=== PATIENT | male | born 1980 | race Two or more races ===

== ENCOUNTER 2017-08-23 17:29 | Inpatient (IN) | payer MEDICAID ==
[~2017-08-23] VITALS: Ht 182.9 cm; Wt 79.7 kg
[2017-08-23] MEDS ORDERED: SODIUM CHLORIDE 0.9% 1,000 ML IV ONE (18:08)
[2017-08-23 18:42] LABS: Basophils # (auto) 0.1 uL; Basophils % (auto) 0.5 % (0.0-2.0); Eosinophils # (auto) 0 uL; Hematocrit 50.1 % (41.0-53.0); Hemoglobin 16.9 g/dL (13.5-17.5); Lymphocytes # (auto) 0.4 uL; Lymphocytes % (auto) 1.9 % (10.0-50.0); Mean Corpuscular Hemoglobin 31.1 pg (28.0-32.0); Mean Corpuscular Hgb Conc. 33.8 g/dL (32.0-36.0); Mean Corpuscular Volume 92.2 fL (80.0-100.0); Monocytes # (auto) 1.4 uL; Monocytes % (auto) 6.5 % (0.0-12.0); Neutrophils # (auto) 20.1 uL; Neutrophils % (auto) 91.1 % (37.0-80.0); Nucleated Red Blood Cells % 0.4 %; Red Blood Cells 5.43 10^6/uL (4.5-5.90); Red Cell Distribution Width 12.6 % (11.8-14.3); White Blood Cell 22.1 10^3/uL (4.4-10.8)
[2017-08-23 18:53] LABS: Alanine Aminotransferase 16 U/L (16-61); Albumin 2.9 g/dL (3.4-5.0); Anion Gap 25 (5-15); Aspartate Aminotransferase 7 U/L (15-37); BUN/Creatinine Ratio 11.3; Blood Urea Nitrogen 14 mg/dL (7-18); Calcium 8.9 mg/dL (8.5-10.1); Chloride 93 mmol/L (98-107); GFR African American 84 mL/min; GFR Non-African American 69 mL/min; Glucose 355 mg/dL (74-106); Magnesium 2.2 mg/dL (1.6-2.6); Potassium 4.5 mmol/L (3.5-5.1); Sodium 126 mmol/L (136-145)
[2017-08-23 18:57] LABS: Alkaline Phosphatase 146 U/L (45-117); Bilirubin, Total 0.6 mg/dL (0.2-1.0)
[2017-08-23 19:02] LABS: Carbon Dioxide 8 mmol/L (21-32)
[2017-08-23] MEDS ORDERED: DEXTROSE (50%) 50ML SYRG IV PRN (19:15)
[2017-08-23] MEDS: ACCU-CHEK COMFORT CURVE STRIP VI SCH ×5 (19:15→23:23)
[2017-08-23] MEDS ORDERED: ONDANSETRON HCL 4 MG/2 ML VIAL ONE (19:56)
[2017-08-23] MEDS ORDERED: MORPHINE SULFATE 4 MG/ML SYR/VIAL ONE (19:56)
[2017-08-23] MEDS ORDERED: MORPHINE SULFATE 4 MG/ML SYR/VIAL IV ONE (20:00)
[2017-08-23] MEDS ORDERED: ONDANSETRON HCL 4 MG/2 ML VIAL IV ONE (20:00)
[2017-08-23 20:20] LABS: Platelet Count (auto) 238 10^3/uL (140-450)
[2017-08-23] MEDS: InsuLIN R (HUMAN) 100 UNITS in SODIUM CHL 0.9% 99 ML IV SCH (20:24)
[2017-08-24] MEDS: ACCU-CHEK COMFORT CURVE STRIP VI SCH ×24 (00:18→23:31)
[2017-08-24] MEDS ORDERED: ONDANSETRON HCL 4 MG/2 ML VIAL IV PRN (02:30)
[2017-08-24] MEDS ORDERED: HYDROcodone-ACET 5/325MG TAB PO PRN (02:30)
[2017-08-24 02:59] LABS: Urine WBC None Seen /hpf (0 - 3)
[2017-08-24 03:03] LABS: Basophils # (auto) 0.1 uL; Basophils % (auto) 0.4 % (0.0-2.0); Eosinophils # (auto) 0 uL; Eosinophils % (auto) 0.1 % (0.0-7.0); Hematocrit 40.5 % (41.0-53.0); Lymphocytes # (auto) 0.3 uL; Mean Corpuscular Hgb Conc. 34.6 g/dL (32.0-36.0); Mean Corpuscular Volume 89.6 fL (80.0-100.0); Monocytes # (auto) 1.3 uL; Monocytes % (auto) 8.4 % (0.0-12.0); Neutrophils # (auto) 14.4 uL; Neutrophils % (auto) 89.1 % (37.0-80.0); Platelet Count (auto) 190 10^3/uL (140-450); Red Blood Cells 4.52 10^6/uL (4.5-5.90); Red Cell Distribution Width 12.6 % (11.8-14.3); White Blood Cell 16.1 10^3/uL (4.4-10.8)
[2017-08-24 03:11] LABS: Urine Bacteria NONE SEEN /hpf (None Seen); Urine Blood TRACE /uL (Negative); Urine Hyaline Cast FEW /lpf (0 - 2); Urine Mucus FEW (None Seen); Urine Specific Gravity 1.022 (1.001-1.035)
[2017-08-24 07:22] LABS: BUN/Creatinine Ratio 13.3; Bilirubin, Total 0.5 mg/dL (0.2-1.0); Calcium 8.1 mg/dL (8.5-10.1); Potassium 4.1 mmol/L (3.5-5.1); Total Protein 6.7 g/dL (6.4-8.2)
[2017-08-24] MEDS: SODIUM CHLORIDE 0.9% 1,000 ML IV SCH ×2 (15:32→22:39)
[2017-08-24 16:29] LABS: BUN/Creatinine Ratio 11.8; Calcium 8.2 mg/dL (8.5-10.1); Potassium 3.5 mmol/L (3.5-5.1)
[2017-08-24 19:38] LABS: BUN/Creatinine Ratio 9.2; Calcium 8.6 mg/dL (8.5-10.1); Potassium 3.2 mmol/L (3.5-5.1)
[2017-08-24] MEDS: InsuLIN R (HUMAN) 100 UNITS in SODIUM CHL 0.9% 99 ML IV SCH (19:38)
[2017-08-24 23:11] LABS: Alcohol, Urine < 3.0 mg/dL (0-5); Amphetamine Screen, Urine NEGATIVE (NEGATIVE); Barbiturate Scree,Urine NEGATIVE (NEGATIVE); Benzodiazephine Screen, Urine NEGATIVE (NEGATIVE); Cannabinoid Screen, Urine NEGATIVE (NEGATIVE); Cocaine Screen, Urine NEGATIVE (NEGATIVE); Opiate Scree,Urine NEGATIVE (NEGATIVE); Phencyclidine Screen, Urine NEGATIVE (NEGATIVE)
[2017-08-25] MEDS: ACCU-CHEK COMFORT CURVE STRIP VI SCH ×16 (00:20→19:36)
[2017-08-25] MEDS ORDERED: IPRATROPIUM BROM 0.5 MG/2.5ML INH SOL NEB ONE (03:15)
[2017-08-25] MEDS ORDERED: ALBUTEROL SULF 2.5 MG/0.5ML(0.5%) NEB SOLN NEB ONE (03:15)
[2017-08-25 06:00] LABS: Basophils # (auto) 0 uL; Basophils % (auto) 0.2 % (0.0-2.0); Eosinophils # (auto) 0 uL; Eosinophils % (auto) 0.3 % (0.0-7.0); Hematocrit 34.9 % (41.0-53.0); Hemoglobin 12.2 g/dL (13.5-17.5); Lymphocytes # (auto) 0.7 uL; Lymphocytes % (auto) 5.7 % (10.0-50.0); Mean Corpuscular Hemoglobin 30.9 pg (28.0-32.0); Mean Corpuscular Hgb Conc. 34.9 g/dL (32.0-36.0); Mean Corpuscular Volume 88.5 fL (80.0-100.0); Monocytes # (auto) 1.3 uL; Monocytes % (auto) 9.7 % (0.0-12.0); Neutrophils # (auto) 10.9 uL; Neutrophils % (auto) 84.1 % (37.0-80.0); Platelet Count (auto) 190 10^3/uL (140-450); Red Blood Cells 3.94 10^6/uL (4.5-5.90); Red Cell Distribution Width 12.5 % (11.8-14.3); White Blood Cell 12.9 10^3/uL (4.4-10.8)
[2017-08-25 06:05] LABS: Calcium 8.6 mg/dL (8.5-10.1)
[2017-08-25 06:07] LABS: BUN/Creatinine Ratio 7.7
[2017-08-25 06:49] LABS: Potassium 2.9 mmol/L (3.5-5.1)
[2017-08-25] MEDS: SODIUM CHLORIDE 0.9% 1,000 ML IV SCH ×3 (06:53→23:40)
[2017-08-25] MEDS ORDERED: POTASSIUM CHL 20 Meq TABLET PO ONE ×2 (07:00→11:30)
[2017-08-25] MEDS: ACETAMINOPHEN 500 MG TAB PO PRN ×2 (10:35→20:21)
[2017-08-25 11:11] LABS: BUN/Creatinine Ratio 8.9; Calcium 8.2 mg/dL (8.5-10.1); Potassium 3.1 mmol/L (3.5-5.1)
[2017-08-25] MEDS ORDERED: INSULIN LANTUS (GLARGINE) 1 /0.01ml (100units/ml) SC ONE (11:30)
[2017-08-25] MEDS ORDERED: DEXTROSE (50%) 50ML SYRG IV PRN (12:45)
[2017-08-25] MEDS: InsuLIN REG 1unit/0.01ml Soln (100units/ml) SC SCH ×2 (16:40→19:41)
[2017-08-25 17:15] LABS: BUN/Creatinine Ratio 10.1; Potassium 3.5 mmol/L (3.5-5.1)
[2017-08-25] MEDS: InsuLIN R (HUMAN) 100 UNITS in SODIUM CHL 0.9% 99 ML IV SCH (17:18)
[2017-08-25] MEDS: INSULIN LANTUS (GLARGINE) 1 /0.01ml (100units/ml) SC SCH (21:55)
[2017-08-25] MEDS ORDERED: INSLANTI SC (23:36)
[2017-08-25] MEDS ORDERED: BENA5TAB5 PO (23:36)
[2017-08-25] MEDS ORDERED: SIMV10TA84 PO (23:36)
[2017-08-25] MEDS ORDERED: INSUINJ18 SC (23:36)
[2017-08-25] MEDS ORDERED: GABA-339 PO (23:36)
[2017-08-26] MEDS: ACCU-CHEK COMFORT CURVE STRIP VI SCH ×3 (00:25→08:34)
[2017-08-26] MEDS: InsuLIN REG 1unit/0.01ml Soln (100units/ml) SC SCH ×3 (00:27→08:00)
[2017-08-26 05:08] VITALS: BP 102/48
[2017-08-26] MEDS: INSULIN LANTUS (GLARGINE) 1 /0.01ml (100units/ml) SC SCH (06:25)
[2017-08-26] MEDS: ACETAMINOPHEN 500 MG TAB PO PRN (06:27)
[2017-08-26 06:37] LABS: Basophils # (auto) 0 uL; Basophils % (auto) 0.2 % (0.0-2.0); Eosinophils # (auto) 0 uL; Eosinophils % (auto) 0.4 % (0.0-7.0); Hematocrit 35.9 % (41.0-53.0); Hemoglobin 12.6 g/dL (13.5-17.5); Lymphocytes # (auto) 0.9 uL; Lymphocytes % (auto) 8.9 % (10.0-50.0); Mean Corpuscular Hemoglobin 31.1 pg (28.0-32.0); Mean Corpuscular Hgb Conc. 35.2 g/dL (32.0-36.0); Mean Corpuscular Volume 88.5 fL (80.0-100.0); Monocytes # (auto) 1.1 uL; Monocytes % (auto) 11.1 % (0.0-12.0); Neutrophils # (auto) 7.8 uL; Neutrophils % (auto) 79.4 % (37.0-80.0); Nucleated Red Blood Cells % 0.3 %; Platelet Count (auto) 230 10^3/uL (140-450); Red Blood Cells 4.06 10^6/uL (4.5-5.90); Red Cell Distribution Width 12.7 % (11.8-14.3); White Blood Cell 9.8 10^3/uL (4.4-10.8)
[2017-08-26 06:52] LABS: BUN/Creatinine Ratio 6.9; Calcium 8.1 mg/dL (8.5-10.1); Magnesium 1.9 mg/dL (1.6-2.6)
[2017-08-26 07:30] VITALS: BP 114/69
[2017-08-26 09:00] VITALS: BP 114/69
[2017-08-26] MEDS ORDERED: MAGNESIUM SULFATE 1GM/100ML 100 ML IV ONE (09:30)
[2017-08-26] MEDS ORDERED: DEXTROSE (50%) 50ML SYRG IV PRN (09:30)
[2017-08-26] MEDS ORDERED: POTASSIUM CHL 20 Meq TABLET PO ONE (09:30)
[2017-08-26] MEDS: SODIUM CHLORIDE 0.9% 1,000 ML IV SCH (09:45)
[2017-08-26] MEDS ORDERED: InsuLIN REG 1unit/0.01ml Soln (100units/ml) SC SCH (11:30)
[2017-08-26] MEDS ORDERED: ACCU-CHEK COMFORT CURVE STRIP VI SCH (11:30)
[2017-08-26] MEDS ORDERED: guaiFENesin 200 MG/10 ML UD PO ONE (12:45)
[2017-08-26] MEDS ORDERED: guaiFENesin-DM 100/10mg/5ml SYR PO ONE (12:45)
[2017-08-26 13:00] VITALS: BP 113/64
== END 2017-08-26 17:20 | disposition home or self-care (01) | DRG 420 ==
LOC: EDBD 17:29 → ER 17:48 → OVERFLOW 17:49 → WEST WING 08-25 22:10
PROVIDERS: ADMIT Nurse Practitioner Family; ATTEND Internal Medicine
DX: E11.10 Type 2 diabetes mellitus with ketoacidosis without coma (principal); E44.0 Moderate protein-calorie malnutrition; I10 Essential (primary) hypertension; E78.5 Hyperlipidemia, unspecified; D72.829 Elevated white blood cell count, unspecified; E87.6 Hypokalemia; F17.210 Nicotine dependence, cigarettes, uncomplicated; F15.90 Other stimulant use, unspecified, uncomplicated; Z91.19 Patient's noncompliance with other medical treatment and regimen; Z71.51 Drug abuse counseling and surveillance of drug abuser
CPT/HCPCS: 36415; 36600; 71045; 80048; 80053; 80061; 80307; 81001; 82010; 82805; 82962; 83036; 83735; 83880; 83930; 84484; 85025; 93005; 96361; 96374; 96375; 99291; G0378; J1815; J2405

== ENCOUNTER 2018-06-30 00:23 | Emergency (ER) | payer MEDICAID ==
[~2018-06-30] VITALS: Ht 182.9 cm; Wt 113.4 kg
[~2018-06-30 00:23] MED LIST: INSLANTI SC; INSUINJ18 SC; SIMV10TA84 PO
[2018-06-30 06:22] LABS: Basophils # (auto) 0 uL; Basophils % (auto) 0.2 % (0.0-2.0); Eosinophils # (auto) 0 uL; Eosinophils % (auto) 0.3 % (0.0-7.0); Hematocrit 41.1 % (41.0-53.0); Hemoglobin 13.7 g/dL (13.5-17.5); Lymphocytes # (auto) 0.4 uL; Lymphocytes % (auto) 4.7 % (10.0-50.0); Mean Corpuscular Hemoglobin 30.1 pg (28.0-32.0); Mean Corpuscular Hgb Conc. 33.3 g/dL (32.0-36.0); Mean Corpuscular Volume 90.6 fL (80.0-100.0); Monocytes # (auto) 0.5 uL; Monocytes % (auto) 5.7 % (0.0-12.0); Neutrophils # (auto) 7.7 uL; Neutrophils % (auto) 89.1 % (37.0-80.0); Platelet Count (auto) 171 10^3/uL (140-450); Red Blood Cells 4.53 10^6/uL (4.5-5.90); White Blood Cell 8.7 10^3/uL (4.4-10.8)
[2018-06-30 06:31] LABS: Albumin 3.1 g/dL (3.4-5.0); BUN/Creatinine Ratio 16.3; Calcium 7.9 mg/dL (8.5-10.1); Potassium 3.7 mmol/L (3.5-5.1)
[2018-06-30 06:33] LABS: Total Protein 6.7 g/dL (6.4-8.2)
[2018-06-30] MEDS ORDERED: KETOROLAC TROMETH 60MG/2ML VIAL IM ONE (09:15)
[2018-06-30] MEDS ORDERED: SODIUM CHLORIDE 0.9% 1,000 ML IV ONE ×2 (09:16)
[2018-06-30 09:20] LABS: Urine WBC None Seen /hpf (0 - 3)
[2018-06-30] MEDS ORDERED: InsuLIN REG 1unit/0.01ml Soln (100units/ml) IV ONE (09:30)
[2018-06-30 09:31] LABS: Urine Bacteria NONE SEEN /hpf (None Seen); Urine Blood Negative /uL (Negative); Urine Specific Gravity 1.037 (1.001-1.035)
[2018-06-30 11:01] VITALS: BP 108/66
== END 2018-06-30 11:16 | disposition home or self-care (01) ==
LOC: EDBD 00:23 → ER 00:29
DX: E11.65 Type 2 diabetes mellitus with hyperglycemia (principal); M79.604 Pain in right leg; M79.605 Pain in left leg; I10 Essential (primary) hypertension; F17.210 Nicotine dependence, cigarettes, uncomplicated; E78.5 Hyperlipidemia, unspecified; Z79.4 Long term (current) use of insulin; Z79.899 Other long term (current) drug therapy
CPT/HCPCS: 36415; 72100; 80053; 81001; 82010; 82962; 84702; 85025; 96361; 96372; 96374; 99284; J1815; J1885; J7030

== ENCOUNTER 2024-01-16 13:53 | Inpatient (IN) | payer MEDICAID ==
[~2024-01-16] VITALS: Ht 182.9 cm; Wt 95.8 kg
[~2024-01-16 13:53] MED LIST changes: +SIMV10TA20 PO; -SIMV10TA84 PO
[2024-01-16 14:56] VITALS: PULSE 96; RESP 18; O2SAT 96
[2024-01-16 16:14] LABS: Alanine Aminotransferase 12 U/L (7-40); Albumin 3.9 g/dL (3.2-4.8); Alkaline Phosphatase 117 U/L (46-116); Anion Gap 17 (5-15); Aspartate Aminotransferase 10 U/L (13-40); BUN/Creatinine Ratio 11.6 (10.0-20.0); Bilirubin, Total 0.3 mg/dL (0.2-1.0); Blood Urea Nitrogen 15 mg/dL (9-23); Calcium 9.9 mg/dL (8.7-10.4); Carbon Dioxide 15 mmol/L (20-30); Chloride 105 mmol/L (98-107); Glucose 158 mg/dL (74-106); Potassium 3.7 mmol/L (3.5-5.1); Sodium 137 mmol/L (136-145); Total Protein 7.2 g/dL (5.7-8.2)
[2024-01-16 16:23] LABS: Basophils # (auto) 0 10 ^3/uL (0-0.2); Basophils % (auto) 0.3 % (0.0-2.0); Eosinophils # (auto) 0.4 10 ^3/uL (0-0.8); Eosinophils % (auto) 6.5 % (0.0-7.0); Hematocrit 48.5 % (41.0-53.0); Hemoglobin 16.9 g/dL (13.5-17.5); Lymphocytes # (auto) 1.1 10 ^3/uL (0.4-5.4); Lymphocytes % (auto) 19.2 % (10.0-50.0); Mean Corpuscular Hemoglobin 30.3 pg (28.0-32.0); Mean Corpuscular Hgb Conc. 34.9 g/dL (32.0-36.0); Mean Corpuscular Volume 86.9 fL (80.0-100.0); Monocytes # (auto) 0.8 10 ^3/uL (0-1.3); Monocytes % (auto) 14.1 % (0.0-12.0); Neutrophils # (auto) 3.4 10 ^3/uL (1.6-8.6); Neutrophils % (auto) 59.9 % (37.0-80.0); Nucleated Red Blood Cells % 0.8 %; Red Blood Cells 5.58 10^6/uL (4.5-5.90); Red Cell Distribution Width 13.1 % (11.8-14.3); White Blood Cell 5.6 10^3/uL (4.4-10.8)
[2024-01-16] MEDS ORDERED: ONDANSETRON HCL 4 MG/2 ML VIAL IV PRN (17:15)
[2024-01-16] MEDS ORDERED: DOCUSATE SOD 100 MG CAP PO PRN (17:15)
[2024-01-16] MEDS: SODIUM CHLORIDE 0.9% 1,000 ML IV SCH (17:15)
[2024-01-16] MEDS ORDERED: HYDROcodone-ACET 5/325MG TAB PO PRN (17:15)
[2024-01-16] MEDS ORDERED: DEXTROSE (50%) 50ML SYRG IV PRN (17:15)
[2024-01-16] MEDS ORDERED: MORPHINE SULFATE INJ 2 MG/ml SYRG IV PRN (17:45)
[2024-01-16] MEDS ORDERED: NITROGLYCERIN 0.4 MG SL TAB SL PRN (17:45)
[2024-01-16] MEDS: InsuLIN REG 1unit/0.01ml Soln (100units/ml) SC SCH (22:00)
[2024-01-16] MEDS: ATORVASTATIN 20 MG TAB PO SCH (22:00)
[2024-01-16] MEDS: ACCU-CHEK COMFORT CURVE STRIP VI SCH (22:00)
[2024-01-16 22:45] VITALS: BP 119/79; PULSE 90; RESP 18; TEMP 97.7; O2SAT 94
[2024-01-16 22:55] VITALS: PULSE 90; RESP 18; O2SAT 94
[2024-01-16] MEDS ORDERED: FLUO40CA PO (23:17)
[2024-01-17] VITALS (9 sets, daily range): BP systolic 111–126; BP diastolic 67–77; PULSE 62–89; RESP 18–19; TEMP 97.7–98.8; O2SAT 91–99
[2024-01-17] MEDS: InsuLIN REG 1unit/0.01ml Soln (100units/ml) SC SCH (06:30)
[2024-01-17 07:02] LABS: Alanine Aminotransferase < 9 U/L (7-40); Alkaline Phosphatase 99 U/L (46-116); Anion Gap 17 (5-15); Basophils # (auto) 0 10 ^3/uL (0-0.2); Basophils % (auto) 0.4 % (0.0-2.0); Blood Urea Nitrogen 10 mg/dL (9-23); Calcium 9.2 mg/dL (8.7-10.4); Carbon Dioxide 16 mmol/L (20-30); Chloride 100 mmol/L (98-107); Eosinophils # (auto) 0.3 10 ^3/uL (0-0.8); Eosinophils % (auto) 7.5 % (0.0-7.0); Glucose 230 mg/dL (74-106); Hematocrit 44.1 % (41.0-53.0); Hemoglobin 15.6 g/dL (13.5-17.5); Lymphocytes # (auto) 1.7 10 ^3/uL (0.4-5.4); Lymphocytes % (auto) 36.3 % (10.0-50.0); Mean Corpuscular Hemoglobin 30.6 pg (28.0-32.0); Mean Corpuscular Hgb Conc. 35.4 g/dL (32.0-36.0); Mean Corpuscular Volume 86.2 fL (80.0-100.0); Monocytes # (auto) 0.7 10 ^3/uL (0-1.3); Monocytes % (auto) 15.8 % (0.0-12.0); Neutrophils # (auto) 1.8 10 ^3/uL (1.6-8.6); Nucleated Red Blood Cells % 0.8 %; Red Blood Cells 5.12 10^6/uL (4.5-5.90); Red Cell Distribution Width 13.8 % (11.8-14.3); Sodium 133 mmol/L (136-145); White Blood Cell 4.6 10^3/uL (4.4-10.8)
[2024-01-17 07:03] LABS: Albumin 3.4 g/dL (3.2-4.8); Aspartate Aminotransferase < 8 U/L (13-40); Bilirubin, Total 0.5 mg/dL (0.2-1.0); Total Protein 6.7 g/dL (5.7-8.2)
[2024-01-17 08:25] LABS: Urine Bacteria None Seen /hpf (None Seen)
[2024-01-17 09:06] LABS: Amphetamine Screen, Urine Neg (NEGATIVE); Barbiturate Scree,Urine Neg (NEGATIVE); Benzodiazephine Screen, Urine Neg (NEGATIVE); Cannabinoid Screen, Urine Neg (NEGATIVE); Cocaine Screen, Urine Neg (NEGATIVE); Opiate Scree,Urine Neg (NEGATIVE); Phencyclidine Screen, Urine Neg (NEGATIVE)
[2024-01-17 09:08] LABS: Urine Blood Negative /uL (Negative); Urine Clarity Clear (Clear); Urine Color Light-Yellow (Yellow); Urine Mucus FEW (None Seen); Urine Protein, UAD TRACE (Negative); Urine Urobilinogen Normal (Negative); Urine WBC 3 /hpf (0 - 3); Urine pH 5.5 (5.0-9.0)
[2024-01-17 09:16] LABS: Urine Specific Gravity > 1.050 (1.001-1.035)
[2024-01-17] MEDS: ASPirin 81 mg TAB PO SCH (11:14)
[2024-01-17 14:54] LABS: Blood Alcohol < 3.0 mg/dL (<10)
[2024-01-17 14:56] LABS: Creatine Kinase IFCC 32 U/L (46-171)
[2024-01-17] MEDS: POTASSIUM CHL 20 Meq TABLET PO ONE (15:19)
[2024-01-18] VITALS (10 sets, daily range): BP systolic 108–117; BP diastolic 62–75; PULSE 62–89; RESP 16–19; TEMP 97.1–98.4; O2SAT 98–100
[2024-01-18] MEDS ORDERED: DEXTROSE (50%) 50ML SYRG IV PRN (09:45)
[2024-01-18] MEDS: InsuLIN REG 1unit/0.01ml Soln (100units/ml) SC SCH ×2 (10:34→21:03)
[2024-01-18] MEDS: SODIUM CHLORIDE 0.9% 1,000 ML IV SCH (10:35)
[2024-01-18] MEDS: ACCU-CHEK COMFORT CURVE STRIP VI SCH (10:41)
[2024-01-18] MEDS: INSULIN LANTUS (GLARGINE) 1 /0.01ml (100units/ml) SC SCH (21:03)
[2024-01-19 01:00] VITALS: BP 124/73; PULSE 75; RESP 18; TEMP 97.9; O2SAT 98
[2024-01-19 05:00] VITALS: BP 141/73; PULSE 68; RESP 19; TEMP 97.4; O2SAT 98
[2024-01-19] MEDS: ACETAMINOPHEN 325 MG TAB PO PRN (05:35)
[2024-01-19 08:00] VITALS: PULSE 79; PULSE 86; RESP 19; O2SAT 98
[2024-01-19 09:00] VITALS: BP 118/64; PULSE 66; RESP 16; TEMP 98; O2SAT 99
[2024-01-19 09:52] VITALS: BP 118/64; PULSE 66; RESP 16; TEMP 97.2; O2SAT 99
== END 2024-01-19 11:30 | disposition home or self-care (01) | DRG 422 ==
LOC: ER 13:53 → TELE 17:43 → TELE-EAST 20:08
PROVIDERS: ADMIT Nurse Practitioner Family; ATTEND Family Medicine
DX: E86.0 Dehydration (principal); G93.41 Metabolic encephalopathy; E10.65 Type 1 diabetes mellitus with hyperglycemia; E87.20 Acidosis, unspecified; F17.210 Nicotine dependence, cigarettes, uncomplicated; F41.9 Anxiety disorder, unspecified; I10 Essential (primary) hypertension; E78.00 Pure hypercholesterolemia, unspecified; R82.4 Acetonuria; Z79.4 Long term (current) use of insulin; Z79.899 Other long term (current) drug therapy
CPT/HCPCS: 36415; 36600; 70450; 71045; 80053; 80307; 80320; 81001; 82010; 82550; 82805; 82962; 83036; 85025; 93005; 96360; G0378; J1815

== ENCOUNTER 2024-05-22 13:28 | Inpatient (IN) | payer MEDICAID ==
[~2024-05-22] VITALS: Ht 182.9 cm; Wt 82.1 kg
[~2024-05-22 13:28] MED LIST changes: +FLUO40CA PO
--- NOTE | 2024-05-22 13:51 | ED.PDOC ---
History of Present Illness HPI Comments 44-year-old male brought by paramedics because of nausea vomiting for the past two days. He has not been taking his NovoLog for his diabetes. His blood sugar on arrival was 460 His heart rate is 105 on arrival. He has increased respiratory rate. He does have a history of hypertension. Blood pressure withi n normal limits on arrival. Unable to get a good history from the patient. Time Seen by MD: 13:34 Primary Care Provider: ? Reviewed Notes: Nurses Notes, Medications, Allergies Allergies: Coded Allergies: NO KNOWN ALLERGIES (Unverified , 09/06/13) Home Meds Reported Medications Fluoxetine Hcl (Fluoxetine Hcl) Unknown Strength Cap, PO 01/16/24 Insulin Glargine (Lantus) 100 Unit/Ml Inj, 40 UNIT SC DAILY@DINNER, INJ 01/18/18 Simvastatin (Simvastatin) 10 Mg Tab, 10 MG PO DAILY for 30 Days, MG 08/25/17 Insulin Aspart Protamine & Asp (Novolog Mix 70/30 Prefill (70-30) 100 Unit/ml) 1 Inj Inj, 1 INJ SC, INJ 08/25/17 Information Source: Patient, Emergency Med Personnel Mode of Arrival: EMS Severity: Moderate Timing: Days Duration: Since onset Past Medical History PAST MEDICAL HISTORY: DM, High Lipids, HTN Surgical History: Pt Confused Family History Family History: Unknown Social History Smoker: Cigarettes, Less Than 1 Pack/Day Alcohol: Denies ETOH Use Drugs: Methamphetamine Lives In: Home Constitutional: denies: chills, diaphoresis, fatigue, fever, malaise, sweats, weakness, others EENTM: denies: blurred vision, double vision, ear bleeding, ear discharge, ear drainage, ear pain, ear ringing, eye pain, eye redness, hearing loss, mouth pain, mouth swelling, nasal discharge, nose bleeding, nose congestion, nose pain, photophobia, tearing, throat pain, throat swelling, voice changes, others Respiratory: denies: cough, hemoptysis, orthopnea, SOB at rest, shortness of breath, SOB with excertion, stridor, wheezing, others Cardiovascular: denies: chest pain, dizzy spells, diaphoresis, Dyspnea on ex ertion, edema, irregular heart beat, left arm pain, lightheadedness, palpitations, PND, syncope, others Gastrointestinal: reports: nausea, vomiting; denies: abdomen distended, abdominal pain, blood streaked bowels, constipated, diarrhea, dysphagia, difficulty swallowing, hematemesis, melena, poor appetite, poor fluid intake, rectal bleeding, rectal pain, others Genitourinary: denies: burning, dysuria, flank pain, frequency, hematuria, incontinence, penile discharge, penile sore, pain, testicle pain, testicle swelling, urgency, others Neurological: denies: dizziness, fainting, headache, left sided numbness, left sided weakness, numbness, paresthesia, pre-existing deficit, right sided numbness, right sided weakness, seizure, speech problems, tingling, tremors, weakness, others Musculoskeletal: denies: back pain, gout, joint pain, joint swelling, muscle pain, muscle stiffness, neck pain, others Integumetry: denies: bruises, change in color, change in hair/nails, dryness, laceration, lesions, lumps, rash, wounds, others Allergic/Immunocompromised: denies: Difficulty Healing, Frequent Infections, Hives, Itching, others Hematologic/Lymphatic: denies: anemia, blood clots, easy bleeding, easy bruising, swollen glands, others Endocrine: denies: excessive hunger, excessive sweating, excessive thirst, excessive urination, flushing, intolerance to cold, intolerance to heat, unexplained weight gain, unexplained weight loss, others Psychiatric: denies: anxiety, bipolar disorder, depression, hopeless, panic disorder, schizophrenia, sleepless, suicidal, others Physical Exam General Appearance: Moderate Distress HEENT: Normal ENT Inspection, Pharynx Normal, TMs Normal Neck: Full Range of Motion, Non-Tender, Normal, Normal Inspection Respiratory: Accessory Muscle Use, Other (Increased respiratory rate) Cardiovascular: Tachycardia Breast Exam: Deferred Gastrointestinal: No Organomegaly, Non Tender, No Pulsatile Mass, Normal Bowel Sounds, Soft Genitalia: Deferred Pelvic: Deferred Rectal: Deferred Extremities: No calf tenderness, Normal capillary refill, Normal inspection, Normal range of motion, Non-tender, No pedal edema Musculoskeletal : Apperance: Normal Neurologic: Disoriented, No Motor Deficits, No Sensory Deficits Cerebellar Function: NOT DONE Reflexes: NOT DONE Skin: Normal Color Peripheral Pulses: 3+ Radial (R), 3+ Radial (L) Lymphatic: No Adenopathy Was a procedure done? Was a procedure done?: No Differential Dx Considerations may include: DKA Electrolyte imbalance X-Ray, Labs, Meds, VS Patient is slightly disoriented. Possibly from high sugar. Possible DKA. Establish intravenous access. Was given fluids. Was given insulin. Arterial blood gas. Reviewed his history. Explained to the patient. Time of 1ST Reevaluation: 13:37 Reevaluation 1ST: Unchanged Patient Education/Counseling: Diagnosis, Treatment, Prognosis Family Education/Counseling: No Family Present Departure 1 Departure Time of Disposition: 13:38 Impression: Primary Impression: Metabolic encephalopathy Additional Impression: Diabetic ketoacidosis Qualified Codes: E13.10 - Other specified diabetes mellitus with ketoacidosis without coma Disposition: ADMITTED INPATIENT Admit to: Med Surg Condition: Guarded Critical Care Note Critical Care Time?: Yes (45 min-critical care time only) Stability Stability form required: No Heart Score Heart Score: Heart Score Response (Comments) Value History N/A 0 EKG N/A 0 Age N/A 0 Risk Factors N/A 0 Troponin N/A 0 Total 0 NICKY HUANG MD May 22, 2024 13:51
[2024-05-22] MEDS ORDERED: DEXTROSE (50%) 50ML SYRG IV PRN (14:00)
[2024-05-22 14:32] LABS: Basophils # (auto) 0.1 10 ^3/uL (0-0.2); Basophils % (auto) 0.5 % (0.0-2.0); Eosinophils # (auto) 0 10 ^3/uL (0-0.8); Eosinophils % (auto) 0.1 % (0.0-7.0); Hemoglobin 16.6 g/dL (13.5-17.5); Lymphocytes # (auto) 0.8 10 ^3/uL (0.4-5.4); Lymphocytes % (auto) 6.2 % (10.0-50.0); Mean Corpuscular Hemoglobin 30.6 pg (28.0-32.0); Mean Corpuscular Hgb Conc. 33.2 g/dL (32.0-36.0); Mean Corpuscular Volume 92.4 fL (80.0-100.0); Monocytes # (auto) 0.5 10 ^3/uL (0-1.3); Monocytes % (auto) 4.1 % (0.0-12.0); Neutrophils # (auto) 11.9 10 ^3/uL (1.6-8.6); Neutrophils % (auto) 89.1 % (37.0-80.0); Nucleated Red Blood Cells % 0.5 %; Platelet Count (auto) 287 10^3/uL (140-450); Red Blood Cells 5.41 10^6/uL (4.5-5.90); Red Cell Distribution Width 14.5 % (11.8-14.3); White Blood Cell 13.3 10^3/uL (4.4-10.8)
[2024-05-22] MEDS: SODIUM CHLORIDE 0.9% 1,000 ML IV SCH ×2 (14:41→17:55)
[2024-05-22 14:42] LABS: Chloride 107 mmol/L (98-107); Potassium 4.8 mmol/L (3.5-5.1); Sodium 138 mmol/L (136-145)
[2024-05-22] MEDS: INSULIN LANTUS (GLARGINE) 1 /0.01ml (100units/ml) SC ONE (14:42)
[2024-05-22 14:43] LABS: Anion Gap 21.00001 (5-15); Calcium 10.3 mg/dL (8.7-10.4)
[2024-05-22 14:48] LABS: Blood Urea Nitrogen 12 mg/dL (9-23)
[2024-05-22 14:49] LABS: Magnesium 2.3 mg/dL (1.6-2.6)
[2024-05-22 14:50] LABS: Phosphorus 5.4 mg/dL (2.4-5.1)
[2024-05-22 14:53] VITALS: PULSE 110; RESP 24; O2SAT 98
[2024-05-22 14:53] LABS: Carbon Dioxide < 10 mmol/L (20-31); Glucose 504 mg/dL (74-106)
[2024-05-22] MEDS: SODIUM BICARB 8.4% 50Meq/50ml SYR Vial IV ONE (15:09)
[2024-05-22] MEDS: ACCU-CHEK COMFORT CURVE STRIP VI SCH (15:09)
[2024-05-22] MEDS: INSULIN DRIP 100 UNIT/100ML 100 ML IV SCH (15:09)
--- NOTE | 2024-05-22 15:24 | DVHHP2 ---
History of Present Illness Reason for Visit: Diabetic ketoacidosis History of Present Illness The patient is a 44-year-old male with past medical history of hyperlipidemia, diabetes mellitus, and hypertension who presented to [facility] ED with complaint of nausea and vomiting for the past 2 days. Patient was seen and evaluated in the ED, laboratory data shows WBC 13.3, platelets 257, sodium 138, potassium 4.8, BUN 12, creatinine 1.72, glucose 504, anion gap 21, phosphorus 5.4, blood pressure 116/67, heart rate 104, temperature 97.6 F, O2 saturation 99% on oxygen. Patient was started on insulin drip, IVF bolus normal saline, please see medication orders section in the computer. On my assessment, patient denied chest pain, no headache, no dizziness, no diaphoresis, no loss of consciousness, no blurry vision, currently on oxygen, no abdominal pain, nausea, or vomiting at this moment, no diarrhea, no fever, no chills. Patient was admitted for further evaluation and medical management. Past Medical History DM, High Lipids, HTN Past Surgical History Denies all surgeries Family History Reviewed, noncontributory to the management of this case. Past Social History Patient lives at home, denies alcohol use, smokes cigarettes less than 1 pack per day, uses methamphetamine. Review of Systems Constitutional: Yes: Weakness; No: Fever, Chills, Sweats, Malaise, Other Eyes: No: Pain, Vision change, Conjunctivae inflammation, Eyelid inflammation, Other, Redness ENT: No: Ear pain, Ear discharge, Nose pain, Nose discharge, Nose congestion, Mouth pain, Mouth swelling, Throat pain, Throat swelling, Other Respiratory: No: Cough, Dry, Shortness of breath, SOB with excertion, Wheezing, Hemoptysis, Pleuritic Pain, Sputum, Wheezing, Other Cardiovascular: No: Chest Pain, Palpitations, Orthopnea, Paroxysmal Noc. Dyspnea, Edema, Lt Headedness, Other Gastrointestinal: Nausea, Vomiting; No: Abdominal Pain, Diarrhea, Constipation, Melena, Hematochezia, Other Genitourinary: No Dysuria, No Frequency, No Incontinence, No Hematuria, No Retention, No Other Musculoskeletal: No: other, neck pain, shoulder pain, arm pain, back pain, hand pain, leg pain, foot pain Skin: No: Rash, Lesions, Jaundice, Bruising, Other Neurological: No: Weakness, Numbness, Incoordination, Change in speech, Confusion, Seizures, Other Allergies: Coded Allergies: NO KNOWN ALLERGIES (Unverified , 09/06/13) Medications Current Medications Medications Dose Ordered Sig/Leandro Route Start Time Stop Time Status Last Admin Dose Admin Sodium Chloride 1,000 ml @ 500 mls/hr Q2H IV 05/22/24 14:00 05/22/24 17:59 05/22/24 14:41 500 MLS/HR Sodium Chloride 1,000 ml @ 250 mls/hr Q4H IV 05/22/24 18:00 05/22/24 19:59 Sodium Chloride 1,000 ml @ 150 mls/hr Q6H40M IV 05/22/24 20:00 Insulin Human (Reg)/Sodium Chloride 100 ml @ 0.5 mls/hr Q24H IV 05/22/24 14:00 05/22/24 15:09 6 MLS/HR Dextrose 50 ml UD PRN IV 05/22/24 14:00 Diagnostic Test (Pha) 1 strip Q90MIN 05/22/24 15:00 05/22/24 15:09 1 STRIP Insulin Glargine 15 units DAILY SC 05/23/24 10:00 Exam Vital Signs Vital Signs Date Time Temp Pulse Resp B/P (MAP) Pulse Ox O2 Delivery O2 Flow Rate FiO2 05/22/24 13:40 97.6 105 26 116/67 (83) 100 General Appearance: Alert, Oriented X3, Cooperative, No acute distress HEENT: Atraumatic, PERRLA, EOMI, Mucous membr. moist/pink Respiratory: Clear to auscultation, Normal air movement Cardiovascular: Regular rate, Normal S1, Normal S2, No murmurs Abdominal: Normal bowel sounds, Soft, No tenderness, No hepatospenomegaly, No masses Extremities: No clubbing, No cyanosis, No edema, Normal pulses, No tenderness/swelling Skin: No rashes, No breakdown, No significant lesion Neuro: Normal speech, Normal tone, Sensation intact, Cranial nerves 3-12 NL, Reflexes 2+, Other (Generalized weakness) Psych/Mental Status: Mental status NL, Mood NL Labs/Xrays Labs Test 05/22/24 14:15 05/22/24 14:09 Range/Units White Blood Count 13.3 H 4.4-10.8 10^3/uL Red Blood Count 5.41 4.5-5.90 10^6/uL Hemoglobin 16.6 13.5-17.5 g/dL Hematocrit 50.0 41.0-53.0 % Mean Corpuscular Volume 92.4 80.0-100.0 fL Mean Corpuscular Hemoglobin 30.6 28.0-32.0 pg Mean Corpuscular Hemoglobin Concent 33.2 32.0-36.0 g/dL Red Cell Distribution Width 14.5 H 11.8-14.3 % Platelet Count 287 140-450 10^3/uL Mean Platelet Volume 8.6 6.9-10.8 fL Neutrophils (%) (Auto) 89.1 H 37.0-80.0 % Lymphocytes (%) (Auto) 6.2 L 10.0-50.0 % Monocytes (%) (Auto) 4.1 0.0-12.0 % Eosinophils (%) (Auto) 0.1 0.0-7.0 % Basophils (%) (Auto) 0.5 0.0-2.0 % Neutrophils # (Auto) 11.9 H 1.6-8.6 10 ^3/uL Lymphocytes # (Auto) 0.8 0.4-5.4 10 ^3/uL Monocytes # (Auto) 0.5 0-1.3 10 ^3/uL Eosinophils # (Auto) 0 0-0.8 10 ^3/uL Basophils # (Auto) 0.1 0-0.2 10 ^3/uL Nucleated Red Blood Cells 0.5 % Sodium Level 138 136-145 mmol/L Potassium Level 4.8 3.5-5.1 mmol/L Chloride Level 107 98-107 mmol/L Carbon Dioxide Level < 10 *L 20-31 mmol/L Anion Gap 21.56706 H 5-15 Blood Urea Nitrogen 12 9-23 mg/dL Creatinine 1.72 H 0.700-1.30 mg/dL Glomerular Filtration Rate Calc 49 >90 mL/min BUN/Creatinine Ratio 7.0 L 10.0-20.0 Serum Glucose 504 *H 74-106 mg/dL Calcium Level 10.3 8.7-10.4 mg/dL Phosphorus Level 5.4 H 2.4-5.1 mg/dL Magnesium Level 2.3 1.6-2.6 mg/dL Blood Gas Specimen Type Arterial Blood Gas Sample Site Left radial Blood Gas Patient Temperature 37.0 Arterial Blood Date Drawn [id number] Arterial Blood pH 7.087 *L 7.350-7.450 Arterial Blood Partial Pressure CO2 < 12.6 *L 35.0-48.0 mmHg Arterial Blood Partial Pressure O2 129.6 H 83.0-108.0 mmHg Arterial Blood Oxygen Saturation 97.9 94.0-98.0 % Arterial Blood Oxyhemoglobin 96.9 94.0-98.0 % Arterial Blood Carboxyhemoglobin 0.4 L 0.5-1.5 % Arterial Blood Methemoglobin 0.6 0.0-1.5 % Ronny Test Yes Blood Gas Total Hemoglobin 16.20 13.5-17.5 g/dL Blood Gas Modality Room air FiO2 % 21.0 Blood Gas Comments Co2 out of amr Blood Gas Critical Value Read Back Yes Blood Gas Notified Whom Bill harrison md Blood Gas Notified Time [id number] Blood Gas Notified By Mobile Service Rv Technician t darling Assessment/Plan Assessment/Plan Metabolic encephalopathy Diabetic ketoacidosis Acute renal injury Hypophosphatemia Nausea and vomiting Generalized weakness Leukocytosis, unspecified Other specified diabetes mellitus with ketoacidosis without coma Plan 1. Admit to intensive care unit 2. Breathing treatment 3. Pain control management 4. IV antibiotic management 5. Management of fluids and electrolytes 6. Consultation for hospitalist 7. Diagnostic test chest x-ray 8. DVT prophylaxis on SCDs 9. Repeat labs CBC, CMP in a.m. 10. Home medication reviewed and reconciled 11. Continue with current medical management 12. Treatment plan discussed with patient and RN. Patient verbalized understanding. Plan discussed with: Patient, Other (RN) Problem List: (1) Diabetic ketoacidosis (2) Hypophosphatemia (3) Acute renal injury (4) Metabolic encephalopathy (5) Leukocytosis, unspecified (6) Nausea and vomiting (7) Generalized weakness (8) Other specified diabetes mellitus with ketoacidosis without coma Date of Service: May 22, 2024 Billing Provider: LEXI DURHAM DNP Common Visit Codes: [id number] INP/OBS CARE (HIGH) LEXI DURHAM DNP May 22, 2024 15:24
[2024-05-22] MEDS ORDERED: DOCUSATE SOD 100 MG CAP PO PRN (15:30)
[2024-05-22] MEDS ORDERED: NITROGLYCERIN 0.4 MG SL TAB SL PRN (15:30)
[2024-05-22] MEDS ORDERED: HYDROcodone-ACET 5/325MG TAB PO PRN (15:30)
[2024-05-22] MEDS ORDERED: MORPHINE SULFATE INJ 2 MG/ml SYRG IV PRN (15:30)
[2024-05-22] MEDS ORDERED: ACETAMINOPHEN 325 MG TAB PO PRN (15:30)
[2024-05-22] MEDS: cefTRIAXone 1GM/50ML D5W 50 ML IV ONE (16:24)
[2024-05-22 19:30] VITALS: PULSE 103; RESP 16; O2SAT 100
[2024-05-22] MEDS ORDERED: SODIUM CHLORIDE 0.9% 1,000 ML IV SCH (20:00)
[2024-05-22 20:21] LABS: Chloride 114 mmol/L (98-107); Potassium 4.6 mmol/L (3.5-5.1); Sodium 144 mmol/L (136-145)
[2024-05-22 20:22] LABS: Anion Gap 20.00001 (5-15)
[2024-05-22 20:27] LABS: BUN/Creatinine Ratio 8.3 (10.0-20.0); Blood Urea Nitrogen 12 mg/dL (9-23)
[2024-05-22 20:48] LABS: Glucose 273 mg/dL (74-106)
[2024-05-22 20:51] LABS: Carbon Dioxide < 10 mmol/L (20-31)
[2024-05-22] MEDS: D5W/SOD CHLO 0.9% 1,000 ML IV SCH (21:00)
[2024-05-23] VITALS (8 sets, daily range): BP systolic 106–133; BP diastolic 61–68; PULSE 85–103; RESP 16–18; TEMP 98.9; O2SAT 98–100
[2024-05-23] MEDS: SODIUM PHOSPHATES 20 MEQ in SODIUM CHL 0.9% 100 ML IV ONE (00:02)
[2024-05-23] MEDS: ONDANSETRON HCL 4 MG/2 ML VIAL IV PRN (00:39)
[2024-05-23 02:06] LABS: Chloride 117 mmol/L (98-107); Potassium 3.6 mmol/L (3.5-5.1); Sodium 146 mmol/L (136-145)
[2024-05-23 02:07] LABS: Anion Gap 16 (5-15); Calcium 8.9 mg/dL (8.7-10.4); Carbon Dioxide 13 mmol/L (20-31)
[2024-05-23 02:12] LABS: BUN/Creatinine Ratio 9.1 (10.0-20.0); Blood Urea Nitrogen 11 mg/dL (9-23); Glucose 277 mg/dL (74-106)
[2024-05-23 05:40] LABS: Basophils # (auto) 0 10 ^3/uL (0-0.2); Basophils % (auto) 0.4 % (0.0-2.0); Eosinophils # (auto) 0 10 ^3/uL (0-0.8); Eosinophils % (auto) 0.1 % (0.0-7.0); Hematocrit 40.5 % (41.0-53.0); Hemoglobin 13.7 g/dL (13.5-17.5); Lymphocytes # (auto) 1.1 10 ^3/uL (0.4-5.4); Lymphocytes % (auto) 9.7 % (10.0-50.0); Mean Corpuscular Hemoglobin 30.7 pg (28.0-32.0); Mean Corpuscular Hgb Conc. 33.8 g/dL (32.0-36.0); Mean Corpuscular Volume 90.6 fL (80.0-100.0); Monocytes # (auto) 1.3 10 ^3/uL (0-1.3); Monocytes % (auto) 11.7 % (0.0-12.0); Neutrophils # (auto) 8.9 10 ^3/uL (1.6-8.6); Neutrophils % (auto) 78.1 % (37.0-80.0); Nucleated Red Blood Cells % 0.2 %; Platelet Count (auto) 208 10^3/uL (140-450); Red Blood Cells 4.47 10^6/uL (4.5-5.90); Red Cell Distribution Width 14.7 % (11.8-14.3); White Blood Cell 11.4 10^3/uL (4.4-10.8)
[2024-05-23 05:58] LABS: Albumin 3.2 g/dL (3.2-4.8); Alkaline Phosphatase 99 U/L (46-116); Anion Gap 14 (5-15); Aspartate Aminotransferase < 8 U/L (13-40); BUN/Creatinine Ratio 8.8 (10.0-20.0); Bilirubin, Total 0.3 mg/dL (0.2-1.0); Blood Urea Nitrogen 10 mg/dL (9-23); Calcium 9.5 mg/dL (8.7-10.4); Carbon Dioxide 15 mmol/L (20-31); Chloride 118 mmol/L (98-107); Glucose 181 mg/dL (74-106); Potassium 3.7 mmol/L (3.5-5.1); Sodium 147 mmol/L (136-145); Total Protein 6.2 g/dL (5.7-8.2)
[2024-05-23 06:09] LABS: Alanine Aminotransferase < 9 U/L (7-40)
[2024-05-23] MEDS ORDERED: DEXTROSE (50%) 50ML SYRG IV PRN (06:45)
[2024-05-23] MEDS: ACCU-CHEK COMFORT CURVE STRIP VI SCH (08:00)
[2024-05-23] MEDS: InsuLIN REG 1unit/0.01ml Soln (100units/ml) SC SCH (08:00)
[2024-05-23] MEDS: cefTRIAXone 1GM/50ML D5W 50 ML IV SCH (09:24)
[2024-05-23 10:25] LABS: Chloride 119 mmol/L (98-107); Potassium 3.4 mmol/L (3.5-5.1); Sodium 149 mmol/L (136-145)
[2024-05-23 10:26] LABS: Anion Gap 12 (5-15); Carbon Dioxide 18 mmol/L (20-31)
[2024-05-23 10:27] LABS: Calcium 9.3 mg/dL (8.7-10.4)
[2024-05-23] MEDS: INSULIN LANTUS (GLARGINE) 1 /0.01ml (100units/ml) SC SCH (10:28)
[2024-05-23 10:31] LABS: BUN/Creatinine Ratio 10.9 (10.0-20.0); Blood Urea Nitrogen 12 mg/dL (9-23); Glucose 184 mg/dL (74-106)
[2024-05-23 11:03] LABS: Urine Bacteria None Seen /hpf (None Seen)
[2024-05-23 11:20] LABS: Urine Blood Negative /uL (Negative); Urine Clarity Clear (Clear); Urine Color Yellow (Yellow); Urine Protein, UAD 1+ (Negative); Urine Specific Gravity 1.029 (1.001-1.035); Urine Urobilinogen Normal (Negative); Urine WBC <1 /hpf (0 - 3)
[2024-05-23] MEDS ORDERED: POTASSIUM EFFERVESENT TAB 25 MEQ GT ONE (13:30)
--- NOTE | 2024-05-23 14:00 | DVH ---
EXAM: XY CHEST PORTABLE Indication:infection Technique: Single frontal view of the chest was obtained Comparison: XY CHEST PORTABLE on DOS: 01/16/24 FINDINGS: Lines and Tubes: None Lungs: No focal consolidation. Pleura: No effusion. No pneumothorax. Cardiomediastinal contours: Unremarkable Bones: No acute osseous abnormality. IMPRESSION: No acute cardiopulmonary disease.
[2024-05-23] MEDS: POTASSIUM EFFERVESENT TAB 25 MEQ PO ONE (14:54)
[2024-05-23 15:01] LABS: Chloride 117 mmol/L (98-107); Potassium 3.3 mmol/L (3.5-5.1)
[2024-05-23 15:02] LABS: Calcium 9.2 mg/dL (8.7-10.4); Carbon Dioxide 20 mmol/L (20-31)
[2024-05-23 15:07] LABS: BUN/Creatinine Ratio 11.3 (10.0-20.0); Blood Urea Nitrogen 12 mg/dL (9-23); Glucose 164 mg/dL (74-106)
[2024-05-23 15:45] LABS: Anion Gap 10 (5-15); Sodium 147 mmol/L (136-145)
[2024-05-23] MEDS: POTASSIUM CHLORIDE 60 MEQ, LIDOCAINE 1% (LOCAL ANESTH.) 6 ML in SODIUM CHL 0.9% 500 ML IV ONE (16:00)
--- NOTE | 2024-05-23 17:05 | DVHPNRES ---
Progress Note Date Seen: May 23, 2024 Resident Creating Document: QUOC MARCOS RESIDENT Has the PT tested + for MRSA If YES, has PT been informed?: No Medical Necessity Reason Pt with a Central, PICC or Fol: No Subjective Patient reports: No new complaints Changes from previous H/P or p: No Changes Review of Systems: HEENT:Normal, CVS:Normal, RESPIRATORY:Normal, GI:Normal, :Normal, MSK:Normal, NEURO:Normal Objective vital signs Vital Sign Date Time Temp Pulse Resp B/P (MAP) Pulse Ox O2 Delivery O2 Flow Rate FiO2 05/23/24 16:00 98.1 80 18 121/60 (80) 98 98.1 05/23/24 07:30 Room Air* 0 21 Total Intake and Output 05/22/24 05/22/24 05/23/24 15:00 23:00 07:00 Intake Total 2237.5 ml 1424.500 ml Output Total 850 ml Balance 2237.5 ml 574.500 ml medications Current Medications Medications Dose Ordered Sig/Leandro Route Start Time Stop Time Status Last Admin Dose Admin Insulin Glargine 15 units DAILY SC 05/23/24 10:00 05/23/24 10:28 15 UNITS Acetaminophen/ Hydrocodone Bitart 1 tab Q4HP PRN PO 05/22/24 15:30 Ondansetron HCl 4 mg Q4HP PRN IV 05/22/24 15:30 05/23/24 00:39 4 MG Docusate Sodium 100 mg BIDPRN PRN PO 05/22/24 15:30 Acetaminophen 650 mg Q6HP PRN PO 05/22/24 15:30 Nitroglycerin 0.4 mg Q5MINP PRN SL 05/22/24 15:30 Morphine Sulfate 2 mg Q30M PRN IV 05/22/24 15:30 Ceftriaxone Sodium 50 ml @ 100 mls/hr DAILY@ IV 05/23/24 09:00 05/23/24 09:24 100 MLS/HR Diagnostic Test (Pha) 1 strip IQ4HR 05/23/24 08:00 05/23/24 16:12 1 STRIP Insulin Human Regular IQ4HR SC 05/23/24 08:00 05/23/24 16:15 2 UNITS Dextrose 50 ml UD PRN IV 05/23/24 06:45 Fluoxetine HCl 20 mg DAILY PO 05/24/24 10:00 Examination: GENERAL:Normal, HEENT:Normal, NECK:Normal, LUNGS:Normal, CVS:Normal, ABDOMEN:Normal, MSK:Normal, SKIN:Normal, NEURO:Normal (Sleepy but arousable, now) laboratory and microbiology Laboratory Tests 05/23/24 14:30 05/23/24 05:12 Test 05/23/24 14:30 Range/Units Serum Glucose 164 H 74-106 mg/dL Labs and/or images reviewed: Labs reviewed by me, Image(s) reviewed by me Problem List/Assessment/Plan Problem List/Assessment/Plan Hospital Course: Mr. Wilson,a 44-year-old male with a history of hyperlipidemia, diabetes mellitus, and hypertension, presented to the ED with nausea and vomiting for two days. Lab results showed elevated glucose and creatinine levels, among other findings. He was started on an insulin drip and IV fluids. The patient denied any chest pain, headache, dizziness, or other acute symptoms during assessment. He was admitted for further evaluation and management. His past medical history includes diabetes, high lipids, and hypertension. He denies any past surgeries, has a noncontributory family history, and reports smoking less than a pack of cigarettes per day and using methamphetamine. # metabolic encephalopathy: Likely diabetic ketoacidosis and multisystem disorder with electrolyte disturbances., much improved, patient is still sleepy but alert orientedx3. # diabetic ketoacidosis: Blood positive for ketone bodies, uncontrolled diabetes, patient mentioned not having home insulin. # JUAN JOSE due to VMN, IV fluid to continue, overall dry, avoid nephrotoxic. Resolving. # hypophosphatemia: Replenished. Tomorrow we will check electrolytes. # nausea vomiting likely due to gastroenteritis versus diarrhea. # bipolar disorder: Continue lithium and the fluoxetine. Check home lithium for ruling out overdose. # productive cough: CXR unremarkable, checking other respiratory infections to rule out. COVID, flu ruled out. # Hypokalemia, mild: Replenished. Follow BMP. # Mild hypernatremia, adjusted for BG: Improving, patient is dehydrated we will give IV fluid for now. # uncontrolled diabetes mellitus HbA1c 12.8, patient at home lives by himself. Diabetic education done. Patient takes at home 60 Lantus and 25 t.i.d. short- term insulin at bedtime patient did not feel well but was not taking medications. # possible noncompliance. Patient is counseled. # DVT prophylaxis: SCDs # CC diet to continue. PCP: Does not follow. Could not tell. Barriers to discharge: Patient lives by himself, medically not stable. Case discussed with Dr. Medina. Code status: Full code. Complex patient care discussion needed total 39 minutes. Plan discussed with: Patient, Other (Primary team, RN.) My Orders My Orders Orders - QUOC MARCOS RESIDENT Procedure Category Date Status Time Chest Portable XY 05/23/24 Resulted 13:27 Urinalysis LAB 05/23/24 Logged 13:27 Drug Screen LAB 05/23/24 Logged 13:30 Covid19 Antigen Ijeoma LAB 05/23/24 Logged Rapid Influenza A&B LAB 05/23/24 Logged 15:53 Potassium Chloride PHA 05/23/24 In Process (Potassium Chloride). 16:00 Box (Eskalith) LAB 05/23/24 In Process 15:54 Fluoxetine Capsule PHA 05/24/24 In Process (Prozac Capsule) 10:00 Urine Bacterial GRETCHEN 05/23/24 Uncollected Culture 15:56 Date of Service: May 23, 2024 Billing Provider: RAMÍREZ MEDINA MD Common Visit Codes: [id number] INP/OBS CARE(HIGH) Coding Comment Comment Attending Attestation I saw and evaluated the patient. I reviewed the residents note and agree with findings and plan as documented in the residents note except as documented below. QUOC MARCOS RESIDENT May 23, 2024 17:05 RAMÍREZ MEDINA MD May 23, 2024 18:31
[2024-05-24 00:32] LABS: COVID19 ANTIGEN SOFIA FIA NEGATIVE (NEGATIVE); Rapid Influenza A Negative (Negative); Rapid Influenza B Negative (Negative)
[2024-05-24 01:55] VITALS: PULSE 80; RESP 14; O2SAT 98
[2024-05-24 08:00] VITALS: PULSE 71; RESP 16; O2SAT 99
[2024-05-24 08:20] LABS: Amphetamine Screen, Urine Pos (NEGATIVE); Barbiturate Scree,Urine Neg (NEGATIVE); Benzodiazephine Screen, Urine Neg (NEGATIVE); Cannabinoid Screen, Urine Neg (NEGATIVE); Cocaine Screen, Urine Neg (NEGATIVE); Opiate Scree,Urine Neg (NEGATIVE); Phencyclidine Screen, Urine Neg (NEGATIVE)
--- NOTE | 2024-05-24 08:50 | DVHPNRES ---
Progress Note Date Seen: May 24, 2024 Resident Creating Document: QUOC MARCOS RESIDENT Has the PT tested + for MRSA If YES, has PT been informed?: No Medical Necessity Reason Pt with a Central, PICC or Fol: No Subjective Review of Systems Saw the patient in the hallway, holding area and finally in the bedside in [place] Patient reports: No new complaints Changes from previous H/P or p: No Changes Review of Systems: HEENT:Normal, CVS:Normal, RESPIRATORY:Normal, GI:Normal, :Normal, MSK:Normal, NEURO:Normal (Noted tired and sleepy, denies any homicidal or suicidal ideation.) Objective vital signs Vital Sign Date Time Temp Pulse Resp B/P (MAP) Pulse Ox O2 Delivery O2 Flow Rate FiO2 05/24/24 06:00 73 17 122/77 (92) 99 05/24/24 01:55 Room Air* 0 21 05/23/24 19:30 98.2 98.2 medications Current Medications Medications Dose Ordered Sig/Leandro Route Start Time Stop Time Status Last Admin Dose Admin Insulin Glargine 15 units DAILY SC 05/23/24 10:00 05/23/24 10:28 15 UNITS Acetaminophen/ Hydrocodone Bitart 1 tab Q4HP PRN PO 05/22/24 15:30 Ondansetron HCl 4 mg Q4HP PRN IV 05/22/24 15:30 05/23/24 00:39 4 MG Docusate Sodium 100 mg BIDPRN PRN PO 05/22/24 15:30 Acetaminophen 650 mg Q6HP PRN PO 05/22/24 15:30 Nitroglycerin 0.4 mg Q5MINP PRN SL 05/22/24 15:30 Morphine Sulfate 2 mg Q30M PRN IV 05/22/24 15:30 Ceftriaxone Sodium 50 ml @ 100 mls/hr DAILY@09 IV 05/23/24 09:00 05/23/24 09:24 100 MLS/HR Diagnostic Test (Pha) 1 strip IQ4HR 05/23/24 08:00 05/24/24 04:00 1 STRIP Insulin Human Regular IQ4HR SC 05/23/24 08:00 05/24/24 03:59 3 UNITS Dextrose 50 ml UD PRN IV 05/23/24 06:45 Fluoxetine HCl 20 mg DAILY PO 05/24/24 10:00 Examination: GENERAL:Normal, HEENT:Normal, NECK:Normal, LUNGS:Normal, CVS:Normal, ABDOMEN:Normal, MSK:Normal, SKIN:Normal, NEURO:Normal (Agitated easily. Limited examination as patient's not completely compliant. Grossly no focal neurologic deficits), :Normal laboratory and microbiology Laboratory Tests 05/23/24 14:30 05/23/24 05:12 Test 05/23/24 14:30 Range/Units Serum Glucose 164 H 74-106 mg/dL Labs and/or images reviewed: Labs reviewed by me, Image(s) reviewed by me Problem List/Assessment/Plan Problem List/Assessment/Plan Hospital Course: Mr. Wilson,a 44-year-old male with a history of hyperlipidemia, diabetes mellitus, and hypertension, presented to the ED with nausea and vomiting for two days. Lab results showed elevated glucose and creatinine levels, among other findings. He was started on an insulin drip and IV fluids. The patient denied any chest pain, headache, dizziness, or other acute symptoms during assessment. He was admitted for further evaluation and management. His past medical history includes diabetes, high lipids, and hypertension. He denies any past surgeries, has a noncontributory family history, and reports smoking less than a pack of cigarettes per day and using methamphetamine. # metabolic encephalopathy , improved: Likely diabetic ketoacidosis and multisystem disorder with electrolyte disturbances., much improved, patient is still sleepy but alert orientedx3. # diabetic ketoacidosis, resolved: Blood positive for ketone bodies, uncontrolled diabetes, patient mentioned not having home insulin. # JUAN JOSE due to VMN, IV fluid to continue, overall dry, avoid nephrotoxic: Resolving I and O satisfactory. # hypophosphatemia: Replenished. Tomorrow we will check electrolytes. , still low hypophosphatemia, continue to replenish. We will recheck tomorrow Along with potassium and magnesium. # nausea vomiting likely due to gastroenteritis: watery diarrhea , subsided, more formed stool, abdomen soft unremarkable nontender. BS normal. # bipolar disorder: Continue lithium and fluoxetine. Check home lithium for ruling out overdose, although less likely given improved mental status and concurrent improving renal function. # productive cough: CXR unremarkable, checking other respiratory infections to rule out. COVID, flu ruled out. Patient breathing comfortably in the room air. # Hypokalemia, mild Resolved : Replenished. Follow BMP. # Mild hypernatremia, adjusted for BG, resolved # uncontrolled diabetes mellitus HbA1c 12.8: Chronic history of noncompliance. patient at home lives by himself. Diabetic education done. Patient takes at home 60 Lantus and 25 t.i.d. short-term insulin at bedtime patient did not feel well but was not taking medications. patient started on cc diet and BG under control. # chronic noncompliance: Patient is counseled, proper health education given. # Chronic methamphetamine abuse: Patient was found positive in UDS. Cessation counseling and relevant information provided. # DVT prophylaxis: SCDs , mobile as tolerated # CC diet to continue. Barriers to discharge: Patient is moderately stable. Addressing patient's chronic management of insulin and blood glucose control with postprandial in- hospital glucose target 140-180. PCP: Does not follow. Follow up with discharge Clinic in a week. Could not tell. Advice to follow with primary care physician with 1-2 week of discharge. Case discussed with Dr. Medina. Code status: Full code. Complex patient care discussion needed total 39 minutes. Likely discharge tomorrow a.m. Plan discussed with: Patient, Other My Orders My Orders Orders - QUOC MARCOS RESIDENT Procedure Category Date Status Time Chest Portable XY 05/23/24 Resulted 13:27 [place] ([facility]) LAB 05/23/24 In Process 15:54 Fluoxetine Capsule PHA 05/24/24 In Process (Prozac Capsule) 10:00 Urine Bacterial GRETCHEN 05/23/24 Uncollected Culture 15:56 Provide Diabetic ORDERS 05/23/24 Transmitted Education 17:00 Complete Blood Count LAB 05/24/24 Verified 08:49 Comprehensive LAB 05/24/24 Verified Metabolic Panel 08:49 Phosphorus LAB 05/24/24 Verified 08:49 Magnesium LAB 05/24/24 Verified 08:49 Laboratory Results Laboratory Tests 05/23/24 05:12 05/23/24 14:30 Chemistry Test 05/23/24 10:00 05/23/24 14:30 Calcium Level 9.3 mg/dL (8.7-10.4) 9.2 mg/dL (8.7-10.4) Urinalysis Test 05/23/24 10:44 Urine Color Yellow (Yellow) Urine Clarity Clear (Clear) Urine pH 6.0 (5.0-9.0) Urine Specific [place] 1.029 (1.001-1.035) Urine Protein 1+ (Negative) H Urine Ketones 4+ (Negative) H Urine Blood Negative /uL (Negative) Urine Nitrite Negative (Negative) Urine Bilirubin Negative (Negative) Urine Urobilinogen Normal mg/dL (Negative) Urine Leukocyte Esterase Negative /uL (Negative) Urine RBC 1 /hpf (0 - 3) Urine WBC <1 /hpf (0 - 3) Urine Squamous Epithelial Cells Few /hpf (<5) Urine Bacteria None seen /hpf (None Seen) Urine Glucose 4+ mg/dL (Normal) H Labs/Diagnostic Data Laboratory Tests Test 05/24/24 08:00 05/24/24 03:53 05/23/24 23:46 05/23/24 16:06 Range/Units Urine Opiates Screen Neg NEGATIVE Urine Fentanyl Screen Neg NEGATIVE Urine Barbiturates Screen Neg NEGATIVE Urine Phencyclidine Screen Neg NEGATIVE Urine Amphetamines Screen Pos NEGATIVE Urine Benzodiazepines Screen Neg NEGATIVE Urine Cocaine Screen Neg NEGATIVE Urine Cannabinoids Screen Neg NEGATIVE POC Glucose 161 H 143 H 70-106 mg/dl Influenza Type A Antigen Negative Negative Influenza Type B Antigen Negative Negative SARS-CoV-2 Antigen (Rapid) Negative NEGATIVE Test 05/23/24 14:30 05/23/24 12:44 05/23/24 10:44 05/23/24 10:00 Range/Units Sodium Level 147 H 149 H 136-145 mmol/L Potassium Level 3.3 L 3.4 L 3.5-5.1 mmol/L Chloride Level 117 H 119 H 98-107 mmol/L Carbon Dioxide Level 20 18 L 20-31 mmol/L Anion Gap 10 12 5-15 Blood Urea Nitrogen 12 12 9-23 mg/dL Creatinine 1.06 1.10 0.700-1.30 mg/dL Glomerular Filtration Rate Calc 88 84 >90 mL/min BUN/Creatinine Ratio 11.3 10.9 10.0-20.0 Serum Glucose 164 H 184 H 74-106 mg/dL Calcium Level 9.2 9.3 8.7-10.4 mg/dL POC Glucose 154 H 70-106 mg/dl Urine Color Yellow Yellow Urine Clarity Clear Clear Urine pH 6.0 5.0-9.0 Urine Specific [place] 1.029 1.001-1.035 Urine Protein 1+ H Negative Urine Ketones 4+ H Negative Urine Blood Negative Negative /uL Urine Nitrite Negative Negative Urine Bilirubin Negative Negative Urine Urobilinogen Normal Negative mg/dL Urine Leukocyte Esterase Negative Negative /uL Urine RBC 1 0 - 3 /hpf Urine WBC <1 0 - 3 /hpf Urine Squamous Epithelial Cells Few <5 /hpf Urine Bacteria None seen None Seen /hpf Urine Glucose 4+ H Normal mg/dL Date of Service: May 28, 2024 Billing Provider: RAMÍREZ MEDINA MD Common Visit Codes: [id number] INP/OBS CARE(HIGH) Coding Comment Comment Attending Attestation I saw and evaluated the patient. I reviewed the residents note and agree with findings and plan as documented in the residents note except as documented below. QUOC MARCOS RESIDENT May 24, 2024 08:50 RAMÍREZ MEDINA MD May 28, 2024 19:16
[2024-05-24] MEDS: PANTOPRAZOLE 40 MG/10 ML VIAL INJ IV SCH (10:10)
[2024-05-24] MEDS: FLUoxetine HCL 20 MG CAP PO SCH (10:10)
[2024-05-24 10:43] LABS: Basophils # (auto) 0 10 ^3/uL (0-0.2); Basophils % (auto) 0.7 % (0.0-2.0); Eosinophils # (auto) 0 10 ^3/uL (0-0.8); Eosinophils % (auto) 0.8 % (0.0-7.0); Hematocrit 36.5 % (41.0-53.0); Hemoglobin 12.7 g/dL (13.5-17.5); Lymphocytes # (auto) 1.4 10 ^3/uL (0.4-5.4); Mean Corpuscular Hemoglobin 30.6 pg (28.0-32.0); Mean Corpuscular Hgb Conc. 34.9 g/dL (32.0-36.0); Mean Corpuscular Volume 87.9 fL (80.0-100.0); Monocytes # (auto) 0.5 10 ^3/uL (0-1.3); Monocytes % (auto) 9.3 % (0.0-12.0); Neutrophils # (auto) 3.1 10 ^3/uL (1.6-8.6); Neutrophils % (auto) 61.2 % (37.0-80.0); Nucleated Red Blood Cells % 0.1 %; Platelet Count (auto) 160 10^3/uL (140-450); Red Blood Cells 4.16 10^6/uL (4.5-5.90); Red Cell Distribution Width 14.7 % (11.8-14.3); White Blood Cell 5.1 10^3/uL (4.4-10.8)
[2024-05-24 11:19] LABS: Alkaline Phosphatase 86 U/L (46-116); Anion Gap 11 (5-15); BUN/Creatinine Ratio 7.8 (10.0-20.0); Blood Urea Nitrogen 8 mg/dL (9-23); Calcium 9.1 mg/dL (8.7-10.4); Carbon Dioxide 23 mmol/L (20-31); Chloride 106 mmol/L (98-107); Glucose 263 mg/dL (74-106); Magnesium 1.7 mg/dL (1.6-2.6); Potassium 3.5 mmol/L (3.5-5.1); Sodium 140 mmol/L (136-145)
[2024-05-24 11:20] LABS: Albumin 2.9 g/dL (3.2-4.8); Aspartate Aminotransferase < 8 U/L (13-40)
[2024-05-24 11:21] LABS: Alanine Aminotransferase < 9 U/L (7-40); Bilirubin, Total 0.6 mg/dL (0.2-1.0); Phosphorus 2.2 mg/dL (2.4-5.1); Total Protein 5.7 g/dL (5.7-8.2)
[2024-05-24 13:15] VITALS: BP 120/69; TEMP 97.6; O2SAT 97
[2024-05-24 17:23] VITALS: PULSE 92; RESP 18; O2SAT 98
[2024-05-24 17:25] VITALS: BP 120/71; PULSE 87; RESP 18; TEMP 98.1; O2SAT 98
[2024-05-24 21:00] VITALS: BP 103/55; PULSE 71; RESP 18; TEMP 98.7; O2SAT 98
[2024-05-24] MEDS: POTASSIUM PHOSPHATE 26.4 MEQ in SODIUM CHL 0.9% 100 ML IV ONE (22:53)
[2024-05-24] MEDS: INSULIN LANTUS (GLARGINE) 1 /0.01ml (100units/ml) SC SCH (23:36)
[2024-05-25 05:00] VITALS: BP 109/64; PULSE 74; RESP 18; TEMP 98.3; O2SAT 97
[2024-05-25] MEDS: PANTOPRAZOLE 40 MG TAB PO SCH (05:34)
[2024-05-25 08:00] VITALS: BP 114/72; PULSE 71; RESP 16; TEMP 98.4; O2SAT 71
[2024-05-25] MEDS: LITHIUM CARBONATE 300 MG TAB PO SCH (09:09)
[2024-05-25] MEDS ORDERED: INSULIN LANTUS (GLARGINE) 1 /0.01ml (100units/ml) SC SCH (10:00)
[2024-05-25 13:00] VITALS: BP 123/75; PULSE 72; RESP 12; TEMP 98.3; O2SAT 91
[2024-05-25 13:32] LABS: Basophils # (auto) 0 10 ^3/uL (0-0.2); Basophils % (auto) 0.5 % (0.0-2.0); Eosinophils # (auto) 0.2 10 ^3/uL (0-0.8); Eosinophils % (auto) 2.8 % (0.0-7.0); Hematocrit 32.5 % (41.0-53.0); Hemoglobin 11.7 g/dL (13.5-17.5); Lymphocytes # (auto) 1.4 10 ^3/uL (0.4-5.4); Lymphocytes % (auto) 25.9 % (10.0-50.0); Mean Corpuscular Hemoglobin 31.3 pg (28.0-32.0); Mean Corpuscular Volume 86.7 fL (80.0-100.0); Monocytes # (auto) 0.5 10 ^3/uL (0-1.3); Monocytes % (auto) 8.6 % (0.0-12.0); Neutrophils # (auto) 3.4 10 ^3/uL (1.6-8.6); Neutrophils % (auto) 62.2 % (37.0-80.0); Platelet Count (auto) 126 10^3/uL (140-450); Red Blood Cells 3.75 10^6/uL (4.5-5.90); Red Cell Distribution Width 14.3 % (11.8-14.3); White Blood Cell 5.4 10^3/uL (4.4-10.8)
--- NOTE | 2024-05-25 13:36 | DVH ---
Exam: CT CT AB PEL WO CON-NO ORAL OR IV History: PAIN Comparison Study: None Technique: Multidetector spiral CT of the abdomen and pelvis was performed from lung bases to pubic symphysis. Imaging was performed without IV contrast. Axial, coronal and sagittal multiplanar reform ats were obtained from the axial data set by the technologist. Radiation dose : Abdomen/Pelvis: CTDIvol 10 mGy, DLP 558.07 mGy*cm. Findings: Evaluation of solid organs is limited due to lack of intravenous contrast use. Lung Bases: No acute or significant lung base finding. Normal heart size. No pleural or pericardial effusion. Liver: The liver is normal in size. No focal lesions. Gallbladder and biliary Tree: Unremarkable Spleen: Unremarkable Pancreas: The pancreas is grossly normal in appearance. Adrenal Glands: Unremarkable Kidneys: Kidneys are grossly normal without calculi or hydronephrosis. Bladder: Grossly unremarkable for degree of distention. Bowel: The stomach is grossly normal in appearance. Small bowel and colon are normal in caliber and d istribution. The appendix is not visualized; however, no secondary findings of acute appendicitis id entified. Ascites: Absent Lymphadenopathy: No mesenteric, retroperitoneal or periportal lymphadenopathy. Abdominal wall and Mesentery: Mild diffuse anasarca. Vasculature: The visualized abdominal aorta is normal in size and caliber. Evaluation of abdominal a nd pelvic vessels is limited due to lack of intravenous contrast. Pelvic Organs: Unremarkable Musculoskeletal: Compression deformity of L1. IMPRESSION: 1. No acute abdominal or pelvic findings. Mild diffuse anasarca. Compression deformity of L1 age inde terminate. If concern persists consider further evaluation with contrast. Radiation optimization: All CT scans at this facility use at least one of these dose optimization mushtaq hniques: Automated exposure control mA and/or kV adjustment per patient size (includes targeted exams where dose is matched to clinical indication) or iterative reconstruction. HS:Y
[2024-05-25 13:50] LABS: Alkaline Phosphatase 84 U/L (46-116); Anion Gap 7 (5-15); Aspartate Aminotransferase 8 U/L (13-40); Blood Urea Nitrogen 9 mg/dL (9-23); Calcium 8.6 mg/dL (8.7-10.4); Carbon Dioxide 26 mmol/L (20-31); Chloride 102 mmol/L (98-107); Glucose 292 mg/dL (74-106); Potassium 3.2 mmol/L (3.5-5.1)
[2024-05-25 13:51] LABS: Alanine Aminotransferase < 9 U/L (7-40); Albumin 2.8 g/dL (3.2-4.8); Bilirubin, Total 0.4 mg/dL (0.2-1.0); Sodium 135 mmol/L (136-145); Total Protein 5.4 g/dL (5.7-8.2)
[2024-05-25] MEDS ORDERED: PANT40T PO ×2 (14:49→16:17)
--- NOTE | 2024-05-25 15:08 | DVHDSRES ---
Discharge Summary Date of Admission Resident Creating Document: QUOC MARCOS RESIDENT May 22, 2024 at 15:20 Date of Discharge: May 25, 2024 Admitting Diagnosis Metabolic encephalopathy with DKA Wounds: Left lower foot clean 0.5 cm diameter of round own with clear base, no discharge , complication, bleeding, or signs of local infection noted. Clean dressing provided. Labs/Diagnostic Data: Laboratory Results Test 05/25/24 13:20 05/25/24 11:42 05/24/24 13:08 05/24/24 09:54 White Blood Count 5.4 10^3/uL (4.4-10.8) Red Blood Count 3.75 10^6/uL (4.5-5.90) Hemoglobin 11.7 g/dL (13.5-17.5) Hematocrit 32.5 % (41.0-53.0) Mean Corpuscular Volume 86.7 fL (80.0-100.0) Mean Corpuscular Hemoglobin 31.3 pg (28.0-32.0) Mean Corpuscular Hemoglobin Concent 36.0 g/dL (32.0-36.0) Red Cell Distribution Width 14.3 % (11.8-14.3) Platelet Count 126 10^3/uL (140-450) Mean Platelet Volume 7.8 fL (6.9-10.8) Neutrophils (%) (Auto) 62.2 % (37.0-80.0) Lymphocytes (%) (Auto) 25.9 % (10.0-50.0) Monocytes (%) (Auto) 8.6 % (0.0-12.0) Eosinophils (%) (Auto) 2.8 % (0.0-7.0) Basophils (%) (Auto) 0.5 % (0.0-2.0) Neutrophils # (Auto) 3.4 10 ^3/uL (1.6-8.6) Lymphocytes # (Auto) 1.4 10 ^3/uL (0.4-5.4) Monocytes # (Auto) 0.5 10 ^3/uL (0-1.3) Eosinophils # (Auto) 0.2 10 ^3/uL (0-0.8) Basophils # (Auto) 0 10 ^3/uL (0-0.2) Nucleated Red Blood Cells 0.0 % Sodium Level 135 mmol/L (136-145) Potassium Level 3.2 mmol/L (3.5-5.1) Chloride Level 102 mmol/L (98-107) Carbon Dioxide Level 26 mmol/L (20-31) Anion Gap 7 (5-15) Blood Urea Nitrogen 9 mg/dL (9-23) Creatinine 0.82 mg/dL (0.700-1.30) Glomerular Filtration Rate Calc 110 mL/min (>90) BUN/Creatinine Ratio 11.0 (10.0-20.0) Serum Glucose 292 mg/dL (74-106) Calcium Level 8.6 mg/dL (8.7-10.4) Total Bilirubin 0.4 mg/dL (0.2-1.0) Aspartate Amino Transferase (AST) 8 U/L (13-40) Alanine Aminotransferase (ALT) < 9 U/L (7-40) Alkaline Phosphatase 84 U/L (46-116) Total Protein 5.4 g/dL (5.7-8.2) Albumin 2.8 g/dL (3.2-4.8) POC Glucose 237 mg/dl (70-106) Troponin I High Sensitivity 16 ng/L (</=54) Phosphorus Level 2.2 mg/dL (2.4-5.1) Magnesium Level 1.7 mg/dL (1.6-2.6) Test 05/24/24 08:00 05/23/24 23:46 05/23/24 10:44 05/23/24 05:12 Urine Opiates Screen Neg (NEGATIVE) Urine Fentanyl Screen Neg (NEGATIVE) Urine Barbiturates Screen Neg (NEGATIVE) Urine Phencyclidine Screen Neg (NEGATIVE) Urine Amphetamines Screen Pos (NEGATIVE) Urine Benzodiazepines Screen Neg (NEGATIVE) Urine Cocaine Screen Neg (NEGATIVE) Urine Cannabinoids Screen Neg (NEGATIVE) Influenza Type A Antigen Negative (Negative) Influenza Type B Antigen Negative (Negative) SARS-CoV-2 Antigen (Rapid) Negative (NEGATIVE) Urine Color Yellow (Yellow) Urine Clarity Clear (Clear) Urine pH 6.0 (5.0-9.0) Urine Specific [place] 1.029 (1.001-1.035) Urine Protein 1+ (Negative) Urine Ketones 4+ (Negative) Urine Blood Negative /uL (Negative) Urine Nitrite Negative (Negative) Urine Bilirubin Negative (Negative) Urine Urobilinogen Normal mg/dL (Negative) Urine Leukocyte Esterase Negative /uL (Negative) Urine RBC 1 /hpf (0 - 3) Urine WBC <1 /hpf (0 - 3) Urine Squamous Epithelial Cells Few /hpf (<5) Urine Bacteria None seen /hpf (None Seen) Urine Glucose 4+ mg/dL (Normal) [place] Level <0.1 mmol/L (0.5-1.2) Test 05/22/24 14:15 05/22/24 14:09 Serum Osmolality 340 mOsm/kg (278-298) Beta-Hydroxybutyric Acid > 4.500 mmol/L (< 0.4) Blood Gas Specimen Type Arterial Blood Gas Sample Site Left radial Blood Gas Patient Temperature 37.0 Arterial Blood Date Drawn Arterial Blood pH 7.087 (7.350-7.450) Arterial Blood Partial Pressure CO2 < 12.6 mmHg (35.0-48.0) Arterial Blood Partial Pressure O2 129.6 mmHg (83.0-108.0) Arterial Blood Oxygen Saturation 97.9 % (94.0-98.0) Arterial Blood Oxyhemoglobin 96.9 % (94.0-98.0) Arterial Blood Carboxyhemoglobin 0.4 % (0.5-1.5) Arterial Blood Methemoglobin 0.6 % (0.0-1.5) Ronny Test Yes Blood Gas Total Hemoglobin 16.20 g/dL (13.5-17.5) Blood Gas Modality Room air FiO2 % 21.0 Blood Gas Comments Co2 out of amr Blood Gas Critical Value Read Back Yes Blood Gas Notified Whom Bill harrison md Blood Gas Notified Time [id number] Blood Gas Notified By Royce hastings Other Laboratory Tests 05/25/24 13:20 Brief Hx & Hospital Course: Of the Hospital Course: Mr. Santana,a 44-year-old male with a history of hyperlipidemia, diabetes mellitus, and hypertension, presented to the ED with nausea and vomiting for two days. Lab results showed elevated glucose and creatinine levels, among other findings. He was started on an insulin drip and IV fluids. The patient denied any chest pain, headache, dizziness, or other acute symptoms during assessment. He was admitted for further evaluation and management. His past medical history includes diabetes, high lipids, and hypertension. He denies any past surgeries, has a noncontributory family history, and reports smoking less than a pack of cigarettes per day and using methamphetamine. status post in-hospital treatment patient is hemodynamically stable, a needed febrile, breathing in room air comfortably. Complained of chest pain and abdominal pain all workup negative so far. Patient is advised to go home on pantoprazole and nonweight bearing on the left foot, discharge with the [facility] [place]. Medical conditions treated in hospital: # metabolic encephalopathy , improved. alert orientedx3. # diabetic ketoacidosis, resolved, continue sliding scale insulin with basal bolus doses. # JUAN JOSE due to VMN resolved. # Questionable UTI ruled out. # Deranged Electrolytes, hypokalemia hypo magnesemia hypophosphatemia, appropriately replenished. # nausea vomiting likely due to gastroenteritis, resolved. # bipolar disorder: Continue lithium and fluoxetine. Mood stable, patient denies any active homicidal or suicidal ideation. # productive cough Likely due to atelectasis. With movement patient is breathing on room air with unremarkable chest auscultation. # Hypokalemia, mild Resolved. # Mild hypernatremia, adjusted for BG, resolved. # uncontrolled diabetes mellitus HbA1c 12.8, continue home regimen, carb controlled diet to continue. # chronic noncompliance: Patient is counseled, proper health education given. # Chronic methamphetamine abuse: Patient was found positive in UDS. Cessation counseling and relevant information provided. # chronic smoking: half a pack smoking history, 11 minutes smoking cessation counseling done. # Left foot clean wound noted: Dressing done, keep the foot clean dry and follow up with wound clinic. Avoid weight-bearing on that foot, sw input appreciated patient needs a walker at discharge. # Acute epigastric abdominal pain: Physical examination unremarkable, and the status post IV ppi, home with pantoprazole Oral 40 mg daily. PCP: Reported not following regularly but has PCP in [place]. Follow up with discharge Clinic in a week. Case discussed with Dr. Knox. Code status: Full code. Complex patient care discussion needed total 39 minutes. Discharge plan needed total 43 minutes of discussion. patient agreed to the plan. Consults/Reason for consult Examination: GENERAL:Normal, HEENT:Normal, NECK:Normal, LUNGS:Normal, CVS:Normal, ABDOMEN:Normal, MSK abdominal, left foot plantar side 0.5 cm clear circular wound uncomplicated, SKIN:Normal, NEURO:Normal (Sleepy but arousable, able to conversing normally. Alert oriented x3. Mood stable. Affect normal, Operations or Procedures [address] [address] Ph: [phone] DIAGNOSTIC IMAGING Diagnostic Imaging Report : [id number] Signed PATIENT: JORGE SANTANA ACCT: [id number] UNIT: [id number] : 1980 LOC: [facility] ROOM / BED: [facility] / B AGE / SEX: 44 / M ADM STATUS: ADM IN SERVICE 1250 ORDERING PHYSICIAN: QUOC MARCOS RESIDENT PROCEDURE(s): ABPL - CT AB PEL WO CON-NO ORAL OR IV REASON: PAIN ORDER NUMBER(s): [id number], ACCESSION NUMBER(s): [id number] Exam: CT CT AB PEL WO CON-NO ORAL OR IV History: PAIN Comparison Study: None Technique: Multidetector spiral CT of the abdomen and pelvis was performed from lung bases to pubic symphysis. Imaging was performed without IV contrast. Axial, coronal and sagittal multiplanar reformats were obtained from the axial data set by the technologist. Radiation dose : Abdomen/Pelvis: CTDIvol 10 mGy, DLP 558.07 mGy*cm. Findings: Evaluation of solid organs is limited due to lack of intravenous contrast use. Lung Bases: No acute or significant lung base finding. Normal heart size. No pleural or pericardial effusion. Liver: The liver is normal in size. No focal lesions. Gallbladder and biliary Tree: Unremarkable Spleen: Unremarkable Pancreas: The pancreas is grossly normal in appearance. Adrenal Glands: Unremarkable Kidneys: Kidneys are grossly normal without calculi or hydronephrosis. Bladder: Grossly unremarkable for degree of distention. Bowel: The stomach is grossly normal in appearance. Small bowel and colon are normal in caliber and distribution. The appendix is not visualized; however, no secondary findings of acute appendicitis identified. Ascites: Absent Lymphadenopathy: No mesenteric, retroperitoneal or periportal lymphadenopathy. Abdominal wall and Mesentery: Mild diffuse anasarca. Vasculature: The visualized abdominal aorta is normal in size and caliber. Evaluation of abdominal and pelvic vessels is limited due to lack of intravenous contrast. Pelvic Organs: Unremarkable Musculoskeletal: Compression deformity of L1. IMPRESSION: 1. No acute abdominal or pelvic findings. Mild diffuse anasarca. Compression deformity of L1 age indeterminate. If concern persists consider further evaluation with contrast. Radiation optimization: All CT scans at this facility use at least one of these dose optimization techniques: Automated exposure control mA and/or kV adjustment per patient size (includes targeted exams where dose is matched to clinical indication) or iterative reconstruction. HS:Y ATED BY: EDGARD MILLER MD DICTATED DATE/TIME: 05/25/241333 SIGNED BY: EDGARD MILLER MD SIGNED DATE/TIME: 05/25/241333 CC: [place] [address] Ph: [phone] DIAGNOSTIC IMAGING Diagnostic Imaging Report : [id number] Signed PATIENT: JORGE SANTANA ACCT: [id number] UNIT: [id number] : 1980 LOC: [facility]FL[facility] ROOM / BED: 1015-ER / A AGE / SEX: 44 / M ADM STATUS: ADM IN SERVICE 26 ORDERING PHYSICIAN: QUOC MARCOS RESIDENT PROCEDURE(s): CXRP - CHEST PORTABLE REASON: infection ORDER NUMBER(s): [id number], ACCESSION NUMBER(s): [id number] EXAM: XY CHEST PORTABLE Indication:infection Technique: Single frontal view of the chest was obtained Comparison: XY CHEST PORTABLE on DOS: 01/16/24 FINDINGS: Lines and Tubes: None Lungs: No focal consolidation. Pleura: No effusion. No pneumothorax. Cardiomediastinal contours: Unremarkable Bones: No acute osseous abnormality. IMPRESSION: No acute cardiopulmonary disease. ATED BY: ROSELIA CHUN MD DICTATED DATE/TIME: 05/23/24 135 SIGNED BY: ROSELIA CHUN MD SIGNED DATE/TIME: 05/23/24 135 CC: EKG Name: JORGE SANTANA Acct: [id number] [place] [id number] ELECTROCARDIOGRAM REPORT PATIENT: JORGE SANTANA ACCT: [id number] : 1980 LOC: [facility] ROOM / BED: 0246T / B AGE / SEX: 43 / M ADM STATUS: DIS IN SERVICE 1450 UNIT: [id number] ORDERING PHYSICIAN: CLAUDE ISSA MD PROCEDURE(s): EKG - ELECTROCARDIGRAM ORDER NUMBER(s): [id number], ACCESSION NUMBER(s): [id number] [facility] Test Date: 2024-01-16 Test Time: 14:31:16 Pat Name: JORGE SANTANA Department: ED Room: [address] [place] [address] Gender: M 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 DICTATED BY:SUNIL GARZA Sr., MD DICTATED DATE/TIME:01/16/24 1431 ELECTRONICALLY SIGNED BY:SUNIL GARZA Sr., MD 03/07/24 1816 ELECTRONICALLY CO-SIGNED BY: RUN DATE: 05/25/24 PAGE 1 RUN TIME: 1021 [facility] [address] [place] [address] Denise Dennison M.D., Laboratory Supply Controller - PATIENT: JORGE SANTANA ACCT: [id number] LOC: [facility] U: [id number] AGE/SX: 44/M ROOM: [facility] RE05/22/[address]: QUOC MARCOS RESIDENT : 1980 BED: B DIS: STATUS: ADM IN TLOC: - SPEC #: [id number] [place]: 05/24/24 STATUS: RES REQ #: [id number] RECD: 05/24/[address] [facility] [address]: QUOC MARCOS RESIDENT SOURCE: VOID ENTR: 05/24/[address]: ARMÍREZ MEDINA MD SPDESC: ORDERED: UR COMMENTS: Has specimen been collected/obtained? Y - Procedure Result - Urine Bacterial Culture Preliminary No growth END OF REPORT Condition at Discharge: Fair Final Diagnosis/Problems List # metabolic encephalopathy , improved. alert orientedx3. # diabetic ketoacidosis, resolved, continue sliding scale insulin with basal bolus doses. Discharge Disposition: Home Discharge Instruct/Medications Diet: Consistent carbohydrate Activity: No Restrictions, As Tolerated Activity comment: Avoid pressure on left foot Follow Up/Referral: Follow up with discharge Clinic in a week. Please follow up with wound clinic outpatient [place]. Please establish and closely follow with your primary care physician. Medications: Please take 60 Lantus once a day subcutaneously (as previously prescribed) Please take 15 units of short-acting insulin prior to meal 3 times a day. Check blood glucose as instructed. Please take pantoprazole 40 mg daily and empty stomach. Continue other home medications as prescribed, Discharge Statement: "Patient was advised to return to the ER or call 911 if any headaches, dizziness, shortness of breath, chest pain, abdominal pain, bleeding, fevers, or worsening of medical condition. Patient was counseled about treatment plan, medications, possible side effects, patientverbalized understanding. All questions were answered to the best of my ability. This discharge took greater then 30 minutes in planning, reviewing documentation, counseling the patient, and discussing with other team members." DME: Diagnosis: left foot ulcer ASSESSMENT ASSESSMENT Assessment # metabolic encephalopathy , improved. alert orientedx3. # diabetic ketoacidosis, resolved, continue sliding scale insulin with basal bolus doses. QUOC MARCOS RESIDENT May 25, 2024 15:08
[2024-05-25 15:58] VITALS: TEMP 36.8
== END 2024-05-25 16:45 | disposition home or self-care (01) | DRG 420 ==
LOC: EDBD 13:28 → ER 13:28 → OVERFLOW 15:20 → TELE-WESTW 05-24 16:17 → WEST WING 05-24 22:44
PROVIDERS: ADMIT Internal Medicine; ATTEND Internal Medicine
DX: E11.10 Type 2 diabetes mellitus with ketoacidosis without coma (principal); N17.0 Acute kidney failure with tubular necrosis; G93.41 Metabolic encephalopathy; E83.39 Other disorders of phosphorus metabolism; D72.829 Elevated white blood cell count, unspecified; K52.9 Noninfective gastroenteritis and colitis, unspecified; I10 Essential (primary) hypertension; Z20.822 Contact with and (suspected) exposure to COVID-19; E78.5 Hyperlipidemia, unspecified; F17.210 Nicotine dependence, cigarettes, uncomplicated; F31.9 Bipolar disorder, unspecified; E87.6 Hypokalemia; E87.0 Hyperosmolality and hypernatremia; E86.0 Dehydration; F15.10 Other stimulant abuse, uncomplicated; Z79.4 Long term (current) use of insulin
CPT/HCPCS: 36415; 36600; 71045; 74176; 80048; 80053; 80178; 80307; 81001; 82010; 82805; 82962; 83735; 83930; 84100; 84484; 85025; 87086; 87426; 87804; 96374; 99291; G0378; J1815; J2003; J2405; J2470

== ENCOUNTER 2024-08-17 17:37 | Inpatient (IN) | payer MEDICAID ==
[~2024-08-17] VITALS: Ht 22.9 cm; Wt 66.4 kg
[~2024-08-17 17:37] MED LIST changes: +PANT40T PO
--- NOTE | 2024-08-17 17:53 | ED.PDOC ---
History of present illness HPI Comments 44-year-old male with PMHx DM brought in by EMS presents with a chief complaint of ALOC with nausea and vomiting. According to EMS, last known well was 14 hours ago per family. Patient is actively vomiting upon evaluation. Patient is confused and has slurred speech at this time. Patients blood sugar read HIGH per EMS and they gave 500mL of NS en route to ER. Patient cannot answer the question "when was the last time you checked your sugar level". Patient was hypertensive and tachycardic at arrival. Time Seen by MD: 17:47 Primary Care Provider: ? History of present illness: Nurses Notes, Livestock Nutritionist Notes, Medications, Al lergies Allergies: Coded Allergies: NO KNOWN ALLERGIES (Unverified , 09/06/13) Home Meds Active Scripts Pantoprazole Sodium Sesquihydr (Pantoprazole Sodium) 40 Mg Tab, 40 MG PO DAILY for 30 Days, #30 TAB Prov:LICO BERNARD RESIDENT 05/25/24 Reported Medications Fluoxetine Hcl (Fluoxetine Hcl) Unknown Strength Cap, PO 01/16/24 Insulin Glargine (Lantus) 100 Unit/Ml Inj, 40 UNIT SC DAILY@DINNER, INJ 01/18/18 Simvastatin (Simvastatin) 10 Mg Tab, 10 MG PO DAILY for 30 Days, MG 08/25/17 Insulin Aspart Protamine & Asp (Novolog Mix 70/30 Prefill (70-30) 100 Unit/ml) 1 Inj Inj, 1 INJ SC, INJ 08/25/17 Information Source: Patient, Emergency Med Personnel Mode of Arrival: EMS Timing: Hours Duration: Since onset Prehospital treatment: Accucheck (HIGH), IVF (500mL NS) [place]: Confusion, Slurred speech Symptoms: Confusion History of: Diabetes Associated signs and symptoms: Nausea, Vomiting Past Medical History PAST MEDICAL HISTORY: DM, High Lipids, HTN Surgical History: Pt Confused Family History Family History: Unknown Social History Smoker: Cigarettes, Less Than 1 Pack/Day Alcohol: Denies ETOH Use Drugs: Methamphetamine Lives In: Home Constitutional: reports: fatigue, malaise, weakness; denies: chills, diaphoresis, fever, sweats, others EENTM: denies: blurred vision, double vision, ear bleeding, ear discharge, ear drainage, ear pain, ear ringing, eye pain, eye redness, hearing loss, mouth pain, mouth swelling, nasal discharge, nose bleeding, nose congestion, nose pain, photophobia, tearing, throat pain, throat swelling, voice changes, others Respiratory: denies: cough, hemoptysis, orthopnea, SOB at rest, shortness of breath, SOB with excertion, stridor, wheezing, others Cardiovascular: denies: chest pain, dizzy spells, diaphoresis, Dyspnea on exertion, edema, irregular heart beat, left arm pain, lightheadedness, palpitations, PND, syncope, others Gastrointestinal: reports: nausea, vomiting; denies: abdomen distended, abdo severiano pain, blood streaked bowels, constipated, diarrhea, dysphagia, difficulty swallowing, hematemesis, melena, poor appetite, poor fluid intake, rectal bleeding, rectal pain, others Genitourinary: denies: burning, dysuria, flank pain, frequency, hematuria, incontinence, penile discharge, penile sore, pain, testicle pain, testicle swelling, urgency, others Neurological: denies: dizziness, fainting, headache, left sided numbness, left sided weakness, numbness, paresthesia, pre-existing deficit, right sided numbness, right sided weakness, seizure, speech problems, tingling, tremors, weakness, others Musculoskeletal: denies: back pain, gout, joint pain, joint swelling, muscle pain, muscle stiffness, neck pain, others Integumetry: denies: bruises, change in color, change in hair/nails, dryness, laceration, lesions, lumps, rash, wounds, others Allergic/Immunocompromised: denies: Difficulty Healing, Frequent Infections, Hives, Itching, others Hematologic/Lymphatic: denies: anemia, blood clots, easy bleeding, easy bruising, swollen glands, others Endocrine: denies: excessive hunger, excessive sweating, excessive thirst, excessive urination, flushing, intolerance to cold, intolerance to heat, unexplained weight gain, unexplained weight loss, others Psychiatric: denies: anxiety, bipolar disorder, depression, hopeless, panic disorder, schizophrenia, sleepless, suicidal, others Unable to Obtain due to: Altered Mental Status All Other Systems: Reviewed and Negative Physical Exam Exam Comments Patient appears to be in poor overall health. General Appearance: Moderate Distress (Patient is altered and vomiting at time of evaluation.), Normal HEENT: Normal ENT Inspection, Pharynx Normal, TMs Normal Neck: Full Range of Motion, Non-Tender, Normal Respiratory: Chest Non-Tender, No Accessory Muscle Use, No Respiratory Dist ress, Normal Breath Sounds Cardiovascular: No Edema, No JVD, No Murmur, No Gallop, Normal Peripheral Pulse s, Tachycardia Breast Exam: Deferred Gastrointestinal: No Pulsatile Mass, Normal Bowel Sounds, Soft Genitalia: Deferred Pelvic: Deferred Rectal: Deferred Extremities: No calf tenderness, Normal inspection, No pedal edema Musculoskeletal : Apperance: Normal Neurologic: No Motor Deficits, No Sensory Deficits Cerebellar Function: NOT DONE Reflexes: NOT DONE Skin: Dry, Normal Color, Warm Lymphatic: No Adenopathy Was a procedure done? Was a procedure done?: No Differential Diagnosis (DM) Differential Diagnosis: Dehydration, Diabetic Coma, DKA, Electrolyte A bnormality, Encephalopathy, Hyperglycemia, Hyperosmolar State, Hypoglycemia X-Ray, Labs, Meds, VS Vital Signs Date Time Temp Pulse Resp B/P (MAP) Pulse Ox O2 Delivery O2 Flow Rate FiO2 08/17/24 21:00 110 13 113/80 (91) 100 08/17/24 20:00 112 15 128/86 (100) 100 08/17/24 18:58 106 18 130/74 (92) 98 08/17/24 17:54 98.1 102 18 137/113 (121) 98 Lab Test 08/17/24 22:25 08/17/24 21:32 08/17/24 20:50 08/17/24 20:45 Range/Units POC Glucose 355 H 511 *H 70-106 mg/dl Troponin I High Sensitivity 12 </=54 ng/L Lactic Acid Level 2.8 *H 0.4-2.0 mmol/L Test 08/17/24 19:42 08/17/24 19:34 08/17/24 18:33 08/17/24 18:22 Range/Units POC Glucose 592 *H 70-106 mg/dl Phosphorus Level 7.1 H 2.4-5.1 mg/dL Magnesium Level 2.5 1.6-2.6 mg/dL Troponin I High Sensitivity 13 12 </=54 ng/L White Blood Count 17.9 H 4.4-10.8 10^3/uL Red Blood Count 5.44 4.5-5.90 10^6/uL Hemoglobin 16.9 13.5-17.5 g/dL Hematocrit 50.0 41.0-53.0 % Mean Corpuscular Volume 91.9 80.0-100.0 fL Mean Corpuscular Hemoglobin 31.0 28.0-32.0 pg Mean Corpuscular Hemoglobin Concent 33.7 32.0-36.0 g/dL Red Cell Distribution Width 14.5 H 11.8-14.3 % Platelet Count 477 H 140-450 10^3/uL Mean Platelet Volume 8.7 6.9-10.8 fL Neutrophils (%) (Auto) 90.7 H 37.0-80.0 % Lymphocytes (%) (Auto) 5.4 L 10.0-50.0 % Monocytes (%) (Auto) 3.3 0.0-12.0 % Eosinophils (%) (Auto) 0.0 0.0-7.0 % Basophils (%) (Auto) 0.6 0.0-2.0 % Neutrophils # (Auto) 16.2 H 1.6-8.6 10 ^3/uL Lymphocytes # (Auto) 1.0 0.4-5.4 10 ^3/uL Monocytes # (Auto) 0.6 0-1.3 10 ^3/uL Eosinophils # (Auto) 0 0-0.8 10 ^3/uL Basophils # (Auto) 0.1 0-0.2 10 ^3/uL Nucleated Red Blood Cells 0.0 % Sodium Level 132 L 136-145 mmol/L Potassium Level 5.4 H 3.5-5.1 mmol/L Chloride Level 94 L 98-107 mmol/L Carbon Dioxide Level < 10 *L 20-31 mmol/L Anion Gap 28.24024 H 5-15 Blood Urea Nitrogen 22 9-23 mg/dL Creatinine 1.75 H 0.700-1.30 mg/dL Glomerular Filtration Rate Calc 48 >90 mL/min BUN/Creatinine Ratio 12.6 10.0-20.0 Serum Glucose 647 *H 74-106 mg/dL Serum Osmolality 352 H 278-298 mOsm/kg Lactic Acid Level 3.1 *H 0.4-2.0 mmol/L Calcium Level 10.1 8.7-10.4 mg/dL Total Bilirubin 0.3 0.2-1.0 mg/dL Aspartate Amino Transferase (AST) < 8 L 13-40 U/L Alanine Aminotransferase (ALT) 11 7-40 U/L Alkaline Phosphatase 176 H 46-116 U/L B-Type Natriuretic Peptide 7.80 0-100 pg/mL Total Protein 8.9 H 5.7-8.2 g/dL Albumin 4.2 3.2-4.8 g/dL Lipase 69 H 12-53 U/L Beta-Hydroxybutyric Acid > 4.500 H < 0.4 mmol/L Blood Gas Specimen Type Arterial Blood Gas Sample Site Left radial Blood Gas Patient Temperature 37.0 Arterial Blood Date Drawn [id number] Arterial Blood pH 7.149 *L 7.350-7.450 Arterial Blood Partial Pressure CO2 < 12.6 *L 35.0-48.0 mmHg Arterial Blood Partial Pressure O2 131.6 H 83.0-108.0 mmHg Arterial Blood Oxygen Saturation 98.0 94.0-98.0 % Arterial Blood Oxyhemoglobin 96.7 94.0-98.0 % Arterial Blood Carboxyhemoglobin 0.6 0.5-1.5 % Arterial Blood Methemoglobin 0.7 0.0-1.5 % Ronny Test Yes Blood Gas Total Hemoglobin 16.00 13.5-17.5 g/dL Blood Gas Modality Room air FiO2 % 21.0 Blood Gas Critical Value Read Back Yes Blood Gas Notified Whom [facility] Blood Gas Notified Time [id number] Blood Gas Notified By Royce garcia Current Medications Medications (Trade) Dose Ordered Sig/Leandro Route Start Time Stop Time Status Last Admin Ondansetron HCl (Zofran) 4 mg ONCE ONCE IV 08/17/24 18:00 08/17/24 18:01 DC 08/17/24 18:16 Metoclopramide HCl (Reglan Injection) 10 mg ONCE ONCE IV 08/17/24 18:00 08/17/24 18:01 DC 08/17/24 18:16 Sodium Chloride 1,000 ml @ 1,000 mls/hr Q1H ONCE IV 08/17/24 18:00 08/17/24 18:59 DC 08/17/24 18:16 Insulin Human Lispro (HumaLOG) 18 units ONCE ONCE SC 08/17/24 18:15 08/17/24 18:16 DC 08/17/24 18:14 Sodium Chloride 1,000 ml @ 1,000 mls/hr Q1H ONCE IV 08/17/24 19:30 08/17/24 20:29 DC 08/17/24 19:32 Ceftriaxone Sodium 50 ml @ 100 mls/hr ONCE ONCE IV 08/17/24 19:30 08/17/24 19:59 DC 08/17/24 19:32 Insulin Human (Reg)/Sodium Chloride 100 ml @ 0.5 mls/hr Q24H IV 08/17/24 19:45 08/17/24 20:55 Diagnostic Test (Pha) (Accu-Chek Comfort Curve T) 1 strip Q90MIN 08/17/24 21:00 08/17/24 22:27 Insulin Glargine (Lantus) 15 units ONCE ONCE SC 08/17/24 19:45 08/17/24 19:49 DC 08/17/24 20:56 Sodium Bicarbonate 50 ml ONCE ONCE IV 08/17/24 21:30 08/17/24 21:54 DC 08/17/24 22:00 X-Ray, Labs, Meds, VS Comment All studies performed the ED were evaluated by me personally. Patient was in DKA at time of evaluation. Laboratories revealed a leukocytosis as well as hyponatremia and elevated lactic acid. Patient's blood sugar was 647 on arrival and patient was gapped at 28. DKA protocols were initiated and patient was put on an insulin drip. At time of this note, patient was stable and blood pressure was in a satisfactory range. Patient will be admitted for DKA concerns. Time of 1ST Reevaluation: 23:41 Reevaluation 1ST: Improved Consultation: PCP Patient Education/Counseling: Diagnosis, Treatment, Prognosis Family Education/Counseling: Diagnosis, Treatment, Prognosis Departure 1 Departure Time of Disposition: 23:43 Impression: Primary Impression: DKA (diabetic ketoacidosis) Additional Impressions: Leukocytosis Elevated lactic acid level Hyponatremia Disposition: ADMITTED INPATIENT Condition: Fair Discharged With: Self Critical Care Note Critical Care Time?: Yes (45 min-critical care time only) Critical care comment: Due to the high probability of a clinically significant and life-threatening deterioration, the patient required my highest level of preparedness to intervene emergently and therefore, I personally provided 45 minutes critical care time exclusive of time spent on separate billable procedures. This critical care time includes, but is not limited to, obtaining additional history, re-examination of the patient, evaluation of pulse oximetry as well as ordering and reviewing of studies, arranging urgent treatment with the development of a management plan and evaluation the patient's response to treatment including frequent reassessments and discussions with multiple providers. Stability Stability form required: No I personally scribed for MATILDE ZHAO PAC ([email or web address]) on 08/17/24 at 17:53. Electronically submitted by Raffy Walters ([email or web address]). MATILDE ZHAO PAC Aug 17, 2024 17:53
[2024-08-17] MEDS: INSULIN LISPRO (HUMAN) 100 UNITS/ML ML SC ONE (18:14)
[2024-08-17] MEDS: METOCLOPRAMIDE HCL 5MG/ml INJ 2ml VIAL IV ONE (18:16)
[2024-08-17] MEDS: SODIUM CHLORIDE 0.9% 1,000 ML IV ONE ×2 (18:16→19:32)
[2024-08-17] MEDS: ONDANSETRON HCL 4 MG/2 ML VIAL IV ONE (18:16)
[2024-08-17 19:05] LABS: Basophils # (auto) 0.1 10 ^3/uL (0-0.2); Eosinophils # (auto) 0 10 ^3/uL (0-0.8)
[2024-08-17 19:08] LABS: Basophils % (auto) 0.6 % (0.0-2.0); Hemoglobin 16.9 g/dL (13.5-17.5); Lymphocytes % (auto) 5.4 % (10.0-50.0); Mean Corpuscular Hgb Conc. 33.7 g/dL (32.0-36.0); Mean Corpuscular Volume 91.9 fL (80.0-100.0); Monocytes # (auto) 0.6 10 ^3/uL (0-1.3); Monocytes % (auto) 3.3 % (0.0-12.0); Neutrophils # (auto) 16.2 10 ^3/uL (1.6-8.6); Neutrophils % (auto) 90.7 % (37.0-80.0); Platelet Count (auto) 477 10^3/uL (140-450); Red Blood Cells 5.44 10^6/uL (4.5-5.90); Red Cell Distribution Width 14.5 % (11.8-14.3); White Blood Cell 17.9 10^3/uL (4.4-10.8)
[2024-08-17 19:18] LABS: Alanine Aminotransferase 11 U/L (7-40); Albumin 4.2 g/dL (3.2-4.8); Anion Gap 28.00001 (5-15); BUN/Creatinine Ratio 12.6 (10.0-20.0); Bilirubin, Total 0.3 mg/dL (0.2-1.0); Blood Urea Nitrogen 22 mg/dL (9-23); Calcium 10.1 mg/dL (8.7-10.4)
[2024-08-17 19:21] LABS: Lactic Acid w/Reflex 3.1 mmol/L (0.4-2.0)
[2024-08-17 19:30] VITALS: PULSE 112; RESP 15; O2SAT 100
[2024-08-17] MEDS: cefTRIAXone 1GM/50ML D5W 50 ML IV ONE (19:32)
[2024-08-17] MEDS ORDERED: DEXTROSE (50%) 50ML SYRG IV PRN (19:45)
[2024-08-17 19:47] LABS: Alkaline Phosphatase 176 U/L (46-116); Aspartate Aminotransferase < 8 U/L (13-40); Chloride 94 mmol/L (98-107); Lipase 69 U/L (12-53); Potassium 5.4 mmol/L (3.5-5.1); Sodium 132 mmol/L (136-145); Total Protein 8.9 g/dL (5.7-8.2)
[2024-08-17 19:49] LABS: Carbon Dioxide < 10 mmol/L (20-31); Glucose 647 mg/dL (74-106)
[2024-08-17 20:09] LABS: Magnesium 2.5 mg/dL (1.6-2.6)
[2024-08-17 20:18] LABS: Phosphorus 7.1 mg/dL (2.4-5.1)
[2024-08-17] MEDS: INSULIN DRIP 100 UNIT/100ML 100 ML IV SCH (20:55)
[2024-08-17] MEDS: INSULIN LANTUS (GLARGINE) 1 /0.01ml (100units/ml) SC ONE (20:56)
[2024-08-17] MEDS: ACCU-CHEK COMFORT CURVE STRIP VI SCH (21:02)
[2024-08-17] MEDS: SODIUM BICARB 8.4% 50Meq/50ml SYR Vial IV ONE (22:00)
[2024-08-18] VITALS (10 sets, daily range): BP systolic 101–145; BP diastolic 56–100; PULSE 72–105; RESP 10–18; TEMP 98.2–98.3; O2SAT 98–100
[2024-08-18] MEDS ORDERED: MORPHINE SULFATE INJ 2 MG/ml SYRG IV PRN (01:15)
[2024-08-18] MEDS ORDERED: ACETAMINOPHEN 325 MG TAB PO PRN (01:15)
[2024-08-18] MEDS ORDERED: ONDANSETRON HCL 4 MG/2 ML VIAL IV PRN (01:15)
[2024-08-18] MEDS ORDERED: HYDROcodone-ACET 5/325MG TAB PO PRN (01:15)
[2024-08-18] MEDS ORDERED: NITROGLYCERIN 0.4 MG SL TAB SL PRN (01:15)
[2024-08-18] MEDS ORDERED: DOCUSATE SOD 100 MG CAP PO PRN (01:15)
--- NOTE | 2024-08-18 01:22 | DVHHP2 ---
History of Present Illness Reason for Visit: Diabetic ketoacidosis History of Present Illness The patient is a 44-year-old male with past medical history of DM, hypertension, and hyperlipidemia presented to [facility] ED for evaluation of altered level of consciousness. Patient's symptoms progressively get worse with associated nausea, vomiting, weakness, confused, has slurred speech, getting worse that prompted this visit. Patient was seen and evaluated in the ED, laboratory data shows WBC 17.9, platelets 477, sodium 132, potassium 5.4, BUN 22, creatinine 1.75, GFR 48, glucose 647, anion gap 28, acetone > 4.5, troponin 12, BNP 7.80, lipase 69, phosphorus 7.1, blood pressure 113/80, heart rate 110, temperature 98.1 F, O2 saturation 99% on room air. Patient was started on insulin drip, please see medication orders section in the computer. On my assessment, patient denies chest pain, no headache, no dizziness, no diaphoresis, no blurry vision, no shortness of breaths, no diarrhea, nausea, no vomiting, no fever, no chills. Patient was admitted for further evaluation and medical management. Past Medical History DM, High Lipids, HTN Past Surgical History No past medical surgical procedure on file. Family History Reviewed, noncontributory to the management of this case. Past Social History The patient lives at home, smokes cigarettes less than 1 pack per day, denies alcohol use, uses methamphetamine. Review of Systems Constitutional: Yes: Weakness, Malaise, Other (Fatigue); No: Fever, Chills, Sweats Eyes: No: Pain, Vision change, Conjunctivae inflammation, Eyelid inflammation, Other, Redness ENT: No: Ear pain, Ear discharge, Nose pain, Nose discharge, Nose congestion, Mouth pain, Mouth swelling, Throat pain, Throat swelling, Other Respiratory: No: Cough, Dry, Shortness of breath, SOB with excertion, Wheezing, Hemoptysis, Pleuritic Pain, Sputum, Wheezing, Other Cardiovascular: No: Chest Pain, Palpitations, Orthopnea, Paroxysmal Noc. Dysp noni, Edema, Lt Headedness, Other Gastrointestinal: Nausea, Vomiting; No: Abdominal Pain, Diarrhea, Constipation, Melena, Hematochezia, Other Genitourinary: No Dysuria, No Frequency, No Incontinence, No Hematuria, No Retention, No Other Musculoskeletal: No: other, neck pain, shoulder pain, arm pain, back pain, hand pain, leg pain, foot pain Skin: No: Rash, Lesions, Jaundice, Bruising, Other Neurological: No: Weakness, Numbness, Incoordination, Change in speech, Confusion, Seizures, Other Allergies: Coded Allergies: NO KNOWN ALLERGIES (Unverified , 09/06/13) Medications Current Medications Medications Dose Ordered Sig/Leandro Route Start Time Stop Time Status Last Admin Dose Admin Insulin Human (Reg)/Sodium Chloride 100 ml @ 0.5 mls/hr Q24H IV 08/17/24 19:45 08/17/24 20:55 6 MLS/HR Dextrose 50 ml UD PRN IV 08/17/24 19:45 Diagnostic Test (Pha) 1 strip Q90MIN 08/17/24 21:00 08/18/24 00:08 1 STRIP Insulin Glargine 15 units DAILY SC 08/18/24 10:00 Exam Vital Signs Vital Signs Date Time Temp Pulse Resp B/P (MAP) Pulse Ox O2 Delivery O2 Flow Rate FiO2 08/17/24 21:00 110 13 113/80 (91) 100 08/17/24 17:54 98.1 General Appearance: Alert, Oriented X3, Cooperative, No acute distress HEENT: Atraumatic, PERRLA, EOMI, Mucous membr. moist/pink Respiratory: Clear to auscultation, Normal air movement Cardiovascular: Regular rate, Normal S1, Normal S2, No murmurs Abdominal: Normal bowel sounds, Soft, No tenderness, No hepatospenomegaly, No masses Extremities: No clubbing, No cyanosis, No edema, Normal pulses, No tenderness/swelling Skin: No rashes, No breakdown, No significant lesion Neuro: Normal speech, Normal tone, Sensation intact, Cranial nerves 3-12 NL, Reflexes 2+, Other (Generalized weakness) Psych/Mental Status: Mental status NL, Mood NL Labs/Xrays Labs Test 08/18/24 00:07 08/17/24 21:32 08/17/24 20:50 08/17/24 19:34 Range/Units POC Glucose 310 H 70-106 mg/dl Troponin I High Sensitivity 12 </=54 ng/L Lactic Acid Level 2.8 *H 0.4-2.0 mmol/L Phosphorus Level 7.1 H 2.4-5.1 mg/dL Magnesium Level 2.5 1.6-2.6 mg/dL Test 08/17/24 18:33 08/17/24 18:22 Range/Units White Blood Count 17.9 H 4.4-10.8 10^3/uL Red Blood Count 5.44 4.5-5.90 10^6/uL Hemoglobin 16.9 13.5-17.5 g/dL Hematocrit 50.0 41.0-53.0 % Mean Corpuscular Volume 91.9 80.0-100.0 fL Mean Corpuscular Hemoglobin 31.0 28.0-32.0 pg Mean Corpuscular Hemoglobin Concent 33.7 32.0-36.0 g/dL Red Cell Distribution Width 14.5 H 11.8-14.3 % Platelet Count 477 H 140-450 10^3/uL Mean Platelet Volume 8.7 6.9-10.8 fL Neutrophils (%) (Auto) 90.7 H 37.0-80.0 % Lymphocytes (%) (Auto) 5.4 L 10.0-50.0 % Monocytes (%) (Auto) 3.3 0.0-12.0 % Eosinophils (%) (Auto) 0.0 0.0-7.0 % Basophils (%) (Auto) 0.6 0.0-2.0 % Neutrophils # (Auto) 16.2 H 1.6-8.6 10 ^3/uL Lymphocytes # (Auto) 1.0 0.4-5.4 10 ^3/uL Monocytes # (Auto) 0.6 0-1.3 10 ^3/uL Eosinophils # (Auto) 0 0-0.8 10 ^3/uL Basophils # (Auto) 0.1 0-0.2 10 ^3/uL Nucleated Red Blood Cells 0.0 % Sodium Level 132 L 136-145 mmol/L Potassium Level 5.4 H 3.5-5.1 mmol/L Chloride Level 94 L 98-107 mmol/L Carbon Dioxide Level < 10 *L 20-31 mmol/L Anion Gap 28.48227 H 5-15 Blood Urea Nitrogen 22 9-23 mg/dL Creatinine 1.75 H 0.700-1.30 mg/dL Glomerular Filtration Rate Calc 48 >90 mL/min BUN/Creatinine Ratio 12.6 10.0-20.0 Serum Glucose 647 *H 74-106 mg/dL Serum Osmolality 352 H 278-298 mOsm/kg Calcium Level 10.1 8.7-10.4 mg/dL Total Bilirubin 0.3 0.2-1.0 mg/dL Aspartate Amino Transferase (AST) < 8 L 13-40 U/L Alanine Aminotransferase (ALT) 11 7-40 U/L Alkaline Phosphatase 176 H 46-116 U/L B-Type Natriuretic Peptide 7.80 0-100 pg/mL Total Protein 8.9 H 5.7-8.2 g/dL Albumin 4.2 3.2-4.8 g/dL Lipase 69 H 12-53 U/L Beta-Hydroxybutyric Acid > 4.500 H < 0.4 mmol/L Blood Gas Specimen Type Arterial Blood Gas Sample Site Left radial Blood Gas Patient Temperature 37.0 Arterial Blood Date Drawn [id number] Arterial Blood pH 7.149 *L 7.350-7.450 Arterial Blood Partial Pressure CO2 < 12.6 *L 35.0-48.0 mmHg Arterial Blood Partial Pressure O2 131.6 H 83.0-108.0 mmHg Arterial Blood Oxygen Saturation 98.0 94.0-98.0 % Arterial Blood Oxyhemoglobin 96.7 94.0-98.0 % Arterial Blood Carboxyhemoglobin 0.6 0.5-1.5 % Arterial Blood Methemoglobin 0.7 0.0-1.5 % Ronny Test Yes Blood Gas Total Hemoglobin 16.00 13.5-17.5 g/dL Blood Gas Modality Room air FiO2 % 21.0 Blood Gas Critical Value Read Back Yes Blood Gas Notified Whom Pac tracy Blood Gas Notified Time [id number] Blood Gas Notified By Passenger Interline Clerk darlin garcia Assessment/Plan Assessment/Plan DKA (diabetic ketoacidosis) Hyponatremia Acute renal injury Leukocytosis, unspecified Elevated lactic acid level Generalized weakness Plan 1. Admit to intensive care unit 2. Breathing treatment 3. Pain control management 4. IV antibiotic management 5. Management of fluids and electrolytes 6. Consultation for hospitalist 7. Diagnostic test chest x-ray 8. DVT prophylaxis-on SCDs 9. Repeat labs CBC, CMP in a.m. 10. Home medication reviewed and reconciled 11. Continue with current medical management 12. Treatment plan discussed with patient and RN. Patient verbalized understanding. Plan discussed with: Patient, Other (RN) My Orders Orders - LEXI DURHAM DNP Procedure Category Date Status Time Complete Blood Count LAB 08/18/24 Transmitted 04:00 Comprehensive LAB 08/18/24 Transmitted Metabolic Panel 04:00 Consistent DIET 08/18/24 Transmitted Carb(Ccho)Diabetes Breakfast Ceftriaxone Ivpb PHA 08/18/24 Transmitted Rocephin 09:00 Admit ADMIT 08/18/24 Transmitted 01:06 Allergies SARAHY 08/18/24 Transmitted 01:06 Code Status CODE 08/18/24 Transmitted 01:06 0.9% Ns 1000 Ml PHA 08/18/24 Transmitted 01:15 Oxygen Per Hour RT 08/18/24 Transmitted 01:06 Hydrocodone-Acet PHA 08/18/24 Transmitted 5/325mg Tab ([place] 01:15 Ondansetron Hcl [facility] 08/18/24 Transmitted (Zofran) 01:15 Docusate Sodium [facility] 08/18/24 Transmitted Capsule (Colace 01:15 Complete Blood Count LAB 08/19/24 Verified 04:00 Comprehensive LAB 08/19/24 Verified Metabolic Panel 04:00 Condition: Serious [facility] 08/18/24 Transmitted 01:06 Acetaminophen Tablet [facility] 08/18/24 Transmitted (Tylenol Tablet) 01:15 Bedrest With Bathroom [facility] 08/18/24 Transmitted Privileg 01:06 Sequential [facility] 08/18/24 Transmitted Compression Device Nitroglycerin [facility] 08/18/24 Transmitted Sublingual (Ntrostat 01:15 Morphine Sulfate [facility] 08/18/24 Transmitted Injection 01:15 Stat Ekg For Chest [facility] 08/18/24 Verified Pain 01:06 Notify Md Of Changes [facility] 08/18/24 Verified From Base 01:06 Admitting Manager For [facility] 08/18/24 Verified 24 Hours 01:06 Emergency Dysrhythmia [facility] 08/18/24 Verified Protocol 01:06 Rhythm Strips Once [facility] 08/18/24 Verified Every Shift 01:06 Oxygen By Nasal RT 08/18/24 Verified Cannula 01:06 Problem List: (1) DKA (diabetic ketoacidosis) (2) Elevated lactic acid level (3) Hyponatremia (4) Acute renal injury (5) Leukocytosis, unspecified (6) Generalized weakness Date of Service: Aug 18, 2024 Billing Provider: LEXI DURHAM DNP Common Visit Codes: [id number] INP/OBS CARE (HIGH) LEXI DURHAM DNP Aug 18, 2024 01:22
[2024-08-18] MEDS: SODIUM CHLORIDE 0.9% 1,000 ML IV SCH (02:06)
[2024-08-18 05:17] LABS: Basophils # (auto) 0.1 10 ^3/uL (0-0.2); Basophils % (auto) 0.6 % (0.0-2.0); Eosinophils # (auto) 0 10 ^3/uL (0-0.8); Hematocrit 42.8 % (41.0-53.0); Hemoglobin 14.7 g/dL (13.5-17.5); Lymphocytes # (auto) 1.1 10 ^3/uL (0.4-5.4); Lymphocytes % (auto) 6.6 % (10.0-50.0); Mean Corpuscular Hemoglobin 30.1 pg (28.0-32.0); Mean Corpuscular Hgb Conc. 34.3 g/dL (32.0-36.0); Mean Corpuscular Volume 87.7 fL (80.0-100.0); Monocytes % (auto) 6.5 % (0.0-12.0); Neutrophils # (auto) 13.7 10 ^3/uL (1.6-8.6); Neutrophils % (auto) 86.3 % (37.0-80.0); Nucleated Red Blood Cells % 0.2 %; Platelet Count (auto) 361 10^3/uL (140-450); Red Blood Cells 4.87 10^6/uL (4.5-5.90); Red Cell Distribution Width 14.7 % (11.8-14.3); White Blood Cell 15.9 10^3/uL (4.4-10.8)
[2024-08-18 05:36] LABS: Albumin 3.7 g/dL (3.2-4.8); Anion Gap 15 (5-15); BUN/Creatinine Ratio 13.1 (10.0-20.0); Blood Urea Nitrogen 23 mg/dL (9-23); Calcium 9.3 mg/dL (8.7-10.4); Chloride 106 mmol/L (98-107); Potassium 4.3 mmol/L (3.5-5.1); Sodium 141 mmol/L (136-145); Total Protein 7.6 g/dL (5.7-8.2)
[2024-08-18 05:38] LABS: Alkaline Phosphatase 132 U/L (46-116); Carbon Dioxide 20 mmol/L (20-31); Glucose 263 mg/dL (74-106)
[2024-08-18 05:39] LABS: Alanine Aminotransferase < 9 U/L (7-40); Aspartate Aminotransferase < 8 U/L (13-40); Bilirubin, Total 0.3 mg/dL (0.2-1.0)
[2024-08-18] MEDS: INSULIN LANTUS (GLARGINE) 1 /0.01ml (100units/ml) SC SCH (10:02)
[2024-08-18 12:48] LABS: Chloride 103 mmol/L (98-107)
[2024-08-18 12:49] LABS: Potassium 3.8 mmol/L (3.5-5.1)
[2024-08-18 12:50] LABS: Anion Gap 9 (5-15); Calcium 8.7 mg/dL (8.7-10.4); Carbon Dioxide 24 mmol/L (20-31)
[2024-08-18 12:55] LABS: BUN/Creatinine Ratio 15.2 (10.0-20.0); Blood Urea Nitrogen 22 mg/dL (9-23)
[2024-08-18 12:57] LABS: Glucose 289 mg/dL (74-106); Sodium 136 mmol/L (136-145)
[2024-08-18] MEDS ORDERED: DEXTROSE (50%) 50ML SYRG IV PRN (13:30)
[2024-08-18 14:36] LABS: Urine Bacteria FEW /hpf (None Seen); Urine Blood Negative /uL (Negative); Urine Clarity Clear (Clear); Urine Color Yellow (Yellow); Urine Protein, UAD 1+ (Negative); Urine Squamous Epithelial Cell FEW /hpf (<5); Urine Urobilinogen Normal (Negative); Urine WBC < 1 /HPF (0-3)
[2024-08-18] MEDS: ACCU-CHEK COMFORT CURVE STRIP VI SCH (16:00)
[2024-08-18] MEDS: InsuLIN REG 1unit/0.01ml Soln (100units/ml) SC SCH (16:00)
[2024-08-18] MEDS: cefTRIAXone 1GM/50ML D5W 50 ML IV SCH (20:13)
--- NOTE | 2024-08-18 22:58 | DVHINCON2 ---
Date of service: Aug 18, 2024 Referring Physician Dallin Ch NP Reason for Consultation Acute hypoxic respiratory failure History of Present Illness A 44-year-old man with past medical history of DM, hypertension, and hyperlipidemia presented to ED on 08/17/24 for evaluation of altered level of consciousness. Patient reported symptoms progressively got worse with associated nausea, vomiting, weakness, confusion and slurred speech, getting worse that prompted this visit. Workup in ED shows WBC 17.9, platelets 477, sodium 132, potassium 5.4, BUN 22, creatinine 1.75, GFR 48, glucose 647, anion gap 28, acetone > 4.5, troponin 12, BNP 7.80, lipase 69, phosphorus 7.1. Blood pressure was 113/80, heart rate 110, temperature 98.1 F, O2 saturation 99% on room air. Patient was started on insulin drip, admitted for further care. Pulmonary consultation is requested for evaluation and management of acute hypoxic respiratory failure. Review of Systems: 14-point review of systems negative unless otherwise noted above. Past Medical History: DM, hypertension, and hyperlipidemia Past Surgical History: None Medications: Reviewed. Allergies: No known drug allergies. Family History: No family history of premature CAD. No family history of lung disorders. Social History: Smokes cigarettes, less than 1 pack per day Denies alcohol use Patient uses methamphetamine. Family History: Diabetes mellitus G8 FATHER FH: diabetes mellitus Allergies: Coded Allergies: NO KNOWN ALLERGIES (Unverified , 09/06/13) Home Meds Active Scripts Pantoprazole Sodium Sesquihydr (Pantoprazole Sodium) 40 Mg Tab, 40 MG PO DAILY for 30 Days, #30 TAB Prov:LICO BERNARD RESIDENT 05/25/24 Reported Medications Fluoxetine Hcl (Fluoxetine Hcl) Unknown Strength Cap, PO 01/16/24 Insulin Glargine (Lantus) 100 Unit/Ml Inj, 40 UNIT SC DAILY@DINNER, INJ 01/18/18 Simvastatin (Simvastatin) 10 Mg Tab, 10 MG PO DAILY for 30 Days, MG 08/25/17 Insulin Aspart Protamine & Asp (Novolog Mix 70/30 Prefill (70-30) 100 Unit/ml) 1 Inj Inj, 1 INJ SC, INJ 08/25/17 Current Medications Current Medications Medications (Trade) Dose Ordered Sig/Leandro Route PRN Reason Start Time Stop Time Status Last Admin Insulin Glargine (Lantus) 15 units DAILY SC 08/18/24 10:00 08/18/24 10:02 Ceftriaxone Sodium 50 ml @ 100 mls/hr Q24H IV 08/18/24 20:00 08/18/24 20:13 Sodium Chloride 1,000 ml @ 120 mls/hr Q8H20M IV 08/18/24 01:15 08/18/24 09:43 Acetaminophen/ Hydrocodone Bitart ([place] 5/325MG Tab) 1 tab Q4HP PRN PO MODERATE PAIN (4-6 PAIN SCALE) 08/18/24 01:15 Ondansetron HCl (Zofran) 4 mg Q4HP PRN IV NAUSEA / VOMITING 08/18/24 01:15 Docusate Sodium (Colace Capsule) 100 mg BIDPRN PRN PO FOR CONSTIPATION 08/18/24 01:15 Acetaminophen (Tylenol Tablet) 650 mg Q6HP PRN PO PAIN SCALE 1-3 OR TEMP>100.4 08/18/24 01:15 Nitroglycerin (Ntrostat Sublingual) 0.4 mg Q5MINP PRN SL FOR CHEST PAIN 08/18/24 01:15 Morphine Sulfate 2 mg Q30M PRN IV FOR CHEST PAIN 08/18/24 01:15 Diagnostic Test (Pha) (Accu-Chek Comfort Curve T) 1 strip IQ4HR 08/18/24 16:00 08/18/24 20:06 Insulin Human Regular (InsuLIN R) IQ4HR SC 08/18/24 16:00 08/18/24 20:06 Dextrose 50 ml UD PRN IV Blood Sugar LESS THAN 60 08/18/24 13:30 Vital Signs Vital Signs Date Time Temp Pulse Resp B/P (MAP) Pulse Ox O2 Delivery O2 Flow Rate FiO2 08/18/24 21:00 98.3 82 18 104/60 (75) 100 98.3 08/18/24 18:34 Room Air* 0 21 Physical Exam Gen.: Patient lying in bed in no apparent distress. On supplemental oxygen. Head: Normocephalic, atraumatic. Eyes: EOMI/PERRLA. Ears: Normal hearing. Normal anatomy. Neck/trachea: Trachea midline, supple. Nose: Normal external anatomy. Mouth: Moist mucous membranes. Chest: Decreased air entry bilaterally. No wheezing or rhonchi. Cardiovascular: Positive S1, positive S2. Regular rate and rhythm. Abdomen: Positive bowel sounds in all 4 quadrants. Soft, non-tender, non- distended. : Deferred. Rectal: Deferred. Skin: Warm, dry. Intact. Extremities: 2+ radial pulses bilaterally. No lower extremity edema. Neuro: Awake, alert, oriented x3. No gross motor or sensory deficits. Cranial nerves II through XII intact. Gait not assessed. Labs/Diagnostic Data Labs Test 08/18/24 20:04 08/18/24 14:17 08/18/24 11:45 08/18/24 04:58 Range/Units POC Glucose 377 H 70-106 mg/dl Urine Color Yellow Yellow Urine Clarity Clear Clear Urine pH 6.0 5.0-9.0 Urine Specific [place] 1.030 1.001-1.035 Urine Protein 1+ H Negative Urine Ketones 3+ H Negative Urine Blood Negative Negative /uL Urine Nitrite Negative Negative Urine Bilirubin Negative Negative Urine Urobilinogen Normal Negative mg/dL Urine Leukocyte Esterase Negative Negative /uL Urine RBC None seen 0 - 3 /hpf Urine Microscopic WBC < 1 0-3 /HPF Urine Squamous Epithelial Cells Few <5 /hpf Urine Bacteria Few H None Seen /hpf Urine Glucose 4+ H Normal mg/dL Sodium Level 136 # 136-145 mmol/L Potassium Level 3.8 3.5-5.1 mmol/L Chloride Level 103 98-107 mmol/L Carbon Dioxide Level 24 20-31 mmol/L Anion Gap 9 5-15 Blood Urea Nitrogen 22 9-23 mg/dL Creatinine 1.45 H 0.700-1.30 mg/dL Glomerular Filtration Rate Calc 61 >90 mL/min BUN/Creatinine Ratio 15.2 10.0-20.0 Serum Glucose 289 H 74-106 mg/dL Calcium Level 8.7 8.7-10.4 mg/dL White Blood Count 15.9 H 4.4-10.8 10^3/uL Red Blood Count 4.87 4.5-5.90 10^6/uL Hemoglobin 14.7 13.5-17.5 g/dL Hematocrit 42.8 # 41.0-53.0 % Mean Corpuscular Volume 87.7 # 80.0-100.0 fL Mean Corpuscular Hemoglobin 30.1 28.0-32.0 pg Mean Corpuscular Hemoglobin Concent 34.3 32.0-36.0 g/dL Red Cell Distribution Width 14.7 H 11.8-14.3 % Platelet Count 361 140-450 10^3/uL Mean Platelet Volume 7.8 6.9-10.8 fL Neutrophils (%) (Auto) 86.3 H 37.0-80.0 % Lymphocytes (%) (Auto) 6.6 L 10.0-50.0 % Monocytes (%) (Auto) 6.5 0.0-12.0 % Eosinophils (%) (Auto) 0.0 0.0-7.0 % Basophils (%) (Auto) 0.6 0.0-2.0 % Neutrophils # (Auto) 13.7 H 1.6-8.6 10 ^3/uL Lymphocytes # (Auto) 1.1 0.4-5.4 10 ^3/uL Monocytes # (Auto) 1.0 0-1.3 10 ^3/uL Eosinophils # (Auto) 0 0-0.8 10 ^3/uL Basophils # (Auto) 0.1 0-0.2 10 ^3/uL Nucleated Red Blood Cells 0.2 % Total Bilirubin 0.3 0.2-1.0 mg/dL Aspartate Amino Transferase (AST) < 8 L 13-40 U/L Alanine Aminotransferase (ALT) < 9 7-40 U/L Alkaline Phosphatase 132 H 46-116 U/L Total Protein 7.6 5.7-8.2 g/dL Albumin 3.7 3.2-4.8 g/dL Test 08/17/24 21:32 08/17/24 20:50 08/17/24 19:34 08/17/24 18:33 Range/Units Troponin I High Sensitivity 12 </=54 ng/L Lactic Acid Level 2.8 *H 0.4-2.0 mmol/L Phosphorus Level 7.1 H 2.4-5.1 mg/dL Magnesium Level 2.5 1.6-2.6 mg/dL Serum Osmolality 352 H 278-298 mOsm/kg B-Type Natriuretic Peptide 7.80 0-100 pg/mL Lipase 69 H 12-53 U/L Beta-Hydroxybutyric Acid > 4.500 H < 0.4 mmol/L Test 08/17/24 18:22 Range/Units Blood Gas Specimen Type Arterial Blood Gas Sample Site Left radial Blood Gas Patient Temperature 37.0 Arterial Blood Date Drawn Arterial Blood pH 7.149 *L 7.350-7.450 Arterial Blood Partial Pressure CO2 < 12.6 *L 35.0-48.0 mmHg Arterial Blood Partial Pressure O2 131.6 H 83.0-108.0 mmHg Arterial Blood Oxygen Saturation 98.0 94.0-98.0 % Arterial Blood Oxyhemoglobin 96.7 94.0-98.0 % Arterial Blood Carboxyhemoglobin 0.6 0.5-1.5 % Arterial Blood Methemoglobin 0.7 0.0-1.5 % Ronny Test Yes Blood Gas Total Hemoglobin 16.00 13.5-17.5 g/dL Blood Gas Modality Room air FiO2 % 21.0 Blood Gas Critical Value Read Back Yes Blood Gas Notified Whom Pac [facility] Blood Gas Notified Time Blood Gas Notified By [employer] Specialist darlin garcia Assessment Impression: Acute hypoxic respiratory failure Dependence on supplemental oxygen Diabetic ketoacidosis Hyponatremia Acute renal injury Leukocytosis Elevated lactic acid level Generalized weakness Nicotine dependence Methamphetamine use Plan: Supplemental oxygen 2 LPM NC Titrate to keep O2 sats above 92%. Taper O2 as tolerated. Accu-Cheks, insulin drip AG closed. Transition to long acting insulin + ISS once AG closes x2 + Bicarb 20 or above. Continue antibiotics Monitor WBC IV fluids with NS at 120 ml/hr Monitor renal function. Monitor electrolytes. Supplement as necessary. Monitor ins and outs. DVT prophylaxis. Prognosis: Poor given patient's multiple co-morbidities. Condition: Critical Rest of plan per hospitalist and other consultants. A total of 35 minutes of critical care time was spent reviewing the patient record, examining the patient, making a diagnostic and therapeutic plan, discussing this plan with the medical personnel, following up on diagnostic studies and following the patient for clinical stability excluding any and all procedures. At least 50% of this time was spent in direct, [id number] contact. Thank you, SHARDA Ch, for allowing me to participate in this patient's care. Further recommendations will depend on the patient's clinical course. Please do not hesitate to contact me if you have any questions or concerns. This medical document was created using an electronic medical record system with [employer] dictation system. Although these documentations are being carefully reviewed, there may still be some phonetic and typographical changes. The errors are purely typographical, due to imperfection on the software program, and do not reflect any compromise in the patient's medical care. Plan discussed with: Patient, Other (SOURAV Kowalski/) JESI GRAY MD Aug 18, 2024 22:58
[2024-08-19] VITALS (8 sets, daily range): BP systolic 92–110; BP diastolic 54–65; PULSE 68–100; RESP 17–19; TEMP 97.5–98.4; O2SAT 95–99
[2024-08-19 06:27] LABS: Basophils # (auto) 0 10 ^3/uL (0-0.2); Basophils % (auto) 0.5 % (0.0-2.0); Eosinophils # (auto) 0.1 10 ^3/uL (0-0.8); Eosinophils % (auto) 0.9 % (0.0-7.0); Hematocrit 34.7 % (41.0-53.0); Lymphocytes # (auto) 1.4 10 ^3/uL (0.4-5.4); Lymphocytes % (auto) 22.1 % (10.0-50.0); Mean Corpuscular Hemoglobin 30.5 pg (28.0-32.0); Mean Corpuscular Hgb Conc. 34.7 g/dL (32.0-36.0); Monocytes # (auto) 0.5 10 ^3/uL (0-1.3); Monocytes % (auto) 7.3 % (0.0-12.0); Neutrophils # (auto) 4.4 10 ^3/uL (1.6-8.6); Neutrophils % (auto) 69.2 % (37.0-80.0); Platelet Count (auto) 252 10^3/uL (140-450); Red Blood Cells 3.95 10^6/uL (4.5-5.90); Red Cell Distribution Width 14.1 % (11.8-14.3); White Blood Cell 6.3 10^3/uL (4.4-10.8)
[2024-08-19 06:49] LABS: Alkaline Phosphatase 99 U/L (46-116); Anion Gap 6 (5-15); BUN/Creatinine Ratio 11.6 (10.0-20.0); Blood Urea Nitrogen 13 mg/dL (9-23); Calcium 8.9 mg/dL (8.7-10.4); Carbon Dioxide 27 mmol/L (20-31); Chloride 102 mmol/L (98-107); Potassium 3.6 mmol/L (3.5-5.1)
[2024-08-19 06:50] LABS: Total Protein 6.1 g/dL (5.7-8.2)
[2024-08-19 06:53] LABS: Alanine Aminotransferase < 9 U/L (7-40); Aspartate Aminotransferase < 8 U/L (13-40); Bilirubin, Total 0.3 mg/dL (0.2-1.0); Glucose 171 mg/dL (74-106); Sodium 135 mmol/L (136-145)
--- NOTE | 2024-08-19 19:35 | DVHPN2 ---
Subjective in bed resting Changes from previous H/P or p: No Changes Eyes: No Pain, No Vision change, No Conjunctivae inflammation, No Eyelid inflammation, No Other, No Redness ENT: No Ear pain, No Ear discharge, No Nose pain, No Nose discharge, No Nose congestion, No Mouth pain, No Mouth swelling, No Throat pain, No Throat swelling, No Other Cardiovascular: No Chest Pain, No Palpitations, No Orthopnea, No Paroxysmal Noc. Dyspnea, No Edema, No Lt Headedness, No Other Respiratory: No Cough, No Dry, No Shortness of breath, No SOB with excertion, No Wheezing, No Hemoptysis, No Pleuritic Pain, No Sputum, No Other Gastrointestinal: Nausea, Vomiting; No Abdominal Pain, No Diarrhea, No Constipation, No Melena, No Hematochezia, No Other Genitourinary: No Dysuria, No Frequency, No Incontinence, No Hematuria, No Retention, No Other Musculoskeletal: No other, No neck pain, No shoulder pain, No arm pain, No back pain, No hand pain, No leg pain, No foot pain Skin: No Rash, No Lesions, No Jaundice, No Bruising, No Other Objective Vitals Vital Signs Date Time Temp Pulse Resp B/P (MAP) Pulse Ox O2 Delivery O2 Flow Rate FiO2 08/19/24 17:03 98.4 84 17 104/59 (74) 97 98.4 08/19/24 08:00 Room Air* 0 21 Intake/Output Intake and Output 08/19/24 05:00 Intake Total 1993.166 ml Output Total 2 ml Balance 1990.166 ml Intake Oral 240 ml IV Total 1753.166 ml Output Urine Total 2 ml # Bowel Movements 1 General Appearance: Alert, Oriented X3 HEENT: Atraumatic Lungs: Clear to auscultation Cardiovascular: Regular rate, Normal S1, Normal S2 Medications Current Medications Medications Dose Ordered Sig/Leandro Route Start Time Stop Time Status Last Admin Dose Admin Insulin Glargine 15 units DAILY SC 08/18/24 10:00 08/19/24 10:24 15 UNITS Ceftriaxone Sodium 50 ml @ 100 mls/hr Q24H IV 08/18/24 20:00 08/18/24 20:13 100 MLS/HR Sodium Chloride 1,000 ml @ 120 mls/hr Q8H20M IV 08/18/24 01:15 08/19/24 06:42 120 MLS/HR Acetaminophen/ Hydrocodone Bitart 1 tab Q4HP PRN PO 08/18/24 01:15 Ondansetron HCl 4 mg Q4HP PRN IV 08/18/24 01:15 Docusate Sodium 100 mg BIDPRN PRN PO 08/18/24 01:15 Acetaminophen 650 mg Q6HP PRN PO 08/18/24 01:15 Nitroglycerin 0.4 mg Q5MINP PRN SL 08/18/24 01:15 Morphine Sulfate 2 mg Q30M PRN IV 08/18/24 01:15 Diagnostic Test (Pha) 1 strip IQ4HR 08/18/24 16:00 08/19/24 15:19 1 STRIP Insulin Human Regular IQ4HR SC 08/18/24 16:00 08/19/24 15:20 12 UNITS Dextrose 50 ml UD PRN IV 08/18/24 13:30 Laboratory Results Laboratory Tests 08/19/24 06:06 Chemistry Test 08/19/24 06:06 Albumin 3.0 g/dL (3.2-4.8) L Calcium Level 8.9 mg/dL (8.7-10.4) Total Protein 6.1 g/dL (5.7-8.2) LFT Test 08/19/24 06:06 Alanine Aminotransferase (ALT) < 9 U/L (7-40) Alkaline Phosphatase 99 U/L (46-116) Aspartate Amino Transferase (AST) < 8 U/L (13-40) L Total Bilirubin 0.3 mg/dL (0.2-1.0) Urinalysis Test 08/18/24 14:17 Urine Color Yellow (Yellow) Urine Clarity Clear (Clear) Urine pH 6.0 (5.0-9.0) Urine Specific [place] 1.030 (1.001-1.035) Urine Protein 1+ (Negative) H Urine Ketones 3+ (Negative) H Urine Blood Negative /uL (Negative) Urine Nitrite Negative (Negative) Urine Bilirubin Negative (Negative) Urine Urobilinogen Normal mg/dL (Negative) Urine Leukocyte Esterase Negative /uL (Negative) Urine RBC None seen /hpf (0 - 3) Urine Microscopic WBC < 1 /HPF (0-3) Urine Squamous Epithelial Cells Few /hpf (<5) Urine Bacteria Few /hpf (None Seen) H Urine Glucose 4+ mg/dL (Normal) H Assessment/Plan Assessment/Plan KA (diabetic ketoacidosis) Hyponatremia Acute renal injury Leukocytosis, unspecified Elevated lactic acid level Generalized weakness Plan on insulin protocol IV abx consult podiatry today for non healing ulcers on big toes Plan discussed with: Patient My Orders Orders - DESIRE MARIN MD Procedure Category Date Status Time *Podiatry Consult CONS 08/19/24 Transmitted Vannessaon(Dvmg) 13:36 Cleanse Wound W/ SARAHY 08/19/24 In Process Sterile Gauze 16:39 Date of Service: Aug 19, 2024 Billing Provider: DESIRE MARIN MD Common Visit Codes: [id number] INP/OBS CARE(HIGH) DESIRE MARIN MD Aug 19, 2024 19:35
--- NOTE | 2024-08-19 23:09 | DVHPN2 ---
Progress Note - Dictate Date Seen: Aug 19, 2024 Medical Necessity Reason Pt with a Central, PICC or Fol: No Subjective Patient seen and examined at bedside. Breathing comfortably on room air. Overnight events reviewed. vital signs Vital Sign Date Time Temp Pulse Resp B/P (MAP) Pulse Ox O2 Delivery O2 Flow Rate FiO2 08/19/24 17:03 98.4 84 17 104/59 (74) 97 98.4 08/19/24 08:00 Room Air* 0 21 Total Intake and Output 08/18/24 08/18/24 08/19/24 15:00 23:00 07:00 Intake Total 1092 ml 290 ml 1430 ml Output Total 4 ml Balance 1092 ml 290 ml 1426 ml medications Current Medications Medications Dose Ordered Sig/Leandro Route Start Time Stop Time Status Last Admin Dose Admin Insulin Glargine 15 units DAILY SC 08/18/24 10:00 08/19/24 10:24 15 UNITS Ceftriaxone Sodium 50 ml @ 100 mls/hr Q24H IV 08/18/24 20:00 08/19/24 20:33 100 MLS/HR Sodium Chloride 1,000 ml @ 120 mls/hr Q8H20M IV 08/18/24 01:15 08/19/24 06:42 120 MLS/HR Acetaminophen/ Hydrocodone Bitart 1 tab Q4HP PRN PO 08/18/24 01:15 Ondansetron HCl 4 mg Q4HP PRN IV 08/18/24 01:15 Docusate Sodium 100 mg BIDPRN PRN PO 08/18/24 01:15 Acetaminophen 650 mg Q6HP PRN PO 08/18/24 01:15 Nitroglycerin 0.4 mg Q5MINP PRN SL 08/18/24 01:15 Morphine Sulfate 2 mg Q30M PRN IV 08/18/24 01:15 Diagnostic Test (Pha) 1 strip IQ4HR 08/18/24 16:00 08/19/24 20:25 1 STRIP Insulin Human Regular IQ4HR SC 08/18/24 16:00 08/19/24 20:30 6 UNITS Dextrose 50 ml UD PRN IV 08/18/24 13:30 objective Gen.: Patient lying in bed in no apparent distress. Breathing on room air. Head: Normocephalic, atraumatic. Eyes: EOMI/PERRLA. Ears: Normal hearing. Normal anatomy. Neck/trachea: Trachea midline, supple. Nose: Normal external anatomy. Mouth: Moist mucous membranes. Chest: Decreased air entry bilaterally. No wheezing or rhonchi. Cardiovascular: Positive S1, positive S2. Regular rate and rhythm. Abdomen: Positive bowel sounds in all 4 quadrants. Soft, non-tender, non- distended. : Deferred. Rectal: Deferred. Skin: Warm, dry. Intact. Extremities: 2+ radial pulses bilaterally. No lower extremity edema. Neuro: Awake, alert, oriented x3. No gross motor or sensory deficits. Cranial nerves II through XII intact. Gait not assessed. laboratory and microbiology Laboratory Tests 08/19/24 06:06 Test 08/19/24 06:06 Range/Units Serum Glucose 171 #H 74-106 mg/dL Assessment/Plan Impression: Acute hypoxic respiratory failure Dependence on supplemental oxygen Diabetic ketoacidosis Hyponatremia Acute renal injury Leukocytosis Elevated lactic acid level Generalized weakness Nicotine dependence Methamphetamine use Events: Currently on room air Supplemental oxygen PRN Off insulin drip. Continue glycemic control Continue antibiotics Patient stable from pulmonary standpoint, downgraded to tele from ICU. Signing off care - please re-consult as necessary Labs and imaging reviewed. Rest of plan as noted below. Plan: Supplemental oxygen PRN Titrate to keep O2 sats above 92%. Accu-Cheks Off insulin drip Continue antibiotics Monitor WBC Monitor renal function. Monitor electrolytes. Supplement as necessary. Monitor ins and outs. DVT prophylaxis. Prognosis: Guarded given patient's multiple co-morbidities. Rest of plan per hospitalist and other consultants. Thank you, SHARDA Ch, for allowing me to participate in this patient's care. Further recommendations will depend on the patient's clinical course. Please do not hesitate to contact me if you have any questions or concerns. This medical document was created using an electronic medical record system with [employer] dictation system. Although these documentations are being carefully reviewed, there may still be some phonetic and typographical changes. The errors are purely typographical, due to imperfection on the software program, and do not reflect any compromise in the patient's medical care. Plan discussed with: Patient, Other (RN) JESI GRAY MD Aug 19, 2024 23:09
[2024-08-20] VITALS (8 sets, daily range): BP systolic 101–126; BP diastolic 64–83; PULSE 68–78; RESP 16–18; TEMP 97.5–98.9; O2SAT 98–100
--- NOTE | 2024-08-20 11:24 | DVHPN2 ---
Subjective The patient is seen and examined at bedside. Complain of leg pain. Reviewed: Care Plan, H&P, Labs, Medications, Previous Orders, Radiology Changes from previous H/P or p: No Changes Eyes: No Pain, No Vision change, No Conjunctivae inflammation, No Eyelid inflammation, No Other, No Redness ENT: No Ear pain, No Ear discharge, No Nose pain, No Nose discharge, No Nose congestion, No Mouth pain, No Mouth swelling, No Throat pain, No Throat swelling, No Other Cardiovascular: No Chest Pain, No Palpitations, No Orthopnea, No Paroxysmal Noc. Dyspnea, No Edema, No Lt Headedness, No Other Respiratory: No Cough, No Dry, No Shortness of breath, No SOB with excertion, No Wheezing, No Hemoptysis, No Pleuritic Pain, No Sputum, No Other Gastrointestinal: Nausea, Vomiting; No Abdominal Pain, No Diarrhea, No Constipation, No Melena, No Hematochezia, No Other Genitourinary: No Dysuria, No Frequency, No Incontinence, No Hematuria, No Retention, No Other Musculoskeletal: No other, No neck pain, No shoulder pain, No arm pain, No back pain, No hand pain, No leg pain, No foot pain Skin: No Rash, No Lesions, No Jaundice, No Bruising, No Other Objective Vitals Vital Signs Date Time Temp Pulse Resp B/P (MAP) Pulse Ox O2 Delivery O2 Flow Rate FiO2 08/20/24 09:00 97.5 68 16 117/75 (89) 99 97.5 08/20/24 08:10 Room Air* 0 21 Intake/Output Intake and Output 08/20/24 07:00 Intake Total 760 ml Output Total 2300 ml Balance -1540 ml Intake Oral 200 ml IV Total 560 ml Output Urine Total 2300 ml # Voids 2 General Appearance: Alert, Oriented X3, Cooperative, No acute distress HEENT: Atraumatic, PERRLA, EOMI, Mucous membr. moist/pink Neck: Supple Lungs: Clear to auscultation Cardiovascular: Regular rate, Normal S1, Normal S2 Abdomen: Normal bowel sounds, Soft, No tenderness Neuro: Cranial nerves 3-12 NL Skin: Wounds (See nurse notes and pictures, the wound is bilateral foot) Psych/Mental Status: Mental status NL Medications Current Medications Medications Dose Ordered Sig/Leandro Route Start Time Stop Time Status Last Admin Dose Admin Insulin Glargine 15 units DAILY SC 08/18/24 10:00 08/20/24 09:12 15 UNITS Ceftriaxone Sodium 50 ml @ 100 mls/hr Q24H IV 08/18/24 20:00 08/19/24 20:33 100 MLS/HR Sodium Chloride 1,000 ml @ 120 mls/hr Q8H20M IV 08/18/24 01:15 08/20/24 03:15 120 MLS/HR Acetaminophen/ Hydrocodone Bitart 1 tab Q4HP PRN PO 08/18/24 01:15 Ondansetron HCl 4 mg Q4HP PRN IV 08/18/24 01:15 Docusate Sodium 100 mg BIDPRN PRN PO 08/18/24 01:15 Acetaminophen 650 mg Q6HP PRN PO 08/18/24 01:15 Nitroglycerin 0.4 mg Q5MINP PRN SL 08/18/24 01:15 Morphine Sulfate 2 mg Q30M PRN IV 08/18/24 01:15 Diagnostic Test (Pha) 1 strip IQ4HR 08/18/24 16:00 08/20/24 08:00 1 STRIP Insulin Human Regular IQ4HR SC 08/18/24 16:00 08/20/24 07:59 6 UNITS Dextrose 50 ml UD PRN IV 08/18/24 13:30 Laboratory Results Laboratory Tests 08/19/24 06:06 Urinalysis Test 08/18/24 14:17 Urine Color Yellow (Yellow) Urine Clarity Clear (Clear) Urine pH 6.0 (5.0-9.0) Urine Specific [place] 1.030 (1.001-1.035) Urine Protein 1+ (Negative) H Urine Ketones 3+ (Negative) H Urine Blood Negative /uL (Negative) Urine Nitrite Negative (Negative) Urine Bilirubin Negative (Negative) Urine Urobilinogen Normal mg/dL (Negative) Urine Leukocyte Esterase Negative /uL (Negative) Urine RBC None seen /hpf (0 - 3) Urine Microscopic WBC < 1 /HPF (0-3) Urine Squamous Epithelial Cells Few /hpf (<5) Urine Bacteria Few /hpf (None Seen) H Urine Glucose 4+ mg/dL (Normal) H Labs and/or images reviewed: Labs reviewed by me Assessment/Plan Assessment/Plan DKA (diabetic ketoacidosis), resolved Diabetes type 2 uncontrolled Bilateral diabetic foot ulcer Hyponatremia Acute renal injury Leukocytosis, unspecified Elevated lactic acid level Generalized weakness Plan: Continuing Current management. Continuing with sliding scale insulin. Continuing with Lantus. Continuing with pain medication. Continuing with IV antibiotic Monitor sodium. Waiting for tire fabric impregnating range tender to see the patient. This medical document was created using an electronic medical record system with [employer] computerized dictation system. Although this document has been carefully reviewed, there may still be some phonetic and typographical errors. These areas are purely typographical due to imperfections of the software programs, and do not reflect any compromise in the patient's medical care. Plan discussed with: Patient Date of Service: Aug 20, 2024 Billing Provider: ROSENDO CAMARGO MD Common Visit Codes: [id number] INP/OBS CARE(HIGH) ROSENDO CAMARGO MD Aug 20, 2024 11:24
--- NOTE | 2024-08-20 13:00 | DVHINCON2 ---
Date Seen: Aug 20, 2024 Reason for Consultation Bilateral foot wound History of Present Illness The patient is a 44-year-old male with past medical history of DM, hypertension, and hyperlipidemia presented to [facility] ED for evaluation of altered level of consciousness. Patient's symptoms progressively get worse with associated nausea, vomiting, weakness, confused, has slurred speech, getting worse that prompted this visit. Patient was seen and evaluated in the ED, laboratory data shows WBC 17.9, platelets 477, sodium 132, potassium 5.4, BUN 22, creatinine 1.75, GFR 48, glucose 647, anion gap 28, acetone > 4.5, troponin 12, BNP 7.80, lipase 69, phosphorus 7.1, blood pressure 113/80, heart rate 110, temperature 98.1 F, O2 saturation 99% on room air. Patient was started on insulin drip, please see medication orders section in the computer. On my assessment, patient denies chest pain, no headache, no dizziness, no diaphoresis, no blurry vision, no shortness of breaths, no diarrhea, nausea, no vomiting, no fever, no chills. Patient was admitted for further evaluation and medical management. Past Medical History See H&P Past Surgical History See H&P. Family History: Diabetes mellitus G8 FATHER FH: diabetes mellitus Allergies: Coded Allergies: NO KNOWN ALLERGIES (Unverified , 09/06/13) Home Meds Active Scripts Pantoprazole Sodium Sesquihydr (Pantoprazole Sodium) 40 Mg Tab, 40 MG PO DAILY for 30 Days, #30 TAB Prov:LICO BERNARD RESIDENT 05/25/24 Reported Medications Fluoxetine Hcl (Fluoxetine Hcl) Unknown Strength Cap, PO 01/16/24 Insulin Glargine (Lantus) 100 Unit/Ml Inj, 40 UNIT SC DAILY@DINNER, INJ 01/18/18 Simvastatin (Simvastatin) 10 Mg Tab, 10 MG PO DAILY for 30 Days, MG 08/25/17 Insulin Aspart Protamine & Asp (Novolog Mix 70/30 Prefill (70-30) 100 Unit/ml) 1 Inj Inj, 1 INJ SC, INJ 08/25/17 Vital Signs Vital Signs Date Time Temp Pulse Resp B/P (MAP) Pulse Ox O2 Delivery O2 Flow Rate FiO2 08/20/24 09:00 97.5 68 16 117/75 (89) 99 97.5 08/20/24 08:10 Room Air* 0 21 Physical Exam DERMATOLOGIC EXAM: - Skin is dry and cool to the touch dry bilaterally. - Nails 1-5 of the bilateral foot are thickened, discolored, dystrophic, and tender to palpate with subungual debris - Hair loss noted to bilateral feet Wound #1: Location: Right plantar hallux Measurements: Length 1 cm x width 1 cm x depth 1 cm. Wound margins: Hyperkeratotic. Wound base: Full thickness. General Appearance: Healthy and bleeding. Probes to Bone: No Purulent drainage: No Serous drainage: No Erythema: No Wound #2: Location: Left plantar hallux Measurements: Length 1 cm x width 1 cm x depth 1 cm. Wound margins: Hyperkeratotic. Wound base: Full thickness. General Appearance: Healthy and bleeding. Probes to Bone: No Purulent drainage: No Serous drainage: No Erythema: No VASCULAR EXAM: - DP and PT pulses are palpable bilaterally. - STEEPLECHASE JOCKEY is brisk to all digits. - Feet are cool to touch compared to lower legs bilaterally. NEUROLOGIC EXAM: - Normal light touch sensation to the superficial peroneal, deep peroneal, sural, saphenous, and tibial nerve branches. - Protective sensation is diminished as tested with a 5.07 10g [place] bilaterally. MUSCULOSKELETAL EXAM: - No gross deformities - Muscle strength is 5/5 and active motion is pain-free and symmetrical bilaterally - No pain or crepitation with passive range of motion bilaterally to all major pedal joints Labs/Diagnostic Data Labs Test 08/20/24 11:07 08/19/24 06:06 08/18/24 14:17 08/17/24 21:32 Range/Units POC Glucose 250 H 70-106 mg/dl White Blood Count 6.3 # 4.4-10.8 10^3/uL Red Blood Count 3.95 L 4.5-5.90 10^6/uL Hemoglobin 12.0 #L 13.5-17.5 g/dL Hematocrit 34.7 #L 41.0-53.0 % Mean Corpuscular Volume 88.0 80.0-100.0 fL Mean Corpuscular Hemoglobin 30.5 28.0-32.0 pg Mean Corpuscular Hemoglobin Concent 34.7 32.0-36.0 g/dL Red Cell Distribution Width 14.1 11.8-14.3 % Platelet Count 252 140-450 10^3/uL Mean Platelet Volume 7.7 6.9-10.8 fL Neutrophils (%) (Auto) 69.2 37.0-80.0 % Lymphocytes (%) (Auto) 22.1 10.0-50.0 % Monocytes (%) (Auto) 7.3 0.0-12.0 % Eosinophils (%) (Auto) 0.9 0.0-7.0 % Basophils (%) (Auto) 0.5 0.0-2.0 % Neutrophils # (Auto) 4.4 1.6-8.6 10 ^3/uL Lymphocytes # (Auto) 1.4 0.4-5.4 10 ^3/uL Monocytes # (Auto) 0.5 0-1.3 10 ^3/uL Eosinophils # (Auto) 0.1 0-0.8 10 ^3/uL Basophils # (Auto) 0 0-0.2 10 ^3/uL Nucleated Red Blood Cells 0.0 % Sodium Level 135 L 136-145 mmol/L Potassium Level 3.6 3.5-5.1 mmol/L Chloride Level 102 98-107 mmol/L Carbon Dioxide Level 27 20-31 mmol/L Anion Gap 6 5-15 Blood Urea Nitrogen 13 9-23 mg/dL Creatinine 1.12 0.700-1.30 mg/dL Glomerular Filtration Rate Calc 83 >90 mL/min BUN/Creatinine Ratio 11.6 10.0-20.0 Serum Glucose 171 #H 74-106 mg/dL Calcium Level 8.9 8.7-10.4 mg/dL Total Bilirubin 0.3 0.2-1.0 mg/dL Aspartate Amino Transferase (AST) < 8 L 13-40 U/L Alanine Aminotransferase (ALT) < 9 7-40 U/L Alkaline Phosphatase 99 46-116 U/L Total Protein 6.1 5.7-8.2 g/dL Albumin 3.0 L 3.2-4.8 g/dL Urine Color Yellow Yellow Urine Clarity Clear Clear Urine pH 6.0 5.0-9.0 Urine Specific [place] 1.030 1.001-1.035 Urine Protein 1+ H Negative Urine Ketones 3+ H Negative Urine Blood Negative Negative /uL Urine Nitrite Negative Negative Urine Bilirubin Negative Negative Urine Urobilinogen Normal Negative mg/dL Urine Leukocyte Esterase Negative Negative /uL Urine RBC None seen 0 - 3 /hpf Urine Microscopic WBC < 1 0-3 /HPF Urine Squamous Epithelial Cells Few <5 /hpf Urine Bacteria Few H None Seen /hpf Urine Glucose 4+ H Normal mg/dL Troponin I High Sensitivity 12 </=54 ng/L Test 08/17/24 20:50 08/17/24 19:34 08/17/24 18:33 08/17/24 18:22 Range/Units Lactic Acid Level 2.8 *H 0.4-2.0 mmol/L Phosphorus Level 7.1 H 2.4-5.1 mg/dL Magnesium Level 2.5 1.6-2.6 mg/dL Serum Osmolality 352 H 278-298 mOsm/kg B-Type Natriuretic Peptide 7.80 0-100 pg/mL Lipase 69 H 12-53 U/L Beta-Hydroxybutyric Acid > 4.500 H < 0.4 mmol/L Blood Gas Specimen Type Arterial Blood Gas Sample Site Left radial Blood Gas Patient Temperature 37.0 Arterial Blood Date Drawn [id number] Arterial Blood pH 7.149 *L 7.350-7.450 Arterial Blood Partial Pressure CO2 < 12.6 *L 35.0-48.0 mmHg Arterial Blood Partial Pressure O2 131.6 H 83.0-108.0 mmHg Arterial Blood Oxygen Saturation 98.0 94.0-98.0 % Arterial Blood Oxyhemoglobin 96.7 94.0-98.0 % Arterial Blood Carboxyhemoglobin 0.6 0.5-1.5 % Arterial Blood Methemoglobin 0.7 0.0-1.5 % Ronny Test Yes Blood Gas Total Hemoglobin 16.00 13.5-17.5 g/dL Blood Gas Modality Room air FiO2 % 21.0 Blood Gas Critical Value Read Back Yes Blood Gas Notified Whom Pac lee Blood Gas Notified Time [id number] Blood Gas Notified By Chocolate Finisher darlin garcia Problems(with codes): (1) Diabetes mellitus (2) GENERALIZED WEAKNESS (3) Hyperglycemia (4) Acute respiratory failure (5) High anion gap metabolic acidosis (6) Diabetes mellitus with hyperglycemia (7) Diabetic ketoacidosis (8) Metabolic encephalopathy (9) Hypophosphatemia (10) Nausea and vomiting (11) Other specified diabetes mellitus with ketoacidosis without coma (12) Hyponatremia (13) Leukocytosis (14) DKA (diabetic ketoacidosis) (15) Elevated lactic acid level (16) Generalized weakness (17) Leukocytosis, unspecified (18) Acute renal injury Plan/Recommendation ASSESSMENT: Patient is a 44 year old seen on the floor for a worsening ulcer PLAN: - The patients chart was reviewed, clinical findings were discussed with the patient, the etiologies of the conditions were discussed in detail, and a treatment plan was agreed to at this time, with both oral and written instructions provided. - reviewed patient's wounds - discussed with the patient that I recommend we get an MRI of both feet - rule out any deeper osteomyelitis or abscess - we will consider surgery if come back positive for either - order placed for MRI with and without contrast for bilateral lower extremity All questions were answered and concerns addressed to the patient's satisfaction. The patient was given the phone number to the clinic and was told how to make contact with the clinic should any concerns or questions arise. Patient understands that if any questions or concerns arise prior to the next appointment, we should be contacted immediately. FOLLOW-UP: Continue to follow while inpatient Plan discussed with: Patient Date of Service: Aug 20, 2024 Billing Provider: ERIK MORTON DPM Common Visit Codes: CONSULT ONLY Consultation Codes: [id number] CONSULT <80MIN ERIK MORTON DPM Aug 20, 2024 13:00
--- NOTE | 2024-08-20 13:58 | DVH ---
EXAM: MRI MRI R FOOT WO CONTRAST HISTORY: R/O OSTEIO COMPARISON: None TECHNIQUE: Multiplanar, multisequence MRI was performed. FINDINGS: Varus deformity of the toes. The visualized osseous structures demonstrate normal cortical and bone marrow signal intensity withou t evidence of fracture, trabecular bony injury, or dislocation. Hallux sesamoid complex is intact. N o evidence of cortical destruction. There is some edematous changes in the tarsal bones most likely degenerative in origin. The Lisfranc ligament is intact. The visualized portions of tibialis posterior, flexor hallucis longus, and flexor digitorum tendons a re intact. Visualized portions of peroneus longus and brevis tendons are intact. Visualized portion s of the tibialis anterior, extensor digitorum, and extensor hallucis tendons are intact. The partially visualized plantar fascia is intact. There is some edema in the flexor tendons in the plantar aspect of the midfoot probably due to inflam mation. No soft tissue fluid collection IMPRESSION: 1. No evidence of osteomyelitis or soft tissue abscess.
--- NOTE | 2024-08-20 14:10 | DVH ---
EXAM: MRI MRI L FOOT WO CONTRAST HISTORY: R/O OSTEIO COMPARISON: None TECHNIQUE: Multiplanar, multisequence MRI was performed. FINDINGS: The visualized osseous structures demonstrate normal cortical and bone marrow signal intensity withou t evidence of fracture, trabecular bony injury, or dislocation. Hallux sesamoid complex is intact. The Lisfranc ligament is intact. The visualized portions of tibialis posterior, flexor hallucis longus, and flexor digitorum tendons a re intact. Visualized portions of peroneus longus and brevis tendons are intact. Visualized portion s of the tibialis anterior, extensor digitorum, and extensor hallucis tendons are intact. The partially visualized plantar fascia is intact. There is no evidence of intermetatarsal bursitis or Underwood's neuroma. No significant muscle atrophy is noted. Remainder of the soft tissues are within normal limits. IMPRESSION: 1. No significant osseous or soft tissue abnormality.
[2024-08-21] VITALS (8 sets, daily range): BP systolic 105–128; BP diastolic 58–81; PULSE 63–81; RESP 1–20; TEMP 97.3–98.4; O2SAT 99–100
[2024-08-22 00:57] VITALS: BP 102/58; PULSE 82; RESP 17; TEMP 98.4; O2SAT 98
[2024-08-22 05:00] VITALS: BP 113/64; PULSE 73; RESP 17; TEMP 98.5; O2SAT 98
[2024-08-22 08:00] VITALS: PULSE 75; RESP 18; O2SAT 100
[2024-08-22 09:00] VITALS: BP 101/68; PULSE 75; RESP 18; TEMP 98.2; O2SAT 100
[2024-08-22 10:00] VITALS: PULSE 75
--- NOTE | 2024-08-22 12:11 | DVHPN2 ---
Reviewed: Care Plan, H&P, Labs, Medications, Previous Orders, Radiology Changes from previous H/P or p: No Changes General: Per HPI Eyes: No Pain, No Vision change, No Conjunctivae inflammation, No Eyelid inflammation, No Other, No Redness ENT: No Ear pain, No Ear discharge, No Nose pain, No Nose discharge, No Nose congestion, No Mouth pain, No Mouth swelling, No Throat pain, No Throat swelling, No Other Cardiovascular: No Chest Pain, No Palpitations, No Orthopnea, No Paroxysmal Noc. Dyspnea, No Edema, No Lt Headedness, No Other Respiratory: No Cough, No Dry, No Shortness of breath, No SOB with excertion, No Wheezing, No Hemoptysis, No Pleuritic Pain, No Sputum, No Other Gastrointestinal: Nausea, Vomiting; No Abdominal Pain, No Diarrhea, No Constipation, No Melena, No Hematochezia, No Other Genitourinary: No Dysuria, No Frequency, No Incontinence, No Hematuria, No Retention, No Other Musculoskeletal: No other, No neck pain, No shoulder pain, No arm pain, No back pain, No hand pain, No leg pain, No foot pain Skin: No Rash, No Lesions, No Jaundice, No Bruising, No Other Objective Vitals Vital Signs Date Time Temp Pulse Resp B/P (MAP) Pulse Ox O2 Delivery O2 Flow Rate FiO2 08/22/24 09:00 98.2 75 18 101/68 (79) 100 98.2 08/22/24 08:00 Room Air* 0 21 Intake/Output Intake and Output 08/22/24 07:00 Intake Total 6100 ml Output Total 7300 ml Balance -1200 ml Intake Oral 5050 ml IV Total 1050 ml Output Urine Total 7300 ml # Voids 3 General Appearance: Alert, Oriented X3, Cooperative, No acute distress HEENT: Atraumatic, PERRLA, EOMI, Mucous membr. moist/pink Neck: Supple Lungs: Clear to auscultation Cardiovascular: Regular rate, Normal S1, Normal S2 Abdomen: Normal bowel sounds, Soft, No tenderness Neuro: Cranial nerves 3-12 NL Skin: Wounds (See nurse notes and pictures, the wound is bilateral foot) Psych/Mental Status: Mental status NL Medications Current Medications Medications Dose Ordered Sig/Leandro Route Start Time Stop Time Status Last Admin Dose Admin Insulin Glargine 15 units DAILY SC 08/18/24 10:00 08/22/24 09:46 15 UNITS Ceftriaxone Sodium 50 ml @ 100 mls/hr Q24H IV 08/18/24 20:00 08/21/24 20:05 100 MLS/HR Sodium Chloride 1,000 ml @ 120 mls/hr Q8H20M IV 08/18/24 01:15 08/22/24 05:15 120 MLS/HR Acetaminophen/ Hydrocodone Bitart 1 tab Q4HP PRN PO 08/18/24 01:15 Ondansetron HCl 4 mg Q4HP PRN IV 08/18/24 01:15 Docusate Sodium 100 mg BIDPRN PRN PO 08/18/24 01:15 Acetaminophen 650 mg Q6HP PRN PO 08/18/24 01:15 Nitroglycerin 0.4 mg Q5MINP PRN SL 08/18/24 01:15 Morphine Sulfate 2 mg Q30M PRN IV 08/18/24 01:15 Diagnostic Test (Pha) 1 strip IQ4HR 08/18/24 16:00 08/22/24 08:19 1 STRIP Insulin Human Regular IQ4HR SC 08/18/24 16:00 08/22/24 08:19 9 UNITS Dextrose 50 ml UD PRN IV 08/18/24 13:30 Laboratory Results Laboratory Tests 08/19/24 06:06 Urinalysis Test 08/18/24 14:17 Urine Color Yellow (Yellow) Urine Clarity Clear (Clear) Urine pH 6.0 (5.0-9.0) Urine Specific [place] 1.030 (1.001-1.035) Urine Protein 1+ (Negative) H Urine Ketones 3+ (Negative) H Urine Blood Negative /uL (Negative) Urine Nitrite Negative (Negative) Urine Bilirubin Negative (Negative) Urine Urobilinogen Normal mg/dL (Negative) Urine Leukocyte Esterase Negative /uL (Negative) Urine RBC None seen /hpf (0 - 3) Urine Microscopic WBC < 1 /HPF (0-3) Urine Squamous Epithelial Cells Few /hpf (<5) Urine Bacteria Few /hpf (None Seen) H Urine Glucose 4+ mg/dL (Normal) H Microbiology Microbiology Date/Time Source Procedure Growth Status 08/21/24 14:01 Voided Urine Urine Culture - Preliminary Resulted Labs and/or images reviewed: Labs reviewed by me, Image(s) reviewed by me Assessment/Plan Assessment/Plan DKA (diabetic ketoacidosis), resolved Diabetes type 2 uncontrolled Bilateral diabetic foot ulcer Hyponatremia Acute renal injury Leukocytosis, unspecified Elevated lactic acid level Generalized weakness Plan: Continuing Current management. Continuing with sliding scale insulin. Continuing with Lantus. Continuing with pain medication. Continuing with IV antibiotic Monitor sodium. This medical document was created using an electronic medical record system with [employer] computerized dictation system. Although this document has been carefully reviewed, there may still be some phonetic and typographical errors. These areas are purely typographical due to imperfections of the software programs, and do not reflect any compromise in the patient's medical care. Plan discussed with: Patient My Orders Orders - RITA KOLB DO Procedure Category Date Status Time Urine Bacterial GRETCHEN 08/21/24 In Process Culture 13:18 Date of Service: Aug 21, 2024 Billing Provider: RITA KOLB DO Common Visit Codes: [id number] INP/OBS CARE(HIGH) RITA KOLB DO Aug 22, 2024 12:11
[2024-08-22] MEDS ORDERED: INSUINJ37 SC (12:14)
--- NOTE | 2024-08-22 12:15 | DVHDS2 ---
Discharge Summary Date of Admission Aug 18, 2024 at 01:06 Date of Discharge: Aug 22, 2024 Labs/Diagnostic Data: Laboratory Results Test 08/22/24 08:03 08/19/24 06:06 08/18/24 14:17 08/17/24 21:32 POC Glucose 252 mg/dl (70-106) White Blood Count 6.3 10^3/uL (4.4-10.8) Red Blood Count 3.95 10^6/uL (4.5-5.90) Hemoglobin 12.0 g/dL (13.5-17.5) Hematocrit 34.7 % (41.0-53.0) Mean Corpuscular Volume 88.0 fL (80.0-100.0) Mean Corpuscular Hemoglobin 30.5 pg (28.0-32.0) Mean Corpuscular Hemoglobin Concent 34.7 g/dL (32.0-36.0) Red Cell Distribution Width 14.1 % (11.8-14.3) Platelet Count 252 10^3/uL (140-450) Mean Platelet Volume 7.7 fL (6.9-10.8) Neutrophils (%) (Auto) 69.2 % (37.0-80.0) Lymphocytes (%) (Auto) 22.1 % (10.0-50.0) Monocytes (%) (Auto) 7.3 % (0.0-12.0) Eosinophils (%) (Auto) 0.9 % (0.0-7.0) Basophils (%) (Auto) 0.5 % (0.0-2.0) Neutrophils # (Auto) 4.4 10 ^3/uL (1.6-8.6) Lymphocytes # (Auto) 1.4 10 ^3/uL (0.4-5.4) Monocytes # (Auto) 0.5 10 ^3/uL (0-1.3) Eosinophils # (Auto) 0.1 10 ^3/uL (0-0.8) Basophils # (Auto) 0 10 ^3/uL (0-0.2) Nucleated Red Blood Cells 0.0 % Sodium Level 135 mmol/L (136-145) Potassium Level 3.6 mmol/L (3.5-5.1) Chloride Level 102 mmol/L (98-107) Carbon Dioxide Level 27 mmol/L (20-31) Anion Gap 6 (5-15) Blood Urea Nitrogen 13 mg/dL (9-23) Creatinine 1.12 mg/dL (0.700-1.30) Glomerular Filtration Rate Calc 83 mL/min (>90) BUN/Creatinine Ratio 11.6 (10.0-20.0) Serum Glucose 171 mg/dL (74-106) Calcium Level 8.9 mg/dL (8.7-10.4) Total Bilirubin 0.3 mg/dL (0.2-1.0) Aspartate Amino Transferase (AST) < 8 U/L (13-40) Alanine Aminotransferase (ALT) < 9 U/L (7-40) Alkaline Phosphatase 99 U/L (46-116) Total Protein 6.1 g/dL (5.7-8.2) Albumin 3.0 g/dL (3.2-4.8) Urine Color Yellow (Yellow) Urine Clarity Clear (Clear) Urine pH 6.0 (5.0-9.0) Urine Specific [place] 1.030 (1.001-1.035) Urine Protein 1+ (Negative) Urine Ketones 3+ (Negative) Urine Blood Negative /uL (Negative) Urine Nitrite Negative (Negative) Urine Bilirubin Negative (Negative) Urine Urobilinogen Normal mg/dL (Negative) Urine Leukocyte Esterase Negative /uL (Negative) Urine RBC None seen /hpf (0 - 3) Urine Microscopic WBC < 1 /HPF (0-3) Urine Squamous Epithelial Cells Few /hpf (<5) Urine Bacteria Few /hpf (None Seen) Urine Glucose 4+ mg/dL (Normal) Troponin I High Sensitivity 12 ng/L (</=54) Test 08/17/24 20:50 08/17/24 19:34 08/17/24 18:33 08/17/24 18:22 Lactic Acid Level 2.8 mmol/L (0.4-2.0) Phosphorus Level 7.1 mg/dL (2.4-5.1) Magnesium Level 2.5 mg/dL (1.6-2.6) Serum Osmolality 352 mOsm/kg (278-298) B-Type Natriuretic Peptide 7.80 pg/mL (0-100) Lipase 69 U/L (12-53) Beta-Hydroxybutyric Acid > 4.500 mmol/L (< 0.4) Blood Gas Specimen Type Arterial Blood Gas Sample Site Left radial Blood Gas Patient Temperature 37.0 Arterial Blood Date Drawn [id number] Arterial Blood pH 7.149 (7.350-7.450) Arterial Blood Partial Pressure CO2 < 12.6 mmHg (35.0-48.0) Arterial Blood Partial Pressure O2 131.6 mmHg (83.0-108.0) Arterial Blood Oxygen Saturation 98.0 % (94.0-98.0) Arterial Blood Oxyhemoglobin 96.7 % (94.0-98.0) Arterial Blood Carboxyhemoglobin 0.6 % (0.5-1.5) Arterial Blood Methemoglobin 0.7 % (0.0-1.5) Ronny Test Yes Blood Gas Total Hemoglobin 16.00 g/dL (13.5-17.5) Blood Gas Modality Room air FiO2 % 21.0 Blood Gas Critical Value Read Back Yes Blood Gas Notified Whom Pac [facility] Blood Gas Notified Time [id number] Blood Gas Notified By Plastic Extrusion Operator darlin garcia Other Laboratory Tests 08/19/24 06:06 Brief Hx & Hospital Course: DKA (diabetic ketoacidosis), resolved Diabetes type 2 uncontrolled Bilateral diabetic foot ulcer Hyponatremia Acute renal injury Leukocytosis, unspecified Elevated lactic acid level Generalized weakness discharged to home with self care Condition at Discharge: Good Final Diagnosis/Problems List see above Discharge Disposition: Home Discharge Instruct/Medications Diet: Consistent carbohydrate Activity: No Restrictions, As Tolerated Discharge Statement: "Patient was advised to return to the ER or call 911 if any headaches, dizziness, shortness of breath, chest pain, abdominal pain, bleeding, fevers, or worsening of medical condition. Patient was counseled about treatment plan, medications, possible side effects, patientverbalized understanding. All questions were answered to the best of my ability. This discharge took greater then 30 minutes in planning, reviewing documentation, counseling the patient, and discussing with other team members." ASSESSMENT ASSESSMENT Assessment Date of Service: Aug 22, 2024 Billing Provider: RITA KOLB DO Common Visit Codes: [id number] DISCH DAY >30min RITA KOLB DO Aug 22, 2024 12:15
[2024-08-22 13:43] VITALS: BP 101/68; PULSE 75; RESP 18; TEMP 98.2; O2SAT 100
== END 2024-08-22 15:00 | disposition home or self-care (01) | DRG 420 ==
LOC: ER 17:37 → EDBD 17:37 → OVERFLOW 08-18 01:06 → TELE-EAST 08-18 18:32 → OVERFLOW 08-21 15:16 → EAST 08-21 15:25 → OVERFLOW 08-22 13:03 → TELE-EAST 08-22 13:12
PROVIDERS: ADMIT Internal Medicine; ATTEND Internal Medicine
DX: E11.10 Type 2 diabetes mellitus with ketoacidosis without coma (principal); N17.0 Acute kidney failure with tubular necrosis; G93.41 Metabolic encephalopathy; E78.5 Hyperlipidemia, unspecified; L97.519 Non-pressure chronic ulcer of other part of right foot with unspecified severity; E11.621 Type 2 diabetes mellitus with foot ulcer; E87.1 Hypo-osmolality and hyponatremia; D72.829 Elevated white blood cell count, unspecified; I10 Essential (primary) hypertension; F15.90 Other stimulant use, unspecified, uncomplicated; F17.210 Nicotine dependence, cigarettes, uncomplicated; L97.529 Non-pressure chronic ulcer of other part of left foot with unspecified severity; Z83.3 Family history of diabetes mellitus; Z99.81 Dependence on supplemental oxygen
CPT/HCPCS: 36415; 36600; 73718; 80048; 80053; 81001; 82010; 82805; 82962; 83605; 83690; 83735; 83880; 83930; 84100; 84484; 85025; 87086; 96361; 96365; 96372; 96375; 99291; G0378; J1815; J2405

== ENCOUNTER 2024-10-03 19:54 | Inpatient (IN) | payer MEDICAID ==
[~2024-10-03] VITALS: Ht 182.9 cm; Wt 83.0 kg
[2024-10-03] MEDS: CEFEPIME 2GM/50ML NS 50 ML IV ONE (02:25)
[~2024-10-03 19:54] MED LIST changes: +INSUINJ37 SC
[2024-10-03 22:49] LABS: Basophils # (auto) 0 10 ^3/uL (0-0.2); Basophils % (auto) 0.3 % (0.0-2.0); Eosinophils # (auto) 0 10 ^3/uL (0-0.8); Eosinophils % (auto) 0.1 % (0.0-7.0); Hematocrit 36.3 % (41.0-53.0); Hemoglobin 11.9 g/dL (13.5-17.5); Lymphocytes # (auto) 0.8 10 ^3/uL (0.4-5.4); Lymphocytes % (auto) 6.1 % (10.0-50.0); Mean Corpuscular Hemoglobin 29.9 pg (28.0-32.0); Mean Corpuscular Hgb Conc. 32.8 g/dL (32.0-36.0); Monocytes # (auto) 1.7 10 ^3/uL (0-1.3); Monocytes % (auto) 12.4 % (0.0-12.0); Neutrophils % (auto) 81.1 % (37.0-80.0); Platelet Count (auto) 291 10^3/uL (140-450); Red Blood Cells 3.99 10^6/uL (4.5-5.90); Red Cell Distribution Width 13.7 % (11.8-14.3); White Blood Cell 13.5 10^3/uL (4.4-10.8)
[2024-10-03 23:01] LABS: Potassium 4.6 mmol/L (3.5-5.1)
[2024-10-03 23:02] LABS: Anion Gap 15 (5-15); Calcium 9.9 mg/dL (8.7-10.4); Carbon Dioxide 21 mmol/L (20-31)
[2024-10-03 23:07] LABS: BUN/Creatinine Ratio 12.8 (10.0-20.0); Blood Urea Nitrogen 14 mg/dL (9-23)
[2024-10-03 23:18] LABS: Chloride 91 mmol/L (98-107); Glucose 557 mg/dL (74-106); Lactic Acid w/Reflex 4.1 mmol/L (0.4-2.0); Sodium 127 mmol/L (136-145)
[2024-10-03] MEDS: ONDANSETRON HCL 4 MG/2 ML VIAL IV ONE (23:45)
--- NOTE | 2024-10-03 23:50 | ED.PDOC ---
History of Present Illness HPI Comments 44 year old male presents to the ED with a chief complaint of wound check onset today. Patient states he has chronic wounds bilateral lower extremities, has a wound care nurse visit daily and was told today to come to ED. He noticed bilateral lower extremities were swollen with erythema, wound on RT foot has white discharge with foul odor, and bilateral lower extremities are experience numbness/tingling. PMHx DM, HTN, HLD. Denies fever, chills, shortness of breath, diarrhea, nausea, vomiting, chest pain. No other symptoms or modifying factors present at this time. Chief Complaint: Wound Check Time Seen by MD: 23:36 Primary Care Provider: ? Reviewed Notes: Medications, Allergies Allergies: Coded Allergies: NO KNOWN ALLERGIES (Unverified , 09/06/13) Home Meds Active Scripts Insulin Glargine (Lantus Solostar) 100 Unit/Ml Inj, 100 UNIT SC BID for 30 Days, #1 INJ inject subQ 20 units BID Prov:RITA KOLB DO 08/22/24 Pantoprazole Sodium Sesquihydr (Pantoprazole Sodium) 40 Mg Tab, 40 MG PO DAILY for 30 Days, #30 TAB Prov:LICO BERNARD RESIDENT 05/25/24 Reported Medications Fluoxetine Hcl (Fluoxetine Hcl) Unknown Strength Cap, PO 01/16/24 Insulin Glargine (Lantus) 100 Unit/Ml Inj, 40 UNIT SC DAILY@DINNER, INJ 01/18/18 Simvastatin (Simvastatin) 10 Mg Tab, 10 MG PO DAILY for 30 Days, MG 08/25/17 Insulin Aspart Protamine & Asp (Novolog Mix 70/30 Prefill (70-30) 100 Unit/ml) 1 Inj Inj, 1 INJ SC, INJ 08/25/17 Information Source: Patient Mode of Arrival: Ambulatory Severity: Moderate Timing: Hours Duration: Since onset Prehospital treatment: None Past Medical History PAST MEDICAL HISTORY: DM, High Lipids, HTN Surgical History: Pt Confused Family History Family History: Unknown Social History Smoker: Cigarettes, Less Than 1 Pack/Day Alcohol: Denies ETOH Use Drugs: Methamphetamine Lives In: Home Constitutional: denies: chills, diaphoresis, fatigue, fever, malaise, sweats, weakness, others EENTM: denies: blurred vision, double vision, ear bleeding, ear discharge, ear drainage, ear pain, ear ringing, eye pain, eye redness, hearing loss, mouth pain, mouth swelling, nasal discharge, nose bleeding, nose congestion, nose pain, photophobia, tearing, throat pain, throat swelling, voice changes, others Respiratory: denies: cough, hemoptysis, orthopnea, SOB at rest, shortness of breath, SOB with excertion, stridor, wheezing, others Cardiovascular: denies: chest pain, dizzy spells, diaphoresis, Dyspnea on exertion, edema, irregular heart beat, left arm pain, lightheadedness, palpitations, PND, syncope, others Gastrointestinal: denies: abdomen distended, abdominal pain, blood streaked bowels, constipated, diarrhea, dysphagia, difficulty swallowing, hematemesis, melena, nausea, poor appetite, poor fluid intake, rectal bleeding, rectal pain, vomiting, others Genitourinary: denies: burning, dysuria, flank pain, frequency, hematuria, incontinence, penile discharge, penile sore, pain, testicle pain, testicle swelling, urgency, others Neurological: reports: numbness, tingling; denies: dizziness, fainting, headache, left sided numbness, left sided weakness, paresthesia, pre-existing deficit, right sided numbness, right sided weakness, seizure, speech problems, tremors, weakness, others Musculoskeletal: reports: others (bilateral lower extremites with erythema and edema); denies: back pain, gout, joint pain, joint swelling, muscle pain, muscle stiffness, neck pain Integumetry: reports: wounds (bilateral lower extremeties); denies: bruises, change in color, change in hair/nails, dryness, laceration, lesions, lumps, rash, others Hematologic/Lymphatic: denies: anemia, blood clots, easy bleeding, easy bruising, swollen glands, others Endocrine: denies: excessive hunger, excessive sweating, excessive thirst, excessive urination, flushing, intolerance to cold, intolerance to heat, unexplained weight gain, unexplained weight loss, others Psychiatric: denies: anxiety, bipolar disorder, depression, hopeless, panic disorder, schizophrenia, sleepless, suicidal, others All Other Systems: Reviewed and Negative Physical Exam General Appearance: No Apparent Distress, Normal HEENT: Normal ENT Inspection, Pharynx Normal, TMs Normal Neck: Full Range of Motion, Non-Tender, Normal, Normal Inspection Respiratory: Chest Non-Tender, Lungs Clear, No Accessory Muscle Use, No Respiratory Distress, Normal Breath Sounds Cardiovascular: No Edema, No JVD, No Murmur, No Gallop, Normal Peripheral Pulses, Regular Rate/Rhythm Breast Exam: Deferred Gastrointestinal: No Organomegaly, Non Tender, No Pulsatile Mass, Normal Bowel Sounds, Soft Genitalia: Deferred Pelvic: Deferred Rectal: Deferred Extremities: Swelling (bilateal lower extremeties with erythema, edema) Musculoskeletal : Apperance: Normal Neurologic: Alert, venetian blind cleaner II-XII nml as Tested, No Motor Deficits, Normal Affect, Normal Mood, No Sensory Deficits Cerebellar Function: Normal Reflexes: Normal Skin: Dry, Normal Color, Warm Lymphatic: No Adenopathy Was a procedure done? Was a procedure done?: No Differential Dx Considerations may include: Cellulitis, osteomyelitis X-Ray, Labs, Meds, VS Vital Signs Date Time Temp Pulse Resp B/P (MAP) Pulse Ox O2 Delivery O2 Flow Rate FiO2 10/03/24 21:16 98.6 109 18 106/69 (81) 100 98.6 Lab Test 10/04/24 00:17 10/03/24 22:22 Range/Units Lactic Acid Level 1.0 4.1 *H 0.4-2.0 mmol/L White Blood Count 13.5 H 4.4-10.8 10^3/uL Red Blood Count 3.99 L 4.5-5.90 10^6/uL Hemoglobin 11.9 L 13.5-17.5 g/dL Hematocrit 36.3 L 41.0-53.0 % Mean Corpuscular Volume 91.0 80.0-100.0 fL Mean Corpuscular Hemoglobin 29.9 28.0-32.0 pg Mean Corpuscular Hemoglobin Concent 32.8 32.0-36.0 g/dL Red Cell Distribution Width 13.7 11.8-14.3 % Platelet Count 291 140-450 10^3/uL Mean Platelet Volume 7.8 6.9-10.8 fL Neutrophils (%) (Auto) 81.1 H 37.0-80.0 % Lymphocytes (%) (Auto) 6.1 L 10.0-50.0 % Monocytes (%) (Auto) 12.4 H 0.0-12.0 % Eosinophils (%) (Auto) 0.1 0.0-7.0 % Basophils (%) (Auto) 0.3 0.0-2.0 % Neutrophils # (Auto) 11.0 H 1.6-8.6 10 ^3/uL Lymphocytes # (Auto) 0.8 0.4-5.4 10 ^3/uL Monocytes # (Auto) 1.7 H 0-1.3 10 ^3/uL Eosinophils # (Auto) 0 0-0.8 10 ^3/uL Basophils # (Auto) 0 0-0.2 10 ^3/uL Nucleated Red Blood Cells 0.0 % Sodium Level 127 L 136-145 mmol/L Potassium Level 4.6 3.5-5.1 mmol/L Chloride Level 91 L 98-107 mmol/L Carbon Dioxide Level 21 20-31 mmol/L Anion Gap 15 5-15 Blood Urea Nitrogen 14 9-23 mg/dL Creatinine 1.09 0.700-1.30 mg/dL Glomerular Filtration Rate Calc 85 >90 mL/min BUN/Creatinine Ratio 12.8 10.0-20.0 Serum Glucose 557 *H 74-106 mg/dL Calcium Level 9.9 8.7-10.4 mg/dL Time of 1ST Reevaluation: 00:06 Reevaluation 1ST: Unchanged Patient Education/Counseling: Diagnosis, Treatment, Prognosis Family Education/Counseling: No Family Present Additional Information The following tests were ordered, and results were reviewed by me: BMP, CBC, LA W/ REFLEX, BLOOD CULTURE, XY R FOOT 3 VIEWS I reviewed and agreed with the following test results read by other providers: XY R FOOT 3 VIEWS I discussed treatment and results with medical personnel and: Patient Comprehensive systems review obtained and negative except for what is stated in the HPI. Departure 1 Departure Time of Disposition: 00:50 (Patient has cellulitis of his lower extremity. Patient has signs of volume overload so we will not give the patient a full fluid bolus. We will admit patient for further workup and expert consultation) Impression: Primary Impression: Cellulitis Qualified Codes: L03.115 - Cellulitis of right lower limb Additional Impression: Lower extremity edema Disposition: ADMITTED INPATIENT Admit to: Med Surg Condition: Serious Critical Care Note Critical Care Time?: No Stability Stability form required: No I personally scribed for ANDREA GUILLORY MD ([email or web address]) on 10/03/24 at 23:50. El ectronically submitted by Mariam Dunlap ([email or web address]). I personally scribed for ANDREA GUILLORY MD ([email or web address]) on 10/03/24 at 23:56. Electr onically submitted by Mariam Dunlap ([email or web address]). ANDREA GUILLORY MD Oct 03, 2024 23:50
[2024-10-04] VITALS (8 sets, daily range): BP systolic 103–121; BP diastolic 45–77; PULSE 49–102; RESP 16–19; TEMP 97.7–99.4; O2SAT 93–100
--- NOTE | 2024-10-04 00:51 | DVH ---
CLINICAL INDICATION: foot pain TECHNIQUE: Right XY R FOOT 3 VIEW XRAY Comparison: None FINDINGS/IMPRESSION: : An irregular collection of subcutaneous emphysema is noted within the dorsal soft tissues adjacent to the 1st through 3rd metatarsal phalangeal joints and extending into the webbing between the 1st and 2nd and 2nd and 3rd digits, concerning for infectious etiology. Moderate diffuse soft tissue swelling of the foot is noted. No definite radiographic evidence of osteomyelitis, however, there is demineralization of the 2nd thr ough 4th metatarsal heads and bases of the 2nd through 4th proximal phalanges. No evidence of acute f racture or dislocation.
[2024-10-04] MEDS: SODIUM CHLORIDE 0.9% 1,000 ML IV ONE (01:15)
[2024-10-04] MEDS ORDERED: TEMAZEPAM 15 MG CAP PO PRN (01:15)
[2024-10-04] MEDS ORDERED: DEXTROSE (50%) 50ML SYRG IV PRN (01:15)
[2024-10-04] MEDS ORDERED: VANCOMYCIN PER PHARMACY 0 MG IV SCH (01:15)
[2024-10-04] MEDS: VANCOMYCIN 1GM/200ML PM 200 ML IV ONE (01:15)
[2024-10-04] MEDS ORDERED: ACETAMINOPHEN 325 MG TAB PO PRN (01:15)
[2024-10-04] MEDS: VANCOMYCIN 500mg/100mL 100 ML IV ONE (02:09)
[2024-10-04] MEDS: FUROSEMIDE 20 MG/2 ML VIAL IV ONE (02:26)
--- NOTE | 2024-10-04 02:41 | DVH ---
Bilateral lower extremity venous duplex Clinical History: r/o dvt Comparison: None Technique: Duplex Doppler evaluation of the deep venous systems of both lower extremities from the common femora l veins to the popliteal veins including color Doppler and spectral/pulsed waveform analysis was perf ormed. Findings: RIGHT SIDE: The common femoral vein demonstrates appropriate compressibility and waveform variability. There is compressibility/patency of the great saphenous vein at the proximal thigh. The femoral vein demonstrates appropriate compressibility and waveform variability. The deep femoral vein demonstrates appropriate compressibility and waveform variability. The popliteal vein demonstrates appropriate compressibility and waveform variability. There is normal compressibility at the tibioperoneal trunk. Prominent lymph nodes identified, the largest of which measures 2.4 x 0.8 x 2.0 cm. LEFT SIDE: The common femoral vein demonstrates appropriate compressibility and waveform variability. There is compressibility/patency of the great saphenous vein at the proximal thigh. The femoral vein demonstrates appropriate compressibility and waveform variability. The deep femoral vein demonstrates appropriate compressibility and waveform variability. The popliteal vein demonstrates appropriate compressibility and waveform variability. There is normal compressibility at the tibioperoneal trunk. Impression: 1. No right or left femoropopliteal venous thrombosis. 2. Prominent right inguinal lymph nodes, enlarged up to 2.4 cm.
--- NOTE | 2024-10-04 03:00 | DVH ---
INDICATION: Rule out osteomyelitis COMPARISON: MRI MRI L FOOT WO CONTRAST on DOS: 08/20/24, MRI MRI R FOOT WO CONTRAST on DOS: 08/20/24 TECHNIQUE: CT of the right foot was performed without contrast. Volume transverse images were obtaine d and reconstructed in multiple planes using bone and soft tissue algorithms. Radiation Dose Information: CT Dose: CTDI volume is 7.89 mGy. Dose-length product is 204.15 mGy*cm FINDINGS: Large partially confluent collection of subcutaneous and intramuscular gas is noted within the dorsal soft tissues extending from the midfoot distally and interposed between the bases of the 1st and 2nd digits. No definite soft tissue fluid collections. Extensive soft tissue swelling, predominantly wit hin the dorsum of the foot. Minimal erosive changes are noted at the lateral aspect of the base of the 1st proximal phalanx, the medial aspect of the base of the 2nd proximal phalanx and within the 1st through 3rd metatarsal heads , consistent with probable early changes of osteomyelitis. No evidence of fracture or subluxation. IMPRESSION: 1. Large collection of subcutaneous /intramuscular gas within the dorsal soft tissues and soft tissue s between and around the 1st and 2nd digits. Minimal erosive changes to the metatarsal heads and base s of the 1st and 2nd proximal phalanges are consistent with early changes of osteomyelitis. 2. All CT scans at this medical facility are performed using dose modulation techniques as appropriat e to a performed exam including the following: Automated exposure control was utilized; adjustment of the MA and/or KV according to patient size; and use of iterative reconstruction technique.
--- NOTE | 2024-10-04 03:02 | DVH ---
INDICATION: r/o osteomyelitis COMPARISON: MRI MRI L FOOT WO CONTRAST on DOS: 08/20/24, MRI MRI R FOOT WO CONTRAST on DOS: 08/20/24 TECHNIQUE: CT of the left foot was performed without contrast. Volume transverse images were obtained and reconstructed in multiple planes using bone and soft tissue algorithms. Radiation Dose Information: CT Dose: CTDI volume is 7.89 mGy. Dose-length product is 220.63 mGy*cm FINDINGS: The alignment is normal. The joint spaces are normal. There is no fracture, dislocation or aggressive osseous lesion. There is no joint effusion. The soft tissues are normal. IMPRESSION: 1. Normal alignment without evidence of acute abnormality. 2. All CT scans at this medical facility are performed using dose modulation techniques as appropriat e to a performed exam including the following: Automated exposure control was utilized; adjustment of the MA and/or KV according to patient size; and use of iterative reconstruction technique.
[2024-10-04 03:35] LABS: Urine Bacteria None Seen /hpf (None Seen)
[2024-10-04 04:03] LABS: Urine Blood Negative /uL (Negative); Urine Clarity Clear (Clear); Urine Color Colorless (Yellow); Urine Protein, UAD Negative (Negative); Urine Squamous Epithelial Cell None Seen /hpf (<5); Urine Urobilinogen Normal (Negative); Urine pH 5.5 (5.0-9.0)
--- NOTE | 2024-10-04 04:06 | DVHHP2 ---
History of Present Illness Reason for Visit: Open wound History of Present Illness 44-year-old male presents for evaluation of an open wound on his right foot. Patient reports having chronic wounds to bilateral feet and has home health visit 2-3 times per week. He states over the past two days the wound on his right foot has become worse with discharge and foul order. He has also noticed worsening swelling and tenderness. Patient also has a chronic on his left foot. Denies any fever or chills. No other acute complaints. Past Medical History Hypothyroid, hypertension, dyslipidemia, diabetes mellitus Past Surgical History Denies Family History Noncontributory Smoke: No ALCOHOL: none Drugs: None Lives: with Family Review of Systems Review of Systems Review of systems are currently negative otherwise addressed in HPI. Allergies: Coded Allergies: NO KNOWN ALLERGIES (Unverified , 09/06/13) Medications Current Medications Medications Dose Ordered Sig/Leandro Route Start Time Stop Time Status Last Admin Dose Admin Piperacillin Sod/ Tazobactam Sod 100 ml @ 25 mls/hr Q6HR IV 10/04/24 06:00 Vancomycin HCl 0 ml @ 0 mls/hr UD IV 10/04/24 01:15 UNV Acetaminophen/ Hydrocodone Bitart 1 tab Q4HP PRN PO 10/04/24 01:15 Temazepam 15 mg QHSP PRN PO 10/04/24 01:15 Ondansetron HCl 4 mg Q4HP PRN IV 10/04/24 01:15 Enoxaparin Sodium 40 mg DAILY SC 10/04/24 10:00 Acetaminophen 650 mg Q6HP PRN PO 10/04/24 01:15 Morphine Sulfate 2 mg Q8HPRN PRN IV 10/04/24 01:15 Diagnostic Test (Pha) 1 strip IQ4HR 10/04/24 04:00 Insulin Human Regular IQ4HR SC 10/04/24 04:00 Dextrose 50 ml UD PRN IV 10/04/24 01:15 Furosemide 40 mg DAILY PO 10/04/24 10:00 Atorvastatin Calcium 10 mg HS PO 10/04/24 22:00 Exam Vital Signs Vital Signs Date Time Temp Pulse Resp B/P (MAP) Pulse Ox O2 Delivery O2 Flow Rate FiO2 10/04/24 02:26 117/76 10/03/24 21:16 98.6 109 18 100 98.6 Exam Gen: 44-year-old male in mild distress Skin: Warm, dry, normal color and texture, no rash. HEENT: Normocephalic atraumatic, mucous membranes moist and pink. Neck: Cervical and supraclavicular nodes normal without enlargement, trachea is midline, thyroid gland is normal without masses. Pulmonary: Clear to auscultation and percussion bilaterally. Cardiac: Regular rate and rhythm. No murmur Abdomen: Soft, nontender, nondistended, bowel sounds present all 4 quadrants, no guarding, no rigidity, no organomegaly. Extremities: No cyanosis, clubbing, right lower extremity with plus two edema and erythema, open wound to dorsum of right foot, left foot plantar ulcer Neuro: Cranial nerves II through XII grossly intact, normal affect and speech, no focal motor deficits. Labs/Xrays ORDERING PHYSICIAN: ANDREA GUILLORY MD PROCEDURE(s): RFOOT - R FOOT 3 VIEW XRAY REASON: foot pain ORDER NUMBER(s): [id number], ACCESSION NUMBER(s): [id number] CLINICAL INDICATION: foot pain TECHNIQUE: Right XY R FOOT 3 VIEW XRAY Comparison: None FINDINGS/IMPRESSION: : An irregular collection of subcutaneous emphysema is noted within the dorsal soft tissues adjacent to the 1st through 3rd metatarsal phalangeal joints and extending into the webbing between the 1st and 2nd and 2nd and 3rd digits, concerning for infectious etiology. Moderate diffuse soft tissue swelling of the foot is noted. No definite radiographic evidence of osteomyelitis, however, there is demineralization of the 2nd through 4th metatarsal heads and bases of the 2nd through 4th proximal phalanges. No evidence of acute fracture or dislocation. / SEX: 44 / M ADM STATUS: ADM IN SERVICE 0112 ORDERING PHYSICIAN: KIMBERLY STEWARD PROCEDURE(s): BLDVT - BiLat Lower DVT REASON: r/o dvt ORDER NUMBER(s): [id number], ACCESSION NUMBER(s): [id number] Bilateral lower extremity venous duplex Clinical History: r/o dvt Comparison: None Technique: Duplex Doppler evaluation of the deep venous systems of both lower extremities from the common femoral veins to the popliteal veins including color Doppler and spectral/pulsed waveform analysis was performed. Findings: RIGHT SIDE: The common femoral vein demonstrates appropriate compressibility and waveform variability. There is compressibility/patency of the great saphenous vein at the proximal thigh. The femoral vein demonstrates appropriate compressibility and waveform variability. The deep femoral vein demonstrates appropriate compressibility and waveform variability. The popliteal vein demonstrates appropriate compressibility and waveform variability. There is normal compressibility at the tibioperoneal trunk. Prominent lymph nodes identified, the largest of which measures 2.4 x 0.8 x 2.0 cm. LEFT SIDE: The common femoral vein demonstrates appropriate compressibility and waveform variability. There is compressibility/patency of the great saphenous vein at the proximal thigh. The femoral vein demonstrates appropriate compressibility and waveform variability. The deep femoral vein demonstrates appropriate compressibility and waveform variability. The popliteal vein demonstrates appropriate compressibility and waveform variability. There is normal compressibility at the tibioperoneal trunk. Impression: 1. No right or left femoropopliteal venous thrombosis. 2. Prominent right inguinal lymph nodes, enlarged up to 2.4 cm. ATED BY: RODDY HERNÁNDEZ MD ORDERING PHYSICIAN: KIMBERLY STEWARD PROCEDURE(s): LFTCT - CT L FOOT WO CONTRAST REASON: r/o osteomyelitis ORDER NUMBER(s): [id number], ACCESSION NUMBER(s): [id number] INDICATION: r/o osteomyelitis COMPARISON: MRI MRI L FOOT WO CONTRAST on DOS: 08/20/24, MRI MRI R FOOT WO CONTRAST on DOS: 08/20/24 TECHNIQUE: CT of the left foot was performed without contrast. Volume transverse images were obtained and reconstructed in multiple planes using bone and soft tissue algorithms. Radiation Dose Information: CT Dose: CTDI volume is 7.89 mGy. Dose-length product is 220.63 mGy*cm FINDINGS: The alignment is normal. The joint spaces are normal. There is no fracture, dislocation or aggressive osseous lesion. There is no joint effusion. The soft tissues are normal. IMPRESSION: 1. Normal alignment without evidence of acute abnormality. 2. All CT scans at this medical facility are performed using dose modulation techniques as appropriate to a performed exam including the following: Automated exposure control was utilized; adjustment of the MA and/or KV according to patient size; and use of iterative reconstruction technique. RING PHYSICIAN: KIMBERLY STEWARD PROCEDURE(s): RFTCT - CT R FOOT WO CONTRAST REASON: Rule out osteomyelitis ORDER NUMBER(s): [id number], ACCESSION NUMBER(s): [id number] INDICATION: Rule out osteomyelitis COMPARISON: MRI MRI L FOOT WO CONTRAST on DOS: 08/20/24, MRI MRI R FOOT WO CONTRAST on DOS: 08/20/24 TECHNIQUE: CT of the right foot was performed without contrast. Volume transverse images were obtained and reconstructed in multiple planes using bone and soft tissue algorithms. Radiation Dose Information: CT Dose: CTDI volume is 7.89 mGy. Dose-length product is 204.15 mGy*cm FINDINGS: Large partially confluent collection of subcutaneous and intramuscular gas is noted within the dorsal soft tissues extending from the midfoot distally and interposed between the bases of the 1st and 2nd digits. No definite soft tissue fluid collections. Extensive soft tissue swelling, predominantly within the dorsum of the foot. Minimal erosive changes are noted at the lateral aspect of the base of the 1st proximal phalanx, the medial aspect of the base of the 2nd proximal phalanx and within the 1st through 3rd metatarsal heads, consistent with probable early changes of osteomyelitis. No evidence of fracture or subluxation. IMPRESSION: 1. Large collection of subcutaneous /intramuscular gas within the dorsal soft tissues and soft tissues between and around the 1st and 2nd digits. Minimal erosive changes to the metatarsal heads and bases of the 1st and 2nd proximal phalanges are consistent with early changes of osteomyelitis. 2. All CT scans at this medical facility are performed using dose modulation techniques as appropriate to a performed exam including the following: Automated exposure control was utilized; adjustment of the MA and/or KV according to patient size; and use of iterative reconstruction technique. ATED BY: RODDY HERNÁNDEZ MD Labs Test 10/04/24 03:00 10/04/24 00:17 10/03/24 22:22 Range/Units Lactic Acid Level 1.0 0.4-2.0 mmol/L White Blood Count 13.5 H 4.4-10.8 10^3/uL Red Blood Count 3.99 L 4.5-5.90 10^6/uL Hemoglobin 11.9 L 13.5-17.5 g/dL Hematocrit 36.3 L 41.0-53.0 % Mean Corpuscular Volume 91.0 80.0-100.0 fL Mean Corpuscular Hemoglobin 29.9 28.0-32.0 pg Mean Corpuscular Hemoglobin Concent 32.8 32.0-36.0 g/dL Red Cell Distribution Width 13.7 11.8-14.3 % Platelet Count 291 140-450 10^3/uL Mean Platelet Volume 7.8 6.9-10.8 fL Neutrophils (%) (Auto) 81.1 H 37.0-80.0 % Lymphocytes (%) (Auto) 6.1 L 10.0-50.0 % Monocytes (%) (Auto) 12.4 H 0.0-12.0 % Eosinophils (%) (Auto) 0.1 0.0-7.0 % Basophils (%) (Auto) 0.3 0.0-2.0 % Neutrophils # (Auto) 11.0 H 1.6-8.6 10 ^3/uL Lymphocytes # (Auto) 0.8 0.4-5.4 10 ^3/uL Monocytes # (Auto) 1.7 H 0-1.3 10 ^3/uL Eosinophils # (Auto) 0 0-0.8 10 ^3/uL Basophils # (Auto) 0 0-0.2 10 ^3/uL Nucleated Red Blood Cells 0.0 % Sodium Level 127 L 136-145 mmol/L Potassium Level 4.6 3.5-5.1 mmol/L Chloride Level 91 L 98-107 mmol/L Carbon Dioxide Level 21 20-31 mmol/L Anion Gap 15 5-15 Blood Urea Nitrogen 14 9-23 mg/dL Creatinine 1.09 0.700-1.30 mg/dL Glomerular Filtration Rate Calc 85 >90 mL/min BUN/Creatinine Ratio 12.8 10.0-20.0 Serum Glucose 557 *H 74-106 mg/dL Calcium Level 9.9 8.7-10.4 mg/dL B-Type Natriuretic Peptide 53.42 0-100 pg/mL Assessment/Plan Assessment/Plan Assessment Right lower extremity cellulitis Fasciitis versus osteomyelitis Bilateral diabetic foot ulcers Early sepsis Plan Admit the patient to Med surge to the hospitalist Zosyn/vancomycin NPO Podiatry consult Pain management Continue treatment per orders. Plan discussed with: Patient My Orders Orders - KIMBERLY STEWARD Procedure Category Date Status Time Ct L Foot Wo Contrast CT 10/04/24 Resulted 01:12 Ct R Foot Wo Contrast CT 10/04/24 Resulted 01:12 Piperacillin-Tazob PHA 10/04/24 In Process 3.375gm (Zosyn 3.375g 06:00 Vancomycin Per PHA 10/04/24 Pending Pharmacy 01:15 Bilat Lower Dvt US 10/04/24 Resulted 01:12 Drug Screen LAB 10/04/24 In Process 01:12 Urinalysis LAB 10/04/24 In Process 01:12 Podiatry Consult CONS 10/04/24 Transmitted 01:12 Basic Metabolic Panel LAB 10/05/24 Verified 04:00 Admit ADMIT 10/04/24 Transmitted 01:12 Hydrocodone-Acet PHA 10/04/24 In Process 5/325mg Tab ([place] 01:15 Temazepam (Restoril) PHA 10/04/24 In Process 01:15 Ondansetron Hcl PHA 10/04/24 In Process (Zofran) 01:15 Enoxaparin Sodium PHA 10/04/24 In Process (Lovenox) 10:00 Complete Blood Count LAB 10/05/24 Verified 04:00 Cardiac DIET 10/04/24 Transmitted Diet-2gna,Lofat,Lochol Breakfast Condition: Stable SARAHY 10/04/24 In Process 01:12 Acetaminophen Tablet PHA 10/04/24 In Process (Tylenol Tablet) 01:15 Bedrest With Bathroom SARAHY 10/04/24 In Process Privileg 01:12 Morphine Sulfate PHA 10/04/24 In Process Injection 01:15 Glucose Blood PHA 10/04/24 In Process (Accu-Chek Comfort 04:00 Insulin R (Human) PHA 10/04/24 In Process (Insulin R) 04:00 Dextrose 50% Syringe PHA 10/04/24 In Process 01:15 Furosemide Tablet PHA 10/04/24 In Process (Lasix Tablet) 10:00 Atorvastatin (Lipitor) PHA 10/04/24 In Process 22:00 Date of Service: Oct 03, 2024 Billing Provider: STEWARD,JEANNA AGACNP Common Visit Codes: [id number] INP/OBS CARE (HIGH) [facility]LY [facility]EWARD [facility] Oct 04, 2024 04:06
[2024-10-04 04:25] LABS: Amphetamine Screen, Urine Pos (NEGATIVE); Barbiturate Scree,Urine Neg (NEGATIVE); Benzodiazephine Screen, Urine Neg (NEGATIVE); Cannabinoid Screen, Urine Neg (NEGATIVE); Cocaine Screen, Urine Neg (NEGATIVE); Opiate Scree,Urine Neg (NEGATIVE); Phencyclidine Screen, Urine Neg (NEGATIVE)
[2024-10-04] MEDS: ACCU-CHEK COMFORT CURVE STRIP VI SCH (04:39)
[2024-10-04] MEDS: InsuLIN REG 1unit/0.01ml Soln (100units/ml) SC SCH (04:45)
[2024-10-04 04:47] LABS: Urine WBC < 1 /HPF (0-3)
[2024-10-04] MEDS: SODIUM CHLORIDE 0.9% 500 ML IV ONE (05:12)
[2024-10-04] MEDS: PIPERACILLIN-TAZOB 3.375GM 100 ML IV SCH (06:33)
[2024-10-04] MEDS ORDERED: LITH300C3 PO (07:41)
[2024-10-04 09:22] LABS: Basophils # (auto) 0 10 ^3/uL (0-0.2); Basophils % (auto) 0.2 % (0.0-2.0); Eosinophils # (auto) 0.1 10 ^3/uL (0-0.8); Eosinophils % (auto) 0.7 % (0.0-7.0); Hematocrit 30.3 % (41.0-53.0); Hemoglobin 10.6 g/dL (13.5-17.5); Lymphocytes # (auto) 1.1 10 ^3/uL (0.4-5.4); Lymphocytes % (auto) 10.5 % (10.0-50.0); Mean Corpuscular Hemoglobin 30.6 pg (28.0-32.0); Mean Corpuscular Hgb Conc. 34.8 g/dL (32.0-36.0); Monocytes # (auto) 1.4 10 ^3/uL (0-1.3); Monocytes % (auto) 13.5 % (0.0-12.0); Neutrophils # (auto) 7.9 10 ^3/uL (1.6-8.6); Neutrophils % (auto) 75.1 % (37.0-80.0); Platelet Count (auto) 272 10^3/uL (140-450); Red Blood Cells 3.45 10^6/uL (4.5-5.90); Red Cell Distribution Width 13.3 % (11.8-14.3); White Blood Cell 10.6 10^3/uL (4.4-10.8)
[2024-10-04 09:35] LABS: INR 0.97 (0.9-1.15); Partial Thromboplastin Time 31.8 SEC (24.5-34.5); Prothrombin Time 10.3 sec (9.3-11.8)
[2024-10-04 09:42] LABS: Alanine Aminotransferase 15 U/L (7-40); Albumin 3.2 g/dL (3.2-4.8); Anion Gap 12 (5-15); BUN/Creatinine Ratio 10.6 (10.0-20.0); Blood Urea Nitrogen 11 mg/dL (9-23); Calcium 9.1 mg/dL (8.7-10.4); Carbon Dioxide 27 mmol/L (20-31); Magnesium 1.8 mg/dL (1.6-2.6); Potassium 3.6 mmol/L (3.5-5.1); Total Protein 6.8 g/dL (5.7-8.2)
[2024-10-04 09:43] LABS: Alkaline Phosphatase 152 U/L (46-116); Aspartate Aminotransferase < 8 U/L (13-40); Bilirubin, Total 0.4 mg/dL (0.2-1.0); Chloride 94 mmol/L (98-107); Glucose 307 mg/dL (74-106); Sodium 133 mmol/L (136-145)
[2024-10-04] MEDS: VANCOMYCIN 1.25GM/250ML 250 ML IV SCH (10:24)
[2024-10-04] MEDS: FUROSEMIDE 40 MG TAB PO SCH (10:25)
[2024-10-04] MEDS: ENOXAPARIN SOD 40 MG/0.4 ML SYRINGE SC SCH (10:25)
[2024-10-04] MEDS: INSULIN LANTUS (GLARGINE) 1 /0.01ml (100units/ml) SC SCH (10:35)
[2024-10-04] MEDS ORDERED: INSULIN LISPRO (HUMAN) 100 UNITS/ML ML SC SCH (11:30)
--- NOTE | 2024-10-04 11:32 | DVHPNRES ---
Progress Note Date Seen: Oct 04, 2024 Resident Creating Document: JAY CARLOS RESIDENT Medical Necessity Reason Pt with a Central, PICC or Fol: No Subjective Review of Systems JORGE SANTANA is a 44 year-old male with PMH of HTN,T1 DM, DLD,Hypothyroidism presented to ED for evaluation of an open wound on his right foot. Patient reports having chronic wounds to bilateral feet and has home health visit 2-3 times per week. He states over the past two days the wound on his right foot has become worse with discharge and foul order. He has also noticed worsening swelling and tenderness. Patient also has a chronic on his left foot. Denies any fever, chills and other acute complaints. PMH:HTN,T1 DM, DLD,Hypothyroidism PSH: Denies Family Hx: Not significant Social Hx: Lives at friend's house. Denies smoking, alcohol but admits methamphetamine abuse Allergies: No known allergies Patient seen and examined at the bedside. Currently patient reporting pain in his both extremities no new complaints. CT right lower extremity showed findings suggestive of osteomyelitis, consulted Podiatry she eventually for further evaluation and started cefepime, Flagyl and vancomycin. Objective vital signs Vital Sign Date Time Temp Pulse Resp B/P (MAP) Pulse Ox O2 Delivery O2 Flow Rate FiO2 10/04/24 10:25 120/74 10/04/24 08:42 98.3 89 18 98 98.3 10/04/24 08:00 Room Air* 0 21 Total Intake and Output 10/03/24 10/03/24 10/04/24 15:00 23:00 07:00 Intake Total 700 ml Balance 700 ml medications Current Medications Medications Dose Ordered Sig/Leandro Route Start Time Stop Time Status Last Admin Dose Admin Vancomycin HCl 0 ml @ 0 mls/hr UD IV 10/04/24 01:15 Acetaminophen/ Hydrocodone Bitart 1 tab Q4HP PRN PO 10/04/24 01:15 Temazepam 15 mg QHSP PRN PO 10/04/24 01:15 Ondansetron HCl 4 mg Q4HP PRN IV 10/04/24 01:15 Enoxaparin Sodium 40 mg DAILY SC 10/04/24 10:00 10/04/24 10:25 40 MG Acetaminophen 650 mg Q6HP PRN PO 10/04/24 01:15 Morphine Sulfate 2 mg Q8HPRN PRN IV 10/04/24 01:15 Diagnostic Test (Pha) 1 strip IQ4HR 10/04/24 04:00 10/04/24 11:24 1 STRIP Insulin Human Regular IQ4HR SC 10/04/24 04:00 10/04/24 08:40 16 UNITS Dextrose 50 ml UD PRN IV 10/04/24 01:15 Furosemide 40 mg DAILY PO 10/04/24 10:00 10/04/24 10:25 40 MG Atorvastatin Calcium 10 mg HS PO 10/04/24 22:00 Vancomycin HCl 250 ml @ 200 mls/hr Q12H IV 10/04/24 10:00 10/04/24 10:24 200 MLS/HR Insulin Glargine 20 units QAM SC 10/04/24 09:30 10/04/24 10:35 20 UNITS Cefepime HCl 50 ml @ 12.5 mls/hr Q8H IV 10/04/24 11:00 Metronidazole 100 ml @ 100 mls/hr Q8H IV 10/04/24 15:00 Insulin Human Lispro 5 units AC SC 10/04/24 11:30 UNV Examination Pt is lying on bed General Appearance: Alert, Oriented X3, Cooperative,moderate distress HEENT: Atraumatic, Mucous membranes moist/pink Respiratory: Clear to auscultation, Normal air movement Cardiovascular: Regular rate, Normal S1, Normal S2 Abdominal: Active bowel sounds, Soft, no distention, no tenderness Extremities: 2+ BLE pitting edema,unable to palpate pulses , ulcertaed wound on open wound to dorsum and plantar of right foot, left foot plantar ulcer Skin: wounds as described above Neuro: Normal speech, sensorimotor deficits none Psych/Mental Status: Mental status NL, Mood NL Nurse was there as sharperone during examination laboratory and microbiology Laboratory Tests 10/04/24 08:55 Test 10/04/24 08:55 Range/Units Serum Glucose 307 #H 74-106 mg/dL Labs and/or images reviewed: Labs reviewed by me, Image(s) reviewed by me Problem List/Assessment/Plan Problem List/Assessment/Plan # Sepsis likely 2/2 ulcer # Chronic B/L plantar ulcers # Right foot osteomyelitis / cellulitis/ abscess # L foot cellulitis/ abscess - CT of the left foot showing normal alignment without evidence of acute abnormality - CT of the Right foot showing early changes of osteomyelitis in metatarsal heads and bases of the 1st and 2nd proximal phalanges along with gas collection - Wound consult and culture - Panculture - Podiatry consult - Vancomysin, cefepime 1g and flgyll - NPO afer midnight # Uncontrolled T1 Dm, IDDM with HbA1C >14 - Aggresive scale and accuchecks - lantus 20 units and lispro # methamphetamine abuse disorder -counseled regarding cessation for more than 17 minutes Protonix no need Lovenox Diabetic diet Goals of care discussed with the patient for more than 29 minutes: Full code status Case discussed with the Dr. Voss, patient and nurse Plan discussed with: Patient My Orders My Orders Orders - JAY CARLOS RESIDENT Procedure Category Date Status Time Thyroid Stimulating LAB 10/04/24 In Process Hormone 07:51 Rapid Influenza A&B LAB 10/04/24 Logged 07:51 Covid19 Antigen Ijeoma LAB 10/04/24 Logged 07:51 Beta-Hydroxybutyrate LAB 10/04/24 In Process 07:51 Chest Xray 1 View XY 10/04/24 Logged 09:19 Insulin Lantus PHA 10/04/24 In Process (Glargine) (Lantus) 09:30 Wound Culture W/ Gs GRETCHEN 10/04/24 Logged 09:24 Bilat Low Ext Art US 10/04/24 Logged Duplex 09:27 Urine Bacterial GRETCHEN 10/04/24 In Process Culture 09:31 Cefepime 1gm/ 50ml PHA 10/04/24 In Process (Maxipime 1gm/50ml) 11:00 Metronidazole PHA 10/04/24 In Process 500mg/100ml (Flagyl 15:00 Insulin Lispro PHA 10/04/24 Logged (Human) (Humalog) 11:30 Date of Service: Oct 04, 2024 Billing Provider: ANJEL GARCIA MD Common Visit Codes: [id number] INP/OBS CARE(HIGH) JAY CARLOS RESIDENT Oct 04, 2024 11:32 ANJEL GARCIA MD Oct 10, 2024 23:24
[2024-10-04] MEDS: CEFEPIME 1GM/ 50ML 50 ML IV SCH ×2 (12:22→19:46)
--- NOTE | 2024-10-04 12:43 | DVH ---
Bilateral Lower Extremity Arterial Duplex Clinical History: PAD Comparison: None Technique: Duplex Doppler evaluation including color Doppler and spectral/pulsed waveform analysis of the lower extremity arteries was performed. Findings: RIGHT: Peak systolic velocities are as follows: NURSE LIAISON 61 cm/s Deep femoral 94 cm/s SFA proximal 144 cm/s SFA mid-portion 150 cm/s SFA distal 111 cm/s Popliteal 123 cm/s Posterior tibial 167 cm/s Anterior tibial 26 cm/s Peroneal nv cm/s Dorsalis pedis 133 cm/s The waveforms are monophasic in the anterior tibial artery.. LEFT: Peak systolic velocities are as follows: NURSE LIAISON 98 cm/s Deep femoral 73 cm/s SFA proximal 91 cm/s SFA mid-portion 103 cm/s SFA distal 94 cm/s Popliteal 75 cm/s Posterior tibial 120 cm/s Anterior tibial 49 cm/s Peroneal nv cm/s Dorsalis pedis nv cm/s The waveforms are triphasic with diastolic flow. IMPRESSION: 20-49% stenosis of the right mid superficial femoral artery and right posterior tibial artery based o n peak systolic velocity criteria. Monophasic arterial waveforms are present in the right anterior tibial artery suggestive of underlyin g peripheral arterial disease. No hemodynamically significant stenosis on the left based on peak systolic velocity criteria. Nonvisualization of the left dorsalis pedis artery. REFERENCE VALUES, [facility] ([facility]) vascular Imaging Lab Criteria: Peak systolic velocity ranges (in cm/sec) are as follows: <150 cm/s - <20 % stenosis 150-200 cm/s - 20-49% stenosis 200-300 cm/s - 50-75% stenosis >300 cm/s -> 75% stenosis
[2024-10-04] MEDS ORDERED: MIDAZOLAM HCL 2MG/2ML 2ml VIAL (1mg/ml) ONE (14:05)
[2024-10-04] MEDS ORDERED: fentaNYL CITRATE 100 MCG/2 ML VL ONE (14:05)
[2024-10-04] MEDS: BUPIVACAINE 0.5% P/F INJ 10 ML VIAL ONE (14:57)
[2024-10-04] MEDS ORDERED: PROPOFOL 10 MG/ML 20 ML IV ONE (14:57)
--- NOTE | 2024-10-04 15:34 | DVH ---
CHEST RADIOGRAPH Indication: pre op Technique: Single frontal view of the chest was obtained COMPARISON: XY CHEST PORTABLE on DOS: 05/23/24, XY CHEST PORTABLE on DOS: 01/16/24 FINDINGS: Lines and Tubes: None Lungs: Clear Pleura: No effusion. No pneumothorax. Cardiomediastinal contours: Unremarkable Bones: Unremarkable IMPRESSION: No acute disease.
[2024-10-04] MEDS: metroNIDAZOLE 500MG/100ML 100 ML IV SCH (15:55)
--- NOTE | 2024-10-04 16:25 | DVHOP2 ---
Operative Report - 2 Report Details Date: 10/04/24 Preop Diagnosis: 1. Right foot abscess 2. Right foot osteomyelitis 3. Right foot necrotizing fasciitis 4. Right foot cellulitis Postop Diagnosis: Same as preop Surgeon: Erik Morton MD Anesthesiologist: See anesthesia Anesthesia: Mac Consent: The patient was informed of the risks and benefits of the procedure. These include but are not limited to complications of anesthesia, postoperative infection, incomplete relief of symptoms, recurrence of symptoms, damage to blood vessels, nerves and tendons, deep venous thrombosis, pulmonary embolism and possible need for repeat surgery in the future. Complications: None Estimated Blood Loss: Minimal Fluids: See anesthesia Findings: Consistent with the diagnosis Indications for Surgery: Worsening right foot wound Name of Procedure Performed 1. Right dorsal foot I&D to bone (29115) 2. Right plantar foot I&D to bone (21619) Procedure Details Procedure Details: PRE-PROCEDURE INFORMATION: In the pre-op holding area, the extremity to be operated on was clearly marked and the patient verified correct laterality of the marking. The patient was transferred to the OR table and placed in a supine position. A timeout was performed in which identification of the correct patient, procedure, location, and materials was done. The right foot and leg were prepped and draped in normal sterile fashion. DESCRIPTION OF PROCEDURE: Attention was directed to the right dorsal foot where area of fluctuance was noted. An incision was made over this area and was deepened through blunt dissection. The incision was deepened to the level of abscess and bone. Care was taken to the dissection to avoid any neurovascular and tendinous structures. The incision was deepened to the bone, and the abscess appeared to be purulent fluid consistent with pus. The cortices of the bone was then removed with Ron an all necrotic tissue. After the abscess was drained, the area was irrigated with 3 L normal saline using cysto tubing. Deep cultures were then obtained from the wound. The area was then inspected and any areas of tracking, especially along the tendons were also drained. The wound was packed with Betadine-soaked gauze and we will need to be closed at a later date. Attention was directed to the right plantar foot where area of fluctuance was noted. An incision was made over this area and was deepened through blunt dissection. The incision was deepened to the level of abscess and bone. Care was taken to the dissection to avoid any neurovascular and tendinous structures. The incision was deepened to the bone, and the abscess appeared to be purulent fluid consistent with pus. The cortices of the bone was then removed with Ron an all necrotic tissue. After the abscess was drained, the area was irrigated with 3 L normal saline using cysto tubing. Deep cultures were then obtained from the wound. The area was then inspected and any areas of tracking, especially along the tendons were also drained. The wound was packed with Betadine-soaked gauze and we will need to be closed at a later date. POSTOPERATIVE INFORMATION: The patient tolerated the above noted procedure and anesthesia well and was transferred to the PACU with vital signs stable, and vascular status intact with capillary refill intact to all digits. Patient will return to the OR and continue IV antibiotics. Deep cultures were taken. Patient will return to the OR tomorrow for a subsequent debridement. Patient will need multiple debridements due to the necrotizing infection. Condition Good Disposition Still a Patient ERIK MORTON DPM Oct 04, 2024 16:25
[2024-10-04] MEDS: ATORVASTATIN 20 MG TAB PO SCH (21:58)
[2024-10-05] VITALS (9 sets, daily range): BP systolic 94–113; BP diastolic 52–66; PULSE 88–100; RESP 14–21; TEMP 97.4–100.1; O2SAT 92–97
[2024-10-05 03:20] LABS: Rapid Influenza A Negative (Negative); Rapid Influenza B Negative (Negative)
[2024-10-05 03:21] LABS: COVID19 ANTIGEN SOFIA FIA NEGATIVE (NEGATIVE)
[2024-10-05 07:35] LABS: Hematocrit 29.7 % (41.0-53.0); Hemoglobin 10.4 g/dL (13.5-17.5); Mean Corpuscular Hemoglobin 30.6 pg (28.0-32.0); Mean Corpuscular Volume 87.6 fL (80.0-100.0); Platelet Count (auto) 277 10^3/uL (140-450); Red Blood Cells 3.39 10^6/uL (4.5-5.90); Red Cell Distribution Width 13.3 % (11.8-14.3)
[2024-10-05 07:38] LABS: Alanine Aminotransferase 18 U/L (7-40); Albumin 2.8 g/dL (3.2-4.8); Alkaline Phosphatase 153 U/L (46-116); Anion Gap 8 (5-15); Aspartate Aminotransferase 16 U/L (13-40); BUN/Creatinine Ratio 11.9 (10.0-20.0); Band Neutrophils % (manual) 0; Basophils % (manual) 0 (0.0-2.0); Blast Cells 0; Blood Urea Nitrogen 8 mg/dL (9-23); Calcium 8.6 mg/dL (8.7-10.4); Carbon Dioxide 32 mmol/L (20-31); Chloride 97 mmol/L (98-107); Eosinophils % (manual) 0 (0-7); Glucose 112 mg/dL (74-106); Metamyelocytes % 0; Myelocytes % 0; Promyelocytes % 0; Reactive Lymphocytes 0; Sodium 137 mmol/L (136-145); Total Protein 6.1 g/dL (5.7-8.2)
[2024-10-05 07:39] LABS: Bilirubin, Total 0.4 mg/dL (0.2-1.0)
[2024-10-05 07:40] LABS: Potassium 2.4 mmol/L (3.5-5.1)
[2024-10-05] MEDS: SODIUM CHL 0.9% 100 ML IV SCH (09:14)
[2024-10-05] MEDS: POTASSIUM CHL 20MEQ/50ML 50 ML IV SCH (09:16)
[2024-10-05 09:43] LABS: Lymphocytes % (manual) 13 (10.0-50.0); Monocytes % (manual) 15 (0-12); Platelet Estimate Adequate
[2024-10-05 12:20] LABS: Sodium 138 mmol/L (136-145)
[2024-10-05 12:21] LABS: Anion Gap 5 (5-15); Calcium 8.8 mg/dL (8.7-10.4)
[2024-10-05 12:22] LABS: Carbon Dioxide 35 mmol/L (20-31); Chloride 98 mmol/L (98-107); Potassium 2.7 mmol/L (3.5-5.1)
--- NOTE | 2024-10-05 12:26 | DVHINCON2 ---
Date Seen: Oct 04, 2024 Reason for Consultation Right foot wound History of Present Illness 44-year-old male presents for evaluation of an open wound on his right foot. Patient reports having chronic wounds to bilateral feet and has home health visit 2-3 times per week. He states over the past two days the wound on his right foot has become worse with discharge and foul order. He has also noticed worsening swelling and tenderness. Patient also has a chronic on his left foot. Denies any fever or chills. No other acute complaints. Past Medical History See H&P Past Surgical History See H&P Family History: Diabetes mellitus G8 FATHER FH: diabetes mellitus Allergies: Coded Allergies: NO KNOWN ALLERGIES (Unverified , 09/06/13) Home Meds Active Scripts Pantoprazole Sodium Sesquihydr (Pantoprazole Sodium) 40 Mg Tab, 40 MG PO DAILY for 30 Days, #30 TAB Prov:LICO BERNARD RESIDENT 05/25/24 Reported Medications Three Points Carbonate (Three Points Carbonate) 300 Mg Cap, PO for 30 Days, MG 10/04/24 Fluoxetine Hcl (Fluoxetine Hcl) Unknown Strength Cap, PO 01/16/24 Insulin Glargine (Lantus) 100 Unit/Ml Inj, 40 UNIT SC DAILY@DINNER, INJ 01/18/18 Simvastatin (Simvastatin) 10 Mg Tab, 10 MG PO DAILY for 30 Days, MG 08/25/17 Insulin Aspart Protamine & Asp (Novolog Mix 70/30 Prefill (70-30) 100 Unit/ml) 1 Inj Inj, 1 INJ SC, INJ 08/25/17 Current Medications Current Medications Medications (Trade) Dose Ordered Sig/Leandro Route PRN Reason Start Time Stop Time Status Last Admin Atorvastatin Calcium (Lipitor) 10 mg HS PO 10/04/24 22:00 10/04/24 21:58 Metronidazole 100 ml @ 100 mls/hr Q8H IV 10/04/24 15:00 10/05/24 06:05 Cefepime HCl 50 ml @ 12.5 mls/hr Q8H IV 10/04/24 20:00 10/05/24 03:22 Potassium Chloride 50 ml @ 25 mls/hr Q2H IV 10/05/24 09:00 10/05/24 12:59 10/05/24 11:17 Sodium Chloride 100 ml @ 50 mls/hr Q2H IV 10/05/24 09:00 10/05/24 12:59 10/05/24 11:16 Potassium Chloride/Sodium Chloride 1,000 ml @ 100 mls/hr Q10H IV 10/05/24 09:00 Vital Signs Vital Signs Date Time Temp Pulse Resp B/P (MAP) Pulse Ox O2 Delivery O2 Flow Rate FiO2 10/05/24 09:18 102/57 10/05/24 09:00 98.9 90 20 97 98.9 10/05/24 07:53 Room Air* 0 21 Physical Exam DERMATOLOGIC EXAM: - Skin is dry and cool to the touch dry bilaterally. - Nails 1-5 of the bilateral foot are thickened, discolored, dystrophic, and tender to palpate with subungual debris - Hair loss noted to bilateral feet - fluctuance of the right dorsal and plantar foot with purulent drainage and malodor VASCULAR EXAM: - DP and PT pulses are palpable bilaterally. - DEAN [employer] is brisk to all digits. - Feet are cool to touch compared to lower legs bilaterally. NEUROLOGIC EXAM: - Normal light touch sensation to the superficial peroneal, deep peroneal, sural, saphenous, and tibial nerve branches. - Protective sensation is diminished as tested with a 5.07 10g [place]hela bilaterally. MUSCULOSKELETAL EXAM: - No gross deformities - Muscle strength is 5/5 and active motion is pain-free and symmetrical bilaterally - No pain or crepitation with passive range of motion bilaterally to all major pedal joints Labs/Diagnostic Data Labs Test 10/05/24 11:50 10/05/24 11:21 10/05/24 06:40 10/05/24 02:06 Range/Units Sodium Level 138 136-145 mmol/L Potassium Level 2.7 L 3.5-5.1 mmol/L Chloride Level 98 98-107 mmol/L Carbon Dioxide Level 35 H 20-31 mmol/L Anion Gap 5 5-15 Calcium Level 8.8 8.7-10.4 mg/dL POC Glucose 119 H 70-106 mg/dl White Blood Count 10.0 4.4-10.8 10^3/uL Red Blood Count 3.39 L 4.5-5.90 10^6/uL Hemoglobin 10.4 L 13.5-17.5 g/dL Hematocrit 29.7 L 41.0-53.0 % Mean Corpuscular Volume 87.6 80.0-100.0 fL Mean Corpuscular Hemoglobin 30.6 28.0-32.0 pg Mean Corpuscular Hemoglobin Concent 35.0 32.0-36.0 g/dL Red Cell Distribution Width 13.3 11.8-14.3 % Platelet Count 277 140-450 10^3/uL Mean Platelet Volume 7.0 6.9-10.8 fL Neutrophils (%) (Auto) 37.0-80.0 % Lymphocytes (%) (Auto) 10.0-50.0 % Monocytes (%) (Auto) 0.0-12.0 % Basophils (%) (Auto) 0.0-2.0 % Neutrophils # (Auto) 1.6-8.6 10 ^3/uL Lymphocytes # (Auto) 0.4-5.4 10 ^3/uL Monocytes # (Auto) 0-1.3 10 ^3/uL Differential Total Cells Counted 100.0 100 Neutrophils % (Manual) 72 37.0-80.0 Band Neutrophils % (Manual) 0 Lymphocytes % (Manual) 13 10.0-50.0 Monocytes % (Manual) 15 H 0-12 Eosinophils % (Manual) 0 0-7 Basophils % (Manual) 0 0.0-2.0 Metamyelocytes % (manual) 0 Myelocytes % (Manual) 0 Promyelocytes % (Manual) 0 Blast Cells % (Manual) 0 Reactive Lymphocytes 0 Platelet Estimate Adequate Magnesium Level 1.7 1.6-2.6 mg/dL Total Bilirubin 0.4 0.2-1.0 mg/dL Aspartate Amino Transferase (AST) 16 13-40 U/L Alanine Aminotransferase (ALT) 18 7-40 U/L Alkaline Phosphatase 153 H 46-116 U/L Total Protein 6.1 5.7-8.2 g/dL Albumin 2.8 L 3.2-4.8 g/dL Influenza Type A Antigen Negative Negative Influenza Type B Antigen Negative Negative SARS-CoV-2 Antigen (Rapid) Negative NEGATIVE Test 10/04/24 20:50 10/04/24 09:04 10/04/24 08:55 10/04/24 07:51 Range/Units Vancomycin Level Trough 5.7 5-10 ug/mL Lactic Acid Level 0.9 0.4-2.0 mmol/L Eosinophils (%) (Auto) 0.7 0.0-7.0 % Eosinophils # (Auto) 0.1 0-0.8 10 ^3/uL Basophils # (Auto) 0 0-0.2 10 ^3/uL Nucleated Red Blood Cells 0.0 % Prothrombin Time 10.3 9.3-11.8 sec Prothrombin Time INR 0.97 0.9-1.15 Activated Partial Thromboplast Time 31.8 24.5-34.5 SEC Serum Osmolality 291 278-298 mOsm/kg Vitamin B12 Level 604 211-911 pg/mL Beta-Hydroxybutyric Acid 3.439 H < 0.4 mmol/L Thyroid Stimulating Hormone (TSH) 2.13 0.55-4.78 uIU/mL Hemoglobin A1c > 14.0 H <5.7 % A1C Test 10/04/24 03:00 10/03/24 22:22 Range/Units Urine Color Colorless Yellow Urine Clarity Clear Clear Urine pH 5.5 5.0-9.0 Urine Specific [place] 1.020 1.001-1.035 Urine Protein Negative Negative Urine Ketones 3+ H Negative Urine Blood Negative Negative /uL Urine Nitrite Negative Negative Urine Bilirubin Negative Negative Urine Urobilinogen Normal Negative mg/dL Urine Leukocyte Esterase Negative Negative /uL Urine RBC <1 0 - 3 /hpf Urine Microscopic WBC < 1 0-3 /HPF Urine Squamous Epithelial Cells None seen <5 /hpf Urine Bacteria None seen None Seen /hpf Urine Glucose 4+ H Normal mg/dL Urine Opiates Screen Neg NEGATIVE Urine Fentanyl Screen Neg NEGATIVE Urine Barbiturates Screen Neg NEGATIVE Urine Phencyclidine Screen Neg NEGATIVE Urine Amphetamines Screen Pos NEGATIVE Urine Benzodiazepines Screen Neg NEGATIVE Urine Cocaine Screen Neg NEGATIVE Urine Cannabinoids Screen Neg NEGATIVE B-Type Natriuretic Peptide 53.42 0-100 pg/mL Microbiology Date/Time Source Procedure Growth Status 10/04/24 14:49 Foot Right Gram Stain - Final Resulted 10/04/24 14:49 Foot Right Anaerobic Culture - Preliminary Resulted 10/04/24 14:49 Foot Right Aerobic Culture - Preliminary Resulted 10/04/24 03:00 Voided Urine Urine Culture - Preliminary Resulted 10/03/24 22:22 Blood Blood Culture - Preliminary NO GROWTH AFTER 24 HOURS OF INCUBATION. Resulted Problems(with codes): (1) Hyponatremia (2) Leukocytosis (3) DKA (diabetic ketoacidosis) (4) Elevated lactic acid level (5) Generalized weakness (6) Leukocytosis, unspecified (7) Acute renal injury (8) Acute respiratory failure (9) Diabetic ketoacidosis (10) Hypophosphatemia (11) Nausea and vomiting (12) Metabolic encephalopathy (13) High anion gap metabolic acidosis (14) Other specified diabetes mellitus with ketoacidosis without coma (15) Diabetes mellitus with hyperglycemia (16) Diabetes mellitus (17) GENERALIZED WEAKNESS (18) Hyperglycemia (19) Cellulitis (20) Lower extremity edema Plan/Recommendation ASSESSMENT: Patient is a [age] year old seen on the floor for a worsening ulcer PLAN: - The patients chart was reviewed, clinical findings were discussed with the patient, the etiologies of the conditions were discussed in detail, and a treatment plan was agreed to at this time, with both oral and written instructions provided. - reviewed advanced imaging - discussed plan is to perform an incision and drainage - patient has been NPO since midnight - take him to the OR today - we will get cultures in the OR - can weightbear as tolerated in postoperative shoe All questions were answered and concerns addressed to the patient's satisfaction. The patient was given the phone number to the clinic and was told how to make contact with the clinic should any concerns or questions arise. Patient understands that if any questions or concerns arise prior to the next appointment, we should be contacted immediately. FOLLOW-UP: Continue to follow while inpatient Plan discussed with: Patient Date of Service: Oct 04, 2024 Billing Provider: ERIK MORTON DPM Common Visit Codes: CONSULT ONLY Consultation Codes: [id number] CONSULT <80MIN ERIK MORTON DPM Oct 05, 2024 12:26
[2024-10-05 12:28] LABS: Blood Urea Nitrogen 7 mg/dL (9-23); Glucose 109 mg/dL (74-106)
[2024-10-05] MEDS ORDERED: fentaNYL CITRATE 100 MCG/2 ML VL ONE (12:29)
[2024-10-05] MEDS ORDERED: PROPOFOL 10 MG/ML 20 ML IV ONE (12:30)
--- NOTE | 2024-10-05 12:30 | DVHPN2 ---
Subjective 44-year-old male presents for evaluation of an open wound on his right foot. Patient reports having chronic wounds to bilateral feet and has home health visit 2-3 times per week. He states over the past two days the wound on his right foot has become worse with discharge and foul order. He has also noticed worsening swelling and tenderness. Patient also has a chronic on his left foot. Denies any fever or chills. No other acute complaints. Changes from previous H/P or p: No Changes Objective Vitals Vital Signs Date Time Temp Pulse Resp B/P (MAP) Pulse Ox O2 Delivery O2 Flow Rate FiO2 10/05/24 09:18 102/57 10/05/24 09:00 98.9 90 20 97 98.9 10/05/24 07:53 Room Air* 0 21 Intake/Output Intake and Output 10/05/24 07:00 Intake Total 2650 ml Output Total 2300 ml Balance 350 ml Intake Oral 1750 ml IV Total 900 ml Output Urine Total 2300 ml # Voids 3 Exam DERMATOLOGIC EXAM: - Skin is dry and cool to the touch dry bilaterally. - Nails 1-5 of the bilateral foot are thickened, discolored, dystrophic, and tender to palpate with subungual debris - Hair loss noted to bilateral feet - incision on the dorsal and plantar with a continued malodor and purulent drainage VASCULAR EXAM: - DP and PT pulses are palpable bilaterally. 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 - Feet are cool to touch compared to lower legs bilaterally. NEUROLOGIC EXAM: - Normal light touch sensation to the superficial peroneal, deep peroneal, sural, saphenous, and tibial nerve branches. - Protective sensation is diminished as tested with a 5.07 10g [place]-Esthela bilaterally. MUSCULOSKELETAL EXAM: - No gross deformities - Muscle strength is 5/5 and active motion is pain-free and symmetrical bilaterally - No pain or crepitation with passive range of motion bilaterally to all major pedal joints Medications Current Medications Medications Dose Ordered Sig/Leandro Route Start Time Stop Time Status Last Admin Dose Admin Vancomycin HCl 0 ml @ 0 mls/hr UD IV 10/04/24 01:15 Acetaminophen/ Hydrocodone Bitart 1 tab Q4HP PRN PO 10/04/24 01:15 Temazepam 15 mg QHSP PRN PO 10/04/24 01:15 Ondansetron HCl 4 mg Q4HP PRN IV 10/04/24 01:15 Enoxaparin Sodium 40 mg DAILY SC 10/04/24 10:00 10/04/24 10:25 Acetaminophen 650 mg Q6HP PRN PO 10/04/24 01:15 Morphine Sulfate 2 mg Q8HPRN PRN IV 10/04/24 01:15 Diagnostic Test (Pha) 1 strip IQ4HR 10/04/24 04:00 10/05/24 11:49 Insulin Human Regular IQ4HR SC 10/04/24 04:00 10/05/24 03:31 Dextrose 50 ml UD PRN IV 10/04/24 01:15 Furosemide 40 mg DAILY PO 10/04/24 10:00 10/05/24 09:18 Atorvastatin Calcium 10 mg HS PO 10/04/24 22:00 10/04/24 21:58 Vancomycin HCl 250 ml @ 200 mls/hr Q12H IV 10/04/24 10:00 10/05/24 09:15 Insulin Glargine 20 units QAM SC 10/04/24 09:30 10/05/24 06:15 Metronidazole 100 ml @ 100 mls/hr Q8H IV 10/04/24 15:00 10/05/24 06:05 Insulin Human Lispro 5 units AC SC 10/04/24 11:30 Hold Cefepime HCl 50 ml @ 12.5 mls/hr Q8H IV 10/04/24 20:00 10/05/24 03:22 Potassium Chloride 50 ml @ 25 mls/hr Q2H IV 10/05/24 09:00 10/05/24 12:59 10/05/24 11:17 Sodium Chloride 100 ml @ 50 mls/hr Q2H IV 10/05/24 09:00 10/05/24 12:59 10/05/24 11:16 Potassium Chloride/Sodium Chloride 1,000 ml @ 100 mls/hr Q10H IV 10/05/24 09:00 Laboratory Results Laboratory Tests 10/05/24 06:40 10/05/24 11:50 Chemistry Test 10/05/24 06:40 10/05/24 11:50 Albumin 2.8 g/dL (3.2-4.8) L Calcium Level 8.6 mg/dL (8.7-10.4) L 8.8 mg/dL (8.7-10.4) Magnesium Level 1.7 mg/dL (1.6-2.6) Total Protein 6.1 g/dL (5.7-8.2) LFT Test 10/05/24 06:40 Alanine Aminotransferase (ALT) 18 U/L (7-40) Alkaline Phosphatase 153 U/L (46-116) H Aspartate Amino Transferase (AST) 16 U/L (13-40) Total Bilirubin 0.4 mg/dL (0.2-1.0) Urinalysis Test 10/04/24 03:00 Urine Color Colorless (Yellow) Urine Clarity Clear (Clear) Urine pH 5.5 (5.0-9.0) Urine Specific [place] 1.020 (1.001-1.035) Urine Protein Negative (Negative) Urine Ketones 3+ (Negative) H Urine Blood Negative /uL (Negative) Urine Nitrite Negative (Negative) Urine Bilirubin Negative (Negative) Urine Urobilinogen Normal mg/dL (Negative) Urine Leukocyte Esterase Negative /uL (Negative) Urine RBC <1 /hpf (0 - 3) Urine Microscopic WBC < 1 /HPF (0-3) Urine Squamous Epithelial Cells None seen /hpf (<5) Urine Bacteria None seen /hpf (None Seen) Urine Glucose 4+ mg/dL (Normal) H Microbiology Microbiology Date/Time Source Procedure Growth Status 10/04/24 14:49 Foot Right Gram Stain - Final Resulted 10/04/24 14:49 Foot Right Anaerobic Culture - Preliminary Resulted 10/04/24 14:49 Foot Right Aerobic Culture - Preliminary Resulted 10/04/24 03:00 Voided Urine Urine Culture - Preliminary Resulted 10/03/24 22:22 Blood Blood Culture - Preliminary NO GROWTH AFTER 24 HOURS OF INCUBATION. Resulted Assessment/Plan Assessment/Plan ASSESSMENT: Patient is a 44-year-old male seen on the floor 1 day s/p right foot incision and drainage PLAN: - The patients chart was reviewed, clinical findings were discussed with the patient, the etiologies of the conditions were discussed in detail, and a treatment plan was agreed to at this time, with both oral and written instructions provided. - reviewed advanced imaging - decided at this point that another incision drainage was required - patient has been NPO since midnight - take him to the OR today - can weightbear as tolerated in postoperative shoe All questions were answered and concerns addressed to the patient's satisfaction. The patient was given the phone number to the clinic and was told how to make contact with the clinic should any concerns or questions arise. Patient understands that if any questions or concerns arise prior to the next appointment, we should be contacted immediately. FOLLOW-UP: Continue to follow while inpatient Plan discussed with: Patient My Orders Orders - ERIK MORTON DPM Procedure Category Date Status Time Obtain Consent For: ORDERS 10/04/24 Transmitted 13:28 Anaerobic Culture GRETCHEN 10/04/24 In Process 14:51 Gram Stain GRETCHEN 10/04/24 In Process 14:51 Routine Bacterial GRETCHEN 10/04/24 In Process Culture 14:51 Consistent DIET 10/04/24 Transmitted Carb(Ccho)Diabetes Dinner Npo (Nothing By DIET 10/05/24 Transmitted Mouth) Diet Breakfast Npo Except Ice Chips ORDERS 10/05/24 Transmitted 01:00 Obtain Consent For: ORDERS 10/05/24 Transmitted 01:00 Problem List: (1) Cellulitis (2) Lower extremity edema (3) Acute respiratory failure (4) Diabetic ketoacidosis (5) Generalized weakness (6) Hyponatremia (7) Leukocytosis (8) Hypophosphatemia (9) Nausea and vomiting (10) DKA (diabetic ketoacidosis) (11) Metabolic encephalopathy (12) Leukocytosis, unspecified (13) High anion gap metabolic acidosis (14) Elevated lactic acid level (15) Other specified diabetes mellitus with ketoacidosis without coma (16) Acute renal injury (17) Diabetes mellitus with hyperglycemia (18) Diabetes mellitus (19) GENERALIZED WEAKNESS (20) Hyperglycemia Date of Service: Oct 05, 2024 Billing Provider: ERIK MORTON DPM Common Visit Codes: [id number] INP/OBS CARE(HIGH) ERIK MORTON DPM Oct 05, 2024 12:30
[2024-10-05] MEDS: BUPIVACAINE 0.5% P/F INJ 10 ML VIAL ONE (12:35)
--- NOTE | 2024-10-05 13:27 | DVHOP2 ---
Operative Report - 2 Report Details Date: 10/05/24 Preop Diagnosis: 1. Right foot abscess 2. Right foot osteomyelitis 3. Right foot necrotizing fasciitis 4. Right foot cellulitis Postop Diagnosis: Same as preop Surgeon: Erik Morton MD Anesthesiologist: See anesthesia Anesthesia: Mac Consent: The patient was informed of the risks and benefits of the procedure. These include but are not limited to complications of anesthesia, postoperative infection, incomplete relief of symptoms, recurrence of symptoms, damage to blood vessels, nerves and tendons, deep venous thrombosis, pulmonary embolism and possible need for repeat surgery in the future. Complications: None Estimated Blood Loss: Minimal Fluids: See anesthesia Findings: Consistent with diagnosis Indications for Surgery: Worsening right foot wound Name of Procedure Performed 1. Right dorsal foot I&D to bone (73714) 2. Right plantar foot I&D to bone (94004) Procedure Details Procedure Details: PRE-PROCEDURE INFORMATION: In the pre-op holding area, the extremity to be operated on was clearly marked and the patient verified correct laterality of the marking. The patient was transferred to the OR table and placed in a supine position. A timeout was performed in which identification of the correct patient, procedure, location, and materials was done. The right foot and leg were prepped and draped in normal sterile fashion. DESCRIPTION OF PROCEDURE: Attention was directed to the right dorsal foot where previous incision was made. An incision was made over this area and was deepened through blunt dissection. The incision was deepened to the level of abscess and bone. Care was taken to the dissection to avoid any neurovascular and tendinous structures. The incision was deepened to the bone, and the abscess appeared to be purulent fluid consistent with pus. The cortices of the bone was then removed with Ron an all necrotic tissue. After the abscess was drained, the area was irrigated with 3 L normal saline using cysto tubing. Deep cultures were then obtained from the wound. The area was then inspected and any areas of tracking, especially along the tendons were also drained. The wound was packed with Betadine-soaked gauze and we will need to be closed at a later date. Attention was directed to the right plantar foot where previous incision was made. An incision was made over this area and was deepened through blunt dissection. The incision was deepened to the level of abscess and bone. Care was taken to the dissection to avoid any neurovascular and tendinous structures. The incision was deepened to the bone, and the abscess appeared to be purulent fluid consistent with pus. The cortices of the bone was then removed with Ron an all necrotic tissue. After the abscess was drained, the area was irrigated with 3 L normal saline using cysto tubing. Deep cultures were then obtained from the wound. The area was then inspected and any areas of tracking, espec ially along the tendons were also drained. The wound was packed with Betadine- soaked gauze and we will need to be closed at a later date. POSTOPERATIVE INFORMATION: The patient tolerated the above noted procedure and anesthesia well and was transferred to the PACU with vital signs stable, and vascular status intact with capillary refill intact to all digits. Patient will return to the floor and continue IV antibiotics. We will see how the foot does over the weekend and determine if he needs another procedure. Specimen: None Condition Good Disposition Still a Patient ERIK MORTON DPM Oct 05, 2024 13:27
--- NOTE | 2024-10-05 14:29 | DVHPNRES ---
Progress Note Date Seen: Oct 05, 2024 Resident Creating Document: JAY CARLOS RESIDENT Medical Necessity Reason Pt with a Central, PICC or Fol: No Subjective Review of Systems JORGE SANTANA is a 44 year-old male with PMH of HTN,T1 DM, DLD,Hypothyroidism presented to ED for evaluation of an open wound on his right foot. Patient seen and examined at the bedside. Yesterday and today patient underwent 2 procedures s/p Right dorsal & plantar foot I&D to bone, tolerated the procedure well and continuing antibiotics. Patient reported mild pain at surgical site but no other complaints. Objective vital signs Vital Sign Date Time Temp Pulse Resp B/P (MAP) Pulse Ox O2 Delivery O2 Flow Rate FiO2 10/05/24 13:45 100.1 92 20 113/65 (81) 92 100.1 10/05/24 07:53 Room Air* 0 21 Total Intake and Output 10/04/24 10/04/24 10/05/24 15:00 23:00 07:00 Intake Total 100 ml 550 ml 2000 ml Output Total 1000 ml 1300 ml Balance 100 ml -450 ml 700 ml medications Current Medications Medications Dose Ordered Sig/Leandro Route Start Time Stop Time Status Last Admin Dose Admin Vancomycin HCl 0 ml @ 0 mls/hr UD IV 10/04/24 01:15 Acetaminophen/ Hydrocodone Bitart 1 tab Q4HP PRN PO 10/04/24 01:15 Temazepam 15 mg QHSP PRN PO 10/04/24 01:15 Ondansetron HCl 4 mg Q4HP PRN IV 10/04/24 01:15 Enoxaparin Sodium 40 mg DAILY SC 10/04/24 10:00 10/04/24 10:25 40 MG Acetaminophen 650 mg Q6HP PRN PO 10/04/24 01:15 Morphine Sulfate 2 mg Q8HPRN PRN IV 10/04/24 01:15 Diagnostic Test (Pha) 1 strip IQ4HR 10/04/24 04:00 10/05/24 11:49 1 STRIP Insulin Human Regular IQ4HR SC 10/04/24 04:00 10/05/24 03:31 16 UNITS Dextrose 50 ml UD PRN IV 10/04/24 01:15 Furosemide 40 mg DAILY PO 10/04/24 10:00 10/05/24 09:18 40 MG Atorvastatin Calcium 10 mg HS PO 10/04/24 22:00 10/04/24 21:58 10 MG Vancomycin HCl 250 ml @ 200 mls/hr Q12H IV 10/04/24 10:00 10/05/24 09:15 200 MLS/HR Insulin Glargine 20 units QAM SC 10/04/24 09:30 10/05/24 06:15 20 UNITS Metronidazole 100 ml @ 100 mls/hr Q8H IV 10/04/24 15:00 10/05/24 06:05 100 MLS/HR Insulin Human Lispro 5 units AC SC 10/04/24 11:30 Hold Cefepime HCl 50 ml @ 12.5 mls/hr Q8H IV 10/04/24 20:00 10/05/24 03:22 12.5 MLS/HR Potassium Chloride/Sodium Chloride 1,000 ml @ 100 mls/hr Q10H IV 10/05/24 09:00 Examination Pt is lying on bed General Appearance: Alert, Oriented X3, Cooperative,moderate distress HEENT: Atraumatic, Mucous membranes moist/pink Respiratory: Clear to auscultation, Normal air movement Cardiovascular: Regular rate, Normal S1, Normal S2 Abdominal: Active bowel sounds, Soft, no distention, no tenderness Extremities: 2+ BLE pitting edema,unable to palpate pulses , ulcertaed wound on open wound to dorsum and plantar of right foot, left foot plantar ulcer s/p right dorsal & plantar foot I&D to bone wrapped in dressings Skin: wounds as described above Neuro: Normal speech, sensorimotor deficits none Psych/Mental Status: Mental status NL, Mood NL Nurse was there as sharperone during examination laboratory and microbiology Laboratory Tests 10/05/24 11:50 10/05/24 06:40 Test 10/05/24 11:50 Range/Units Serum Glucose 109 H 74-106 mg/dL Microbiology Date/Time Source Procedure Growth Status 10/04/24 14:49 Foot Right Gram Stain - Final Resulted 10/04/24 14:49 Foot Right Anaerobic Culture - Preliminary Resulted 10/04/24 14:49 Foot Right Aerobic Culture - Preliminary Resulted 10/04/24 03:00 Voided Urine Urine Culture - Preliminary Resulted 10/03/24 22:22 Blood Blood Culture - Preliminary NO GROWTH AFTER 24 HOURS OF INCUBATION. Resulted Labs and/or images reviewed: Labs reviewed by me, Image(s) reviewed by me Problem List/Assessment/Plan Problem List/Assessment/Plan # Sepsis likely 2/2 ulcer # Chronic B/L plantar ulcers # Right foot osteomyelitis / cellulitis/ abscess/necrotizing fasciitis # L foot cellulitis/ abscess - s/p Right dorsal & plantar foot I&D to bone - Wound consult and culture - Panculture - Podiatry consult - Vancomysin, cefepime 1g and flgyll - diabetic diet - Patient will return to the floor and continue IV antibiotics. We will see how the foot does over the weekend and determine if he needs another procedure. # Uncontrolled T1 Dm, IDDM with HbA1C >14 - Aggresive scale and accuchecks - lantus 20 units and lispro # methamphetamine abuse disorder - counseled regarding cessation for more than 17 minutes Protonix no need Lovenox Diabetic diet Goals of care discussed with the patient for more than 29 minutes: Full code status Case discussed with the Dr. Voss, patient and nurse Plan discussed with: Patient My Orders My Orders Orders - JAY CARLOS RESIDENT Procedure Category Date Status Time Npo After Midnight ORDERS 10/04/24 Transmitted Transfer Orders XFER 10/05/24 Transmitted 08:47 Sod Chl 0.9%/ Kcl PHA 10/05/24 In Process [id number] 09:00 Dietary Evaluation Review Comments: To better control DM, reinforce CCHO-75 diet. To promote wound healing, rogelio CLAUDETTE harperr Expected Outcomes/Goals: controlled DM, healed wounds, Date of Service: Oct 05, 2024 Billing Provider: ANJEL GARCIA MD Common Visit Codes: [id number] INP/OBS CARE(HIGH) JAY CARLOS RESIDENT Oct 05, 2024 14:29 ANJEL GARCIA MD Oct 10, 2024 23:37
[2024-10-05] MEDS: SOD CHL 0.9%/ KCL 40MEQ 1,000 ML IV SCH (15:42)
[2024-10-05] MEDS ORDERED: VANCOMYCIN 1.25GM/250ML 250 ML IV SCH (22:45)
[2024-10-06] VITALS (7 sets, daily range): BP systolic 95–108; BP diastolic 58–64; PULSE 72–95; RESP 12–21; TEMP 97.8–101.4; O2SAT 95–99
[2024-10-06] MEDS: VANCOMYCIN 1.25GM/250ML 250 ML IV SCH (00:44)
[2024-10-06 06:32] LABS: Basophils # (auto) 0 10 ^3/uL (0-0.2); Basophils % (auto) 0.4 % (0.0-2.0); Eosinophils # (auto) 0.1 10 ^3/uL (0-0.8); Eosinophils % (auto) 1.2 % (0.0-7.0); Hematocrit 30.2 % (41.0-53.0); Lymphocytes # (auto) 1.2 10 ^3/uL (0.4-5.4); Lymphocytes % (auto) 15.6 % (10.0-50.0); Mean Corpuscular Hemoglobin 29.4 pg (28.0-32.0); Mean Corpuscular Hgb Conc. 33.2 g/dL (32.0-36.0); Mean Corpuscular Volume 88.6 fL (80.0-100.0); Monocytes # (auto) 1.4 10 ^3/uL (0-1.3); Monocytes % (auto) 17.7 % (0.0-12.0); Neutrophils % (auto) 65.1 % (37.0-80.0); Platelet Count (auto) 273 10^3/uL (140-450); Red Blood Cells 3.41 10^6/uL (4.5-5.90); Red Cell Distribution Width 13.1 % (11.8-14.3); White Blood Cell 7.7 10^3/uL (4.4-10.8)
[2024-10-06 07:03] LABS: Chloride 97 mmol/L (98-107); Sodium 135 mmol/L (136-145)
[2024-10-06 07:32] LABS: Anion Gap 8 (5-15); Carbon Dioxide 30 mmol/L (20-31)
[2024-10-06 07:36] LABS: Calcium 8.3 mg/dL (8.7-10.4)
[2024-10-06 07:38] LABS: BUN/Creatinine Ratio 10.4 (10.0-20.0)
[2024-10-06 07:39] LABS: Alanine Aminotransferase 12 U/L (7-40)
[2024-10-06 07:40] LABS: Bilirubin, Total 0.4 mg/dL (0.2-1.0)
[2024-10-06 07:41] LABS: Albumin 2.7 g/dL (3.2-4.8); Alkaline Phosphatase 123 U/L (46-116); Aspartate Aminotransferase 9 U/L (13-40); Blood Urea Nitrogen 7 mg/dL (9-23); Glucose 163 mg/dL (74-106)
[2024-10-06] MEDS: POTASSIUM CHL 10 Meq TABLET PO SCH (10:26)
[2024-10-06] MEDS: POTASSIUM EFFERVESENT TAB 25 MEQ PO ONE (10:26)
[2024-10-06] MEDS: ONDANSETRON HCL 4 MG/2 ML VIAL IV PRN (10:46)
[2024-10-06] MEDS: HYDROcodone-ACET 5/325MG TAB PO PRN (11:00)
--- NOTE | 2024-10-06 11:16 | DVHPNRES ---
Progress Note Date Seen: Oct 06, 2024 Resident Creating Document: JAY CARLOS RESIDENT Medical Necessity Reason Pt with a Central, PICC or Fol: No Subjective Review of Systems JORGE SANTANA is a 44 year-old male with PMH of HTN,T1 DM, DLD,Hypothyroidism presented to ED for evaluation of an open wound on his right foot. Patient seen and examined at the bedside. S/p Right dorsal & plantar foot I&D to bone, and continuing antibiotics. Patient reported mild pain at surgical site, advised to change dressing. but no other complaints. Patient reports: No new complaints, Feels better Objective vital signs Vital Sign Date Time Temp Pulse Resp B/P (MAP) Pulse Ox O2 Delivery O2 Flow Rate FiO2 10/06/24 10:01 108/59 10/06/24 09:00 98.9 84 20 98 98.9 10/06/24 08:00 Room Air* 0 21 Total Intake and Output 10/05/24 10/05/24 10/06/24 15:00 23:00 07:00 Intake Total 700 ml 1520 ml 1400 ml Output Total 2000 ml 1400 ml Balance 700 ml -480 ml 0 ml medications Current Medications Medications Dose Ordered Sig/Leandro Route Start Time Stop Time Status Last Admin Dose Admin Vancomycin HCl 0 ml @ 0 mls/hr UD IV 10/04/24 01:15 Acetaminophen/ Hydrocodone Bitart 1 tab Q4HP PRN PO 10/04/24 01:15 10/06/24 11:00 1 TAB Temazepam 15 mg QHSP PRN PO 10/04/24 01:15 Ondansetron HCl 4 mg Q4HP PRN IV 10/04/24 01:15 10/06/24 10:46 4 MG Enoxaparin Sodium 40 mg DAILY SC 10/04/24 10:00 10/06/24 10:01 40 MG Acetaminophen 650 mg Q6HP PRN PO 10/04/24 01:15 Morphine Sulfate 2 mg Q8HPRN PRN IV 10/04/24 01:15 Diagnostic Test (Pha) 1 strip IQ4HR 10/04/24 04:00 10/06/24 08:04 1 STRIP Insulin Human Regular IQ4HR SC 10/04/24 04:00 10/06/24 08:47 4 UNITS Dextrose 50 ml UD PRN IV 10/04/24 01:15 Furosemide 40 mg DAILY PO 10/04/24 10:00 10/06/24 10:01 40 MG Atorvastatin Calcium 10 mg HS PO 10/04/24 22:00 10/05/24 23:09 10 MG Insulin Glargine 20 units QAM SC 10/04/24 09:30 10/06/24 06:42 20 UNITS Metronidazole 100 ml @ 100 mls/hr Q8H IV 10/04/24 15:00 10/06/24 06:43 100 MLS/HR Insulin Human Lispro 5 units AC SC 10/04/24 11:30 Hold Cefepime HCl 50 ml @ 12.5 mls/hr Q8H IV 10/04/24 20:00 10/06/24 04:06 12.5 MLS/HR Potassium Chloride/Sodium Chloride 1,000 ml @ 100 mls/hr Q10H IV 10/05/24 09:00 10/06/24 04:30 100 MLS/HR Vancomycin HCl 250 ml @ 200 mls/hr Q12H IV 10/05/24 22:45 Cancel Vancomycin HCl 250 ml @ 200 mls/hr Q12HR@0000,1200 IV 10/06/24 00:00 10/06/24 00:44 200 MLS/HR Potassium Chloride 10 meq DAILY PO 10/06/24 10:00 10/06/24 10:26 10 MEQ Examination Pt is lying on bed General Appearance: Alert, Oriented X3, Cooperative,moderate distress HEENT: Atraumatic, Mucous membranes moist/pink Respiratory: Clear to auscultation, Normal air movement Cardiovascular: Regular rate, Normal S1, Normal S2 Abdominal: Active bowel sounds, Soft, no distention, no tenderness Extremities: 1+ BLE pitting edema,palpable pulses ,s/p right dorsal & plantar foot I&D to bone wrapped in dressings Skin: wounds as described above Neuro: Normal speech, sensorimotor deficits none Psych/Mental Status: Mental status NL, Mood NL Nurse was there as sharperone during examination laboratory and microbiology Laboratory Tests 10/06/24 05:33 Test 10/06/24 05:33 Range/Units Serum Glucose 163 H 74-106 mg/dL Microbiology Date/Time Source Procedure Growth Status 10/04/24 14:49 Foot Right Gram Stain - Final Resulted 10/04/24 14:49 Foot Right Anaerobic Culture - Preliminary Resulted 10/04/24 14:49 Aerobic Culture - Preliminary Streptococcus Group B Streptococcus Group F Resulted 10/04/24 03:00 Voided Urine Urine Culture - Preliminary Resulted 10/03/24 22:22 Blood Blood Culture - Preliminary NO GROWTH AFTER 48 HOURS OF INCUBATION. Resulted Labs and/or images reviewed: Labs reviewed by me, Image(s) reviewed by me Problem List/Assessment/Plan Problem List/Assessment/Plan # Sepsis likely 2/2 ulcer # Chronic B/L plantar ulcers # Right foot osteomyelitis / cellulitis/ abscess/necrotizing fasciitis # L foot cellulitis/ abscess - s/p Right dorsal & plantar foot I&D to bone - Wound consult and culture - Panculture - Podiatry consult - Vancomysin, cefepime 1g and flgyll - diabetic diet - Patient will return to the floor and continue IV antibiotics. We will see how the foot does over the weekend and determine if he needs another procedure. # Uncontrolled T1 Dm, IDDM with HbA1C >14 - Aggresive scale and accuchecks - lantus 20 units and lispro # methamphetamine abuse disorder - counseled regarding cessation for more than 17 minutes Protonix no need Lovenox Diabetic diet Goals of care discussed with the patient for more than 29 minutes: Full code status Case discussed with the Dr. Voss, patient and nurse Plan discussed with: Patient My Orders My Orders Orders - JAY CARLOS RESIDENT Procedure Category Date Status Time Potassium Er Tablet PHA 10/06/24 In Process (Klor-Con Tablet) 10:00 Dietary Evaluation Review Comments: To better control DM, reinforce CCHO-75 diet. To promote wound healing, rogelio BID organge flavr Expected Outcomes/Goals: controlled DM, healed wounds, Date of Service: Oct 06, 2024 Billing Provider: ANJEL GARCIA MD Common Visit Codes: [id number] INP/OBS CARE(HIGH) JAY CARLOS RESIDENT Oct 06, 2024 11:16 ANJEL GARCIA MD Oct 10, 2024 23:47
[2024-10-06] MEDS: KETOROLAC TROMETH 30 MG/ML 1ML VIAL IV ONE (12:50)
[2024-10-07] VITALS (9 sets, daily range): BP systolic 97–113; BP diastolic 57–77; PULSE 60–88; RESP 16–20; TEMP 97.6–98.5; O2SAT 97–100
[2024-10-07 06:04] LABS: Basophils # (auto) 0 10 ^3/uL (0-0.2); Basophils % (auto) 0.4 % (0.0-2.0); Eosinophils # (auto) 0.3 10 ^3/uL (0-0.8); Eosinophils % (auto) 4.7 % (0.0-7.0); Hematocrit 28.2 % (41.0-53.0); Hemoglobin 9.5 g/dL (13.5-17.5); Lymphocytes # (auto) 1.1 10 ^3/uL (0.4-5.4); Mean Corpuscular Hemoglobin 30.2 pg (28.0-32.0); Mean Corpuscular Hgb Conc. 33.8 g/dL (32.0-36.0); Mean Corpuscular Volume 89.3 fL (80.0-100.0); Monocytes # (auto) 0.8 10 ^3/uL (0-1.3); Monocytes % (auto) 14.7 % (0.0-12.0); Neutrophils # (auto) 3.4 10 ^3/uL (1.6-8.6); Neutrophils % (auto) 60.2 % (37.0-80.0); Nucleated Red Blood Cells % 0.1 %; Platelet Count (auto) 264 10^3/uL (140-450); Red Blood Cells 3.16 10^6/uL (4.5-5.90); Red Cell Distribution Width 13.3 % (11.8-14.3); White Blood Cell 5.6 10^3/uL (4.4-10.8)
--- NOTE | 2024-10-07 14:02 | DVH ---
CHEST RADIOGRAPH Indication: PROCEDURE PROTOCOL Technique: Single frontal view of the chest was obtained COMPARISON: XY CHEST XRAY 1 VIEW on DOS: 10/04/24, XY CHEST PORTABLE on DOS: 05/23/24, XY CHEST PORTAB LE on DOS: 01/16/24 FINDINGS: Lines and Tubes: None Lungs: Clear Pleura: No effusion. No pneumothorax. Cardiomediastinal contours: Unremarkable Bones: Unremarkable IMPRESSION: 1. No acute disease.
[2024-10-07 14:36] LABS: Chloride 99 mmol/L (98-107); Potassium 4.3 mmol/L (3.5-5.1)
[2024-10-07 14:37] LABS: Anion Gap 5 (5-15); Carbon Dioxide 30 mmol/L (20-31)
[2024-10-07 14:41] LABS: Calcium 8.5 mg/dL (8.7-10.4); Sodium 134 mmol/L (136-145)
[2024-10-07 14:42] LABS: BUN/Creatinine Ratio 12.2 (10.0-20.0); Blood Urea Nitrogen 9 mg/dL (9-23)
[2024-10-07 14:47] LABS: Glucose 196 mg/dL (74-106)
--- NOTE | 2024-10-07 15:16 | DVHPN2 ---
Subjective 10/07 patient is scheduled for OR tomorrow NPO midnight. Otherwise doing well pain is controlled with p.r.n. analgesia. Reviewed: H&P Changes from previous H/P or p: No Changes General: Per HPI Objective Vitals Vital Signs Date Time Temp Pulse Resp B/P (MAP) Pulse Ox O2 Delivery O2 Flow Rate FiO2 10/07/24 13:00 97.8 82 17 112/77 (89) 100 97.8 10/07/24 08:00 Room Air* 0 21 Intake/Output Intake and Output 10/07/24 07:00 Intake Total 5610 ml Output Total 4230 ml Balance 1380 ml Intake Oral 4710 ml IV Total 900 ml Output Urine Total 4230 ml # Voids 2 Exam General Appearance: Alert, Oriented X3, Cooperative,moderate distress HEENT: Atraumatic, Mucous membranes moist/pink Respiratory: Clear to auscultation, Normal air movement Cardiovascular: Regular rate, Normal S1, Normal S2 Abdominal: Active bowel sounds, Soft, no distention, no tenderness Extremities: 1+ BLE pitting edema,palpable pulses ,s/p right dorsal & plantar foot I&D to bone wrapped in dressings Skin: wounds as described above Neuro: Normal speech, sensorimotor deficits none Psych/Mental Status: Mental status NL, Mood NL Medications Current Medications Medications Dose Ordered Sig/Leandro Route Start Time Stop Time Status Last Admin Dose Admin Vancomycin HCl 0 ml @ 0 mls/hr UD IV 10/04/24 01:15 Acetaminophen/ Hydrocodone Bitart 1 tab Q4HP PRN PO 10/04/24 01:15 10/07/24 13:09 1 TAB Temazepam 15 mg QHSP PRN PO 10/04/24 01:15 Ondansetron HCl 4 mg Q4HP PRN IV 10/04/24 01:15 10/06/24 10:46 4 MG Enoxaparin Sodium 40 mg DAILY SC 10/04/24 10:00 10/06/24 10:01 40 MG Acetaminophen 650 mg Q6HP PRN PO 10/04/24 01:15 Morphine Sulfate 2 mg Q8HPRN PRN IV 10/04/24 01:15 Diagnostic Test (Pha) 1 strip IQ4HR 10/04/24 04:00 10/07/24 12:09 1 STRIP Insulin Human Regular IQ4HR SC 10/04/24 04:00 10/07/24 13:10 4 UNITS Dextrose 50 ml UD PRN IV 10/04/24 01:15 Furosemide 40 mg DAILY PO 10/04/24 10:00 10/06/24 10:01 40 MG Atorvastatin Calcium 10 mg HS PO 10/04/24 22:00 10/06/24 22:54 10 MG Insulin Glargine 20 units QAM SC 10/04/24 09:30 10/07/24 06:26 20 UNITS Metronidazole 100 ml @ 100 mls/hr Q8H IV 10/04/24 15:00 10/07/24 06:27 100 MLS/HR Insulin Human Lispro 5 units AC SC 10/04/24 11:30 Hold Cefepime HCl 50 ml @ 12.5 mls/hr Q8H IV 10/04/24 20:00 10/07/24 12:09 12.5 MLS/HR Vancomycin HCl 250 ml @ 200 mls/hr Q12H IV 10/05/24 22:45 Cancel Potassium Chloride 10 meq DAILY PO 10/06/24 10:00 10/07/24 10:30 10 MEQ Vancomycin HCl 300 ml @ 200 mls/hr Q12H IV 10/08/24 00:00 Laboratory Results Laboratory Tests 10/07/24 14:11 Chemistry Test 10/07/24 14:11 Calcium Level 8.5 mg/dL (8.7-10.4) L Coagulation Test 10/07/24 14:11 Prothrombin Time Pending Prothrombin Time INR Pending Activated Partial Thromboplast Time Pending Urinalysis Test 10/04/24 03:00 Urine Color Colorless (Yellow) Urine Clarity Clear (Clear) Urine pH 5.5 (5.0-9.0) Urine Specific [place] 1.020 (1.001-1.035) Urine Protein Negative (Negative) Urine Ketones 3+ (Negative) H Urine Blood Negative /uL (Negative) Urine Nitrite Negative (Negative) Urine Bilirubin Negative (Negative) Urine Urobilinogen Normal mg/dL (Negative) Urine Leukocyte Esterase Negative /uL (Negative) Urine RBC <1 /hpf (0 - 3) Urine Microscopic WBC < 1 /HPF (0-3) Urine Squamous Epithelial Cells None seen /hpf (<5) Urine Bacteria None seen /hpf (None Seen) Urine Glucose 4+ mg/dL (Normal) H Microbiology Microbiology Date/Time Source Procedure Growth Status 10/04/24 14:49 Foot Right Gram Stain - Final Resulted 10/04/24 14:49 Foot Right Anaerobic Culture - Preliminary Resulted 10/04/24 14:49 Aerobic Culture - Preliminary Streptococcus Group B Streptococcus Group F Resulted 10/04/24 03:00 Voided Urine Urine Culture - Final Complete 10/03/24 22:22 Blood Blood Culture - Preliminary NO GROWTH AFTER 72 HOURS OF INCUBATION. Resulted Labs and/or images reviewed: Labs reviewed by me, Image(s) reviewed by me Assessment/Plan Assessment/Plan # Sepsis likely 2/2 ulcer # Chronic B/L plantar ulcers # Right foot osteomyelitis / cellulitis/ abscess/necrotizing fasciitis # L foot cellulitis/ abscess - s/p Right dorsal & plantar foot I&D to bone - Wound consult and culture - Panculture - Podiatry consult - Vancomysin, cefepime 1g and flgyll - diabetic diet - Patient will return to the floor and continue IV antibiotics. We will see how the foot does over the weekend and determine if he needs another procedure. # Uncontrolled T1 Dm, IDDM with HbA1C >14 - Aggresive scale and accuchecks - lantus 20 units and lispro # methamphetamine abuse disorder - counseled regarding cessation for more than 17 minutes Protonix no need Lovenox Diabetic diet Plan discussed with: Patient Date of Service: Oct 07, 2024 Billing Provider: ANJEL GARCIA MD Common Visit Codes: [id number] INP/OBS CARE(HIGH) ANJEL GARCIA MD Oct 07, 2024 15:16
[2024-10-07 15:59] LABS: Basophils # (auto) 0 10 ^3/uL (0-0.2); Basophils % (auto) 0.4 % (0.0-2.0); Eosinophils # (auto) 0.4 10 ^3/uL (0-0.8); Eosinophils % (auto) 5.8 % (0.0-7.0); Hematocrit 30.4 % (41.0-53.0); Hemoglobin 10.1 g/dL (13.5-17.5); Lymphocytes # (auto) 1.8 10 ^3/uL (0.4-5.4); Lymphocytes % (auto) 29.6 % (10.0-50.0); Mean Corpuscular Hgb Conc. 33.2 g/dL (32.0-36.0); Mean Corpuscular Volume 90.4 fL (80.0-100.0); Monocytes # (auto) 0.8 10 ^3/uL (0-1.3); Monocytes % (auto) 12.9 % (0.0-12.0); Neutrophils # (auto) 3.2 10 ^3/uL (1.6-8.6); Neutrophils % (auto) 51.3 % (37.0-80.0); Platelet Count (auto) 285 10^3/uL (140-450); Red Blood Cells 3.37 10^6/uL (4.5-5.90); Red Cell Distribution Width 13.3 % (11.8-14.3); White Blood Cell 6.1 10^3/uL (4.4-10.8)
[2024-10-07 16:04] LABS: INR 1.03 (0.9-1.15); Prothrombin Time 10.9 sec (9.3-11.8)
[2024-10-08] VITALS (10 sets, daily range): BP systolic 80–128; BP diastolic 41–81; PULSE 72–90; RESP 16–19; TEMP 97.8–98.8; O2SAT 95–99
[2024-10-08] MEDS: VANCOMYCIN 1.5GM/300ML 300 ML IV SCH (00:36)
[2024-10-08] MEDS: MORPHINE SULFATE INJ 2 MG/ml SYRG IV PRN (05:27)
[2024-10-08 06:43] LABS: INR 1.03 (0.9-1.15); Prothrombin Time 10.9 sec (9.3-11.8)
[2024-10-08 06:49] LABS: Basophils # (auto) 0 10 ^3/uL (0-0.2); Basophils % (auto) 0.6 % (0.0-2.0); Eosinophils # (auto) 0.2 10 ^3/uL (0-0.8); Eosinophils % (auto) 4.1 % (0.0-7.0); Hematocrit 32.6 % (41.0-53.0); Hemoglobin 10.7 g/dL (13.5-17.5); Lymphocytes # (auto) 1.2 10 ^3/uL (0.4-5.4); Lymphocytes % (auto) 21.9 % (10.0-50.0); Mean Corpuscular Hemoglobin 30.1 pg (28.0-32.0); Mean Corpuscular Hgb Conc. 32.9 g/dL (32.0-36.0); Mean Corpuscular Volume 91.5 fL (80.0-100.0); Monocytes # (auto) 0.6 10 ^3/uL (0-1.3); Monocytes % (auto) 11.3 % (0.0-12.0); Neutrophils # (auto) 3.4 10 ^3/uL (1.6-8.6); Neutrophils % (auto) 62.1 % (37.0-80.0); Platelet Count (auto) 302 10^3/uL (140-450); Red Blood Cells 3.56 10^6/uL (4.5-5.90); Red Cell Distribution Width 13.4 % (11.8-14.3); White Blood Cell 5.6 10^3/uL (4.4-10.8)
[2024-10-08 06:58] LABS: Alkaline Phosphatase 112 U/L (46-116); Anion Gap 6 (5-15); BUN/Creatinine Ratio 11.5 (10.0-20.0); Calcium 8.7 mg/dL (8.7-10.4); Carbon Dioxide 27 mmol/L (20-31); Chloride 102 mmol/L (98-107); Potassium 4.7 mmol/L (3.5-5.1); Total Protein 6.4 g/dL (5.7-8.2)
[2024-10-08 07:00] LABS: Alanine Aminotransferase < 9 U/L (7-40); Albumin 2.8 g/dL (3.2-4.8); Aspartate Aminotransferase 10 U/L (13-40); Bilirubin, Total 0.2 mg/dL (0.2-1.0); Blood Urea Nitrogen 9 mg/dL (9-23); Glucose 276 mg/dL (74-106); Sodium 135 mmol/L (136-145)
[2024-10-08] MEDS: BUPIVACAINE HCL 50 ML ONE (12:28)
[2024-10-08] MEDS ORDERED: PROPOFOL 10 MG/ML 20 ML IV ONE (13:04)
[2024-10-08] MEDS ORDERED: KETAMINE 50mg/ML 1ml syringe ONE (13:04)
[2024-10-08] MEDS ORDERED: GLYCOPYRROLATE 0.2 MG/ML 1ML VIAL ONE (13:04)
[2024-10-08] MEDS ORDERED: ONDANSETRON HCL 4 MG/2 ML VIAL ONE (13:04)
[2024-10-08] MEDS ORDERED: MIDAZOLAM HCL 2MG/2ML 2ml VIAL (1mg/ml) ONE (13:04)
[2024-10-08] MEDS ORDERED: LIDOCAINE 2% (LOCAL ANESTH.) PF 5ml SDV ONE (13:04)
[2024-10-08] MEDS: VANCOMYCIN HCL 1000 MG VL ONE (13:05)
--- NOTE | 2024-10-08 13:06 | DVHPN2 ---
Subjective 44-year-old male presents for evaluation of an open wound on his right foot. Patient reports having chronic wounds to bilateral feet and has home health visit 2-3 times per week. He states over the past two days the wound on his right foot has become worse with discharge and foul order. He has also noticed worsening swelling and tenderness. Patient also has a chronic on his left foot. Denies any fever or chills. No other acute complaints. Reviewed: H&P Changes from previous H/P or p: No Changes General: Per HPI Objective Vitals Vital Signs Date Time Temp Pulse Resp B/P (MAP) Pulse Ox O2 Delivery O2 Flow Rate FiO2 10/08/24 10:00 128/81 10/08/24 09:00 98.4 79 16 97 98.4 10/07/24 20:00 Room Air* 0 21 Intake/Output Intake and Output 10/08/24 07:00 Intake Total 2572 ml Output Total 2500 ml Balance 72 ml Intake Oral 400 ml IV Total 2172 ml Output Urine Total 2500 ml Exam DERMATOLOGIC EXAM: - Skin is dry and cool to the touch dry bilaterally. - Nails 1-5 of the bilateral foot are thickened, discolored, dystrophic, and tender to palpate with subungual debris - Hair loss noted to bilateral feet - incision on the dorsal and plantar with a continued malodor and purulent drainage VASCULAR EXAM: - DP and PT pulses are palpable bilaterally. - [employer] is brisk to all digits. - Feet are cool to touch compared to lower legs bilaterally. NEUROLOGIC EXAM: - Normal light touch sensation to the superficial peroneal, deep peroneal, sural, saphenous, and tibial nerve branches. - Protective sensation is diminished as tested with a 5.07 10g [place] bilaterally. MUSCULOSKELETAL EXAM: - No gross deformities - Muscle strength is 5/5 and active motion is pain-free and symmetrical bilaterally - No pain or crepitation with passive range of motion bilaterally to all major pedal joints Medications Current Medications Medications Dose Ordered Sig/Leandro Route Start Time Stop Time Status Last Admin Dose Admin Vancomycin HCl 0 ml @ 0 mls/hr UD IV 10/04/24 01:15 Acetaminophen/ Hydrocodone Bitart 1 tab Q4HP PRN PO 10/04/24 01:15 10/07/24 18:08 1 TAB Temazepam 15 mg QHSP PRN PO 10/04/24 01:15 Ondansetron HCl 4 mg Q4HP PRN IV 10/04/24 01:15 10/06/24 10:46 4 MG Enoxaparin Sodium 40 mg DAILY SC 10/04/24 10:00 10/06/24 10:01 40 MG Acetaminophen 650 mg Q6HP PRN PO 10/04/24 01:15 Morphine Sulfate 2 mg Q8HPRN PRN IV 10/04/24 01:15 10/08/24 05:27 2 MG Diagnostic Test (Pha) 1 strip IQ4HR 10/04/24 04:00 10/08/24 06:18 1 STRIP Insulin Human Regular IQ4HR SC 10/04/24 04:00 10/07/24 23:14 4 UNITS Dextrose 50 ml UD PRN IV 10/04/24 01:15 Furosemide 40 mg DAILY PO 10/04/24 10:00 10/06/24 10:01 40 MG Atorvastatin Calcium 10 mg HS PO 10/04/24 22:00 10/07/24 22:57 10 MG Insulin Glargine 20 units QAM SC 10/04/24 09:30 10/08/24 06:46 20 UNITS Metronidazole 100 ml @ 100 mls/hr Q8H IV 10/04/24 15:00 10/08/24 06:18 100 MLS/HR Insulin Human Lispro 5 units AC SC 10/04/24 11:30 Hold Cefepime HCl 50 ml @ 12.5 mls/hr Q8H IV 10/04/24 20:00 10/08/24 11:58 12.5 MLS/HR Vancomycin HCl 250 ml @ 200 mls/hr Q12H IV 10/05/24 22:45 Cancel Potassium Chloride 10 meq DAILY PO 10/06/24 10:00 10/07/24 10:30 10 MEQ Vancomycin HCl 300 ml @ 200 mls/hr Q12H IV 10/08/24 00:00 10/08/24 11:57 200 MLS/HR Laboratory Results Laboratory Tests 10/08/24 05:51 Chemistry Test 10/07/24 14:11 10/08/24 05:51 Calcium Level 8.5 mg/dL (8.7-10.4) L 8.7 mg/dL (8.7-10.4) Albumin 2.8 g/dL (3.2-4.8) L Total Protein 6.4 g/dL (5.7-8.2) Coagulation Test 10/07/24 15:28 10/08/24 05:51 Prothrombin Time 10.9 sec (9.3-11.8) 10.9 sec (9.3-11.8) Prothrombin Time INR 1.03 (0.9-1.15) 1.03 (0.9-1.15) Activated Partial Thromboplast Time 29.0 SEC (24.5-34.5) LFT Test 10/08/24 05:51 Alanine Aminotransferase (ALT) < 9 U/L (7-40) Alkaline Phosphatase 112 U/L (46-116) Aspartate Amino Transferase (AST) 10 U/L (13-40) L Total Bilirubin 0.2 mg/dL (0.2-1.0) Urinalysis Test 10/04/24 03:00 Urine Color Colorless (Yellow) Urine Clarity Clear (Clear) Urine pH 5.5 (5.0-9.0) Urine Specific [place] 1.020 (1.001-1.035) Urine Protein Negative (Negative) Urine Ketones 3+ (Negative) H Urine Blood Negative /uL (Negative) Urine Nitrite Negative (Negative) Urine Bilirubin Negative (Negative) Urine Urobilinogen Normal mg/dL (Negative) Urine Leukocyte Esterase Negative /uL (Negative) Urine RBC <1 /hpf (0 - 3) Urine Microscopic WBC < 1 /HPF (0-3) Urine Squamous Epithelial Cells None seen /hpf (<5) Urine Bacteria None seen /hpf (None Seen) Urine Glucose 4+ mg/dL (Normal) H Microbiology Microbiology Date/Time Source Procedure Growth Status 10/04/24 14:49 Foot Right Gram Stain - Final Resulted 10/04/24 14:49 Foot Right Anaerobic Culture - Preliminary Resulted 10/04/24 14:49 Aerobic Culture - Final Streptococcus Group B Streptococcus Group F Resulted 10/04/24 03:00 Voided Urine Urine Culture - Final Complete 10/03/24 22:22 Blood Blood Culture - Preliminary NO GROWTH AFTER 72 HOURS OF INCUBATION. Resulted Assessment/Plan Assessment/Plan ASSESSMENT: Patient is a 44-year-old male seen on the floor 3 day s/p right foot incision and drainage PLAN: - The patients chart was reviewed, clinical findings were discussed with the patient, the etiologies of the conditions were discussed in detail, and a treatment plan was agreed to at this time, with both oral and written instructions provided. - reviewed advanced imaging - decided at this point that another incision drainage with a second toe amputation - patient has been NPO since midnight - take him to the OR today - can weightbear as tolerated in postoperative shoe - coordinated care with other physicians All questions were answered and concerns addressed to the patient's satisfaction. The patient was given the phone number to the clinic and was told how to make contact with the clinic should any concerns or questions arise. Patient understands that if any questions or concerns arise prior to the next appointment, we should be contacted immediately. FOLLOW-UP: Continue to follow while inpatient Plan discussed with: Patient My Orders Orders - ERIK MORTON DPM Procedure Category Date Status Time Electrocardigram EKG 10/08/24 Logged 12:01 Problem List: (1) Cellulitis (2) Lower extremity edema (3) Acute respiratory failure (4) Diabetic ketoacidosis (5) Generalized weakness (6) Hyponatremia (7) Leukocytosis (8) Hypophosphatemia (9) Nausea and vomiting (10) DKA (diabetic ketoacidosis) (11) Metabolic encephalopathy (12) Leukocytosis, unspecified (13) High anion gap metabolic acidosis (14) Elevated lactic acid level (15) Other specified diabetes mellitus with ketoacidosis without coma (16) Acute renal injury (17) Diabetes mellitus with hyperglycemia (18) Diabetes mellitus (19) GENERALIZED WEAKNESS (20) Hyperglycemia Date of Service: Oct 08, 2024 Billing Provider: ERIK MORTON DPM Common Visit Codes: [id number] INP/OBS CARE(HIGH) ERIK MORTON DPM Oct 08, 2024 13:06
--- NOTE | 2024-10-08 13:42 | DVHPNRES ---
Progress Note Date Seen: Oct 08, 2024 Resident Creating Document: JAY CARLOS RESIDENT Medical Necessity Reason Pt with a Central, PICC or Fol: No Subjective Review of Systems JORGE SANTANA is a 44 year-old male with PMH of HTN,T1 DM, DLD,Hypothyroidism presented to ED for evaluation of an open wound on his right foot. Patient seen and examined at the bedside. S/p Right dorsal & plantar foot I&D to bone, and continuing antibiotics. Today again went for OR for debridement. Objective vital signs Vital Sign Date Time Temp Pulse Resp B/P (MAP) Pulse Ox O2 Delivery O2 Flow Rate FiO2 10/08/24 13:00 98.5 74 18 103/67 (79) 99 98.5 10/08/24 08:00 Room Air* 0 21 Total Intake and Output 10/07/24 10/07/24 10/08/24 15:00 23:00 07:00 Intake Total 1172 ml 800 ml 600 ml Output Total 2500 ml Balance 1172 ml -1700 ml 600 ml medications Current Medications Medications Dose Ordered Sig/Leandro Route Start Time Stop Time Status Last Admin Dose Admin Vancomycin HCl 0 ml @ 0 mls/hr UD IV 10/04/24 01:15 Acetaminophen/ Hydrocodone Bitart 1 tab Q4HP PRN PO 10/04/24 01:15 10/07/24 18:08 1 TAB Temazepam 15 mg QHSP PRN PO 10/04/24 01:15 Ondansetron HCl 4 mg Q4HP PRN IV 10/04/24 01:15 10/06/24 10:46 4 MG Enoxaparin Sodium 40 mg DAILY SC 10/04/24 10:00 10/06/24 10:01 40 MG Acetaminophen 650 mg Q6HP PRN PO 10/04/24 01:15 Morphine Sulfate 2 mg Q8HPRN PRN IV 10/04/24 01:15 10/08/24 05:27 2 MG Diagnostic Test (Pha) 1 strip IQ4HR 10/04/24 04:00 10/08/24 06:18 1 STRIP Insulin Human Regular IQ4HR SC 10/04/24 04:00 10/07/24 23:14 4 UNITS Dextrose 50 ml UD PRN IV 10/04/24 01:15 Furosemide 40 mg DAILY PO 10/04/24 10:00 10/06/24 10:01 40 MG Atorvastatin Calcium 10 mg HS PO 10/04/24 22:00 10/07/24 22:57 10 MG Insulin Glargine 20 units QAM SC 10/04/24 09:30 10/08/24 06:46 20 UNITS Metronidazole 100 ml @ 100 mls/hr Q8H IV 10/04/24 15:00 10/08/24 06:18 100 MLS/HR Insulin Human Lispro 5 units AC SC 10/04/24 11:30 Hold Cefepime HCl 50 ml @ 12.5 mls/hr Q8H IV 10/04/24 20:00 10/08/24 11:58 12.5 MLS/HR Vancomycin HCl 250 ml @ 200 mls/hr Q12H IV 10/05/24 22:45 Cancel Potassium Chloride 10 meq DAILY PO 10/06/24 10:00 10/07/24 10:30 10 MEQ Vancomycin HCl 300 ml @ 200 mls/hr Q12H IV 10/08/24 00:00 10/08/24 11:57 200 MLS/HR Examination Pt is lying on bed General Appearance: Alert, Oriented X3, Cooperative,moderate distress HEENT: Atraumatic, Mucous membranes moist/pink Respiratory: Clear to auscultation, Normal air movement Cardiovascular: Regular rate, Normal S1, Normal S2 Abdominal: Active bowel sounds, Soft, no distention, no tenderness Extremities: 1+ BLE pitting edema,palpable pulses ,s/p right dorsal & plantar foot I&D to bone wrapped in dressings Skin: wounds as described above Neuro: Normal speech, sensorimotor deficits none Psych/Mental Status: Mental status NL, Mood NL Nurse was there as jhonatanne during examination laboratory and microbiology Laboratory Tests 10/08/24 05:51 Test 10/08/24 05:51 Range/Units Serum Glucose 276 H 74-106 mg/dL Microbiology Date/Time Source Procedure Growth Status 10/04/24 14:49 Foot Right Gram Stain - Final Resulted 10/04/24 14:49 Foot Right Anaerobic Culture - Preliminary Resulted 10/04/24 14:49 Aerobic Culture - Final Streptococcus Group B Streptococcus Group F Resulted 10/04/24 03:00 Voided Urine Urine Culture - Final Complete 10/03/24 22:22 Blood Blood Culture - Preliminary NO GROWTH AFTER 72 HOURS OF INCUBATION. Resulted Labs and/or images reviewed: Labs reviewed by me, Image(s) reviewed by me Problem List/Assessment/Plan Problem List/Assessment/Plan # Sepsis likely 2/2 ulcer # Chronic B/L plantar ulcers # Right foot osteomyelitis / cellulitis/ abscess/necrotizing fasciitis # L foot cellulitis/ abscess - s/p Right dorsal & plantar foot I&D to bone - Wound consult and culture - Panculture - Podiatry consult - Vancomysin, cefepime 1g and flgyll - diabetic diet - today patient went to OR for further debridement # Uncontrolled T1 Dm, IDDM with HbA1C >14 # mild hyponatremia-resolved - Aggresive scale and accuchecks - lantus 20 units and lispro # methamphetamine abuse disorder - counseled regarding cessation for more than 17 minutes # Ruled out Acute respiratory failure # ruled out DKA # rule out metabolic encephalopathy # ruled out acute renal injury # ruled out high anion gap metabolic acidosis Protonix no need Lovenox Diabetic diet Goals of care discussed with the patient for more than 29 minutes: Full code status Case discussed with the Dr. Voss, patient and nurse Plan discussed with: Patient My Orders My Orders Orders - JAY CARLOS RESIDENT Procedure Category Date Status Time * Picc Line Consult CONS 10/08/24 Transmitted 10:34 Dietary Evaluation Review Comments: To better control DM, reinforce CCHO-75 diet. To promote wound healing, rogelio CLAUDETTE jama Expected Outcomes/Goals: controlled DM, healed wounds, Date of Service: Oct 08, 2024 Billing Provider: ANJEL GARCIA MD Common Visit Codes: [id number] INP/OBS CARE(HIGH) JAY CARLOS Oct 08, 2024 13:42 ANJEL GARCIA MD Oct 11, 2024 00:01
--- NOTE | 2024-10-08 13:52 | DVHOP2 ---
Operative Report - 2 Report Details Date: 10/08/24 Preop Diagnosis: 1. Right foot abscess 2. Right foot osteomyelitis 3. Right foot necrotizing fasciitis 4. Right foot cellulitis Postop Diagnosis: Same as preop Surgeon: Erik Morton MD Anesthesiologist: See anesthesia Anesthesia: Mac Consent: The patient was informed of the risks and benefits of the procedure. These include but are not limited to complications of anesthesia, postoperative infection, incomplete relief of symptoms, recurrence of symptoms, damage to blood vessels, nerves and tendons, deep venous thrombosis, pulmonary embolism and possible need for repeat surgery in the future. Complications: None Estimated Blood Loss: Minimal Fluids: Consistent with the diagnosis Findings: Consistent with diagnosis Indications for Surgery: Worsening right foot abscess Name of Procedure Performed 1. Right dorsal foot I&D to bone (06296) 2. Right plantar foot I&D to bone (54795) 3. Right foot second toe amputation (37002) 4. Right second toe bone biopsy (57069) 5. Right foot delayed closure (11577) Procedure Details Procedure Details: PRE-PROCEDURE INFORMATION: In the pre-op holding area, the extremity to be operated on was clearly marked and the patient verified correct laterality of the marking. The patient was transferred to the OR table and placed in a supine position. A timeout was performed in which identification of the correct patient, procedure, location, and materials was done. The right foot and leg were prepped and draped in normal sterile fashion. DESCRIPTION OF PROCEDURE: Attention was directed to the right dorsal foot where previous incision was made. An incision was made over this area and was deep ened through blunt dissection. The incision was deepened to the level of abscess and bone. Care was taken to the dissection to avoid any neurovascular and tendinous structures. The incision was deepened to the bone, and the abscess appeared to be purulent fluid consistent with pus. The cortices of the bone was then removed with Ron an all necrotic tissue. After the abscess was drained, the area was irrigated with 3 L normal saline using cysto tubing. Attention was directed to the right plantar foot where previous incision was made. An incision was made over this area and was deepened through blunt dissection. The incision was deepened to the level of abscess and bone. Care was taken to the dissection to avoid any neurovascular and tendinous structures. The incision was deepened to the bone, and the abscess appeared to be purulent fluid consistent with pus. The cortices of the bone was then removed with Ron an all necrotic tissue. After the abscess was drained, the area was irrigated with 3 L normal saline using cysto tubing. Attention was directed to the right secobd digit where a fish mouth type incis ion was made about the DIPJ of the digit. This incision enveloped the ulceration that was on the distal tip of the digit and allowed adequate coverage of the remaining bone for flap closure. This incision was deepened to the level of the bone and utilizing sharp dissection, the distal aspect of the digit was removed at the distal interphalangeal joint level. It was clear after resection of the bone that the remaining bone left intact was viable and appeared to have no signs of osteomyelitis or other infection. Utilizing a rongeur and other instrumentation, all devitalized soft tissue was removed from the area. The infected bone that had been amputated was sent for culture and pathology, and a proximal margin was sent as well. The wound was irrigated copiously with normal saline using cysto tubing. A delayed closure was then performed using 2-0 nylon and packed with vancomycin powder 2 g after was deemed appropriate with no longer concern for infection. POSTOPERATIVE INFORMATION: The patient tolerated the above noted procedure and anesthesia well and was transferred to the PACU with vital signs stable, and vascular status intact with capillary refill intact to all digits. Patient will return to the floor and continue IV antibiotics. Patient will need 6 weeks of IV antibiotics. Patient should have minimal weight-bearing on the right foot, we would recommend a knee scooter. Specimen: None Condition Good Disposition Still a Patient ERIK MORTON DPM Oct 08, 2024 13:52
[2024-10-08] MEDS ORDERED: HYDROmorphone HCL 2 MG/ML VL/or syr IV PRN (14:00)
[2024-10-09] VITALS (8 sets, daily range): BP systolic 92–111; BP diastolic 54–74; PULSE 72–84; RESP 18–20; TEMP 97–99.1; O2SAT 95–98
[2024-10-09 05:49] LABS: Basophils # (auto) 0 10 ^3/uL (0-0.2); Basophils % (auto) 0.4 % (0.0-2.0); Eosinophils # (auto) 0.2 10 ^3/uL (0-0.8); Hemoglobin 10.9 g/dL (13.5-17.5); Lymphocytes # (auto) 1.3 10 ^3/uL (0.4-5.4); Lymphocytes % (auto) 15.5 % (10.0-50.0); Mean Corpuscular Hemoglobin 30.1 pg (28.0-32.0); Mean Corpuscular Hgb Conc. 33.1 g/dL (32.0-36.0); Mean Corpuscular Volume 91.1 fL (80.0-100.0); Monocytes # (auto) 0.8 10 ^3/uL (0-1.3); Monocytes % (auto) 9.2 % (0.0-12.0); Neutrophils # (auto) 6.1 10 ^3/uL (1.6-8.6); Neutrophils % (auto) 72.9 % (37.0-80.0); Platelet Count (auto) 377 10^3/uL (140-450); Red Blood Cells 3.63 10^6/uL (4.5-5.90); Red Cell Distribution Width 13.4 % (11.8-14.3); White Blood Cell 8.3 10^3/uL (4.4-10.8)
[2024-10-09 06:03] LABS: Alanine Aminotransferase 12 U/L (7-40); Anion Gap 6 (5-15); Aspartate Aminotransferase 19 U/L (13-40); BUN/Creatinine Ratio 10.1 (10.0-20.0); Calcium 8.8 mg/dL (8.7-10.4); Carbon Dioxide 28 mmol/L (20-31); Chloride 102 mmol/L (98-107); Potassium 4.1 mmol/L (3.5-5.1); Total Protein 6.6 g/dL (5.7-8.2)
[2024-10-09 06:04] LABS: Albumin 2.8 g/dL (3.2-4.8); Alkaline Phosphatase 127 U/L (46-116); Bilirubin, Total 0.3 mg/dL (0.2-1.0); Blood Urea Nitrogen 8 mg/dL (9-23); Glucose 235 mg/dL (74-106); Sodium 136 mmol/L (136-145)
[2024-10-09] MEDS: cefTRIAXone 2GM/50ML D5W 50 ML IV ONE (11:21)
--- NOTE | 2024-10-09 11:21 | ECG ---
[facility] Test Date: 2024-10-08 Test Time: 12:23:13 Pat Name: JORGE SANTANA Department: Respiratoy Room: 0214 Gender: M Inclusion Special Educator: RN : 1980 Requested By: ERIK MORTON Order Number: [id number] Reading MD: Sunil Morgan Measurements Intervals [place] Rate: 77 P: 56 [place]: 150 QRS: 51 QRSD: 85 T: 54 QT: 386 QTc: 437 Interpretive Statements Sinus rhythm Baseline wander in lead(s) V1 Electronically Signed On 10-10-2024 20:59:00 PDT by Sunil Morgan Please click the below link to view image of tracing.
--- NOTE | 2024-10-09 13:35 | DVHPN2 ---
Subjective 44-year-old male presents for evaluation of an open wound on his right foot. Patient reports having chronic wounds to bilateral feet and has home health visit 2-3 times per week. He states over the past two days the wound on his right foot has become worse with discharge and foul order. He has also noticed worsening swelling and tenderness. Patient also has a chronic on his left foot. Denies any fever or chills. No other acute complaints. Reviewed: H&P Changes from previous H/P or p: No Changes General: Per HPI Objective Vitals Vital Signs Date Time Temp Pulse Resp B/P (MAP) Pulse Ox O2 Delivery O2 Flow Rate FiO2 10/09/24 08:51 97/73 10/09/24 07:51 Room Air* 0 21 10/09/24 05:00 98.0 79 20 96 98.0 Intake/Output Intake and Output 10/09/24 07:00 Intake Total 3770 ml Output Total 6100 ml Balance -2330 ml Intake Oral 2620 ml IV Total 1150 ml Output Urine Total 6100 ml Exam DERMATOLOGIC EXAM: - Skin is dry and cool to the touch dry bilaterally. - Nails 1-5 of the bilateral foot are thickened, discolored, dystrophic, and tender to palpate with subungual debris - Hair loss noted to bilateral feet - incision on the dorsal and plantar with a continued malodor and purulent drainage VASCULAR EXAM: - DP and PT pulses are palpable bilaterally. - QUALITY IMPROVEMENT ENGINEER is brisk to all digits. - Feet are cool to touch compared to lower legs bilaterally. NEUROLOGIC EXAM: - Normal light touch sensation to the superficial peroneal, deep peroneal, sural, saphenous, and tibial nerve branches. - Protective sensation is diminished as tested with a 5.07 10g [place] bilaterally. MUSCULOSKELETAL EXAM: - No gross deformities - Muscle strength is 5/5 and active motion is pain-free and symmetrical bilaterally - No pain or crepitation with passive range of motion bilaterally to all major pedal joints Medications Current Medications Medications Dose Ordered Sig/Leandro Route Start Time Stop Time Status Last Admin Dose Admin Acetaminophen/ Hydrocodone Bitart 1 tab Q4HP PRN PO 10/04/24 01:15 10/09/24 08:06 1 TAB Temazepam 15 mg QHSP PRN PO 10/04/24 01:15 Ondansetron HCl 4 mg Q4HP PRN IV 10/04/24 01:15 10/06/24 10:46 4 MG Enoxaparin Sodium 40 mg DAILY SC 10/04/24 10:00 10/09/24 08:50 40 MG Acetaminophen 650 mg Q6HP PRN PO 10/04/24 01:15 Morphine Sulfate 2 mg Q8HPRN PRN IV 10/04/24 01:15 10/08/24 05:27 2 MG Diagnostic Test (Pha) 1 strip IQ4HR 10/04/24 04:00 10/09/24 11:21 1 STRIP Insulin Human Regular IQ4HR SC 10/04/24 04:00 10/09/24 11:26 12 UNITS Dextrose 50 ml UD PRN IV 10/04/24 01:15 Furosemide 40 mg DAILY PO 10/04/24 10:00 10/09/24 08:51 40 MG Atorvastatin Calcium 10 mg HS PO 10/04/24 22:00 10/08/24 23:33 10 MG Insulin Glargine 20 units QAM SC 10/04/24 09:30 10/09/24 06:26 20 UNITS Insulin Human Lispro 5 units AC SC 10/04/24 11:30 Hold Vancomycin HCl 250 ml @ 200 mls/hr Q12H IV 10/05/24 22:45 Cancel Potassium Chloride 10 meq DAILY PO 10/06/24 10:00 10/09/24 08:51 10 MEQ Ceftriaxone Sodium/Dextrose 50 ml @ 50 mls/hr DAILY IV 10/10/24 10:00 Laboratory Results Laboratory Tests 10/09/24 04:46 Chemistry Test 10/09/24 04:46 Albumin 2.8 g/dL (3.2-4.8) L Calcium Level 8.8 mg/dL (8.7-10.4) Total Protein 6.6 g/dL (5.7-8.2) LFT Test 10/09/24 04:46 Alanine Aminotransferase (ALT) 12 U/L (7-40) Alkaline Phosphatase 127 U/L (46-116) H Aspartate Amino Transferase (AST) 19 U/L (13-40) Total Bilirubin 0.3 mg/dL (0.2-1.0) Urinalysis Test 10/04/24 03:00 Urine Color Colorless (Yellow) Urine Clarity Clear (Clear) Urine pH 5.5 (5.0-9.0) Urine Specific [place] 1.020 (1.001-1.035) Urine Protein Negative (Negative) Urine Ketones 3+ (Negative) H Urine Blood Negative /uL (Negative) Urine Nitrite Negative (Negative) Urine Bilirubin Negative (Negative) Urine Urobilinogen Normal mg/dL (Negative) Urine Leukocyte Esterase Negative /uL (Negative) Urine RBC <1 /hpf (0 - 3) Urine Microscopic WBC < 1 /HPF (0-3) Urine Squamous Epithelial Cells None seen /hpf (<5) Urine Bacteria None seen /hpf (None Seen) Urine Glucose 4+ mg/dL (Normal) H Microbiology Microbiology Date/Time Source Procedure Growth Status 10/04/24 14:49 Foot Right Gram Stain - Final Complete 10/04/24 14:49 Foot Right Anaerobic Culture - Final Complete 10/04/24 14:49 Aerobic Culture - Final Streptococcus Group B Streptococcus Group F Complete 10/04/24 03:00 Voided Urine Urine Culture - Final Complete 10/03/24 22:22 Blood Blood Culture - Final NO GROWTH AFTER 5 DAYS OF INCUBATION. Complete Assessment/Plan Assessment/Plan ASSESSMENT: Patient is a 44-year-old male seen on the floor 1 day s/p right foot I&D and closure PLAN: - The patients chart was reviewed, clinical findings were discussed with the patient, the etiologies of the conditions were discussed in detail, and a treatment plan was agreed to at this time, with both oral and written instructions provided. - discussed with the patient that surgery went well and we are able to close most of the foot - patient will need wound care upon discharge - patient would benefit from a wound VAC - coordinated care for patient upon discharge needing wound care - patient can weightbear as tolerated in a postoperative shoe - patient will follow up with me 1 week after discharge All questions were answered and concerns addressed to the patient's satisfaction. The patient was given the phone number to the clinic and was told how to make contact with the clinic should any concerns or questions arise. Patient understands that if any questions or concerns arise prior to the next appointment, we should be contacted immediately. FOLLOW-UP: Continue to follow while inpatient Plan discussed with: Patient My Orders Orders - ERIK MORTON DPM Procedure Category Date Status Time Consistent DIET 10/08/24 Transmitted Carb(Ccho)Diabetes Dinner Problem List: (1) Cellulitis (2) Lower extremity edema (3) Acute respiratory failure (4) Diabetic ketoacidosis (5) Generalized weakness (6) Hyponatremia (7) Leukocytosis (8) Hypophosphatemia (9) Nausea and vomiting (10) DKA (diabetic ketoacidosis) (11) Metabolic encephalopathy (12) Leukocytosis, unspecified (13) High anion gap metabolic acidosis (14) Elevated lactic acid level (15) Other specified diabetes mellitus with ketoacidosis without coma (16) Acute renal injury (17) Diabetes mellitus with hyperglycemia (18) Diabetes mellitus (19) GENERALIZED WEAKNESS (20) Hyperglycemia Date of Service: Oct 09, 2024 Billing Provider: ERIK MORTON DPM Common Visit Codes: [id number] INP/OBS CARE(HIGH) ERIK MORTON DPM Oct 09, 2024 13:35
[2024-10-09] MEDS: LIDOCAINE 1% (LOCAL ANESTH.) PF 5ml SDV ID ONE (13:55)
--- NOTE | 2024-10-09 14:10 | DVHPNRES ---
Progress Note Date Seen: Oct 09, 2024 Resident Creating Document: JAY CARLOS RESIDENT Medical Necessity Reason Pt with a Central, PICC or Fol: No Subjective Review of Systems ESTHERJORGE BECKMAN is a 44 year-old male with PMH of HTN,T1 DM, DLD,Hypothyroidism presented to ED for evaluation of an open wound on his right foot. S/p Right foot second toe amputation, bone biopsy and right foot delivery occlusion, reported no new complaints changed antibiotics to Rocephin 2 g daily, DC planning to SNF with IV antibiotics for 6 weeks. Patient is sad that he lose his to but given support. Objective vital signs Vital Sign Date Time Temp Pulse Resp B/P (MAP) Pulse Ox O2 Delivery O2 Flow Rate FiO2 10/09/24 08:51 97/73 10/09/24 07:51 Room Air* 0 21 10/09/24 05:00 98.0 79 20 96 98.0 Total Intake and Output 10/08/24 10/08/24 10/09/24 15:00 23:00 07:00 Intake Total 250 ml 1350 ml 2170 ml Output Total 1400 ml 4700 ml Balance 250 ml -50 ml -2530 ml medications Current Medications Medications Dose Ordered Sig/Leandro Route Start Time Stop Time Status Last Admin Dose Admin Acetaminophen/ Hydrocodone Bitart 1 tab Q4HP PRN PO 10/04/24 01:15 10/09/24 08:06 1 TAB Temazepam 15 mg QHSP PRN PO 10/04/24 01:15 Ondansetron HCl 4 mg Q4HP PRN IV 10/04/24 01:15 10/06/24 10:46 4 MG Enoxaparin Sodium 40 mg DAILY SC 10/04/24 10:00 10/09/24 08:50 40 MG Acetaminophen 650 mg Q6HP PRN PO 10/04/24 01:15 Morphine Sulfate 2 mg Q8HPRN PRN IV 10/04/24 01:15 10/08/24 05:27 2 MG Diagnostic Test (Pha) 1 strip IQ4HR 10/04/24 04:00 10/09/24 11:21 1 STRIP Insulin Human Regular IQ4HR SC 10/04/24 04:00 10/09/24 11:26 12 UNITS Dextrose 50 ml UD PRN IV 10/04/24 01:15 Furosemide 40 mg DAILY PO 10/04/24 10:00 10/09/24 08:51 40 MG Atorvastatin Calcium 10 mg HS PO 10/04/24 22:00 10/08/24 23:33 10 MG Insulin Glargine 20 units QAM SC 10/04/24 09:30 10/09/24 06:26 20 UNITS Insulin Human Lispro 5 units AC SC 10/04/24 11:30 Hold Vancomycin HCl 250 ml @ 200 mls/hr Q12H IV 10/05/24 22:45 Cancel Potassium Chloride 10 meq DAILY PO 10/06/24 10:00 10/09/24 08:51 10 MEQ Ceftriaxone Sodium/Dextrose 50 ml @ 50 mls/hr DAILY IV 10/10/24 10:00 Sodium Chloride 10 ml QSHIFT@10,22 IV 10/09/24 22:00 UNV Examination Pt is lying on bed General Appearance: Alert, Oriented X3, Cooperative,moderate distress HEENT: Atraumatic, Mucous membranes moist/pink Respiratory: Clear to auscultation, Normal air movement Cardiovascular: Regular rate, Normal S1, Normal S2 Abdominal: Active bowel sounds, Soft, no distention, no tenderness Extremities: 1+ BLE pitting edema,palpable pulses ,s/p right dorsal & plantar foot I&D to bone wrapped in dressings , 2nd toe amputation of right foot Skin: wounds as described above Neuro: Normal speech, sensorimotor deficits none Psych/Mental Status: Mental status NL, Mood NL Nurse was there as sharperone during examination laboratory and microbiology Laboratory Tests 10/09/24 04:46 Test 10/09/24 04:46 Range/Units Serum Glucose 235 H 74-106 mg/dL Microbiology Date/Time Source Procedure Growth Status 10/04/24 14:49 Foot Right Gram Stain - Final Complete 10/04/24 14:49 Foot Right Anaerobic Culture - Final Complete 10/04/24 14:49 Aerobic Culture - Final Streptococcus Group B Streptococcus Group F Complete 10/04/24 03:00 Voided Urine Urine Culture - Final Complete 10/03/24 22:22 Blood Blood Culture - Final NO GROWTH AFTER 5 DAYS OF INCUBATION. Complete Labs and/or images reviewed: Labs reviewed by me, Image(s) reviewed by me Problem List/Assessment/Plan Problem List/Assessment/Plan # Sepsis likely 2/2 ulcer # Chronic B/L plantar ulcers # Right foot osteomyelitis / cellulitis/ abscess/necrotizing fasciitis # L foot cellulitis/ abscess - s/p Right dorsal & plantar foot I&D to bone, Right foot second toe amputation, bone biopsy and right foot delayed closure - Wound consult and culture, Streptococcus B & E - Rocephin 2g daily - diabetic diet - today patient went to OR for further debridement # Uncontrolled T1 Dm, IDDM with HbA1C >14 # mild hyponatremia-resolved - Aggresive scale and accuchecks - lantus 20 units and lispro # methamphetamine abuse disorder - counseled regarding cessation for more than 17 minutes # Ruled out Acute respiratory failure # ruled out DKA # rule out metabolic encephalopathy # ruled out acute renal injury # ruled out high anion gap metabolic acidosis Protonix no need Lovenox Diabetic diet Goals of care discussed with the patient for more than 29 minutes: Full code status Case discussed with the Dr. Voss, patient and nurse Plan discussed with: Patient My Orders My Orders Orders - JAY CARLOS RESIDENT Procedure Category Date Status Time * Manager Landscape CONS 10/09/24 Transmitted Consult Ceftriaxone 2gm/50ml PHA 10/10/24 In Process D5w (Rocephin 2gm/5 10:00 Change Dressing Prn SARAHY 10/09/24 In Process 13:58 Lidocaine 1% (Local PHA 10/09/24 Logged Anesth.) (Xylocaine 14:00 Sodium Chloride Lock PHA 10/09/24 Logged (Saline Lock Ns) 22:00 Do Not Use Picc For SARAHY 10/09/24 In Process Blood Cult 13:58 May Draw Blood From SARAHY 10/09/24 In Process Picc 13:58 Ok To Use Picc SARAHY 10/09/24 In Process 13:58 Change Picc Dressing SARAHY 10/09/24 In Process Q7 Days 13:58 Us Guided Vascular US 10/09/24 Logged Access 13:58 Dietary Evaluation Review Comments: To better control DM, reinforce CCHO-75 diet. To promote wound healing, rogelio BID organge flavr Expected Outcomes/Goals: controlled DM, healed wounds, Date of Service: Oct 09, 2024 Billing Provider: ANJEL GARCIA MD Common Visit Codes: [id number] INP/OBS CARE(HIGH) JAY CARLOS RESIDENT Oct 09, 2024 14:10 ANJEL GARCIA MD Oct 11, 2024 00:09
[2024-10-09] MEDS: SODIUM CHLOR 0.9% PF (SALINE LOCK) 10ML VIAL/SYR IV SCH (21:29)
[2024-10-10 05:00] VITALS: BP 94/60; PULSE 69; RESP 19; O2SAT 99
[2024-10-10 06:43] LABS: Basophils # (auto) 0 10 ^3/uL (0-0.2); Basophils % (auto) 0.5 % (0.0-2.0); Eosinophils # (auto) 0.1 10 ^3/uL (0-0.8); Eosinophils % (auto) 2.3 % (0.0-7.0); Hemoglobin 10.6 g/dL (13.5-17.5); Lymphocytes # (auto) 1.4 10 ^3/uL (0.4-5.4); Lymphocytes % (auto) 25.6 % (10.0-50.0); Mean Corpuscular Hemoglobin 31.1 pg (28.0-32.0); Mean Corpuscular Hgb Conc. 34.4 g/dL (32.0-36.0); Mean Corpuscular Volume 90.3 fL (80.0-100.0); Monocytes # (auto) 0.5 10 ^3/uL (0-1.3); Neutrophils # (auto) 3.3 10 ^3/uL (1.6-8.6); Neutrophils % (auto) 61.6 % (37.0-80.0); Platelet Count (auto) 376 10^3/uL (140-450); Red Blood Cells 3.43 10^6/uL (4.5-5.90); Red Cell Distribution Width 13.4 % (11.8-14.3); White Blood Cell 5.4 10^3/uL (4.4-10.8)
[2024-10-10 06:50] LABS: Alanine Aminotransferase 17 U/L (7-40); Albumin 3.2 g/dL (3.2-4.8); Anion Gap 4 (5-15); Aspartate Aminotransferase 23 U/L (13-40); BUN/Creatinine Ratio 14.5 (10.0-20.0); Blood Urea Nitrogen 12 mg/dL (9-23); Calcium 9.1 mg/dL (8.7-10.4); Chloride 100 mmol/L (98-107); Potassium 4.4 mmol/L (3.5-5.1); Sodium 137 mmol/L (136-145); Total Protein 7.4 g/dL (5.7-8.2)
[2024-10-10 06:52] LABS: Alkaline Phosphatase 145 U/L (46-116); Bilirubin, Total 0.2 mg/dL (0.2-1.0); Carbon Dioxide 33 mmol/L (20-31); Glucose 200 mg/dL (74-106)
[2024-10-10 08:00] VITALS: PULSE 71
[2024-10-10] MEDS: cefTRIAXone 2GM/50ML D5W 50 ML IV SCH (08:42)
[2024-10-10 09:00] VITALS: BP 107/64; PULSE 77; RESP 17; TEMP 98.3; O2SAT 100
--- NOTE | 2024-10-10 11:36 | DVHDSRES ---
Discharge Summary Date of Admission Resident Creating Document: JAY CARLOS RESIDENT Oct 04, 2024 at 01:12 Date of Discharge: Oct 10, 2024 Wounds: Would check Labs/Diagnostic Data: Laboratory Results Test 10/10/24 10:56 10/10/24 05:08 10/09/24 11:00 10/08/24 05:51 POC Glucose 150 mg/dl (70-106) White Blood Count 5.4 10^3/uL (4.4-10.8) Red Blood Count 3.43 10^6/uL (4.5-5.90) Hemoglobin 10.6 g/dL (13.5-17.5) Hematocrit 31.0 % (41.0-53.0) Mean Corpuscular Volume 90.3 fL (80.0-100.0) Mean Corpuscular Hemoglobin 31.1 pg (28.0-32.0) Mean Corpuscular Hemoglobin Concent 34.4 g/dL (32.0-36.0) Red Cell Distribution Width 13.4 % (11.8-14.3) Platelet Count 376 10^3/uL (140-450) Mean Platelet Volume 7.1 fL (6.9-10.8) Neutrophils (%) (Auto) 61.6 % (37.0-80.0) Lymphocytes (%) (Auto) 25.6 % (10.0-50.0) Monocytes (%) (Auto) 10.0 % (0.0-12.0) Eosinophils (%) (Auto) 2.3 % (0.0-7.0) Basophils (%) (Auto) 0.5 % (0.0-2.0) Neutrophils # (Auto) 3.3 10 ^3/uL (1.6-8.6) Lymphocytes # (Auto) 1.4 10 ^3/uL (0.4-5.4) Monocytes # (Auto) 0.5 10 ^3/uL (0-1.3) Eosinophils # (Auto) 0.1 10 ^3/uL (0-0.8) Basophils # (Auto) 0 10 ^3/uL (0-0.2) Nucleated Red Blood Cells 0.0 % Sodium Level 137 mmol/L (136-145) Potassium Level 4.4 mmol/L (3.5-5.1) Chloride Level 100 mmol/L (98-107) Carbon Dioxide Level 33 mmol/L (20-31) Anion Gap 4 (5-15) Blood Urea Nitrogen 12 mg/dL (9-23) Creatinine 0.83 mg/dL (0.700-1.30) Glomerular Filtration Rate Calc 110 mL/min (>90) BUN/Creatinine Ratio 14.5 (10.0-20.0) Serum Glucose 200 mg/dL (74-106) Calcium Level 9.1 mg/dL (8.7-10.4) Total Bilirubin 0.2 mg/dL (0.2-1.0) Aspartate Amino Transferase (AST) 23 U/L (13-40) Alanine Aminotransferase (ALT) 17 U/L (7-40) Alkaline Phosphatase 145 U/L (46-116) Total Protein 7.4 g/dL (5.7-8.2) Albumin 3.2 g/dL (3.2-4.8) Vancomycin Level Trough 15.6 ug/mL (5-10) Prothrombin Time 10.9 sec (9.3-11.8) Prothrombin Time INR 1.03 (0.9-1.15) Test 10/07/24 15:28 10/05/24 06:40 10/05/24 02:06 10/04/24 09:04 Activated Partial Thromboplast Time 29.0 SEC (24.5-34.5) Differential Total Cells Counted 100.0 (100) Neutrophils % (Manual) 72 (37.0-80.0) Band Neutrophils % (Manual) 0 Lymphocytes % (Manual) 13 (10.0-50.0) Monocytes % (Manual) 15 (0-12) Eosinophils % (Manual) 0 (0-7) Basophils % (Manual) 0 (0.0-2.0) Metamyelocytes % (manual) 0 Myelocytes % (Manual) 0 Promyelocytes % (Manual) 0 Blast Cells % (Manual) 0 Reactive Lymphocytes 0 Platelet Estimate Adequate Magnesium Level 1.7 mg/dL (1.6-2.6) Influenza Type A Antigen Negative (Negative) Influenza Type B Antigen Negative (Negative) SARS-CoV-2 Antigen (Rapid) Negative (NEGATIVE) Lactic Acid Level 0.9 mmol/L (0.4-2.0) Test 10/04/24 08:55 10/04/24 07:51 10/04/24 03:00 10/03/24 22:22 Serum Osmolality 291 mOsm/kg (278-298) Vitamin B12 Level 604 pg/mL (211-911) Beta-Hydroxybutyric Acid 3.439 mmol/L (< 0.4) Thyroid Stimulating Hormone (TSH) 2.13 uIU/mL (0.55-4.78) Hemoglobin A1c > 14.0 % A1C (<5.7) Urine Color Colorless (Yellow) Urine Clarity Clear (Clear) Urine pH 5.5 (5.0-9.0) Urine Specific [place] 1.020 (1.001-1.035) Urine Protein Negative (Negative) Urine Ketones 3+ (Negative) Urine Blood Negative /uL (Negative) Urine Nitrite Negative (Negative) Urine Bilirubin Negative (Negative) Urine Urobilinogen Normal mg/dL (Negative) Urine Leukocyte Esterase Negative /uL (Negative) Urine RBC <1 /hpf (0 - 3) Urine Microscopic WBC < 1 /HPF (0-3) Urine Squamous Epithelial Cells None seen /hpf (<5) Urine Bacteria None seen /hpf (None Seen) Urine Glucose 4+ mg/dL (Normal) Urine Opiates Screen Neg (NEGATIVE) Urine Fentanyl Screen Neg (NEGATIVE) Urine Barbiturates Screen Neg (NEGATIVE) Urine Phencyclidine Screen Neg (NEGATIVE) Urine Amphetamines Screen Pos (NEGATIVE) Urine Benzodiazepines Screen Neg (NEGATIVE) Urine Cocaine Screen Neg (NEGATIVE) Urine Cannabinoids Screen Neg (NEGATIVE) B-Type Natriuretic Peptide 53.42 pg/mL (0-100) Other Laboratory Tests 10/10/24 05:08 Brief Hx & Hospital Course: Emanuel Wilson, a 44-year-old male with a past medical history of hypertension, type 1 diabetes mellitus, dyslipidemia, and hypothyroidism, presented to the emergency department for evaluation of an open wound on his right foot. The patient reported worsening of the wound over the past two days, with discharge and foul odor, along with swelling and tenderness. He also has chronic wounds on his left foot. Initially patient is started on broad coverage with vancomycin, cefepime and Flagyl, ordered cultures which growing Streptococcus B and F Right Foot X-ray Showed subcutaneous emphysema and moderate diffuse soft tissue swelling. No definite radiographic evidence of osteomyelitis, but demineralization of the 2nd through 4th metatarsal heads and bases of the 2nd through 4th proximal phalanges. Bilateral Lower Extremity Venous Duplex: No femoropopliteal venous thrombosis. Prominent right inguinal lymph nodes.CT of the Left Foot Normal alignment without evidence of acute abnormality. CT of the Right Foot large collection of subcutaneous/intramuscular gas within the dorsal soft tissues, minimal erosive changes consistent with early osteomyelitis. Bilateral Lower Extremity Arterial Duplex showed 20-49% stenosis of the right mid superficial femoral artery and right posterior tibial artery. Monophasic arterial waveforms in the right anterior tibial artery suggestive of mild peripheral arterial disease. No hemodynamically significant stenosis on the left. The patient underwent 3 surgical procedures due to the worsening right foot wound on 10/04/24 Right dorsal and plantar foot I&D to bone. 10/05/24: Repeat right dorsal and plantar foot I&D to bone and 10/08/24 Right dorsal and plantar foot I&D to bone, right foot second toe amputation, right second toe bone biopsy, and right foot delayed closure. The patient tolerated the procedures and anesthesia well. He will continue IV rocephin 2g for 6 weeks and is advised to have minimal weight- bearing on the right foot, using a knee scooter.Patient condition was improved, in condition to discharge SNF. Patient was advised about healthy lifestyle modifications including diet and exercise and to follow up with PCP & Podiatry. Pt is lying on bed General Appearance: Alert, Oriented X3, Cooperative,moderate distress HEENT: Atraumatic, Mucous membranes moist/pink Respiratory: Clear to auscultation, Normal air movement Cardiovascular: Regular rate, Normal S1, Normal S2 Abdominal: Active bowel sounds, Soft, no distention, no tenderness Extremities: 2+ BLE pitting edema,unable to palpate pulses , ulcertaed wound on open wound to dorsum and plantar of right foot, left foot plantar ulcer Skin: wounds as described above Neuro: Normal speech, sensorimotor deficits none Psych/Mental Status: Mental status NL, Mood NL Nurse was there as sharperone during examination Consults/Reason for consult Podiatry for wound Operations or Procedures TECHNIQUE: Right XY R FOOT 3 VIEW XRAY FINDINGS/IMPRESSION: : An irregular collection of subcutaneous emphysema is noted within the dorsal soft tissues adjacent to the 1st through 3rd metatarsal phalangeal joints and extending into the webbing between the 1st and 2nd and 2nd and 3rd digits, concerning for infectious etiology. Moderate diffuse soft tissue swelling of the foot is noted. No definite radiographic evidence of osteomyelitis, however, there is demineralization of the 2nd through 4th metatarsal heads and bases of the 2nd through 4th proximal phalanges. No evidence of acute fracture or dislocation. Bilateral lower extremity venous duplex Impression: 1. No right or left femoropopliteal venous thrombosis. 2. Prominent right inguinal lymph nodes, enlarged up to 2.4 cm. NIQUE: CT of the left foot IMPRESSION: 1. Normal alignment without evidence of acute abnormality. TECHNIQUE: CT of the right foot IMPRESSION: 1. Large collection of subcutaneous /intramuscular gas within the dorsal soft tissues and soft tissues between and around the 1st and 2nd digits. Minimal erosive changes to the metatarsal heads and bases of the 1st and 2nd proximal phalanges are consistent with early changes of osteomyelitis. Bilateral Lower Extremity Arterial Duplex: 20-49% stenosis of the right mid superficial femoral artery and right posterior tibial artery based on peak systolic velocity criteria. Monophasic arterial waveforms are present in the right anterior tibial artery suggestive of underlying peripheral arterial disease. No hemodynamically significant stenosis on the left based on peak systolic velocity criteria. Nonvisualization of the left dorsalis pedis artery. 10/04/24 Preop Diagnosis: 1. Right foot abscess 2. Right foot osteomyelitis 3. Right foot necrotizing fasciitis 4. Right foot cellulitis Postop Diagnosis: Same as preop Surgeon: Dinh Cotto MD Anesthesiologist: See anesthesia Anesthesia: Mac Consent: The patient was informed of the risks and benefits of the procedure. These include but are not limited to complications of anesthesia, postoperative infection, incomplete relief of symptoms, recurrence of symptoms, damage to blood vessels, nerves and tendons, deep venous thrombosis, pulmonary embolism and possible need for repeat surgery in the future. Complications: None Estimated Blood Loss: Minimal Fluids: See anesthesia Findings: Consistent with the diagnosis Indications for Surgery: Worsening right foot wound Name of Procedure Performed 1. Right dorsal foot I&D to bone (37535) 2. Right plantar foot I&D to bone (22325) POSTOPERATIVE INFORMATION: The patient tolerated the above noted procedure and anesthesia well and was transferred to the PACU with vital signs stable, and vascular status intact with capillary refill intact to all digits. Patient will return to the OR and continue IV antibiotics. Deep cultures were taken. Patient will return to the OR tomorrow for a subsequent debridement. Patient will need multiple debridements due to the necrotizing infection. Condition Good Date: 10/05/24 Preop Diagnosis: 1. Right foot abscess 2. Right foot osteomyelitis 3. Right foot necrotizing fasciitis 4. Right foot cellulitis Postop Diagnosis: Same as preop Surgeon: Dinh Cotto MD Anesthesiologist: See anesthesia Anesthesia: Mac Consent: The patient was informed of the risks and benefits of the procedure. These include but are not limited to complications of anesthesia, postoperative infection, incomplete relief of symptoms, recurrence of symptoms, damage to blood vessels, nerves and tendons, deep venous thrombosis, pulmonary embolism and possible need for repeat surgery in the future. Complications: None Estimated Blood Loss: Minimal Fluids: See anesthesia Findings: Consistent with diagnosis Indications for Surgery: Worsening right foot wound Name of Procedure Performed 1. Right dorsal foot I&D to bone (33974) 2. Right plantar foot I&D to bone ([id number]) Specimen: None Condition Good Operative Report - 2 Report Details Date: 10/08/24 Preop Diagnosis: 1. Right foot abscess 2. Right foot osteomyelitis 3. Right foot necrotizing fasciitis 4. Right foot cellulitis Postop Diagnosis: Same as preop Surgeon: Dinh Cotto MD Anesthesiologist: See anesthesia Anesthesia: Mac Consent: The patient was informed of the risks and benefits of the procedure. These include but are not limited to complications of anesthesia, postoperative infection, incomplete relief of symptoms, recurrence of symptoms, damage to blood vessels, nerves and tendons, deep venous thrombosis, pulmonary embolism and possible need for repeat surgery in the future. Complications: None Estimated Blood Loss: Minimal Fluids: Consistent with the diagnosis Findings: Consistent with diagnosis Indications for Surgery: Worsening right foot abscess Name of Procedure Performed 1. Right dorsal foot I&D to bone (08172) 2. Right plantar foot I&D to bone (89692) 3. Right foot second toe amputation (95930) 4. Right second toe bone biopsy () 5. Right foot delayed closure (76006) POSTOPERATIVE INFORMATION: The patient tolerated the above noted procedure and anesthesia well and was transferred to the PACU with vital signs stable, and vascular status intact with capillary refill intact to all digits. Patient will return to the floor and continue IV antibiotics. Patient will need 6 weeks of IV antibiotics. Patient should have minimal weight-bearing on the right foot, we would recommend a knee scooter. Specimen: None Condition Good Condition at Discharge: Stable Final Diagnosis/Problems List # Sepsis likely 2/2 ulcer # Chronic B/L plantar ulcers # Right foot osteomyelitis / cellulitis/ abscess/necrotizing fasciitis # L foot cellulitis/ abscess # Uncontrolled T1 Dm, IDDM with HbA1C >14 # mild hyponatremia-resolved # methamphetamine abuse disorder # Ruled out Acute respiratory failure # ruled out DKA # rule out metabolic encephalopathy # ruled out acute renal injury # ruled out high anion gap metabolic acidosis Discharge Disposition: Long-Term Facility Discharge Instruct/Medications Diet: Consistent carbohydrate, Cardiac 2g Na,low cholest Activity: No Restrictions, As Tolerated Follow Up/Referral: Primary care and podiatry Medications: IV Rocephin 2 g daily for 6 weeks Resume home meds Discharge Statement: "Patient was advised to return to the ER or call 911 if any headaches, dizziness, shortness of breath, chest pain, abdominal pain, bleeding, fevers, or worsening of medical condition. Patient was counseled about treatment plan, medications, possible side effects, patientverbalized understanding. All questions were answered to the best of my ability. This discharge took greater then 30 minutes in planning, reviewing documentation, counseling the patient, and discussing with other team members." ASSESSMENT ASSESSMENT Assessment # Sepsis likely 2/2 ulcer # Chronic B/L plantar ulcers # Right foot osteomyelitis / cellulitis/ abscess/necrotizing fasciitis # L foot cellulitis/ abscess # Uncontrolled T1 Dm, IDDM with HbA1C >14 # mild hyponatremia-resolved # methamphetamine abuse disorder # Ruled out Acute respiratory failure # ruled out DKA # rule out metabolic encephalopathy # ruled out acute renal injury # ruled out high anion gap metabolic acidosis Date of Service: Oct 10, 2024 Billing Provider: ANJEL GARCIA MD Common Visit Codes: 53002-BNF/OBS DISCH DAY >30min JAY CARLOS RESIDENT Oct 10, 2024 11:36 ANJEL GARCIA MD Oct 14, 2024 23:00
[2024-10-10 13:00] VITALS: BP 91/58; PULSE 80; RESP 17; TEMP 98.2; O2SAT 100
[2024-10-10 17:00] VITALS: BP 92/50; PULSE 82; RESP 17; TEMP 98.3; O2SAT 97
[2024-10-10 21:00] VITALS: BP 94/50; PULSE 66; RESP 17; TEMP 98.1; O2SAT 99
[2024-10-11 05:00] VITALS: BP 97/55; PULSE 73; RESP 16; O2SAT 97
[2024-10-11 08:41] VITALS: BP 96/53; PULSE 77; RESP 15; TEMP 96.4; O2SAT 100
--- NOTE | 2024-10-11 09:34 | DVHPNRES ---
Progress Note Date Seen: Oct 11, 2024 Resident Creating Document: JAY CARLOS RESIDENT Medical Necessity Reason Pt with a Central, PICC or Fol: No Subjective Review of Systems ESTHERJORGE BECKMAN is a 44 year-old male with PMH of HTN,T1 DM, DLD,Hypothyroidism presented to ED for evaluation of an open wound on his right foot. S/p Right foot second toe amputation, reported no new complaints changed giving IV Rocephin 2 g daily, DC to SNF with IV antibiotics for 6 weeks. Patient reports: No new complaints, Feels better Objective vital signs Vital Sign Date Time Temp Pulse Resp B/P (MAP) Pulse Ox O2 Delivery O2 Flow Rate FiO2 10/11/24 08:41 96.4 77 15 96/53 (67) 100 96.4 10/10/24 20:00 Room Air* 0 21 Total Intake and Output 10/10/24 10/10/24 10/11/24 15:00 23:00 07:00 Intake Total 50 ml 1655 ml 200 ml Output Total 3190 ml 2900 ml Balance 50 ml -1535 ml -2700 ml medications Current Medications Medications Dose Ordered Sig/Leandro Route Start Time Stop Time Status Last Admin Dose Admin Acetaminophen/ Hydrocodone Bitart 1 tab Q4HP PRN PO 10/04/24 01:15 10/10/24 13:16 1 TAB Ondansetron HCl 4 mg Q4HP PRN IV 10/04/24 01:15 10/06/24 10:46 4 MG Enoxaparin Sodium 40 mg DAILY SC 10/04/24 10:00 10/10/24 08:37 40 MG Acetaminophen 650 mg Q6HP PRN PO 10/04/24 01:15 Morphine Sulfate 2 mg Q8HPRN PRN IV 10/04/24 01:15 10/08/24 05:27 2 MG Diagnostic Test (Pha) 1 strip IQ4HR 10/04/24 04:00 10/11/24 07:52 1 STRIP Insulin Human Regular IQ4HR SC 10/04/24 04:00 10/11/24 07:53 8 UNITS Dextrose 50 ml UD PRN IV 10/04/24 01:15 Furosemide 40 mg DAILY PO 10/04/24 10:00 10/10/24 08:38 40 MG Atorvastatin Calcium 10 mg HS PO 10/04/24 22:00 10/10/24 21:17 10 MG Insulin Glargine 20 units QAM SC 10/04/24 09:30 10/11/24 05:58 20 UNITS Insulin Human Lispro 5 units AC SC 10/04/24 11:30 Hold Vancomycin HCl 250 ml @ 200 mls/hr Q12H IV 10/05/24 22:45 Cancel Potassium Chloride 10 meq DAILY PO 10/06/24 10:00 10/10/24 08:38 10 MEQ Ceftriaxone Sodium/Dextrose 50 ml @ 50 mls/hr DAILY IV 10/10/24 10:00 10/10/24 08:42 50 MLS/HR Sodium Chloride 10 ml QSHIFT@10,22 IV 10/09/24 22:00 10/10/24 21:16 10 ML Examination Pt is lying on bed General Appearance: Alert, Oriented X3, Cooperative,moderate distress HEENT: Atraumatic, Mucous membranes moist/pink Respiratory: Clear to auscultation, Normal air movement Cardiovascular: Regular rate, Normal S1, Normal S2 Abdominal: Active bowel sounds, Soft, no distention, no tenderness Extremities: 1+ BLE pitting edema,palpable pulses ,s/p right dorsal & plantar foot I&D to bone wrapped in dressings , 2nd toe amputation of right foot Skin: wounds as described above Neuro: Normal speech, sensorimotor deficits none Psych/Mental Status: Mental status NL, Mood NL Nurse was there as sharperone during examination laboratory and microbiology laboratory and microbiology Laboratory Tests 10/10/24 05:08 Test 10/10/24 05:08 Range/Units Serum Glucose 200 H 74-106 mg/dL Microbiology Date/Time Source Procedure Growth Status 10/04/24 14:49 Foot Right Gram Stain - Final Complete 10/04/24 14:49 Foot Right Anaerobic Culture - Final Complete 10/04/24 14:49 Aerobic Culture - Final Streptococcus Group B Streptococcus Group F Complete 10/04/24 03:00 Voided Urine Urine Culture - Final Complete 10/03/24 22:22 Blood Blood Culture - Final NO GROWTH AFTER 5 DAYS OF INCUBATION. Complete Labs and/or images reviewed: Labs reviewed by me, Image(s) reviewed by me Problem List/Assessment/Plan Problem List/Assessment/Plan # Sepsis likely 2/2 ulcer # Chronic B/L plantar ulcers # Right foot osteomyelitis / cellulitis/ abscess/necrotizing fasciitis # L foot cellulitis/ abscess - s/p Right dorsal & plantar foot I&D to bone, Right foot second toe amputation, bone biopsy and right foot delayed closure - Wound consult and culture, Streptococcus B & E - Rocephin 2g daily - diabetic diet # Uncontrolled T1 Dm, IDDM with HbA1C >14 # mild hyponatremia-resolved - Aggresive scale and accuchecks - lantus 20 units and lispro # methamphetamine abuse disorder - counseled regarding cessation for more than 17 minutes # Ruled out Acute respiratory failure # ruled out DKA # rule out metabolic encephalopathy # ruled out acute renal injury # ruled out high anion gap metabolic acidosis Protonix no need Lovenox Diabetic diet Goals of care discussed with the patient for more than 29 minutes: Full code status Case discussed with the Dr. Voss, patient and nurse. DC to SNF. Plan discussed with: Patient My Orders My Orders Orders - JAY CARLOS Procedure Category Date Status Time Discharge DISCHARGE 10/10/24 Transmitted 10:53 Schedule For Dc SARAHY 10/10/24 In Process Clinic F/U 10:55 Dietary Evaluation Review Comments: To better control DM, reinforce CCHO-75 diet. To promote wound healing, rogelio CLAUDETTE harperr Expected Outcomes/Goals: controlled DM, healed wounds, Date of Service: Oct 11, 2024 Billing Provider: ANJEL GARCIA MD Common Visit Codes: [id number] INP/OBS CARE(HIGH) JAY CARLOS Oct 11, 2024 09:33 ANJEL GARCIA MD Oct 14, 2024 22:22
[2024-10-11 13:00] VITALS: BP 96/62; PULSE 79; RESP 16; TEMP 96.8; O2SAT 100
[2024-10-11 17:00] VITALS: BP 93/53; PULSE 79; RESP 19; TEMP 98.1; O2SAT 100
[2024-10-11 20:00] VITALS: PULSE 71; RESP 18; O2SAT 96
[2024-10-11 21:00] VITALS: BP 99/50; PULSE 71; RESP 19; TEMP 97.4; O2SAT 96
[2024-10-12 05:00] VITALS: BP 108/66; PULSE 78; RESP 18; TEMP 97.7; O2SAT 99
[2024-10-12 09:00] VITALS: BP 112/67; PULSE 74; RESP 19; TEMP 98.4; O2SAT 100
[2024-10-12 13:45] VITALS: BP 120/74; PULSE 79; RESP 20; TEMP 97.9; O2SAT 97
--- NOTE | 2024-10-12 13:58 | DVHPN2 ---
Subjective pending bed Reviewed: H&P Changes from previous H/P or p: No Changes General: Per HPI Objective Vitals Vital Signs Date Time Temp Pulse Resp B/P (MAP) Pulse Ox O2 Delivery O2 Flow Rate FiO2 10/12/24 13:45 97.9 79 20 120/74 (89) 97 97.9 10/12/24 08:00 Room Air* 0 21 Intake/Output Intake and Output 10/12/24 07:00 Intake Total 3050 ml Output Total 4700 ml Balance -1650 ml Intake Oral 3000 ml IV Total 50 ml Output Urine Total 4700 ml Medications Current Medications Medications Dose Ordered Sig/Leandro Route Start Time Stop Time Status Last Admin Dose Admin Acetaminophen/ Hydrocodone Bitart 1 tab Q4HP PRN PO 10/04/24 01:15 10/11/24 20:15 1 TAB Ondansetron HCl 4 mg Q4HP PRN IV 10/04/24 01:15 10/06/24 10:46 4 MG Enoxaparin Sodium 40 mg DAILY SC 10/04/24 10:00 10/12/24 09:34 40 MG Acetaminophen 650 mg Q6HP PRN PO 10/04/24 01:15 Morphine Sulfate 2 mg Q8HPRN PRN IV 10/04/24 01:15 10/08/24 05:27 2 MG Diagnostic Test (Pha) 1 strip IQ4HR 10/04/24 04:00 10/12/24 11:57 1 STRIP Insulin Human Regular IQ4HR SC 10/04/24 04:00 10/12/24 11:58 20 UNITS Dextrose 50 ml UD PRN IV 10/04/24 01:15 Furosemide 40 mg DAILY PO 10/04/24 10:00 10/12/24 09:34 40 MG Atorvastatin Calcium 10 mg HS PO 10/04/24 22:00 10/11/24 22:00 10 MG Insulin Glargine 20 units QAM SC 10/04/24 09:30 10/12/24 06:04 20 UNITS Insulin Human Lispro 5 units AC SC 10/04/24 11:30 Hold Vancomycin HCl 250 ml @ 200 mls/hr Q12H IV 10/05/24 22:45 Cancel Potassium Chloride 10 meq DAILY PO 10/06/24 10:00 10/12/24 09:33 10 MEQ Ceftriaxone Sodium/Dextrose 50 ml @ 50 mls/hr DAILY IV 10/10/24 10:00 10/12/24 09:33 50 MLS/HR Sodium Chloride 10 ml QSHIFT@10,22 IV 10/09/24 22:00 10/12/24 09:33 10 ML Laboratory Results Laboratory Tests 10/10/24 05:08 Urinalysis Test 10/04/24 03:00 Urine Color Colorless (Yellow) Urine Clarity Clear (Clear) Urine pH 5.5 (5.0-9.0) Urine Specific [place] 1.020 (1.001-1.035) Urine Protein Negative (Negative) Urine Ketones 3+ (Negative) H Urine Blood Negative /uL (Negative) Urine Nitrite Negative (Negative) Urine Bilirubin Negative (Negative) Urine Urobilinogen Normal mg/dL (Negative) Urine Leukocyte Esterase Negative /uL (Negative) Urine RBC <1 /hpf (0 - 3) Urine Microscopic WBC < 1 /HPF (0-3) Urine Squamous Epithelial Cells None seen /hpf (<5) Urine Bacteria None seen /hpf (None Seen) Urine Glucose 4+ mg/dL (Normal) H Microbiology Microbiology Date/Time Source Procedure Growth Status 10/04/24 14:49 Foot Right Gram Stain - Final Complete 10/04/24 14:49 Foot Right Anaerobic Culture - Final Complete 10/04/24 14:49 Aerobic Culture - Final Streptococcus Group B Streptococcus Group F Complete 10/04/24 03:00 Voided Urine Urine Culture - Final Complete 10/03/24 22:22 Blood Blood Culture - Final NO GROWTH AFTER 5 DAYS OF INCUBATION. Complete Assessment/Plan Assessment/Plan Problem List/Assessment/Plan # Sepsis likely 2/2 ulcer # Chronic B/L plantar ulcers # Right foot osteomyelitis / cellulitis/ abscess/necrotizing fasciitis # L foot cellulitis/ abscess - s/p Right dorsal & plantar foot I&D to bone, Right foot second toe amputation, bone biopsy and right foot delayed closure - Wound consult and culture, Streptococcus B & E - Rocephin 2g daily - diabetic diet # Uncontrolled T1 Dm, IDDM with HbA1C >14 # mild hyponatremia-resolved - Aggresive scale and accuchecks - lantus 20 units and lispro # methamphetamine abuse disorder - counseled regarding cessation for more than 17 minutes # Ruled out Acute respiratory failure # ruled out DKA # rule out metabolic encephalopathy # ruled out acute renal injury # ruled out high anion gap metabolic acidosis Protonix no need Lovenox Diabetic diet Goals of care discussed with the patient for more than 29 minutes: Full code status Plan discussed with: Patient Date of Service: Oct 12, 2024 Billing Provider: RAMÍREZ MEDINA MD Common Visit Codes: 01976-MTU/OBS DISCH DAY >30min RAMÍREZ MEDINA MD Oct 12, 2024 13:58
[2024-10-12 16:34] VITALS: BP 111/73; PULSE 89; RESP 18; TEMP 98; O2SAT 97
[2024-10-12 20:00] VITALS: PULSE 72; RESP 18; O2SAT 100
[2024-10-12 21:00] VITALS: BP 101/57; PULSE 72; RESP 18; TEMP 98.1; O2SAT 100
[2024-10-13 05:00] VITALS: BP 108/62; PULSE 90; RESP 18; TEMP 98.2; O2SAT 97
[2024-10-13 09:30] VITALS: BP 98/60; PULSE 67; RESP 18; TEMP 97.9; O2SAT 99
[2024-10-13 13:00] VITALS: BP 100/59; PULSE 68; RESP 19; TEMP 97.9; O2SAT 96
--- NOTE | 2024-10-13 13:36 | DVHPN2 ---
Subjective pending bed and auth Reviewed: H&P Changes from previous H/P or p: No Changes General: Per HPI Objective Vitals Vital Signs Date Time Temp Pulse Resp B/P (MAP) Pulse Ox O2 Delivery O2 Flow Rate FiO2 10/13/24 09:47 98/60 10/13/24 09:30 97.9 67 18 99 97.9 10/13/24 08:00 Room Air* 0 21 Intake/Output Intake and Output 10/13/24 07:00 Intake Total 3200 ml Output Total 4200 ml Balance -1000 ml Intake Oral 3200 ml Output Urine Total 4200 ml # Bowel Movements 1 Medications Current Medications Medications Dose Ordered Sig/Leandro Route Start Time Stop Time Status Last Admin Dose Admin Ondansetron HCl 4 mg Q4HP PRN IV 10/04/24 01:15 10/06/24 10:46 4 MG Enoxaparin Sodium 40 mg DAILY SC 10/04/24 10:00 10/13/24 09:47 40 MG Acetaminophen 650 mg Q6HP PRN PO 10/04/24 01:15 Diagnostic Test (Pha) 1 strip IQ4HR 10/04/24 04:00 10/13/24 11:31 1 STRIP Insulin Human Regular IQ4HR SC 10/04/24 04:00 10/13/24 11:31 16 UNITS Dextrose 50 ml UD PRN IV 10/04/24 01:15 Furosemide 40 mg DAILY PO 10/04/24 10:00 10/13/24 09:47 40 MG Atorvastatin Calcium 10 mg HS PO 10/04/24 22:00 10/12/24 21:25 10 MG Insulin Glargine 20 units QAM SC 10/04/24 09:30 10/13/24 06:02 20 UNITS Insulin Human Lispro 5 units AC SC 10/04/24 11:30 Hold Vancomycin HCl 250 ml @ 200 mls/hr Q12H IV 10/05/24 22:45 Cancel Potassium Chloride 10 meq DAILY PO 10/06/24 10:00 10/13/24 09:46 10 MEQ Ceftriaxone Sodium/Dextrose 50 ml @ 50 mls/hr DAILY IV 10/10/24 10:00 10/13/24 09:46 50 MLS/HR Sodium Chloride 10 ml QSHIFT@10,22 IV 10/09/24 22:00 10/13/24 09:46 10 ML Laboratory Results Laboratory Tests 10/10/24 05:08 Urinalysis Test 10/04/24 03:00 Urine Color Colorless (Yellow) Urine Clarity Clear (Clear) Urine pH 5.5 (5.0-9.0) Urine Specific [place] 1.020 (1.001-1.035) Urine Protein Negative (Negative) Urine Ketones 3+ (Negative) H Urine Blood Negative /uL (Negative) Urine Nitrite Negative (Negative) Urine Bilirubin Negative (Negative) Urine Urobilinogen Normal mg/dL (Negative) Urine Leukocyte Esterase Negative /uL (Negative) Urine RBC <1 /hpf (0 - 3) Urine Microscopic WBC < 1 /HPF (0-3) Urine Squamous Epithelial Cells None seen /hpf (<5) Urine Bacteria None seen /hpf (None Seen) Urine Glucose 4+ mg/dL (Normal) H Microbiology Microbiology Date/Time Source Procedure Growth Status 10/04/24 14:49 Foot Right Gram Stain - Final Complete 10/04/24 14:49 Foot Right Anaerobic Culture - Final Complete 10/04/24 14:49 Aerobic Culture - Final Streptococcus Group B Streptococcus Group F Complete 10/04/24 03:00 Voided Urine Urine Culture - Final Complete 10/03/24 22:22 Blood Blood Culture - Final NO GROWTH AFTER 5 DAYS OF INCUBATION. Complete Assessment/Plan Assessment/Plan Problem List/Assessment/Plan # Sepsis likely 2/2 ulcer # Chronic B/L plantar ulcers # Right foot osteomyelitis / cellulitis/ abscess/necrotizing fasciitis # L foot cellulitis/ abscess - s/p Right dorsal & plantar foot I&D to bone, Right foot second toe amputation, bone biopsy and right foot delayed closure - Wound consult and culture, Streptococcus B & E - Rocephin 2g daily - diabetic diet # Uncontrolled T1 Dm, IDDM with HbA1C >14 # mild hyponatremia-resolved - Aggresive scale and accuchecks - lantus 20 units and lispro # methamphetamine abuse disorder - counseled regarding cessation for more than 17 minutes # Ruled out Acute respiratory failure # ruled out DKA # rule out metabolic encephalopathy # ruled out acute renal injury # ruled out high anion gap metabolic acidosis Protonix no need Lovenox Diabetic diet Goals of care discussed with the patient for more than 29 minutes: Full code status Plan discussed with: Patient Date of Service: Oct 13, 2024 Billing Provider: RAMÍREZ MEDINA MD Common Visit Codes: [id number] INP/OBS CARE(MOD) RAMÍREZ MEDINA MD Oct 13, 2024 13:36
[2024-10-13 14:42] VITALS: BP 98/60; TEMP 36.6
== END 2024-10-13 16:00 | DRG 710 ==
LOC: ER 19:54 → OVERFLOW 10-04 01:12 → CENTRAL 10-04 02:50 → TELE-CENTR 10-06 00:10 → CENTRAL 10-10 08:47
PROVIDERS: ADMIT Student in an Organized Health Care Education/Training Program; ATTEND Student in an Organized Health Care Education/Training Program
PROC: 0Y9M0ZZ Drainage of Right Foot, Open Approach (ICD-10-PCS; principal; 2024-10-04 14:31)
PROC: 0Y9M0ZZ Drainage of Right Foot, Open Approach (ICD-10-PCS; 2024-10-05)
PROC: 0Y6R0Z3 Detachment at Right 2nd Toe, Low, Open Approach (ICD-10-PCS; 2024-10-08)
PROC: 02HV33Z Insertion of Infusion Device into Superior Vena Cava, Percutaneous Approach (ICD-10-PCS; 2024-10-09)
PROC: B548ZZA Ultrasonography of Superior Vena Cava, Guidance (ICD-10-PCS; 2024-10-09)
DX: A41.9 Sepsis, unspecified organism (principal); M72.6 Necrotizing fasciitis; G93.41 Metabolic encephalopathy; E44.1 Mild protein-calorie malnutrition; E10.621 Type 1 diabetes mellitus with foot ulcer; E83.39 Other disorders of phosphorus metabolism; L03.115 Cellulitis of right lower limb; E87.1 Hypo-osmolality and hyponatremia; L97.519 Non-pressure chronic ulcer of other part of right foot with unspecified severity; Z20.822 Contact with and (suspected) exposure to COVID-19; L97.529 Non-pressure chronic ulcer of other part of left foot with unspecified severity; F17.210 Nicotine dependence, cigarettes, uncomplicated; F15.10 Other stimulant abuse, uncomplicated; E78.5 Hyperlipidemia, unspecified; M86.8X7 Other osteomyelitis, ankle and foot; I10 Essential (primary) hypertension; L02.611 Cutaneous abscess of right foot; L03.116 Cellulitis of left lower limb; Z79.4 Long term (current) use of insulin; Z83.3 Family history of diabetes mellitus; Z79.899 Other long term (current) drug therapy; M86.9 Osteomyelitis, unspecified; E10.69 Type 1 diabetes mellitus with other specified complication; Z68.25 Body mass index [BMI] 25.0-25.9, adult; E10.65 Type 1 diabetes mellitus with hyperglycemia
CPT/HCPCS: 36415; 36569; 71045; 73630; 73700; 76937; 80048; 80053; 80202; 80307; 81001; 82010; 82565; 82607; 82962; 83036; 83605; 83735; 83880; 83930; 84132; 84443; 85007; 85025; 85027; 85610; 85730; 86850; 86900; 86901; 87040; 87070; 87075; 87077; 87086; 87205; 87426; 87804; 93005; 93925; 93970; 96365; 96375; G0378; J0692; J1815; J1885; J2003; J2250; J2405; J2543; J2704; J3490

== ENCOUNTER 2025-02-11 16:52 | Inpatient (IN) | payer MEDICAID ==
[~2025-02-11] VITALS: Ht 182.9 cm; Wt 106.5 kg
[~2025-02-11 16:52] MED LIST changes: -INSUINJ37 SC; +LITH300C3 PO
--- NOTE | 2025-02-11 19:49 | ED.PDOC ---
History of Present Illness HPI Comments 45-year-old male who is brought in by ambulance from [facility] for chief complaint of hyperglycemia, with associated nausea. Significant history for type 1 DM - on lispro and Lantus, DKA, HLD, HTN, sepsis, and tobacco methamphetamine abuse. Patient reports his blood glucose levels being a in the 300s after checking in today following nausea onset, this morning. Patient reports he has been out of Lantus since he was discharged from SNF on February 07, 2025. Patient denies having any vomiting, abdominal pain, urinary symptoms, fever, chills or further associated symptoms. Per EMS report, staff of facility, initially, called after patient was found altered at A&O x1 in add ition to being hyperglycemic following recent changes to his medication. Patient was treated with 500 mL of IV fluids and Zofran EN route prior to arrival. REVIEW OF SYSTEMS: No fever, no chills, HEENT: No neck pain, no blurred vision Cardiac: No chest pain. No palpitations. Lungs: No shortness of breath, GI: Nausea. No abdominal pain, no vomiting Musculoskeletal: No joint pain , no back pain Skin: No rash, no wound Neuro: No headache, no dizziness, no syncope Endocrine: Hyperglycemia PHYSICAL EXAM: General: Awake, alert and oriented. No acute distress. Skin: Skin in warm, dry and intact without rashes or lesions. HEENT: The head is normocephalic and atraumatic. Conjunctivae are clear without exudates or hemorrhage. Sclera is non-icteric. Neck: Normal range of motion. No JVD. Cardiac: Regular rate Respiratory: No signs of respiratory distress. No Stridor. Extremities: Upper and lower extremities are atraumatic in appearance without deformity. Neurological: The patient is awake, alert and oriented to person, place, and time with normal speech. Speech is clear. There is no facial asymmetry. Moving all extremities spontaneously Chief Complaint: Hyperglycemia Time Seen by MD: 18:15 Primary Care Provider: ? Reviewed Notes: Nurses Notes, Vp Customer Development Notes, Medications, Allergies Allergies: Coded Allergies: NO KNOWN ALLERGIES (Unverified , 09/06/13) Home Meds Active Scripts Pantoprazole Sodium Sesquihydr (Pantoprazole Sodium) 40 Mg Tab, 40 MG PO DAILY for 30 Days, #30 TAB Prov:LICO BERNARD RESIDENT 05/25/24 Reported Medications [place] Carbonate ([place] Carbonate) 300 Mg Cap, PO for 30 Days, MG 10/04/24 Fluoxetine Hcl (Fluoxetine Hcl) Unknown Strength Cap, PO 01/16/24 Insulin Glargine (Lantus) 100 Unit/Ml Inj, 40 UNIT SC DAILY@DINNER, INJ 01/18/18 Simvastatin (Simvastatin) 10 Mg Tab, 10 MG PO DAILY for 30 Days, MG 08/25/17 Insulin Aspart Protamine & Asp (Novolog Mix 70/30 Prefill (70-30) 100 Unit/ml) 1 Inj Inj, 1 INJ SC, INJ 08/25/17 Information Source: Patient, Emergency Med Personnel Mode of Arrival: EMS Severity: Moderate Timing: Hours Duration: Since onset Prehospital treatment: 12 Lead EKG, Accucheck, Environmental Health Officer, IVF, Treatment (Zofran) Past Medical History PAST MEDICAL HISTORY: DM (Type 1), High Lipids, HTN, Thyroid (Hypothyroidism) Past Medical History (Other): DKA Sepsis Right foot osteomyelitis, cellulitis, abscess, necrotizing fasciitis Left foot cellulitis and abscess Surgical History: Pt Confused Surgical History (Other): Right dorsal foot I and D to bone Right plantar foot I and D to bone Right foot 2nd toe amputation Right 2nd toe bone biopsy Right foot delayed closure Family History Family History: Unknown Social History Smoker: Cigarettes, Less Than 1 Pack/Day Alcohol: Denies ETOH Use Drugs: Methamphetamine Lives In: Group Home Was a procedure done? Was a procedure done?: No Differential Dx Considerations may include: Differential diagnosis considered includes but not limited to intracranial hemorrhage, stroke, head injury, seizure, metabolic disturbance, electrolyte imbalance, infection, substance intoxication, psychiatric cause, DKA, hyperglycemia, other systemic illness, other X-Ray, Labs, Meds, VS Vital Signs Date Time Temp Pulse Resp B/P (MAP) Pulse Ox O2 Delivery O2 Flow Rate FiO2 02/11/25 16:57 98.3 85 24 158/94 98 98.3 Lab Test 02/11/25 20:17 02/11/25 18:38 Range/Units Blood Gas Specimen Type Venous Blood Gas Sample Site Vbg - n/a Blood Gas Patient Temperature 37.0 Arterial Blood Date Drawn [id number] Ronny Test N/a Venous Blood pH 7.325 7.320-7.430 Venous Blood pCO2 at Patient Temp 32.0 L 38.0-54.0 mmHg Venous Blood pO2 at Patient Temp 63.5 H 23.0-48.0 mmHg Venous Blood HCO3 16.3 L 22.0-29.0 mmol/L Venous Blood Base Excess -8.4 L -2.0-3.0 mmol/L Blood Gas Modality Room air Blood Gas Spontaneous Rate 18 FiO2 % 21.0 Specimen Drawn By White Blood Count 11.6 H 4.4-10.8 10^3/uL Red Blood Count 4.89 4.5-5.90 10^6/uL Hemoglobin 14.4 13.5-17.5 g/dL Hematocrit 41.2 41.0-53.0 % Mean Corpuscular Volume 84.4 80.0-100.0 fL Mean Corpuscular Hemoglobin 29.4 28.0-32.0 pg Mean Corpuscular Hemoglobin Concent 34.8 32.0-36.0 g/dL Red Cell Distribution Width 13.1 11.8-14.3 % Platelet Count 335 140-450 10^3/uL Mean Platelet Volume 8.5 6.9-10.8 fL Neutrophils (%) (Auto) 85.2 H 37.0-80.0 % Lymphocytes (%) (Auto) 8.8 L 10.0-50.0 % Monocytes (%) (Auto) 5.8 0.0-12.0 % Eosinophils (%) (Auto) 0.0 0.0-7.0 % Basophils (%) (Auto) 0.2 0.0-2.0 % Neutrophils # (Auto) 9.9 H 1.6-8.6 10 ^3/uL Lymphocytes # (Auto) 1.0 0.4-5.4 10 ^3/uL Monocytes # (Auto) 0.7 0-1.3 10 ^3/uL Eosinophils # (Auto) 0 0-0.8 10 ^3/uL Basophils # (Auto) 0 0-0.2 10 ^3/uL Nucleated Red Blood Cells 0.1 % Sodium Level 137 136-145 mmol/L Potassium Level 4.3 3.5-5.1 mmol/L Chloride Level 101 98-107 mmol/L Carbon Dioxide Level 16 L 20-31 mmol/L Anion Gap 20 H 5-15 Blood Urea Nitrogen 35 H 9-23 mg/dL Creatinine 1.54 H 0.700-1.30 mg/dL Glomerular Filtration Rate Calc 56 >90 mL/min BUN/Creatinine Ratio 22.7 H 10.0-20.0 Serum Glucose 271 H 74-106 mg/dL Serum Osmolality 325 H 278-298 mOsm/kg Calcium Level 10.2 8.7-10.4 mg/dL Phosphorus Level 1.1 L 2.4-5.1 mg/dL Magnesium Level 2.4 1.6-2.6 mg/dL Total Bilirubin 0.7 0.2-1.0 mg/dL Aspartate Amino Transferase (AST) 9 L 13-40 U/L Alanine Aminotransferase (ALT) 15 7-40 U/L Alkaline Phosphatase 189 H 46-116 U/L Total Protein 8.3 H 5.7-8.2 g/dL Albumin 4.7 3.2-4.8 g/dL Beta-Hydroxybutyric Acid > 4.500 H < 0.4 mmol/L Current Medications Medications (Trade) Dose Ordered Sig/Leandro Route Start Time Stop Time Status Last Admin Sodium Chloride 1,000 ml @ 1,000 mls/hr Q1H ONCE IV 02/11/25 20:00 02/11/25 20:59 DC 02/11/25 22:29 Time of 1ST Reevaluation: 18:45 Reevaluation 1ST: Unchanged Patient Education/Counseling: Treatment, Other (Need for admission) Family Education/Counseling: No Family Present SEPSIS Sepsis Screen Date sepsis recognized/suspect: Feb 11, 2025 Time Sepsis recognized/suspect: 1656 Recent Procedure: No On Antibiotic Therapy: No Respiratory Rate >20: No Heart Rate >90: No Temp<36 C (96.8 F) or >38.3 C: No SBP <90 or MAP <65 mmHG: No New Acute Mental Status Change: No Is the patient on CPAP, BIPAP,: No Physician Orders Venous Blood Gas (02/11/25 19:56) Insulin Drip Protocol (02/11/25 ) Sodium Chloride 0.9% (02/12/25 02:15) Sodium Chloride 0.9% (02/12/25 04:15) Insulin Drip 100 Unit/100ml (Myxredlin 1 (02/11/25 22:15) Dextrose 50% Syringe (02/11/25 22:15) Glucose Blood (Accu-Chek Comfort Curve T (02/11/25 22:30) Basic Metabolic Panel (02/12/25 10:04) Basic Metabolic Panel (02/12/25 16:04) Neurological Assessment (02/11/25 22:04) Vs/Hemodynamics .PER UNIT PROTOCOL (02/11/25 22:04) Admit (02/11/25 22:09) Nitroglycerin Sublingual (Ntrostat Subli (02/11/25 22:15) Morphine Sulfate Injection (02/11/25 22:15) Stat Ekg For Chest Pain (02/11/25 22:09) Notify Of Changes From Base (02/11/25 22:09) Rehabilitation Services Aide For 24 Hours (02/11/25 22:09) Emergency Dysrhythmia Protocol (02/11/25 22:09) Rhythm Strips Once Every Shift (02/11/25 22:09) Oxygen By Nasal Cannula (02/11/25 22:09) Vital Signs Date Time Temp Pulse Resp B/P (MAP) Pulse Ox O2 Delivery O2 Flow Rate FiO2 02/11/25 16:57 98.3 85 24 158/94 98 98.3 Laboratory Tests Test 02/11/25 18:38 White Blood Count 11.6 10^3/uL (4.4-10.8) H Medications Medications Dose Ordered Sig/Leandro Route Start Time Stop Time Status Last Admin Dose Admin Sodium Chloride 1,000 ml @ 1,000 mls/hr Q1H ONCE IV 02/11/25 20:00 02/11/25 20:59 DC 02/11/25 22:29 Departure 1 Departure Time of Disposition: 22:06 Impression: Primary Impression: DKA (diabetic ketoacidosis) Disposition: ADMITTED INPATIENT Admit to: Tele Condition: Stable Comments MDM: Extensive evaluation was performed in attempt to identify or rule out: (See differential diagnosis section) The following tests were ordered, and results were reviewed by me and discussed with patient: (See diagnostic results section) The following test were independently interpreted by me: N/A I reviewed and agreed with the following test results read by other providers: N/A I reviewed the following notes from the pt's past medical encounters: January 16, 2024, May 22, 2024, August 18, 2024, and October 04, 2024 encounters for generalized weakness, diabetic ketoacidosis, diabetic ketoacidosis, and right lower extremity cellulitis, respectively Additional information was gathered from interviewing the following independent historians: EMS personnel Discussion of management or test interpretation with external physician/other qualified health spiritual care coordinator: N/A Addressed an acute or chronic illness that poses a threat to life or bodily function: DKA Decision regarding hospitalization or escalation of hospital level of care: Risk and benefits of admission for further treatment of patient's condition was considered. Due to patient's current clinical condition, high risk of decline and poor outcome if discharged and need for further inpatient management and monitoring, patient will be admitted to the hospital. Drug therapy requiring intensive monitoring for toxicity: IV insulin Parenteral controlled substances: N/A Decision regarding elective major surgery with identified patient or procedure risk factors: N/A Decision regarding emergency major surgery: N/A Decision not to resuscitate or to de-escalate care because of poor prognosis: N/A Diagnosis or treatment significantly limited by social determinants of health: N/A Critical Care Note Critical Care Time?: Yes (35 min-critical care time only) Critical care comment: Due to a high probability of clinically significant, life threatening deterioration, the patient required my highest level of preparedness to intervene emergently and I personally spent this critical care time directly and personally managing the patient. This critical care time included obtaining a history; examining the patient; pulse oximetry; ordering and review of studies; arranging urgent treatment with development of a management plan; evaluation of patient's response to treatment; frequent reassessment; and, discussions with other providers. This critical care time was performed to assess and manage the high probability of imminent, life-threatening deterioration that could result in multi-organ failure. It was exclusive of separately billable procedures and treating other patients and teaching time. Please see my other sections and the rest of the note for further information on patient assessment and treatment. Stability Stability form required: No Heart Score Heart Score: Heart Score Response (Comments) Value History N/A 0 EKG N/A 0 Age N/A 0 Risk Factors N/A 0 Troponin N/A 0 Total 0 I personally scribed for SIMONE NAGEL MD ([email or web address]) on 02/11/25 at 19:49. Electronically submitted by Boby Pool ([email or web address]). I personally scribed for SIMONE NAGEL MD ([email or web address]) on 02/11/25 at 20:23. Electronically submitted by Boby Pool ([email or web address]). I personally scribed for SIMONE NAGEL MD ([email or web address]) on 02/11/25 at 20:25. Electronically submitted by Boby Pool ([email or web address]). I personally scribed for SIMONE NAGEL MD ([email or web address]) on 02/11/25 at 21:14. Electronically submitted by Boby Pool ([email or web address]). SIMONE NAGEL MD Feb 11, 2025 19:49
[2025-02-11 19:51] LABS: Alanine Aminotransferase 15 U/L (7-40); Albumin 4.7 g/dL (3.2-4.8); Anion Gap 20 (5-15); BUN/Creatinine Ratio 22.7 (10.0-20.0); Bilirubin, Total 0.7 mg/dL (0.2-1.0); Calcium 10.2 mg/dL (8.7-10.4); Chloride 101 mmol/L (98-107); Potassium 4.3 mmol/L (3.5-5.1); Sodium 137 mmol/L (136-145)
[2025-02-11 20:02] LABS: Alkaline Phosphatase 189 U/L (46-116); Blood Urea Nitrogen 35 mg/dL (9-23); Carbon Dioxide 16 mmol/L (20-31); Glucose 271 mg/dL (74-106); Total Protein 8.3 g/dL (5.7-8.2)
[2025-02-11 21:21] LABS: Hematocrit 41.2 % (41.0-53.0); Hemoglobin 14.4 g/dL (13.5-17.5); Mean Corpuscular Hemoglobin 29.4 pg (28.0-32.0); Mean Corpuscular Volume 84.4 fL (80.0-100.0); Nucleated Red Blood Cells % 0.1 %
[2025-02-11] MEDS ORDERED: DEXTROSE (50%) 50ML SYRG IV PRN (22:15)
[2025-02-11] MEDS ORDERED: MORPHINE SULFATE INJ 2 MG/ml SYRG IV PRN (22:15)
[2025-02-11] MEDS ORDERED: NITROGLYCERIN 0.4 MG SL TAB SL PRN (22:15)
[2025-02-11 22:22] LABS: Magnesium 2.4 mg/dL (1.6-2.6)
[2025-02-11] MEDS: ONDANSETRON HCL 4 MG/2 ML VIAL IV ONE (22:29)
[2025-02-11] MEDS: SODIUM CHLORIDE 0.9% 1,000 ML IV ONE (22:29)
[2025-02-11] MEDS: ACCU-CHEK COMFORT CURVE STRIP VI SCH (22:35)
[2025-02-11] MEDS: INSULIN DRIP 100 UNIT/100ML 100 ML IV SCH (22:37)
[2025-02-11 22:41] LABS: Chloride 100 mmol/L (98-107); Potassium 4.5 mmol/L (3.5-5.1)
[2025-02-11 22:42] LABS: Anion Gap 23 (5-15); Calcium 9.6 mg/dL (8.7-10.4)
[2025-02-11 22:47] LABS: BUN/Creatinine Ratio 19.9 (10.0-20.0)
[2025-02-11 22:56] LABS: Blood Urea Nitrogen 35 mg/dL (9-23); Carbon Dioxide 13 mmol/L (20-31); Sodium 136 mmol/L (136-145)
[2025-02-11 22:58] LABS: Glucose 426 mg/dL (74-106)
[2025-02-11 23:00] VITALS: RESP 22; O2SAT 98
[2025-02-11] MEDS: SODIUM CHLORIDE 0.9% 1,000 ML IV SCH (23:31)
[2025-02-12] VITALS (32 sets, daily range): BP systolic 111–163; BP diastolic 52–89; PULSE 56–100; RESP 11–25; TEMP 98–99.6; O2SAT 94–100
[2025-02-12] MEDS: SODIUM CHLORIDE 0.9% 1,000 ML IV SCH ×2 (02:33→04:15)
[2025-02-12] MEDS ORDERED: DEXTROSE (50%) 50ML SYRG IV PRN ×2 (04:00→13:30)
--- NOTE | 2025-02-12 04:01 | DVHHP2 ---
History of Present Illness Reason for Visit: Hyperglycemia History of Present Illness 45-year-old male presents for evaluation of hyperglycemia. Patient reports a two day history of elevated blood sugars. He states that since he was admitted to the nursing facility where he is at six days ago he has not taken his Lantus. Reports nausea. No abdominal pain. Past Medical History Diabetes mellitus, hypertension, thyroid Past Surgical History Foot surgery Family History Noncontributory Smoke: No ALCOHOL: none Drugs: None Lives: with Family Review of Systems Review of Systems Review of systems are currently negative otherwise addressed in HPI. Allergies: Coded Allergies: NO KNOWN ALLERGIES (Unverified , 09/06/13) Medications Current Medications Medications Dose Ordered Sig/Leandro Route Start Time Stop Time Status Last Admin Dose Admin Sodium Chloride 1,000 ml @ 250 mls/hr Q4H IV 02/12/25 02:15 02/12/25 04:14 02/12/25 02:33 250 MLS/HR Sodium Chloride 1,000 ml @ 150 mls/hr Q6H40M IV 02/12/25 04:15 Insulin Human (Reg)/Sodium Chloride 100 ml @ 0.5 mls/hr Q24H IV 02/11/25 22:15 02/11/25 22:37 6 MLS/HR Dextrose 50 ml UD PRN IV 02/11/25 22:15 Diagnostic Test (Pha) 1 strip Q90MIN 02/11/25 22:30 02/12/25 03:13 1 STRIP Nitroglycerin 0.4 mg Q5MINP PRN SL 02/11/25 22:15 Morphine Sulfate 2 mg Q30M PRN IV 02/11/25 22:15 Ondansetron HCl 4 mg Q4HP PRN IV 02/11/25 23:00 Exam Vital Signs Vital Signs Date Time Temp Pulse Resp B/P (MAP) Pulse Ox O2 Delivery O2 Flow Rate FiO2 02/12/25 02:00 87 21 157/83 (107) 97 02/12/25 00:00 99.4 99.4 02/11/25 23:00 Room Air* 0 21 Exam Gen: 45-year-old male in mild distress Skin: Warm, dry, normal color and texture, no rash. HEENT: Normocephalic atraumatic, mucous membranes moist and pink. Neck: Cervical and supraclavicular nodes normal without enlargement, trachea is midline, thyroid gland is normal without masses. Pulmonary: Clear to auscultation and percussion bilaterally. Cardiac: Regular rate and rhythm. No murmur Abdomen: Soft, nontender, nondistended, bowel sounds present all 4 quadrants, no guarding, no rigidity, no organomegaly. Extremities: No cyanosis, clubbing, no edema Neuro: Cranial nerves II through XII grossly intact, normal affect and speech, no focal motor deficits. Labs/Xrays Labs Test 02/11/25 22:14 02/11/25 20:17 02/11/25 18:38 Range/Units Sodium Level 136 136-145 mmol/L Potassium Level 4.5 3.5-5.1 mmol/L Chloride Level 100 98-107 mmol/L Carbon Dioxide Level 13 L 20-31 mmol/L Anion Gap 23 H 5-15 Blood Urea Nitrogen 35 H 9-23 mg/dL Creatinine 1.76 H 0.700-1.30 mg/dL Glomerular Filtration Rate Calc 48 >90 mL/min BUN/Creatinine Ratio 19.9 10.0-20.0 Serum Glucose 426 #*H 74-106 mg/dL Calcium Level 9.6 8.7-10.4 mg/dL Blood Gas Specimen Type Venous Blood Gas Sample Site Vbg - n/a Blood Gas Patient Temperature 37.0 Arterial Blood Date Drawn [id number] Ronny Test N/a Venous Blood pH 7.325 7.320-7.430 Venous Blood pCO2 at Patient Temp 32.0 L 38.0-54.0 mmHg Venous Blood pO2 at Patient Temp 63.5 H 23.0-48.0 mmHg Venous Blood HCO3 16.3 L 22.0-29.0 mmol/L Venous Blood Base Excess -8.4 L -2.0-3.0 mmol/L Blood Gas Modality Room air Blood Gas Spontaneous Rate 18 FiO2 % 21.0 Specimen Drawn By White Blood Count 11.6 H 4.4-10.8 10^3/uL Red Blood Count 4.89 4.5-5.90 10^6/uL Hemoglobin 14.4 13.5-17.5 g/dL Hematocrit 41.2 41.0-53.0 % Mean Corpuscular Volume 84.4 80.0-100.0 fL Mean Corpuscular Hemoglobin 29.4 28.0-32.0 pg Mean Corpuscular Hemoglobin Concent 34.8 32.0-36.0 g/dL Red Cell Distribution Width 13.1 11.8-14.3 % Platelet Count 335 140-450 10^3/uL Mean Platelet Volume 8.5 6.9-10.8 fL Neutrophils (%) (Auto) 85.2 H 37.0-80.0 % Lymphocytes (%) (Auto) 8.8 L 10.0-50.0 % Monocytes (%) (Auto) 5.8 0.0-12.0 % Eosinophils (%) (Auto) 0.0 0.0-7.0 % Basophils (%) (Auto) 0.2 0.0-2.0 % Neutrophils # (Auto) 9.9 H 1.6-8.6 10 ^3/uL Lymphocytes # (Auto) 1.0 0.4-5.4 10 ^3/uL Monocytes # (Auto) 0.7 0-1.3 10 ^3/uL Eosinophils # (Auto) 0 0-0.8 10 ^3/uL Basophils # (Auto) 0 0-0.2 10 ^3/uL Nucleated Red Blood Cells 0.1 % Serum Osmolality 325 H 278-298 mOsm/kg Phosphorus Level 1.1 L 2.4-5.1 mg/dL Magnesium Level 2.4 1.6-2.6 mg/dL Total Bilirubin 0.7 0.2-1.0 mg/dL Aspartate Amino Transferase (AST) 9 L 13-40 U/L Alanine Aminotransferase (ALT) 15 7-40 U/L Alkaline Phosphatase 189 H 46-116 U/L Total Protein 8.3 H 5.7-8.2 g/dL Albumin 4.7 3.2-4.8 g/dL Beta-Hydroxybutyric Acid > 4.500 H < 0.4 mmol/L SEPSIS Sepsis Screen Date sepsis recognized/suspect: Feb 11, 2025 Time Sepsis recognized/suspect: 2299 Recent Procedure: No On Antibiotic Therapy: No Respiratory Rate >20: Yes Heart Rate >90: No Temp<36 C (96.8 F) or >38.3 C: No SBP <90 or MAP <65 mmHG: No New Acute Mental Status Change: No Is the patient on CPAP, BIPAP,: No Physician Orders Venous Blood Gas (02/11/25 19:56) Insulin Drip Protocol (02/11/25 ) Sodium Chloride 0.9% (02/12/25 02:15) Sodium Chloride 0.9% (02/12/25 04:15) Insulin Drip 100 Unit/100ml (Myxredlin 1 (02/11/25 22:15) Dextrose 50% Syringe (02/11/25 22:15) Glucose Blood (Accu-Chek Comfort Curve T (02/11/25 22:30) Basic Metabolic Panel (02/12/25 10:04) Basic Metabolic Panel (02/12/25 16:04) Neurological Assessment (02/11/25 22:04) Vs/Hemodynamics .PER UNIT PROTOCOL (02/11/25 22:04) Admit (02/11/25 22:09) Nitroglycerin Sublingual (Ntrostat Subli (02/11/25 22:15) Morphine Sulfate Injection (02/11/25 22:15) Stat Ekg For Chest Pain (02/11/25 22:09) Notify Of Changes From Base (02/11/25 22:09) Visual Merchandiser For 24 Hours (02/11/25 22:09) Emergency Dysrhythmia Protocol (02/11/25 22:09) Rhythm Strips Once Every Shift (02/11/25 22:09) Oxygen By Nasal Cannula (02/11/25 22:09) Ondansetron Hcl (Zofran) (02/11/25 23:00) Complete Blood Count (02/12/25 04:00) Comprehensive Metabolic Panel (02/12/25 04:00) Npo (Nothing By Mouth) Diet (02/12/25 Breakfast) Condition: Critical (02/11/25 23:00) Bedrest With Bathroom Privileg (02/11/25 23:00) Transfer Orders (02/12/25 01:15) Vital Signs Date Time Temp Pulse Resp B/P (MAP) Pulse Ox O2 Delivery O2 Flow Rate FiO2 02/12/25 02:00 87 21 157/83 (107) 97 02/12/25 01:45 81 20 162/82 (108) 98 02/12/25 01:30 80 25 141/87 (105) 98 02/12/25 01:15 90 21 114/71 (85) 96 02/12/25 01:00 91 21 114/78 (90) 96 8/5/25 00:45 92 21 126/79 (95) 96 02/12/25 00:30 93 23 114/76 (89) 97 02/12/25 00:15 98 23 140/90 (107) 97 02/12/25 00:00 99.4 93 21 163/86 (111) 98 99.4 02/12/25 00:00 91 02/11/25 23:45 98 24 152/92 (112) 98 02/11/25 23:30 99.5 92 21 126/73 (90) 99 99.5 02/11/25 23:15 95 18 130/83 (99) 97 02/11/25 23:00 22 98 Room Air* 0 21 02/11/25 23:00 90 17 139/79 (99) 99 02/11/25 22:30 97.9 89 28 131/103 (112) 99 97.9 Laboratory Tests Test 02/11/25 18:38 White Blood Count 11.6 10^3/uL (4.4-10.8) H Medications Medications Dose Ordered Sig/Leandro Route Start Time Stop Time Status Last Admin Dose Admin Diagnostic Test (Pha) 1 strip Q90MIN 02/11/25 22:30 02/12/25 03:13 1 STRIP Insulin Human (Reg)/Sodium Chloride 100 ml @ 0.5 mls/hr Q24H IV 02/11/25 22:15 02/11/25 22:37 6 MLS/HR Ondansetron HCl 4 mg ONCE ONCE IV 02/11/25 22:15 02/11/25 22:16 DC 02/11/25 22:29 4 MG Sodium Chloride 1,000 ml @ 250 mls/hr Q4H IV 02/12/25 02:15 02/12/25 04:14 02/12/25 02:33 250 MLS/HR Sodium Chloride 1,000 ml @ 500 mls/hr Q2H IV 02/11/25 22:15 02/12/25 02:14 DC 02/11/25 23:31 500 MLS/HR Sodium Chloride 1,000 ml @ 1,000 mls/hr Q1H ONCE IV 02/11/25 20:00 02/11/25 20:59 DC 02/11/25 22:29 1,000 MLS/HR Assessment/Plan Assessment/Plan Assessment Diabetic ketoacidosis Acute kidney injury Plan Admit the patient to [facility] to the hospitalist DKA protocol Continue treatment per orders. Plan discussed with: Patient My Orders Orders - KIMBERLY STEWARD Procedure Category Date Status Time Admit ADMIT 02/11/25 Transmitted 22:09 Nitroglycerin PHA 02/11/25 In Process Sublingual (Ntrostat 22:15 Morphine Sulfate PHA 02/11/25 In Process Injection 22:15 Stat Ekg For Chest SARAHY 02/11/25 In Process Pain 22:09 Notify Md Of Changes [facility] 02/11/25 In Process From Base 22:09 Visual Merchandiser For [facility] 02/11/25 In Process 24 Hours 22:[address] [facility] 02/11/25 In Process Protocol 22:[address] [facility] 02/11/25 In Process Every Shift 22:09 Oxygen By Nasal RT 02/11/25 Transmitted Cannula 22:09 Ondansetron Hcl PHA 02/11/25 In Process (Zofran) 23:00 Complete Blood Count LAB 02/12/25 Logged 04:00 Comprehensive LAB 02/12/25 Logged Metabolic Panel 04:00 Npo (Nothing By DIET 02/12/25 Transmitted Mouth) Diet Breakfast Condition: Critical [facility] 02/11/25 In Process 23:[address] [facility] 02/11/25 In Process Privileg 23:00 Transfer Orders XFER 02/12/25 Transmitted 01:15 Date of Service: Feb 11, 2025 Billing Provider: KIMBERLY STEWARD Common Visit Codes: [id number] CARE 30-74 MIN KIMBERLY STEWARD Feb 12, 2025 04:01
[2025-02-12] MEDS: INSULIN LANTUS (GLARGINE) 1 /0.01ml (100units/ml) SC ONE ×2 (04:47→14:03)
[2025-02-12] MEDS: ONDANSETRON HCL 4 MG/2 ML VIAL IV PRN ×2 (05:23→10:30)
[2025-02-12] MEDS: INSULIN DRIP 100 UNIT/100ML 100 ML IV SCH (06:36)
[2025-02-12 09:29] LABS: Hematocrit 37.0 % (41.0-53.0); Hemoglobin 12.7 g/dL (13.5-17.5); Mean Corpuscular Hemoglobin 28.7 pg (28.0-32.0); Mean Corpuscular Volume 83.9 fL (80.0-100.0); Nucleated Red Blood Cells % 0.0 %
[2025-02-12] MEDS: LEVOTHYROXINE SODIUM 50 MCG TAB PO ONE (09:32)
[2025-02-12] MEDS: ATORVASTATIN 20 MG TAB PO ONE (09:33)
[2025-02-12 09:35] LABS: Alanine Aminotransferase 13 U/L (7-40); Albumin 3.9 g/dL (3.2-4.8); Anion Gap 12 (5-15); BUN/Creatinine Ratio 21.2 (10.0-20.0); Bilirubin, Total 0.6 mg/dL (0.2-1.0); Calcium 9.2 mg/dL (8.7-10.4); Carbon Dioxide 21 mmol/L (20-31); Potassium 3.8 mmol/L (3.5-5.1); Sodium 143 mmol/L (136-145); Total Protein 6.9 g/dL (5.7-8.2)
[2025-02-12] MEDS ORDERED: SODIUM CHLORIDE 0.9% 1,000 ML IV ONE (09:45)
[2025-02-12] MEDS ORDERED: D5W/SOD CHL 0.45% 1,000 ML IV ONE (09:45)
[2025-02-12 10:11] LABS: Alkaline Phosphatase 146 U/L (46-116); Blood Urea Nitrogen 28 mg/dL (9-23); Chloride 110 mmol/L (98-107); Glucose 165 mg/dL (74-106)
[2025-02-12] MEDS: POTASSIUM PHOSPHATE 26.4 MEQ in SODIUM CHL 0.9% 100 ML IV ONE (11:19)
[2025-02-12 14:12] LABS: Anion Gap 12 (5-15); Carbon Dioxide 21 mmol/L (20-31); Potassium 3.8 mmol/L (3.5-5.1); Sodium 142 mmol/L (136-145)
[2025-02-12 14:13] LABS: Calcium 9.3 mg/dL (8.7-10.4)
[2025-02-12 14:15] LABS: Chloride 109 mmol/L (98-107)
[2025-02-12 14:18] LABS: BUN/Creatinine Ratio 18.5 (10.0-20.0)
[2025-02-12 14:22] LABS: Blood Urea Nitrogen 25 mg/dL (9-23); Glucose 188 mg/dL (74-106)
[2025-02-12 14:52] LABS: Urine Protein, UAD 1+ (Negative)
[2025-02-12 15:02] LABS: Amphetamine Screen, Urine Neg (NEGATIVE); Barbiturate Scree,Urine Neg (NEGATIVE); Benzodiazephine Screen, Urine Neg (NEGATIVE); Cannabinoid Screen, Urine Neg (NEGATIVE); Cocaine Screen, Urine Neg (NEGATIVE); Opiate Scree,Urine Neg (NEGATIVE); Phencyclidine Screen, Urine Neg (NEGATIVE)
[2025-02-12] MEDS: InsuLIN REG 1unit/0.01ml Soln (100units/ml) SC SCH ×2 (16:24→17:36)
[2025-02-12] MEDS: ACCU-CHEK COMFORT CURVE STRIP VI SCH ×2 (16:24→17:37)
[2025-02-12] MEDS: INSULIN LISPRO (HUMAN) 100 UNITS/ML ML SC SCH (16:25)
[2025-02-12] MEDS: LORazepam 2MG/ML-1ML VIAL IV ONE (17:10)
[2025-02-12 17:32] LABS: Potassium 3.9 mmol/L (3.5-5.1); Sodium 142 mmol/L (136-145)
[2025-02-12 17:33] LABS: Anion Gap 15 (5-15)
[2025-02-12 17:34] LABS: Calcium 9.5 mg/dL (8.7-10.4)
[2025-02-12] MEDS: PANTOPRAZOLE 40 MG/10 ML VIAL INJ IV ONE (17:36)
[2025-02-12 17:38] LABS: BUN/Creatinine Ratio 18.4 (10.0-20.0)
[2025-02-12 17:41] LABS: Blood Urea Nitrogen 25 mg/dL (9-23); Carbon Dioxide 19 mmol/L (20-31); Chloride 108 mmol/L (98-107); Glucose 201 mg/dL (74-106)
--- NOTE | 2025-02-12 20:44 | DVHSR ---
APPROVED REPORT EXAM: Two-dimensional and M-mode echocardiogram with Doppler and color Doppler. Blood Pressure: 132/74 mmHg INDICATION HF RISK FACTORS Height: 6'0", Weight: 220 DIMENSIONS LVDd5.2 (3.8-5.7cm)LA (2D)3.7 (1.9-4.0cm)Aortic Root3.4 (2.0-3.7cm) LVDs3.3 (2.5-4.0cm)LA (MM) (1.9-4.0cm)Aortic Cusp Exc1.8 (1.5-2.0cm) EF (%) 60.0 (55-70%)Rt. Atrium3.7 (1.9-4.0cm)Asc. Aorta cm IVSd0.8 (0.7-1.1cm)RV (D) (1.8-2.4cm) PWd0.9 (0.7-1.1cm) Mitral Valve MitralMitral Stenosis E wave1.05m/sMV Mean GR.mmHg A wave1.05m/sMV Peak GR.mmHg E/A ratio1.02D MVAcm2 DECEL [id number] 1/2 Timems Aortic Valve Aortic ValveAortic Stenosis V10.98m/Shayla Mean GR.7mmHg V21.88m/Shayla Peak GR.14mmHg LVOT Diameter2.2 (1.8-2.4cm)Doppler AVA1.98cm2 Pulmonic Valve V21.29m/s Tricuspid Valve TR Velocity2.92m/s [id number] Conclusion LV EF IS 65% NORMAL VALVES NORMAL RV FUNCTION NO EFFUSION
--- NOTE | 2025-02-12 21:15 | DVHPNRES ---
Progress Note Date Seen: Feb 12, 2025 Resident Creating Document: TANYA LAYNE ALIRIO Has the PT tested + for MRSA If YES, has PT been informed?: No Medical Necessity Reason Pt with a Central, PICC or Fol: No Subjective Review of Systems This is a 45-year-old male with past medical history of uncontrolled diabetes type 2, hypothyroidism, CKD and dyslipidemia came to the hospital due to nausea, and vomiting. Per patient, he was recently discharged from hospital and was not able to take his medicines 5 days. He gradually developed nausea, vomiting, abdominal pain and generalized weakness. Upon checking his glucose at facility, glucose was high which prompted this visit. He denies fever, chest pain, shortness of breath, or any recent sick contact. PMHx:uncontrolled diabetes type 2, hypothyroidism, CKD and dyslipidemia PSHx: Nonsignificant Home medication: Insulin Lantus 30 units, insulin regular according to sliding scale, atorvastatin, pregabalin, levothyroxine, Lasix and fluoxetine Allergic history: No known allergy Patient seen and examined at bedside. Patient is still complaining of nausea and vomiting. Objective vital signs Vital Sign Date Time Temp Pulse Resp B/P (MAP) Pulse Ox O2 Delivery O2 Flow Rate FiO2 02/12/25 19:00 74 18 118/59 (78) 96 02/12/25 18:00 Room Air* 0 21 02/12/25 16:01 98.9 98.9 Total Intake and Output 02/11/25 02/11/25 02/12/25 15:00 23:00 07:00 Intake Total 3480 ml Output Total 1200 ml Balance 2280 ml medications Current Medications Medications Dose Ordered Sig/Leandro Route Start Time Stop Time Status Last Admin Dose Admin Sodium Chloride 1,000 ml @ 150 mls/hr Q6H40M IV 02/12/25 04:15 02/12/25 19:49 150 MLS/HR Levothyroxine Sodium 50 mcg QAM@0600 PO 02/13/25 06:00 Atorvastatin Calcium 40 mg HS PO 02/13/25 22:00 Ondansetron HCl 4 mg Q6HPRN PRN IV 02/12/25 10:00 02/12/25 16:30 4 MG Insulin Glargine 30 units DAILY@1000 SC 02/13/25 10:00 Insulin Human Lispro 10 units AC SC 02/12/25 17:00 Dextrose 50 ml UD PRN IV 02/12/25 13:30 Insulin Human Regular Q4HP SC 02/12/25 18:00 Diagnostic Test (Pha) 1 strip Q4H 02/12/25 18:00 Pantoprazole Sodium 40 mg DAILY IV 02/13/25 10:00 Examination General Appearance: Alert, Oriented X3, Cooperative, No acute distress HEENT: Atraumatic, PERRLA, EOMI, Mucous membrane moist/pink Respiratory: Clear to auscultation, Normal air movement Cardiovascular: Regular rate, Normal S1, Normal S2, No murmurs, no chest wall tenderness Abdominal: Normal bowel sounds, Soft, No tenderness, No hepatospenomegaly, No masses Extremities: No clubbing, No cyanosis, No edema, Normal pulses, No tenderness/swelling Skin: No rashes, No breakdown, No significant lesion Neuro: Normal gait, Normal speech, Strength at 5/5 X4 ext, Normal tone, Sensation intact, Cranial nerves 3-12 NL, Reflexes 2+ Psych/Mental Status: Mental status NL, Mood NL laboratory and microbiology Laboratory Tests 02/12/25 17:05 02/12/25 08:51 Test 02/12/25 17:05 Range/Units Serum Glucose 201 H 74-106 mg/dL Microbiology Date/Time Source Procedure Growth Status 02/12/25 03:00 Nose MRSA Screen - Final Complete Labs and/or images reviewed: Labs reviewed by me, Image(s) reviewed by me Problem List/Assessment/Plan Problem List/Assessment/Plan Uncontrolled diabetes type 2 with diabetic ketoacidosis Hypothyroidism Dyslipidemia CKD Hypertension Ex-smoker JUAN JOSE, on CKD, likely VMN Hypophosphatemia Sirs positive with no end-organ damage * Insulin drip was given, we subsequently and anion gap was closed and the patient nausea and vomiting improved, drips stopped and patient was given insulin Lantus * Lantus 30 units daily, Insulin lispro 10 units/mL 3 times daily and Insulin regular q.4 hours according to moderate sliding scale * IV fluid, Pain management * Zofran * Continue home meds DIET: Clear liquid diet DVT PROPHYLAXIS: Lovenox GI PROPHYLAXIS:: Protonix CODE STATUS: Goal of care discussed for more than 18 minutes, full code DISPOSITION: Telemetry Patient's status and plan discussed with the patient. Case discussed with Dr. Medina. Plan discussed with: Patient, Other My Orders My Orders Orders - TANYA LAYNE RESDIENT Procedure Category Date Status Time Levothyroxine Tablet PHA 02/13/25 In Process (Synthroid Tablet) 06:00 Atorvastatin (Lipitor) PHA 02/13/25 In Process 22:00 Echo 2d Mode Cardiac US 02/12/25 Resulted DOP 09:33 Ondansetron Hcl PHA 02/12/25 In Process (Zofran) 10:00 Insulin Lantus PHA 02/13/25 In Process (Glargine) (Lantus) 10:00 Insulin Lispro PHA 02/12/25 In Process (Human) (Humalog) 17:00 Dextrose 50% Syringe PHA 02/12/25 In Process 13:30 Transfer Orders XFER 02/12/25 Transmitted 13:28 Communication Order ORDERS 02/12/25 Transmitted 13:28 Communication Order ORDERS 02/12/25 Transmitted 13:31 Glucose Blood PHA 02/12/25 In Process (Accu-Chek Comfort 18:00 Pantoprazole PHA 02/13/25 In Process (Protonix) 10:00 Lorazepam Tablet PHA 02/12/25 In Process (Ativan Tablet) 22:00 Clear Liq Diet DIET 02/13/25 Transmitted Breakfast Date of Service: Feb 12, 2025 Billing Provider: RAMÍREZ MEDINA MD Common Visit Codes: [id number] INP/OBS CARE(HIGH) TANYA LAYNE RESDIENT Feb 12, 2025 21:15 RAMÍREZ MEDINA MD Feb 17, 2025 20:16
[2025-02-12] MEDS: LORazepam 0.5 MG TAB PO ONE (22:20)
[2025-02-13] VITALS (9 sets, daily range): BP systolic 106–140; BP diastolic 60–78; PULSE 50–66; RESP 16–18; TEMP 97.9–99; O2SAT 1–100
[2025-02-13] MEDS: LEVOTHYROXINE SODIUM 50 MCG TAB PO SCH (06:16)
[2025-02-13] MEDS ORDERED: InsuLIN REG 1unit/0.01ml Soln (100units/ml) SC SCH (07:00)
[2025-02-13] MEDS: PANTOPRAZOLE 40 MG/10 ML VIAL INJ IV SCH (08:21)
[2025-02-13 08:32] LABS: Hematocrit 35.4 % (41.0-53.0); Hemoglobin 12.3 g/dL (13.5-17.5); Mean Corpuscular Hemoglobin 29.4 pg (28.0-32.0); Mean Corpuscular Volume 84.7 fL (80.0-100.0); Nucleated Red Blood Cells % 0.1 %
[2025-02-13 08:50] LABS: Anion Gap 11 (5-15); Calcium 9.0 mg/dL (8.7-10.4); Carbon Dioxide 22 mmol/L (20-31); Sodium 141 mmol/L (136-145)
[2025-02-13 08:54] LABS: Chloride 108 mmol/L (98-107); Potassium 3.3 mmol/L (3.5-5.1)
[2025-02-13 08:56] LABS: BUN/Creatinine Ratio 17.0 (10.0-20.0); Blood Urea Nitrogen 19 mg/dL (9-23)
[2025-02-13 09:00] LABS: Glucose 219 mg/dL (74-106)
[2025-02-13] MEDS ORDERED: INSULIN LANTUS (GLARGINE) 1 /0.01ml (100units/ml) SC SCH (10:00)
[2025-02-13] MEDS: LORazepam 0.5 MG TAB PO ONE (10:04)
[2025-02-13] MEDS: INSULIN LANTUS (GLARGINE) 1 /0.01ml (100units/ml) SC SCH (10:20)
[2025-02-13] MEDS: INSULIN LISPRO (HUMAN) 100 UNITS/ML ML SC SCH ×2 (11:30)
[2025-02-13] MEDS: POTASSIUM CHLORIDE 40 MEQ, LIDOCAINE 1% (LOCAL ANESTH.) 4 ML in SODIUM CHL 0.9% 250 ML IV ONE (12:57)
[2025-02-13] MEDS: METOCLOPRAMIDE HCL 5MG/ml INJ 2ml VIAL IV ONE (13:00)
[2025-02-13] MEDS: METOCLOPRAMIDE HCL 5MG/ml INJ 2ml VIAL IV SCH (13:00)
[2025-02-13] MEDS ORDERED: INSULIN LISPRO (HUMAN) 100 UNITS/ML ML SC SCH (17:00)
--- NOTE | 2025-02-13 18:38 | DVHPNRES ---
Progress Note Date Seen: Feb 13, 2025 Resident Creating Document: TANYA LAYNE ALIRIO Has the PT tested + for MRSA If YES, has PT been informed?: No Medical Necessity Reason Pt with a Central, PICC or Fol: No Subjective Review of Systems Patient seen and examined at bedside. Patient is feeling better since admission. But still complaining of nausea. Objective vital signs Vital Sign Date Time Temp Pulse Resp B/P (MAP) Pulse Ox O2 Delivery O2 Flow Rate FiO2 02/13/25 14:13 57 02/13/25 09:00 99.0 18 140/70 (93) 100 99.0 02/13/25 08:15 Room Air* 0 21 Total Intake and Output 02/12/25 02/12/25 02/13/25 15:00 23:00 07:00 Intake Total 398.8 ml 635.4 ml 2500 ml Output Total 1050 ml 800 ml Balance 398.8 ml -414.6 ml 1700 ml medications Current Medications Medications Dose Ordered Sig/Leandro Route Start Time Stop Time Status Last Admin Dose Admin Sodium Chloride 1,000 ml @ 150 mls/hr Q6H40M IV 02/12/25 04:15 02/13/25 13:35 150 MLS/HR Levothyroxine Sodium 50 mcg QAM@0600 PO 02/13/25 06:00 02/13/25 06:16 50 MCG Atorvastatin Calcium 40 mg HS PO 02/13/25 22:00 Ondansetron HCl 4 mg Q6HPRN PRN IV 02/12/25 10:00 02/13/25 08:22 4 MG Dextrose 50 ml UD PRN IV 02/12/25 13:30 Insulin Human Regular Q4HP SC 02/12/25 18:00 02/13/25 14:00 9 UNITS Diagnostic Test (Pha) 1 strip Q4H 02/12/25 18:00 02/13/25 17:42 1 STRIP Pantoprazole Sodium 40 mg DAILY IV 02/13/25 10:00 02/13/25 08:21 40 MG Insulin Glargine 36 units DAILY@1000 SC 02/14/25 10:00 Insulin Human Lispro 12 units AC SC 02/13/25 11:30 02/13/25 17:51 12 UNITS Metoclopramide HCl 5 mg Q8HR IV 02/13/25 14:00 Examination General Appearance: Alert, Oriented X3, Cooperative, No acute distress HEENT: Atraumatic, PERRLA, EOMI, Mucous membrane moist/pink Respiratory: Clear to auscultation, Normal air movement Cardiovascular: Regular rate, Normal S1, Normal S2, No murmurs, no chest wall tenderness Abdominal: Normal bowel sounds, Soft, No tenderness, No hepatospenomegaly, No masses Extremities: No clubbing, No cyanosis, No edema, Normal pulses, No tenderness/swelling Skin: No rashes, No breakdown, No significant lesion Neuro: Normal gait, Normal speech, Strength at 5/5 X4 ext, Normal tone, Sensation intact, Cranial nerves 3-12 NL, Reflexes 2+ Psych/Mental Status: Mental status NL, Mood NL laboratory and microbiology Laboratory Tests 02/13/25 07:17 Test 02/13/25 07:17 Range/Units Serum Glucose 219 H 74-106 mg/dL Microbiology Date/Time Source Procedure Growth Status 02/12/25 03:00 Nose MRSA Screen - Final Complete Labs and/or images reviewed: Labs reviewed by me, Image(s) reviewed by me Problem List/Assessment/Plan Problem List/Assessment/Plan Uncontrolled diabetes type 2 with diabetic ketoacidosis Hypothyroidism Dyslipidemia CKD Hypertension Ex-smoker JUAN JOSE, on CKD, likely VMN Hypophosphatemia Sirs positive with no end-organ damage * Insulin drip was given, we subsequently and anion gap was closed and the patient nausea and vomiting improved, drips stopped and patient was given insulin Lantus * Lantus 36 units daily, Insulin lispro 10 units/mL 3 times daily and Insulin regular q.4 hours according to moderate sliding scale * IV fluid, Pain management * Zofran * Continue home meds DIET: Clear liquid diet DVT PROPHYLAXIS: Lovenox GI PROPHYLAXIS:: Protonix CODE STATUS: Goal of care discussed for more than 18 minutes, full code DISPOSITION: Telemetry Patient's status and plan discussed with the patient. Case discussed with Dr. Medina. Plan discussed with: Patient, Other (RN) My Orders My Orders Orders - TANYA LAYNE RESDILISSETH Procedure Category Date Status Time Clear Liq Diet DIET 02/13/25 Transmitted Breakfast Metoclopramide PHA 02/13/25 In Process Injection (Reglan 14:00 Date of Service: Feb 13, 2025 Billing Provider: RAMÍREZ MEDINA MD Common Visit Codes: [id number] INP/OBS CARE(HIGH) TANYA LAYNE Feb 13, 2025 18:38 RAMÍREZ MEDINA MD Feb 17, 2025 20:32
[2025-02-13] MEDS: ACETAMINOPHEN 325 MG TAB PO ONE (21:33)
[2025-02-13] MEDS: ATORVASTATIN 20 MG TAB PO SCH (21:34)
[2025-02-14 01:00] VITALS: BP 133/69; PULSE 58; RESP 18; TEMP 98; O2SAT 100
[2025-02-14] MEDS: HYDROcodone-ACET 10/325MG TAB PO ONE (01:42)
[2025-02-14 05:00] VITALS: BP 114/61; PULSE 52; RESP 17; TEMP 98.6; O2SAT 99
[2025-02-14 06:46] LABS: Hematocrit 32.5 % (41.0-53.0); Hemoglobin 12.1 g/dL (13.5-17.5); Mean Corpuscular Hemoglobin 31.6 pg (28.0-32.0); Mean Corpuscular Volume 84.7 fL (80.0-100.0); Nucleated Red Blood Cells % 0.1 %
[2025-02-14] MEDS: INSULIN LISPRO (HUMAN) 100 UNITS/ML ML SC SCH ×2 (07:00→17:47)
[2025-02-14 07:05] LABS: Alanine Aminotransferase 21 U/L (7-40); Albumin 3.3 g/dL (3.2-4.8); Anion Gap 7 (5-15); BUN/Creatinine Ratio 11.9 (10.0-20.0); Blood Urea Nitrogen 10 mg/dL (9-23); Carbon Dioxide 25 mmol/L (20-31); Sodium 140 mmol/L (136-145)
[2025-02-14 07:06] LABS: Alkaline Phosphatase 128 U/L (46-116); Bilirubin, Total 0.7 mg/dL (0.2-1.0); Calcium 8.3 mg/dL (8.7-10.4); Chloride 108 mmol/L (98-107); Glucose 177 mg/dL (74-106); Potassium 3.1 mmol/L (3.5-5.1); Total Protein 5.7 g/dL (5.7-8.2)
[2025-02-14 07:56] VITALS: PULSE 51
[2025-02-14 09:00] VITALS: BP 139/97; PULSE 58; RESP 19; TEMP 98.8; O2SAT 100
[2025-02-14] MEDS ORDERED: INSULIN LANTUS (GLARGINE) 1 /0.01ml (100units/ml) SC SCH (10:00)
[2025-02-14] MEDS: INSULIN LANTUS (GLARGINE) 1 /0.01ml (100units/ml) SC SCH (10:54)
[2025-02-14] MEDS: POTASSIUM CHLORIDE 40 MEQ, LIDOCAINE 1% (LOCAL ANESTH.) 4 ML in SODIUM CHL 0.9% 250 ML IV ONE (11:46)
[2025-02-14 13:00] VITALS: BP 129/69; PULSE 57; RESP 18; TEMP 97.6; O2SAT 99
[2025-02-14 17:00] VITALS: BP 133/89; PULSE 60; RESP 18; TEMP 98.7; O2SAT 100
[2025-02-14] MEDS ORDERED: GLUC-224 VI (18:33)
[2025-02-14] MEDS ORDERED: BLOO-89 XX (18:33)
[2025-02-14] MEDS ORDERED: INSU100I2 SC (18:33)
[2025-02-14] MEDS ORDERED: LANC-347 XX (18:33)
[2025-02-14] MEDS ORDERED: BLOO-169 XX (18:33)
[2025-02-14] MEDS ORDERED: INSUINJ37 SC (18:33)
--- NOTE | 2025-02-14 18:36 | DVHDSRES ---
Discharge Summary Date of Admission Resident Creating Document: TANYA LAYNE RESDILISSETH Feb 11, 2025 at 22:09 Date of Discharge: Feb 14, 2025 Labs/Diagnostic Data: Laboratory Results Test 02/14/25 17:46 02/14/25 05:02 02/13/25 07:17 02/12/25 14:06 POC Glucose 97 mg/dl (70-106) White Blood Count 4.6 10^3/uL (4.4-10.8) Red Blood Count 3.84 10^6/uL (4.5-5.90) Hemoglobin 12.1 g/dL (13.5-17.5) Hematocrit 32.5 % (41.0-53.0) Mean Corpuscular Volume 84.7 fL (80.0-100.0) Mean Corpuscular Hemoglobin 31.6 pg (28.0-32.0) Mean Corpuscular Hemoglobin Concent 37.3 g/dL (32.0-36.0) Red Cell Distribution Width 13.3 % (11.8-14.3) Platelet Count 199 10^3/uL (140-450) Mean Platelet Volume 8.0 fL (6.9-10.8) Neutrophils (%) (Auto) 48.2 % (37.0-80.0) Lymphocytes (%) (Auto) 40.9 % (10.0-50.0) Monocytes (%) (Auto) 9.8 % (0.0-12.0) Eosinophils (%) (Auto) 0.5 % (0.0-7.0) Basophils (%) (Auto) 0.6 % (0.0-2.0) Neutrophils # (Auto) 2.2 10 ^3/uL (1.6-8.6) Lymphocytes # (Auto) 1.9 10 ^3/uL (0.4-5.4) Monocytes # (Auto) 0.4 10 ^3/uL (0-1.3) Eosinophils # (Auto) 0 10 ^3/uL (0-0.8) Basophils # (Auto) 0 10 ^3/uL (0-0.2) Nucleated Red Blood Cells 0.1 % Sodium Level 140 mmol/L (136-145) Potassium Level 3.1 mmol/L (3.5-5.1) Chloride Level 108 mmol/L (98-107) Carbon Dioxide Level 25 mmol/L (20-31) Anion Gap 7 (5-15) Blood Urea Nitrogen 10 mg/dL (9-23) Creatinine 0.84 mg/dL (0.700-1.30) Glomerular Filtration Rate Calc 109 mL/min (>90) BUN/Creatinine Ratio 11.9 (10.0-20.0) Serum Glucose 177 mg/dL (74-106) Calcium Level 8.3 mg/dL (8.7-10.4) Total Bilirubin 0.7 mg/dL (0.2-1.0) Aspartate Amino Transferase (AST) 23 U/L (13-40) Alanine Aminotransferase (ALT) 21 U/L (7-40) Alkaline Phosphatase 128 U/L (46-116) Total Protein 5.7 g/dL (5.7-8.2) Albumin 3.3 g/dL (3.2-4.8) Hemoglobin A1c 10.5 % A1C (<5.7) Phosphorus Level 2.6 mg/dL (2.4-5.1) Urine Color Yellow (Yellow) Urine Clarity Clear (Clear) Urine pH 6.0 (5.0-9.0) Urine Specific [place] 1.027 (1.001-1.035) Urine Protein 1+ (Negative) Urine Ketones 3+ (Negative) Urine Blood Negative /uL (Negative) Urine Nitrite Negative (Negative) Urine Bilirubin Negative (Negative) Urine Urobilinogen Normal mg/dL (Negative) Urine Leukocyte Esterase Negative /uL (Negative) Urine RBC <1 /hpf (0 - 3) Urine Microscopic WBC < 1 /HPF (0-3) Urine Squamous Epithelial Cells None seen /hpf (<5) Urine Bacteria None seen /hpf (None Seen) Urine Glucose 4+ mg/dL (Normal) Urine Opiates Screen Neg (NEGATIVE) Urine Fentanyl Screen Neg (NEGATIVE) Urine Barbiturates Screen Neg (NEGATIVE) Urine Phencyclidine Screen Neg (NEGATIVE) Urine Amphetamines Screen Neg (NEGATIVE) Urine Benzodiazepines Screen Neg (NEGATIVE) Urine Cocaine Screen Neg (NEGATIVE) Urine Cannabinoids Screen Neg (NEGATIVE) Test 02/12/25 08:51 02/11/25 20:17 02/11/25 18:38 Lipase 24 U/L (12-53) Blood Gas Specimen Type Venous Blood Gas Sample Site Vbg - n/a Blood Gas Patient Temperature 37.0 Arterial Blood Date Drawn [id number] Ronny Test N/a Venous Blood pH 7.325 (7.320-7.430) Venous Blood pCO2 at Patient Temp 32.0 mmHg (38.0-54.0) Venous Blood pO2 at Patient Temp 63.5 mmHg (23.0-48.0) Venous Blood HCO3 16.3 mmol/L (22.0-29.0) Venous Blood Base Excess -8.4 mmol/L (-2.0-3.0) Blood Gas Modality Room air Blood Gas Spontaneous Rate 18 FiO2 % 21.0 Specimen Drawn By Serum Osmolality 325 mOsm/kg (278-298) Magnesium Level 2.4 mg/dL (1.6-2.6) Beta-Hydroxybutyric Acid > 4.500 mmol/L (< 0.4) Other Laboratory Tests 02/14/25 05:02 Brief Hx & Hospital Course: HISTORY OF PRESENT ILLNESS: This is a 45-year-old male with past medical history of uncontrolled diabetes type 2, hypothyroidism, CKD and dyslipidemia came to the hospital due to nausea, and vomiting. Per patient, he was recently discharged from hospital and was not able to take his medicines 5 days. He gradually developed nausea, vomiting, abdominal pain and generalized weakness. Upon checking his glucose at facility, glucose was high which prompted this visit. He denies fever, chest pain, shortness of breath, or any recent sick contact. PMHx:uncontrolled diabetes type 2, hypothyroidism, CKD and dyslipidemia PSHx: Nonsignificant Home medication: Insulin Lantus 30 units, insulin regular according to sliding scale, atorvastatin, pregabalin, levothyroxine, Lasix and fluoxetine Allergic history: No known allergy HOSPITAL COURSE: Patient was admitted at the line of the , the patient was started on insulin drip. Patient was also given IV fluid and potassium. Subsequently the patient condition improved, nausea and vomiting resolved, insulin Lantus was started and after 2 drip was discontinued. The patient was also given insulin lispro 10 units/mL and insulin lispro sliding scale. Nausea was managed with Zofran and Reglan. On 02/15/2012, the patient was feeling better since admission. The patient was able to tolerate oral intake, discharge plan discussed with the patient the patient discharged home. DISCHARGE PLAN: Follow up with the PCP within 1 week of the discharge. Follow up with the discharge Clinic within 1 week of discharge. Follow up with the [facility] on outpatient basis. Insulin Lantus 36 units daily Insulin lispro 10 units pre meal and insulin lispro according to sliding scale premeal (1 units insulin per 50 mg glucose above 150) Glucometer was also sent to patient Continue home meds FINAL DIAGNOSIS: Uncontrolled diabetes type 2 with diabetic ketoacidosis Hypothyroidism Dyslipidemia CKD Hypertension Ex-smoker JUAN JOSE, on CKD, likely VMN Hypophosphatemia Sirs positive with no end-organ damage Condition at Discharge: Good Final Diagnosis/Problems List DKA Discharge Disposition: Home Discharge Instruct/Medications Diet: Consistent carbohydrate Activity: No Restrictions, As Tolerated Follow Up/Referral: Follow up with the PCP within 1 week of the discharge. Follow up with the discharge Clinic within 1 week of the discharge. Follow up with [facility] on outpatient basis Medications: Insulin Lantus 30 units daily Insulin lispro 10 units premeal and insulin lispro according to sliding scale premeal (give 1 units of lispro for every 50 mg of glucose above 150) Continue home meds Scheduled Glucose Blood (Easy Touch Glucose Test S), 1 EA AC Insulin Glargine (Lantus Solostar), 36 UNIT SC DAILY Insulin Lispro (Human) (Humalog), 10 UNIT SC AC Simvastatin (Simvastatin), 10 MG PO DAILY, (Reported) Miscellaneous Medications Fluoxetine Hcl (Fluoxetine Hcl), Unknown Dose PO, (Reported) Discontinued Medications Insulin Aspart Protamine & Asp (Novolog Mix 70/30 Prefill (70-30) 100 Unit/ml), 1 INJ SC, (Reported) Insulin Glargine (Lantus), 40 UNIT SC DAILY@DINNER, (Reported) Gomer Carbonate (Gomer Carbonate), Unknown Dose PO, (Reported) Pantoprazole Sodium Sesquihydr (Pantoprazole Sodium), 40 MG PO DAILY Durable Medical Equipment Blood Glucose Monitoring Suppl (Easy Touch Glucose Monito), EA XX AC, (DME) Isopropyl Alcohol (Advocate Alcohol Prep Pad), % XX AC, (DME) Lancets (Freestyle Lancets), EA XX AC, (DME) Discharge Statement: "Patient was advised to return to the ER or call 911 if any headaches, dizziness, shortness of breath, chest pain, abdominal pain, bleeding, fevers, or worsening of medical condition. Patient was counseled about treatment plan, medications, possible side effects, patientverbalized understanding. All questions were answered to the best of my ability. This discharge took greater then 30 minutes in planning, reviewing documentation, counseling the patient, and discussing with other team members." ASSESSMENT ASSESSMENT Assessment DKA Date of Service: Feb 14, 2025 Billing Provider: RAMÍREZ MEDINA MD Common Visit Codes: 78690-[id number] DISCH DAY >30min TANYA LAYNE RESDIENT Feb 14, 2025 18:36 RAMÍREZ MEDINA MD Feb 17, 2025 20:48
== END 2025-02-14 19:30 | disposition home or self-care (01) | DRG 420 ==
LOC: EDBD 16:52 → EDUNIT# 16:52 → ER 16:52 → EDSEX 16:52 → OVERFLOW 22:09 → EAST 02-12 02:54 → OVERFLOW 02-12 15:50 → DOU IN ADS 02-12 15:56 → TELE-WESTW 02-12 20:15
PROVIDERS: ADMIT Student in an Organized Health Care Education/Training Program; ATTEND Emergency Medicine
DX: E10.10 Type 1 diabetes mellitus with ketoacidosis without coma (principal); N17.0 Acute kidney failure with tubular necrosis; R65.10 Systemic inflammatory response syndrome (SIRS) of non-infectious origin without acute organ dysfunction; I12.9 Hypertensive chronic kidney disease with stage 1 through stage 4 chronic kidney disease, or unspecified chronic kidney disease; E83.39 Other disorders of phosphorus metabolism; N18.9 Chronic kidney disease, unspecified; E03.9 Hypothyroidism, unspecified; F17.210 Nicotine dependence, cigarettes, uncomplicated; E78.5 Hyperlipidemia, unspecified; Z79.4 Long term (current) use of insulin
CPT/HCPCS: 36415; 36600; 80048; 80053; 80307; 81001; 82010; 82805; 82962; 83036; 83690; 83735; 83930; 84100; 85025; 87081; 93306; 96361; 96365; 96366; 96372; 96375; 99291; G0378; J1815; J2003; J2405; J2470

== ENCOUNTER 2025-06-04 00:52 | Inpatient (IN) | payer MEDICAID ==
[2025-06-04] VITALS (7 sets, daily range): BP systolic 136–149; BP diastolic 69–91; PULSE 64–90; RESP 12–21; TEMP 97.5–98.2; O2SAT 95–99
[~2025-06-04] VITALS: Ht 182.9 cm; Wt 120.5 kg
[~2025-06-04 00:52] MED LIST changes: +BLOO-169 XX; +BLOO-89 XX; +GLUC-224 VI; -INSLANTI SC; +INSU100I2 SC; -INSUINJ18 SC; +INSUINJ37 SC; +LANC-347 XX; -LITH300C3 PO; -PANT40T PO
[2025-06-04] MEDS: DEXTROSE (50%) 50ML SYRG IV ONE (01:10)
[2025-06-04] MEDS: DEXTROSE 50% SYRINGE 50 ML IV ONE (01:10)
--- NOTE | 2025-06-04 01:33 | ED.PDOC ---
History of present illness HPI Comments 45-year-old male with a PMH of diabetes mellitus and anxiety was brought to the ER via EMS for hypoglycemia. As per EMS, patient's mother had reported to them that the patient had taken his normal dose of insulin and gone to rest in the sofa, and after awhile she found him sweaty, clammy, cold and unresponsive, prompting her to call EMS. Mother reported that there has been no change in his recent insulin regimen, that the patient has had several episodes of DKA, but this is the 1st episode of hypoglycemia. In the ambulance patient's blood glucose level was 21 for which 250 mL D10 was administered, and patient was given a peanut butter and jelly sandwich (which he ate half of) and blood glucose level came to 178. EMS reports that the patient's GCS was 13, and that he was lethargic throughout. On initial assessment in the ER, patient was still lethargic, diaphoretic and GCS was 13. His blood glucose was 55, repeated was 61. He was given 2 boluses of 50%, 15 mL of D10 in the ER, and blood glucose levels improved to 145. Initial Vitals were temp 96.5 (axillary), BP 157/82 mmHg, RR 22, HR 73,, SpO2 99% at r.a. Patient requires further workup and management. Chief Complaint: Hypoglycemia Time Seen by MD: 01:09 Primary Care Provider: ? Allergies: Coded Allergies: NO KNOWN ALLERGIES (Unverified , 09/06/13) Home Meds Active Scripts Isopropyl Alcohol (Advocate Alcohol Prep Pad) 70 % Pad, % XX AC, #120 2 Refills Check glucose 3 times a day premeal Prov:HEBALAJIDEONWAD RESDIENT 02/14/25 Lancets (Freestyle Lancets) Lancets Mis, EA XX AC, #120 2 Refills Check glucose 3 times a day premeal Prov:HECAMMIEDMJENNDEONWAD RESDIENT 02/14/25 Blood Glucose Monitoring Suppl (EASY TOUCH GLUCOSE MONITO) Monitor Kit, EA XX AC, #1 Check glucose 3 times a day premeal Prov:HEDEON CARPIOWAD RESDIENT 02/14/25 Glucose Blood (EASY TOUCH GLUCOSE TEST S) Strips Sasha, 1 EA AC for 30 Days, #120 MISC 2 Refills Prov:HEWADMALHEWAD RESDIENT 02/14/25 Insulin Lispro (Human) (Humalog) 100 Unit/Ml Inj, 10 UNIT SC AC for 30 Days, #10 INJ 2 Refills Prov:TANYA LAYNE RESDIENT 02/14/25 Insulin Glargine (Lantus Solostar) 100 Unit/Ml Inj, 36 UNIT SC DAILY for 30 Days, #10 INJ 2 Refills Prov:TANYA LAYNE RESDIENT 02/14/25 Reported Medications Fluoxetine Hcl (Fluoxetine Hcl) Unknown Strength Cap, PO 01/16/24 Simvastatin (Simvastatin) 10 Mg Tab, 10 MG PO DAILY for 30 Days, MG 08/25/17 Mode of Arrival: Ambulatory Timing: Hours Duration: Since onset Prehospital treatment: None [place]: Sweaty, Other (Cold, clammy) Symptoms: Anxious, Sweaty History of: Diabetes, Insulin use, Frequent hyperglycemic Modifying factors: D50, Nothing Associated signs and symptoms: None Past Medical History PAST MEDICAL HISTORY: Anxiety, DM, HTN Surgical History: Pt Confused Family History Family History: Unknown Social History Smoker: Cigarettes, Less Than 1 Pack/Day Alcohol: Denies ETOH Use Drugs: Methamphetamine Lives In: Long Term Constitutional: reports: diaphoresis, sweats; denies: chills, fatigue, fever, malaise, weakness, others EENTM: denies: blurred vision, double vision, ear bleeding, ear discharge, ear drainage, ear pain, ear ringing, eye pain, eye redness, hearing loss, mouth pain, mouth swelling, nasal discharge, nose bleeding, nose congestion, nose pain, photophobia, tearing, throat pain, throat swelling, voice changes, others Respiratory: denies: cough, hemoptysis, orthopnea, SOB at rest, shortness of breath, SOB with excertion, stridor, wheezing, others Cardiovascular: denies: chest pain, dizzy spells, diaphoresis, Dyspnea on exertion, edema, irregular heart beat, left arm pain, lightheadedness, palpitations, PND, syncope, others Gastrointestinal: denies: abdomen distended, abdominal pain, blood streaked bowels, constipated, diarrhea, dysphagia, difficulty swallowing, hematemesis, melena, nausea, poor appetite, poor fluid intake, rectal bleeding, rectal pain, vomiting, others Genitourinary: denies: burning, dysuria, flank pain, frequency, hematuria, incontinence, penile discharge, penile sore, pain, testicle pain, testicle swelling, urgency, others Neurological: denies: dizziness, fainting, headache, left sided numbness, left sided weakness, numbness, paresthesia, pre-existing deficit, right sided numbness, right sided weakness, seizure, speech problems, tingling, tremors, weakness, others Musculoskeletal: denies: back pain, gout, joint pain, joint swelling, muscle pain, muscle stiffness, neck pain, others Integumetry: denies: bruises, change in color, change in hair/nails, dryness, laceration, lesions, lumps, rash, wounds, others Allergic/Immunocompromised: denies: Difficulty Healing, Frequent Infections, Hives, Itching, others Hematologic/Lymphatic: denies: anemia, blood clots, easy bleeding, easy bruising, swollen glands, others Endocrine: reports: excessive sweating; denies: excessive hunger, excessive thirst, excessive urination, flushing, intolerance to cold, intolerance to heat, unexplained weight gain, unexplained weight loss, others Psychiatric: reports: anxiety; denies: bipolar disorder, depression, hopeless, panic disorder, schizophrenia, sleepless, suicidal, others Physical Exam General Appearance: Severe Distress, Other (Diaphoretic, clammy) HEENT: NOT DONE Neck: Non-Tender, Other (No thyromegaly, no JVD, no lymphadenopathy) Respiratory: No Accessory Muscle Use, No Respiratory Distress, Normal Breath Sounds, Other (No stridor, wheezing or rhonchi present) Cardiovascular: No Edema, No JVD, No Murmur, Regular Rate/Rhythm Breast Exam: Deferred Gastrointestinal: No Organomegaly, Non Tender, Normal Bowel Sounds, Other (No guarding, no rebound tenderness, no masses felt) Genitalia: Deferred Pelvic: Deferred Rectal: Deferred Extremities: Other (No swelling) Neurologic: Other (No facial drooping), NOT DONE Cerebellar Function: Unable to Test Reflexes: NOT DONE Skin: Diaphoresis Lymphatic: Other (No cervical lymphadenopathy) Was a procedure done? Was a procedure done?: No Differential Diagnosis (DM) Differential Diagnosis: Hypoglycemia X-Ray, Labs, Meds, VS Vital Signs Date Time Temp Pulse Resp B/P (MAP) Pulse Ox O2 Delivery O2 Flow Rate FiO2 11/25/25 01:13 94.5 64 21 157/82 (107) 99 94.5 06/04/25 01:05 97.9 57 20 161/49 97.9 06/04/25 00:57 60 Lab Test 06/04/25 01:26 06/04/25 01:25 Range/Units White Blood Count 9.0 4.4-10.8 10^3/uL Red Blood Count 4.83 4.5-5.90 10^6/uL Hemoglobin 14.2 13.5-17.5 g/dL Hematocrit 40.8 L 41.0-53.0 % Mean Corpuscular Volume 84.5 80.0-100.0 fL Mean Corpuscular Hemoglobin 29.4 28.0-32.0 pg Mean Corpuscular Hemoglobin Concent 34.8 32.0-36.0 g/dL Red Cell Distribution Width 13.5 11.8-14.3 % Platelet Count 167 140-450 10^3/uL Mean Platelet Volume 8.1 6.9-10.8 fL Neutrophils (%) (Auto) 74.5 37.0-80.0 % Lymphocytes (%) (Auto) 14.1 10.0-50.0 % Monocytes (%) (Auto) 10.2 0.0-12.0 % Eosinophils (%) (Auto) 0.9 0.0-7.0 % Basophils (%) (Auto) 0.3 0.0-2.0 % Neutrophils # (Auto) 6.7 1.6-8.6 10 ^3/uL Lymphocytes # (Auto) 1.3 0.4-5.4 10 ^3/uL Monocytes # (Auto) 0.9 0-1.3 10 ^3/uL Eosinophils # (Auto) 0.1 0-0.8 10 ^3/uL Basophils # (Auto) 0 0-0.2 10 ^3/uL Nucleated Red Blood Cells 0.0 % Sodium Level 141 136-145 mmol/L Potassium Level 3.3 L 3.5-5.1 mmol/L Chloride Level 104 98-107 mmol/L Carbon Dioxide Level 26 20-31 mmol/L Anion Gap 11 5-15 Blood Urea Nitrogen 15 9-23 mg/dL Creatinine 0.95 0.700-1.30 mg/dL Glomerular Filtration Rate Calc 100 >90 mL/min BUN/Creatinine Ratio 15.8 10.0-20.0 Serum Glucose 126 H 74-106 mg/dL Calcium Level 9.2 8.7-10.4 mg/dL POC Glucose 145 H 70-106 mg/dl Current Medications Medications (Trade) Dose Ordered Sig/Leandro Route Start Time Stop Time Status Last Admin Dextrose 50 ml ONCE ONCE IV 06/04/25 01:15 06/04/25 01:16 DC 06/04/25 01:10 Images Reviewed?: Images reviewed and evaluated by me Time of 1ST Reevaluation: 01:41 Reevaluation 1ST: Improved Patient Education/Counseling: Diagnosis, Treatment Family Education/Counseling: No Family Present Comments Patient came in with hypoglycemia, initially patient's blood glucose was 55, 61 in the ER. 2 boluses of 50%, 15 mL D10 was administered. Patient's blood glucose increased to 145. CBC and BMP were WNL, except for potassium which was 3.3. Patient was given potassium orally 40 mEq. Patient requires inpatient admission for further workup, monitoring and treatment. SEPSIS Sepsis Screen Date sepsis recognized/suspect: Jun 04, 2025 Time Sepsis recognized/suspect: 0113 Recent Procedure: No On Antibiotic Therapy: No Respiratory Rate >20: No Heart Rate >90: No Temp<36 C (96.8 F) or >38.3 C: No SBP <90 or MAP <65 mmHG: No New Acute Mental Status Change: No Is the patient on CPAP, BIPAP,: No Physician Orders Electrocardigram (06/04/25 00:56) Chest Xray 1 View (06/04/25 01:18) Urinalysis (06/04/25 01:18) Potassium Chl 20meq/100ml (06/04/25 02:45) Admit (06/04/25 02:35) Notify Md Of Changes From Base (06/04/25 02:35) Accounts Receivable Associate For 24 Hours (06/04/25 02:35) Emergency Dysrhythmia Protocol (06/04/25 02:35) Rhythm Strips Once Every Shift (06/04/25 02:35) Vital Signs Date Time Temp Pulse Resp B/P (MAP) Pulse Ox O2 Delivery O2 Flow Rate FiO2 06/04/25 01:13 94.5 64 21 157/82 (107) 99 94.5 06/04/25 01:05 97.9 57 20 161/49 97.9 06/04/25 00:57 60 Laboratory Tests Test 06/04/25 01:26 White Blood Count 9.0 10^3/uL (4.4-10.8) Medications Medications Dose Ordered Sig/Leandro Route Start Time Stop Time Status Last Admin Dose Admin Dextrose 50 ml ONCE ONCE IV 06/04/25 01:15 06/04/25 01:16 DC 06/04/25 01:10 Departure 1 Departure Time of Disposition: 02:10 Impression: Primary Impression: Hypoglycemia Additional Impression: Diabetes mellitus Disposition: ADMITTED INPATIENT Admit to: Tele Condition: Unstable Critical Care Note Critical Care Time?: No Stability Stability form required: No Heart Score Heart Score: Heart Score Response (Comments) Value History N/A 0 EKG N/A 0 Age N/A 0 Risk Factors N/A 0 Troponin N/A 0 Total 0 FARRUKH FAGAN RESIDENT Jun 04, 2025 01:33
[2025-06-04 01:41] LABS: Hematocrit 40.8 % (41.0-53.0); Hemoglobin 14.2 g/dL (13.5-17.5); Mean Corpuscular Hemoglobin 29.4 pg (28.0-32.0); Mean Corpuscular Volume 84.5 fL (80.0-100.0); Nucleated Red Blood Cells % 0.0 %
[2025-06-04 01:46] LABS: Chloride 104 mmol/L (98-107); Sodium 141 mmol/L (136-145)
[2025-06-04 01:47] LABS: Anion Gap 11 (5-15); Calcium 9.2 mg/dL (8.7-10.4); Carbon Dioxide 26 mmol/L (20-31); Potassium 3.3 mmol/L (3.5-5.1)
[2025-06-04 01:52] LABS: BUN/Creatinine Ratio 15.8 (10.0-20.0); Blood Urea Nitrogen 15 mg/dL (9-23)
[2025-06-04 01:54] LABS: Glucose 126 mg/dL (74-106)
[2025-06-04] MEDS: POTASSIUM CHL 20 Meq TABLET PO ONE ×2 (02:26→11:26)
--- NOTE | 2025-06-04 02:31 | DVHHPRES ---
History of Present Illness Resident Creating Document: ANA SANDHU History of Present Illness Emanuel Wilson, a 45-year-old male with past medical history of peripheral artery disease, type 1 diabetes mellitus compliant with insulin, anxiety, mild thoracolumbar dextroscoliosis was brought to the emergency departm ent by EMS for hypoglycemia. Per EMS in the patient's mother had not skipped any meals and had taken 12 units of usual insulin dose before going to bed. Later his mother found him sweaty, clammy and minimally responsive prompting to call EMS. EMS documented in initial blood glucose of 22 mg/dL, for which they administered 25 g of D10. Upon arrival to the ED repeat glucose level was 55 mg/dL and then 61 mg/dL after additional dextrose boluses. The patient had eaten peanut butter and jelly, which makes the blood glucose 178 mg/dL. Patient has history of multiple episodes of DKA, however, the patient never experienced hypoglycemia before this episode. The patient was lethargic but arousable, AxO 1. Past medical history: As above Past surgical history:? Allergies: No known allergies Home medications:: Flows 18, blood glucose monitoring strips, insulin glargine, insulin lispro, simvastatin Smoking, alcohol, drugs: Unknown due to patient's altered mental status. According to previous notes patient is ex-smoker. Review of Systems Allergies: Coded Allergies: NO KNOWN ALLERGIES (Unverified , 09/06/13) Exam Vital Signs Vital Signs Date Time Temp Pulse Resp B/P (MAP) Pulse Ox O2 Delivery O2 Flow Rate FiO2 06/04/25 01:13 94.5 64 21 157/82 (107) 99 94.5 Labs/Xrays Labs Test 06/04/25 01:26 06/04/25 01:25 Range/Units White Blood Count 9.0 4.4-10.8 10^3/uL Red Blood Count 4.83 4.5-5.90 10^6/uL Hemoglobin 14.2 13.5-17.5 g/dL Hematocrit 40.8 L 41.0-53.0 % Mean Corpuscular Volume 84.5 80.0-100.0 fL Mean Corpuscular Hemoglobin 29.4 28.0-32.0 pg Mean Corpuscular Hemoglobin Concent 34.8 32.0-36.0 g/dL Red Cell Distribution Width 13.5 11.8-14.3 % Platelet Count 167 140-450 10^3/uL Mean Platelet Volume 8.1 6.9-10.8 fL Neutrophils (%) (Auto) 74.5 37.0-80.0 % Lymphocytes (%) (Auto) 14.1 10.0-50.0 % Monocytes (%) (Auto) 10.2 0.0-12.0 % Eosinophils (%) (Auto) 0.9 0.0-7.0 % Basophils (%) (Auto) 0.3 0.0-2.0 % Neutrophils # (Auto) 6.7 1.6-8.6 10 ^3/uL Lymphocytes # (Auto) 1.3 0.4-5.4 10 ^3/uL Monocytes # (Auto) 0.9 0-1.3 10 ^3/uL Eosinophils # (Auto) 0.1 0-0.8 10 ^3/uL Basophils # (Auto) 0 0-0.2 10 ^3/uL Nucleated Red Blood Cells 0.0 % Sodium Level 141 136-145 mmol/L Potassium Level 3.3 L 3.5-5.1 mmol/L Chloride Level 104 98-107 mmol/L Carbon Dioxide Level 26 20-31 mmol/L Anion Gap 11 5-15 Blood Urea Nitrogen 15 9-23 mg/dL Creatinine 0.95 0.700-1.30 mg/dL Glomerular Filtration Rate Calc 100 >90 mL/min BUN/Creatinine Ratio 15.8 10.0-20.0 Serum Glucose 126 H 74-106 mg/dL Calcium Level 9.2 8.7-10.4 mg/dL POC Glucose 145 H 70-106 mg/dl SEPSIS Sepsis Screen Date sepsis recognized/suspect: Jun 04, 2025 Time Sepsis recognized/suspect: 0113 Recent Procedure: No On Antibiotic Therapy: No Respiratory Rate >20: No Heart Rate >90: No Temp<36 C (96.8 F) or >38.3 C: No SBP <90 or MAP <65 mmHG: No New Acute Mental Status Change: No Is the patient on CPAP, BIPAP,: No Physician Orders Electrocardigram (06/04/25 00:56) Chest Xray 1 View (06/04/25 01:18) Urinalysis (06/04/25 01:18) Vital Signs Date Time Temp Pulse Resp B/P (MAP) Pulse Ox O2 Delivery O2 Flow Rate FiO2 06/04/25 01:13 94.5 64 21 157/82 (107) 99 94.5 06/04/25 01:05 97.9 57 20 161/49 97.9 06/04/25 00:57 60 Laboratory Tests Test 06/04/25 01:26 White Blood Count 9.0 10^3/uL (4.4-10.8) Medications Medications Dose Ordered Sig/Leandro Route Start Time Stop Time Status Last Admin Dose Admin Dextrose 50 ml ONCE ONCE IV 06/04/25 01:15 06/04/25 01:16 DC 06/04/25 01:10 50 ML Assessment/Plan Assessment/Plan Type 1 uncontrolled diabetes mellitus with hypoglycemia Uncontrolled type 1 diabetes mellitus HbA1c 7.9 -50% dextrose -monitor blood glucose -mild insulin sliding scale Hypothyroidism Levothyroxine 50 mcg Hypokalemia Repleted History of peripheral artery disease History of dyslipidemia Simvastatin 10 mg Hypertensive heart disease with chronic diastolic heart failure Echocardiography on 02/12/2025: LV ejection fraction is 65%, normal valves normal RV function no effusion. Chest x-ray on 06/03/2025: Heart appears mildly prominent in size. There are low lung volumes. The lungs appear clear without focal airspace opacity, effusion, or pneumothorax Monitor signs symptoms of volume overload and consider Lasix if necessary Hypothermia Hillary Hugger GI prophylaxis: Pantoprazole DVT prophylaxis: Lovenox Diet: NPO, consistent carbohydrate Goals of care discussed with the patient for more than 27 minutes: Full code status Case discussed with Dr. Flower, patient and RN Plan discussed with: Patient, Other (RN) Date of Service: Jun 04, 2025 Billing Provider: JOSE FLOWER MD Common Visit Codes: [id number] INP/OBS CARE (HIGH) Secondary Visit Codes: [id number] CARE PLAN 30 MINUTES ANA SANDHU Jun 04, 2025 02:31
--- NOTE | 2025-06-04 03:04 | DVH ---
CHEST RADIOGRAPH Indication: sob Technique: Single frontal view of the chest was obtained Comparison: XY CHEST PORTABLE on DOS: 10/07/24, XY CHEST XRAY 1 VIEW on DOS: 10/04/24, XY CHEST PORTABLE on DOS: 05/23/24 IMPRESSION: Heart appears nmildly prominent in size. There are low lung volumes. The lungs appear clear without focal airspace opacity, effusion, or pneumothorax
[2025-06-04 03:29] LABS: Alanine Aminotransferase 23.0 U/L (7-40); Albumin 3.9 g/dL (3.2-4.8); Alkaline Phosphatase 115.0 U/L (46-116); Bilirubin, Direct 0.1 mg/dL (<0.3); Bilirubin, Total 0.4 mg/dL (0.2-1.0); Total Protein 6.7 g/dL (5.7-8.2)
[2025-06-04] MEDS ORDERED: DEXTROSE (50%) 50ML SYRG IV PRN (03:30)
[2025-06-04 03:46] LABS: Thyroid Stimulating Hormone 3.15 uIU/mL (0.55-4.78)
[2025-06-04] MEDS: SODIUM CHLORIDE 0.9% 1,000 ML IV SCH (03:52)
[2025-06-04] MEDS: POTASSIUM CHL 20MEQ/100ML 100 ML IV SCH (03:52)
[2025-06-04 03:58] LABS: Lactic Acid w/Reflex 2.3 mmol/L (0.4-2.0)
[2025-06-04 05:40] LABS: COVID19 ANTIGEN SOFIA FIA NEGATIVE (NEGATIVE)
--- NOTE | 2025-06-04 05:55 | DVH ---
EXAM: CT HEAD WITHOUT CONTRAST INDICATION: Altered level of consciousness. TECHNIQUE: CT of the head without intravenous contrast. Coronal and sagittal reformatted images are submitted. Radiation Dose : 1. Head: CT Dose: CTDI volume is 67.68 mGy. Dose-length product is 1082.8 mGy*cm The dose indicators for CT are the volume Computed Tomography (CT) Dose Index (CTDIvol) and the Dose Length Product (DLP), and are measured in units of mGy and mGy-cm, respectively. These indicators are not patient dose, but values generated from the CT scanner acquisition factors. The report includes radiation exposure data for exposures received during this examination. All CT scans at this medical facility are performed using dose modulation techniques as appropriate to a performed exam including the following: Automated exposure control was utilized; adjustment of the MA and/or KV according to patient size; and use of iterative reconstruction technique. COMPARISON: CT HEAD WITHOUT CONTRAST on DOS: 01/17/24 FINDINGS: There is no evidence of acute intracranial hemorrhage, extra-axial collection, mass effect, midline shift, herniation or hydrocephalus. The ventricles, sulci and cisterns are age appropriate. The chun-white differentiation is intact. The visualized paranasal sinuses and mastoid air cells are clear. No depressed calvarial fracture. The surrounding soft tissues are unremarkable. IMPRESSION: 1. No acute intracranial abnormality.
[2025-06-04] MEDS: LEVOTHYROXINE SODIUM 50 MCG TAB PO SCH (06:00)
--- NOTE | 2025-06-04 06:02 | ECG ---
[facility] Test Date: 2025-06-04 Test Time: 00:57:44 Pat Name: JORGE SANTANA Department: ED Room: 0214T Gender: M [employer] Core Layer: TI : 1980 Requested By: CLAUDE ISSA Order Number: [id number] Reading MD: Sunil Morgan Measurements Intervals [place] Rate: 60 P: 58 MD: 171 QRS: 45 QRSD: 95 T: 33 QT: 458 QTc: 458 Interpretive Statements Sinus rhythm Atrial premature complex Electronically Signed On 06-05-2025 17:46:55 PST by Sunil Morgan Please click the below link to view image of tracing.
[2025-06-04] MEDS: InsuLIN REG 1unit/0.01ml Soln (100units/ml) SC SCH (08:16)
[2025-06-04] MEDS: ACCU-CHEK COMFORT CURVE STRIP VI SCH (08:16)
[2025-06-04] MEDS: PANTOPRAZOLE 40 MG/10 ML VIAL INJ IV SCH (11:25)
[2025-06-04] MEDS: ENOXAPARIN SOD 40 MG/0.4 ML SYRINGE SC SCH (11:26)
[2025-06-04] MEDS ORDERED: ATORVASTATIN 20 MG TAB PO SCH (22:00)
[2025-06-04] MEDS ORDERED: GABA300T4 PO (22:53)
[2025-06-05] VITALS (7 sets, daily range): BP systolic 114–151; BP diastolic 76–86; PULSE 66–87; RESP 18–19; TEMP 97.7–98.7; O2SAT 95–98
[2025-06-05 07:18] LABS: Urine Protein, UAD TRACE (Negative)
[2025-06-05 08:27] LABS: Opiate Scree,Urine Neg (NEGATIVE)
[2025-06-05 08:29] LABS: Amphetamine Screen, Urine Neg (NEGATIVE); Barbiturate Scree,Urine Neg (NEGATIVE); Benzodiazephine Screen, Urine Neg (NEGATIVE); Cannabinoid Screen, Urine Neg (NEGATIVE); Cocaine Screen, Urine Neg (NEGATIVE); Phencyclidine Screen, Urine Neg (NEGATIVE)
--- NOTE | 2025-06-05 13:14 | DVHDS2 ---
Discharge Summary Date of Admission Jun 04, 2025 at 02:35 Date of Discharge: Jun 05, 2025 Labs/Diagnostic Data: Laboratory Results Test 06/05/25 11:22 06/05/25 06:00 06/04/25 04:48 06/04/25 03:28 POC Glucose 309 mg/dl (70-106) Urine Color Light-yellow (Yellow) Urine Clarity Clear (Clear) Urine pH 6.5 (5.0-9.0) Urine Specific [place] 1.016 (1.001-1.035) Urine Protein Trace (Negative) Urine Ketones Negative (Negative) Urine Blood Negative /uL (Negative) Urine Nitrite Negative (Negative) Urine Bilirubin Negative (Negative) Urine Urobilinogen Normal mg/dL (Negative) Urine Leukocyte Esterase Negative /uL (Negative) Urine RBC 1 /hpf (0 - 3) Urine Microscopic WBC < 1 /HPF (0-3) Urine Squamous Epithelial Cells None seen /hpf (<5) Urine Bacteria None seen /hpf (None Seen) Urine Glucose 4+ mg/dL (Normal) Urine Opiates Screen Neg (NEGATIVE) Urine Fentanyl Screen Neg (NEGATIVE) Urine Barbiturates Screen Neg (NEGATIVE) Urine Phencyclidine Screen Neg (NEGATIVE) Urine Amphetamines Screen Neg (NEGATIVE) Urine Benzodiazepines Screen Neg (NEGATIVE) Urine Cocaine Screen Neg (NEGATIVE) Urine Cannabinoids Screen Neg (NEGATIVE) Influenza Type A Antigen Negative (Negative) Influenza Type B Antigen Negative (Negative) SARS-CoV-2 Antigen (Rapid) Negative (NEGATIVE) Lactic Acid Level 1.1 mmol/L (0.4-2.0) Test 06/04/25 01:26 White Blood Count 9.0 10^3/uL (4.4-10.8) Red Blood Count 4.83 10^6/uL (4.5-5.90) Hemoglobin 14.2 g/dL (13.5-17.5) Hematocrit 40.8 % (41.0-53.0) Mean Corpuscular Volume 84.5 fL (80.0-100.0) Mean Corpuscular Hemoglobin 29.4 pg (28.0-32.0) Mean Corpuscular Hemoglobin Concent 34.8 g/dL (32.0-36.0) Red Cell Distribution Width 13.5 % (11.8-14.3) Platelet Count 167 10^3/uL (140-450) Mean Platelet Volume 8.1 fL (6.9-10.8) Neutrophils (%) (Auto) 74.5 % (37.0-80.0) Lymphocytes (%) (Auto) 14.1 % (10.0-50.0) Monocytes (%) (Auto) 10.2 % (0.0-12.0) Eosinophils (%) (Auto) 0.9 % (0.0-7.0) Basophils (%) (Auto) 0.3 % (0.0-2.0) Neutrophils # (Auto) 6.7 10 ^3/uL (1.6-8.6) Lymphocytes # (Auto) 1.3 10 ^3/uL (0.4-5.4) Monocytes # (Auto) 0.9 10 ^3/uL (0-1.3) Eosinophils # (Auto) 0.1 10 ^3/uL (0-0.8) Basophils # (Auto) 0 10 ^3/uL (0-0.2) Nucleated Red Blood Cells 0.0 % Sodium Level 141 mmol/L (136-145) Potassium Level 3.3 mmol/L (3.5-5.1) Chloride Level 104 mmol/L (98-107) Carbon Dioxide Level 26 mmol/L (20-31) Anion Gap 11 (5-15) Blood Urea Nitrogen 15 mg/dL (9-23) Creatinine 0.95 mg/dL (0.700-1.30) Glomerular Filtration Rate Calc 100 mL/min (>90) BUN/Creatinine Ratio 15.8 (10.0-20.0) Serum Glucose 126 mg/dL (74-106) Hemoglobin A1c 7.9 % A1C (<5.7) Calcium Level 9.2 mg/dL (8.7-10.4) Magnesium Level 1.9 mg/dL (1.6-2.6) Total Bilirubin 0.4 mg/dL (0.2-1.0) Direct Bilirubin 0.1 mg/dL (<0.3) Aspartate Amino Transferase (AST) 15 U/L (13-40) Alanine Aminotransferase (ALT) 23 U/L (7-40) Alkaline Phosphatase 115 U/L (46-116) Lactate Dehydrogenase 208 U/L (120-246) B-Type Natriuretic Peptide 27.52 pg/mL (0-100) Total Protein 6.7 g/dL (5.7-8.2) Albumin 3.9 g/dL (3.2-4.8) Beta-Hydroxybutyric Acid 0.083 mmol/L (< 0.4) Thyroid Stimulating Hormone (TSH) 3.15 uIU/mL (0.55-4.78) Other Laboratory Tests 06/04/25 01:26 Brief Hx & Hospital Course: 45-year-old male with a known history of insulin-dependent diabetes mellitus type 1, peripheral neuropathy, anxiety disorder, dyslipidemia who initially presented to the hospital with a altered mental status after he was found to have low blood sugar with a sweatiness and cold and clamminess at home by mother. Patient has stated that his blood sugar was 22 for which they administer D10 25 g. Patient's blood sugar went up to 61. Patient was eventually admitted. Currently patient is stating that he is taking high dose of regular insulin with the meals. Patient was instructed to take only low dose of regular insulin. Patient is currently understand verbalized understanding and agreeable to plan. Patient is being discharged under stable condition. Condition at Discharge: Stable Final Diagnosis/Problems List 1. Acute hypoglycemic encephalopathy resolved 2. Symptomatic hypoglycemia, resolved 3. Insulin-dependent diabetes mellitus type 1 4. Dyslipidemia 5. Peripheral neuropathy 6. Anxiety disorder Discharge Disposition: Home SNF Discharge Will this Physician continue t: No Discharge Instruct/Medications Diet: Cardiac 2g Na,low cholest Diet comment: 1800 ADA diet. Activity: No Restrictions, As Tolerated Follow Up/Referral: Please follow up with the PCP in 1-2 weeks Medications: Resume home medications, take insulin sliding scale short-acting low dose only. Continued Medications: Fluoxetine Hcl (Fluoxetine Hcl) Unknown Strength Cap Unknown Dose PO Gabapentin (Once-Daily) (Gabapentin) 300 Mg Tab 300 MG PO TID, TAB Glucose Blood (Easy Touch Glucose Test S) Strips Sasha 1 EA AC for 30 Days, #120 MISC 2 Refills Insulin Glargine (Lantus Solostar) 100 Unit/Ml Inj 36 UNIT SC DAILY for 30 Days, #10 INJ 2 Refills Insulin Lispro (Human) (Humalog) 100 Unit/Ml Inj 10 UNIT SC AC for 30 Days, #10 INJ 2 Refills Simvastatin (Simvastatin) 10 Mg Tab 10 MG PO DAILY for 30 Days, MG Scheduled Gabapentin (Once-Daily) (Gabapentin), 300 MG PO TID, (Reported) Glucose Blood (Easy Touch Glucose Test S), 1 EA AC Insulin Glargine (Lantus Solostar), 36 UNIT SC DAILY Insulin Lispro (Human) (Humalog), 10 UNIT SC AC Simvastatin (Simvastatin), 10 MG PO DAILY, (Reported) Miscellaneous Medications Fluoxetine Hcl (Fluoxetine Hcl), Unknown Dose PO, (Reported) Durable Medical Equipment Blood Glucose Monitoring Suppl (Easy Touch Glucose Monito), EA XX AC, (DME) Isopropyl Alcohol (Advocate Alcohol Prep Pad), % XX AC, (DME) Lancets (Freestyle Lancets), EA XX AC, (DME) Discharge Statement: "Patient was advised to return to the ER or call 911 if any headaches, dizziness, shortness of breath, chest pain, abdominal pain, bleeding, fevers, or worsening of medical condition. Patient was counseled about treatment plan, medications, possible side effects, patientverbalized understanding. All questions were answered to the best of my ability. This discharge took greater then 30 minutes in planning, reviewing documentation, counseling the patient, and discussing with other team members." ASSESSMENT ASSESSMENT Assessment 1. Acute hypoglycemic encephalopathy resolved 2. Symptomatic hypoglycemia, resolved 3. Insulin-dependent diabetes mellitus type 1 4. Dyslipidemia 5. Peripheral neuropathy 6. Anxiety disorder Date of Service: Jun 05, 2025 Billing Provider: LAKHWINDER PACKER MD Common Visit Codes: 81779-TFO/OBS DISCH DAY >30min LAKHWINDER PACKER MD Jun 05, 2025 13:14
== END 2025-06-05 15:26 | disposition home or self-care (01) | DRG 420 ==
LOC: ER 00:52 → EDBD 00:52 → OVERFLOW 02:35 → TELE-CENTR 14:16
PROVIDERS: ADMIT Internal Medicine; ATTEND Internal Medicine
DX: E10.649 Type 1 diabetes mellitus with hypoglycemia without coma (principal); G93.49 Other encephalopathy; I50.32 Chronic diastolic (congestive) heart failure; I11.0 Hypertensive heart disease with heart failure; E03.9 Hypothyroidism, unspecified; E10.51 Type 1 diabetes mellitus with diabetic peripheral angiopathy without gangrene; Z20.822 Contact with and (suspected) exposure to COVID-19; E87.6 Hypokalemia; F41.9 Anxiety disorder, unspecified; F17.210 Nicotine dependence, cigarettes, uncomplicated; E78.5 Hyperlipidemia, unspecified; Z79.4 Long term (current) use of insulin
CPT/HCPCS: 36415; 70450; 71045; 80048; 80076; 80307; 81001; 82010; 82962; 83036; 83605; 83615; 83735; 83880; 84443; 85025; 87426; 87804; 93005; 96374; G0378; J1815; J2470; J3480